=== PATIENT | female | born 1965 | race Caucasian/White ===

== ENCOUNTER 2019-12-01 18:33 | Inpatient (IN) | payer BC ==
[2019-12-01] MEDS ORDERED: Albuterol/Ipratropium 3.0-0.5 MG/3 ML Neb Soln NEB ONE (19:03)
[2019-12-01] MEDS ORDERED: methylPREDNISolone Sodium Succinate 125 MG/2 ML SDV IVPUSH ONE (19:05)
[2019-12-01] MEDS ORDERED: Diltiazem 50 MG/10 ML SDV IVPUSH STA (19:08)
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
[2019-12-01] MEDS ORDERED: Diltiazem 125 MG in Sodium Chloride 0.9% 100 ML IV SCH (19:15)
--- NOTE | 2019-12-01 20:46 | CR ---
Chest: Portable view of the chest was obtained. Comparison: Prior chest x-ray of 12/01/16. Heart appears to be slightly enlarged. Diffuse increased lung markings are seen believed to represent pulmonary vascular congestion with interstitial edema. Bony structures are grossly intact. Lungs are slightly hyperinflated suggesting emphysematous change. Possible small left-sided pleural effusion is seen. Impression: 1. Findings which are felt compatible with CHF with early interstitial edema. Small left-sided pleural effusion is noted. 2. Probable emphysematous change. Diagnostic code #3 This report was dictated in [place] Standard Time
[2019-12-01] MEDS ORDERED: Sodium Chloride 0.9% 10 ML Syringe FLUSH PRN (20:55)
[2019-12-01] MEDS ORDERED: Iopamidol 755 Mg/ML 100 ML Bottle IVPUSH ONE (20:55)
[2019-12-01] MEDS ORDERED: Sodium Chloride 0.9% 100 ML IV SCH (21:00)
[2019-12-01] MEDS ORDERED: Levofloxacin 750 MG Tab PO STA (22:04)
--- NOTE | 2019-12-01 23:03 | PCM.HP.2 ---
H&P History of Present Illness - General Date of Service: 12/01/19 - History of Present Illness Initial Comments - Free Text/Narative: 53-year-old female with long history of smoking and history of asthma and COPD presents to the emergency room with 10 days of worsening dyspnea. Patient is on 2-1/2 L of oxygen at home. She states she has had a productive cough of clear sputum but has not been wheezing. She states this started when she was at work and she felt like she had a "chemical burn" from some chemicals at work. She denies any fever, chills, night sweats, she does currently complain of being hot though. She denies any chest pain, palpitations, nausea or vomiting. She does have a history of paroxysmal atrial fibrillation. In the emergency room she was found to be in A. fib with RVR. She was placed on a diltiazem drip. In the emergency room she was found to be tachypneic and tachycardic with oxygen saturations in the low 80s on 5 L per nasal cannula she increased to 90%. Was given DuoNeb, Solu-Medrol 125 mg, and Levaquin. Preliminary reading CT of the chest showed: 1. No acute pulmonary embolism. 2. Consolidation involving the left perihilar region extending down into the inferior lingula and left lung base. 3. Additional diffuse interstitial infiltrates throughout both lungs - Related Data Allergies/Adverse Reactions: Allergies Allergy/AdvReac Type Severity Reaction Status Date / Time diphenhydramine HCl Allergy Severe Anaphylactic Verified 12/01/19 18:43 [From Benadryl] Shock Home Medications: Home Meds Albuterol Sulfate [Albuterol Sulfate Hfa] 2 puff INH Q4HR PRN 12/01/19 [History] Budesonide/Formoterol [Symbicort 160-4.5 MCG] 1 puff INH DAILY 12/01/19 [History ] Diltiazem [Dilacor XR] 240 mg PO DAILY 12/01/19 [History] Sertraline [Zoloft] 50 mg PO DAILY 12/01/19 [History] Simvastatin 10 mg PO BEDTIME 12/01/19 [History] hydroCHLOROthiazide [Hydrochlorothiazide] 25 mg PO DAILY 12/01/19 [History] Past Medical History Cardiovascular History: Reports: Afib, High Cholesterol, Hypertension Other Cardiovascular History: ON/OFF RACING HEART Respiratory History: Reports: Asthma, COPD, Sleep Apnea Gastrointestinal History: Reports: GERD Genitourinary History: Reports: Urinary Incontinence (stress incontinence) 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: Psychiatric History: Reports: Anxiety, Depression, OCD - Past Surgical History Female Surgical History: Reports: Section Musculoskeletal Surgical History: Reports: Other (See Below) Social & Family History - Family History Family Medical History: Noncontributory - Tobacco Use Smoking Status *Q: Light Tobacco Smoker Years of Tobacco use: 40 Packs/Tins Daily: 1 - Caffeine Use Caffeine Use: Reports: Coffee - Alcohol Use Days Per Week of Alcohol Use: 7 Number of Drinks Per Day: 2 Total Drinks Per Week: 14 - Recreational Drug Use Recreational Drug Use: No - Living Situation & Occupation Living situation: Reports: , with Spouse Occupation: Employed H&P Review of Systems - Review of Systems: Review Of Systems: Comprehensive ROS is negative, except as noted in HPI. Exam - Exam Exam: See Below - Vital Signs Vital Signs: Last Vital Signs Temp 97.7 F 12/01/19 18:38 Pulse 98 12/01/19 20:45 Resp 19 12/01/19 20:45 BP 127/91 H 12/01/19 20:45 Pulse Ox 93 L 12/01/19 20:53 Weight: 140 lb - Exam Quality Assessment: Supplemental Oxygen General: Alert, Oriented, 4 HEENT: Conjunctiva Clear, Hearing Intact, Mucosa Moist & [place] Neck: Supple, Trachea Midline, 2 Lungs: Decreased Breath Sounds (Tight), Wheezing. No: Normal Respiratory Effort (Tachypneic, increased use of accessory muscles) Cardiovascular: Irregular Rhythm, Tachycardia GI/Abdominal Exam: Normal Bowel Sounds, Soft, Non-Tender, No Organomegaly, No Distention, No Abnormal Bruit, No Mass Back Exam: Normal Inspection Extremities: Normal Inspection, Normal Range of Motion, Non-Tender, No Pedal Edema, Normal Capillary Refill Skin: Warm, Dry, Intact Neuro Extensive - Mental Status: Alert, Oriented x3, Normal Mood/Affect, Normal Cognition Neuro Extensive - Motor, Sensory, Reflexes: CN II-XII Intact Psychiatric: Alert, Anxious - Patient Data Lab Results Last 24 hrs: Laboratory Results - last 24 hr 12/01/19 12/01/19 12/01/19 Range/Units 18:43 18:43 18:43 WBC 6.75 (3.98-10.04) K/mm3 RBC 4.66 (3.98-5.22) M/mm3 Hgb 15.2 D (11.2-15.7) gm/dl Hct 46.5 H (34.1-44.9) % MCV 99.8 H (79.4-94.8) fl MCH 32.6 H (25.6-32.2) pg MCHC 32.7 (32.2-35.5) g/dl RDW Std Deviation 58.0 H (36.4-46.3) fL Plt Count 106 L (182-369) K/mm3 MPV 11.4 (9.4-12.3) fl Neutrophils % (Manual) 87 H (40-60) % Band Neutrophils % 4 (0-10) % Lymphocytes % (Manual) 6 L (20-40) % Atypical Lymphs % 0 % Monocytes % (Manual) 3 (2-10) % Eosinophils % (Manual) 0 L (0.7-5.8) % Basophils % (Manual) 0 L (0.1-1.2) Platelet Estimate Decreased Plt Morphology Comment See note Anisocytosis 1+ slight Macrocytosis 1+ slight RBC Morph Comment Not Reportable D-Dimer, Quantitative 0.71 H (0.19-0.50) mg/L Puncture Site ABG pH (7.35-7.45) ABG pCO2 (35.0-45.0) mmHg ABG pO2 (80.0-100.0) mmHg ABG HCO3 (22.0-26.0) meq/L ABG O2 Saturation (96.0-97.0) % ABG Base Excess (-2-2.0) Steve Test O2 Delivery Device Oxygen Flow Rate Sodium 129 L (136-145) mEq/L Potassium 3.9 (3.5-5.1) mEq/L Chloride 90 L (98-107) mEq/L Carbon Dioxide 33 H (21-32) mEq/L Anion Gap 9.9 (5-15) BUN 9 (7-18) mg/dL Creatinine 0.6 (0.55-1.02) mg/dL Est Cr Clr Drug Dosing 104.23 mL/min Estimated GFR (MDRD) > 60 (>60) mL/min BUN/Creatinine Ratio 15.0 (14-18) Glucose 124 H (74-106) mg/dL Lactic Acid (0.4-2.0) mmol/L Calcium 8.6 (8.5-10.1) mg/dL Total Bilirubin 0.4 (0.2-1.0) mg/dL AST 26 (15-37) U/L ALT 24 (14-59) U/L Alkaline Phosphatase 103 (46-116) U/L Troponin I < 0.017 (0.00-0.056) ng/mL NT-Pro-B Natriuret Pep (0-125) pg/mL Total Protein 6.9 (6.4-8.2) g/dl Albumin 3.0 L (3.4-5.0) g/dl Globulin 3.9 gm/dL Albumin/Globulin Ratio 0.8 L (1-2) 12/01/19 12/01/19 12/01/19 Range/Units 18:43 19:15 20:15 WBC (3.98-10.04) K/mm3 RBC (3.98-5.22) M/mm3 Hgb (11.2-15.7) gm/dl Hct (34.1-44.9) % MCV (79.4-94.8) fl MCH (25.6-32.2) pg MCHC (32.2-35.5) g/dl RDW Std Deviation (36.4-46.3) fL Plt Count (182-369) K/mm3 MPV (9.4-12.3) fl Neutrophils % (Manual) (40-60) % Band Neutrophils % (0-10) % Lymphocytes % (Manual) (20-40) % Atypical Lymphs % % Monocytes % (Manual) (2-10) % Eosinophils % (Manual) (0.7-5.8) % Basophils % (Manual) (0.1-1.2) Platelet Estimate Plt Morphology Comment Anisocytosis Macrocytosis RBC Morph Comment D-Dimer, Quantitative (0.19-0.50) mg/L Puncture Site Lt radial ABG pH 7.37 (7.35-7.45) ABG pCO2 59.6 H (35.0-45.0) mmHg ABG pO2 68.0 L (80.0-100.0) mmHg ABG HCO3 33.7 H (22.0-26.0) meq/L ABG O2 Saturation 93.9 L (96.0-97.0) % ABG Base Excess 6.8 H (-2-2.0) Steve Test Positive O2 Delivery Device Partial rbm Oxygen Flow Rate 12.0 Sodium (136-145) mEq/L Potassium (3.5-5.1) mEq/L Chloride (98-107) mEq/L Carbon Dioxide (21-32) mEq/L Anion Gap (5-15) BUN (7-18) mg/dL Creatinine (0.55-1.02) mg/dL Est Cr Clr Drug Dosing mL/min Estimated GFR (MDRD) (>60) mL/min BUN/Creatinine Ratio (14-18) Glucose (74-106) mg/dL Lactic Acid 0.9 (0.4-2.0) mmol/L Calcium (8.5-10.1) mg/dL Total Bilirubin (0.2-1.0) mg/dL AST (15-37) U/L ALT (14-59) U/L Alkaline Phosphatase (46-116) U/L Troponin I (0.00-0.056) ng/mL NT-Pro-B Natriuret Pep 864 H (0-125) pg/mL Total Protein (6.4-8.2) g/dl Albumin (3.4-5.0) g/dl Globulin gm/dL Albumin/Globulin Ratio (1-2) Result Diagrams: 12/02/19 05:20 12/01/19 18:43 EKG INTERPRETATION EKG Date: 12/01/19 Rhythm: A-Fib Rate (Beats/Min): 111 Jolo: RAD-Right Jolo Deviation QRS: Normal ST-T: Normal QT: Prolonged (Borderline) EKG Interpretation Comments: EKG on 03/20/2019 was in normal sinus rhythm Sepsis Event Note - Evaluation Sepsis Screening Result: Possible Sepsis Risk - Focused Exam Vital Signs: Vital Signs Temp Pulse Resp BP Pulse Ox Pulse Ox 12/01/19 20:53 93 L 12/01/19 20:45 98 19 127/91 H 96 12/01/19 19:30 93 L 12/01/19 18:38 97.7 F 105 H 25 H 118/84 82 L Date Exam was Performed: 02/17/20 Time Exam was Performed: 06:26 Problem List Initiated/Reviewed/Updated: Yes Orders Last 24hrs: Active Orders 24 hr Category Date Time Status EKG Documentation Completion [RC] STAT Care 12/01/19 19:00 Active RT Aerosol Therapy [RC] ASDIRECTED Care 12/01/19 19:03 Active Ang Chest [CT] Stat Exams 12/01/19 20:48 Taken CULTURE BLOOD [BC] Stat Lab 12/01/19 21:22 Received CULTURE BLOOD [BC] Stat Lab 12/01/19 21:22 Received Diltiazem 125 mg Med 12/01/19 19:15 Active Sodium Chloride 0.9% [Normal Saline] 100 ml IV TITRATE Sodium Chloride 0.9% [Normal Saline] 100 ml Med 12/01/19 21:00 Active IV ASDIRECTED Sodium Chloride 0.9% [Saline Flush] Med 12/01/19 20:55 Active 10 ml FLUSH ONETIME PRN Blood Culture x2 Reflex Set [OM.PC] Stat Oth 12/01/19 20:45 Ordered Medication Orders Diltiazem HCl 125 mg/ Sodium (Chloride) 125 mls @ 5 mls/hr IV TITRATE JAY JAY; Protocol Last Admin: 12/01/19 19:33 Dose: 5 mg/hr, 5 mls/hr Sodium Chloride (Normal Saline) 100 mls @ 80 mls/hr IV ASDIRECTED JAY JAY Last Admin: 12/01/19 21:09 Dose: 80 mls/hr Sodium Chloride (Saline Flush) 10 ml FLUSH ONETIME PRN PRN Reason: KEEP VEIN OPEN Last Admin: 12/01/19 21:09 Dose: 10 ml Assessment/Plan Comment:: Assessment * Community-acquired pneumonia * CT of the chest confirmed * Hypoxemic * Interstitial infiltrate throughout both lungs * Respiratory failure * ABG: pH 7.37, PCO2 59.6, PO2 68.0, HCO3 33.7, O2 saturation 93.9% on 12 L * Tachypneic with increased work of breathing * Patient is working very hard to breathe. It is concerning that she may fatigue and require intubation. * COPD/asthma exacerbation * Smoker * A. fib with RVR * On diltiazem drip * On Cardizem CD 240 mg daily * Anxiety/depression * On Zoloft * Daily ETOH of 3 glasses of wine Plan * Admit to ICU * Diltiazem drip to keep heart rate less than 100 * BiPAP 09/20 to help work of breathing. * DuoNeb every 6 hours, albuterol every 2 hours as needed * IV steroids * Continue Levaquin * Nicotine patch * Continue home meds * Watch for ETOH withdrawal symptoms * Smoking cessation counseling * VTE prophylaxis: Lovenox * CODE STATUS: Full code * Anticipated length of stay 3 to 4 days - Mortality Measure Prognosis:: Poor
[2019-12-01] MEDS ORDERED: Acetaminophen 325 MG Tab PO PRN (23:13)
[2019-12-02] MEDS ORDERED: Nicotine 21 MG/24 Hr Patch TRDERM SCH
[2019-12-02] MEDS ORDERED: Dextrose 5%-0.45% NaCl 1,000 ML IV SCH (00:30)
[2019-12-02] MEDS: Sodium Chloride 0.9% 1,000 ML IV SCH ×2 (00:48→13:30)
[2019-12-02] MEDS: Nicotine 21 MG/24 Hr Patch TRDERM SCH (00:50)
[2019-12-02] MEDS: methylPREDNISolone Sodium Succinate 40 MG/1 ML SDV IVPUSH SCH ×4 (01:04→20:09)
[2019-12-02] MEDS: Albuterol/Ipratropium 3.0-0.5 MG/3 ML Neb Soln NEB SCH ×4 (02:38→20:25)
[2019-12-02] MEDS: Morphine 2 MG/ML SYRINGE IVPUSH PRN ×2 (05:28→15:12)
[2019-12-02] MEDS: Acetylcysteine 20% 200 MG/ML 4 ML Nebulizer Soln SDV NEB SCH ×4 (06:10→22:08)
[2019-12-02] MEDS: Albuterol 0.083% 2.5 MG/3 ML Neb Soln NEB PRN ×2 (06:10→07:35)
[2019-12-02] MEDS ORDERED: Budesonide 0.5 MG/2 ML Neb Susp NEB ONE (06:15)
--- NOTE | 2019-12-02 07:22 | CT ---
CT chest Technique: Multiple axial sections through the chest were obtained. Intravenous contrast was utilized. Study has been performed as a pulmonary angiogram protocol. Comparison: No prior chest CT, previous chest x-ray of 12/01/19. Findings: Pulmonary arteries are well opacified. No filling defects are seen to indicate pulmonary embolism. Atherosclerotic change is noted within the thoracic aorta and within the branch vessels. No aneurysm is seen. Mild areas of adenopathy are noted within both hilar regions and within the mediastinum. Small left-sided pleural effusion is seen. Very minimal right-sided pleural effusion is noted. Diffuse interstitial change is seen. More consolidation is seen within the left lung base and uncertain how much of this is chronic versus superimposed pneumonia. Bone window settings were reviewed. Several left-sided rib fractures are noted which appear healed. Mild degenerative change is noted within the spine. No acute osseous finding is seen. Impression: 1. No findings of pulmonary embolism. 2. Diffuse increased interstitial change. Differential includes diffuse interstitial pneumonia which is most likely viral versus diffuse bronchitis, pulmonary vascular congestion is also possible. Difficult to exclude left basilar pneumonia. 3. Mild hilar and mediastinal adenopathy most likely reactive from the lung process. 4. Other findings believed to be nonacute and incidental. Diagnostic code #3 This report was dictated in [place] Standard Time I agree with preliminary report from [facility], finalized on 12/01/19, 10:54 PM Central Time
[2019-12-02] MEDS ORDERED: Furosemide 40 MG/4 ML VIAL IVPUSH ONE (08:18)
[2019-12-02] MEDS: Enoxaparin 40 MG/0.4 ML Syringe SUBCUT SCH ×2 (08:39→09:44)
[2019-12-02] MEDS: Diltiazem 240 MG Cap.ER PO SCH (08:40)
[2019-12-02] MEDS: Sertraline 50 MG Tab PO SCH (08:40)
--- NOTE | 2019-12-02 10:28 | CR ---
Chest: Portable view of the chest was obtained. Comparison: Prior chest x-ray of 12/01/19. Increasing lung markings from prior study. Findings are slightly more confluent within the left lung base. Diaphragms are flattened compatible with emphysematous change. Small left-sided pleural effusion is noted. Impression: 1. Increasing lung markings from recent chest x-ray. Findings may represent diffuse increasing bronchitis and left lower lobe pneumonia with small parapneumonic effusion. Differential also includes pulmonary vascular congestion with interstitial edema. Heart does not appear enlarged and please correlate if there is any acute cardiac event as the etiology or other noncardiac etiologies. Diagnostic code #3 This report was dictated in [place] Standard Time
--- NOTE | 2019-12-02 18:11 | PCM.PN ---
- General Info Date of Service: 12/02/19 Subjective Update: Patient has tolerated BiPAP most of the day. Oxygen saturations have continued to stay in the upper 80s to low 90s by design. Arterial blood gas at 530 this morning showed increasing PCO2 of 70.7, but with increase in IPAP and EPAP and decrease of FiO2 her PCO2 decreased to 65.8. After discussing with her her condition over the last few weeks it appears that she was at least in the 70s pulse ox for a week and was around 63 prior to coming in the day of admission. She is reportedly on 3 L of O2 via nasal cannula, but does not wear it at work. 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 This makes it likely that she is chronically hypercapnic and increasing her SPO2 to much will decrease respiratory drive. We decided to put in a Ochoa catheter because she would desat into the 70s when she tried to get out of bed and allowed for critical I's and O's after giving her Lasix and keeping her on IV fluids. - Review of Systems General: Reports: Fatigue HEENT: Reports: No Symptoms Pulmonary: Reports: Shortness of Breath, Cough Cardiovascular: Reports: No Symptoms Gastrointestinal: Reports: No Symptoms Musculoskeletal: Reports: No Symptoms Psychiatric: Reports: No Symptoms - Patient Data Vitals - Most Recent: Last Vital Signs Temp 99.0 F 12/02/19 16:00 Pulse 89 12/02/19 16:00 Resp 16 12/02/19 16:00 BP 103/66 12/02/19 16:00 Pulse Ox 90 L 12/02/19 16:00 Weight - Most Recent: 140 lb I&O - Last 24 Hours: Intake & Output 12/02/19 12/02/19 12/02/19 06:59 14:59 22:59 Intake Total 324 1574 Output Total 300 940 175 Balance 24 -940 1399 Lab Results Last 24 Hours: Laboratory Results - last 24 hr 12/01/19 12/01/19 12/01/19 Range/Units 18:43 18:43 18:43 WBC 6.75 (3.98-10.04) K/mm3 RBC 4.66 (3.98-5.22) M/mm3 Hgb 15.2 D (11.2-15.7) gm/dl Hct 46.5 H (34.1-44.9) % MCV 99.8 H (79.4-94.8) fl MCH 32.6 H (25.6-32.2) pg MCHC 32.7 (32.2-35.5) g/dl RDW Std Deviation 58.0 H (36.4-46.3) fL Plt Count 106 L (182-369) K/mm3 MPV 11.4 (9.4-12.3) fl Neut % (Auto) (34.0-71.1) % Lymph % (Auto) (19.3-51.7) % Rice % (Auto) (4.7-12.5) % Eos % (Auto) (0.7-5.8) Baso % (Auto) (0.1-1.2) % Neut # (Auto) (1.56-6.13) K/mm3 Lymph # (Auto) (1.18-3.74) K/mm3 Rice # (Auto) (0.24-0.36) K/mm3 Eos # (Auto) (0.04-0.36) K/mm3 Baso # (Auto) (0.01-0.08) K/mm3 Neutrophils % (Manual) 87 H (40-60) % Band Neutrophils % 4 (0-10) % Lymphocytes % (Manual) 6 L (20-40) % Atypical Lymphs % 0 % Monocytes % (Manual) 3 (2-10) % Eosinophils % (Manual) 0 L (0.7-5.8) % Basophils % (Manual) 0 L (0.1-1.2) Manual Slide Review Platelet Estimate Decreased Plt Morphology Comment See note Anisocytosis 1+ slight Macrocytosis 1+ slight RBC Morph Comment Not Reportable D-Dimer, Quantitative 0.71 H (0.19-0.50) mg/L Puncture Site ABG pH (7.35-7.45) ABG pCO2 (35.0-45.0) mmHg ABG pO2 (80.0-100.0) mmHg ABG HCO3 (22.0-26.0) meq/L ABG O2 Saturation (96.0-97.0) % ABG Base Excess (-2-2.0) Steve Test A-a Gradient mmHg O2 Delivery Device Oxygen Flow Rate FiO2 (21.00-100.00) % PEEP cmH20 Pressure Support cmH2O Blood Gas Comments Sodium 129 L (136-145) mEq/L Potassium 3.9 (3.5-5.1) mEq/L Chloride 90 L (98-107) mEq/L Carbon Dioxide 33 H (21-32) mEq/L Anion Gap 9.9 (5-15) BUN 9 (7-18) mg/dL Creatinine 0.6 (0.55-1.02) mg/dL Est Cr Clr Drug Dosing 104.23 mL/min Estimated GFR (MDRD) > 60 (>60) mL/min BUN/Creatinine Ratio 15.0 (14-18) Glucose 124 H (74-106) mg/dL Lactic Acid (0.4-2.0) mmol/L Calcium 8.6 (8.5-10.1) mg/dL Magnesium (1.8-2.4) mg/dl Total Bilirubin 0.4 (0.2-1.0) mg/dL AST 26 (15-37) U/L ALT 24 (14-59) U/L Alkaline Phosphatase 103 (46-116) U/L Troponin I < 0.017 (0.00-0.056) ng/mL C-Reactive Protein (<1.0) mg/dL NT-Pro-B Natriuret Pep (0-125) pg/mL Total Protein 6.9 (6.4-8.2) g/dl Albumin 3.0 L (3.4-5.0) g/dl Globulin 3.9 gm/dL Albumin/Globulin Ratio 0.8 L (1-2) 12/01/19 12/01/19 12/01/19 Range/Units 18:43 19:15 20:15 WBC (3.98-10.04) K/mm3 RBC (3.98-5.22) M/mm3 Hgb (11.2-15.7) gm/dl Hct (34.1-44.9) % MCV (79.4-94.8) fl MCH (25.6-32.2) pg MCHC (32.2-35.5) g/dl RDW Std Deviation (36.4-46.3) fL Plt Count (182-369) K/mm3 MPV (9.4-12.3) fl Neut % (Auto) (34.0-71.1) % Lymph % (Auto) (19.3-51.7) % Rice % (Auto) (4.7-12.5) % Eos % (Auto) (0.7-5.8) Baso % (Auto) (0.1-1.2) % Neut # (Auto) (1.56-6.13) K/mm3 Lymph # (Auto) (1.18-3.74) K/mm3 Rice # (Auto) (0.24-0.36) K/mm3 Eos # (Auto) (0.04-0.36) K/mm3 Baso # (Auto) (0.01-0.08) K/mm3 Neutrophils % (Manual) (40-60) % Band Neutrophils % (0-10) % Lymphocytes % (Manual) (20-40) % Atypical Lymphs % % Monocytes % (Manual) (2-10) % Eosinophils % (Manual) (0.7-5.8) % Basophils % (Manual) (0.1-1.2) Manual Slide Review Platelet Estimate Plt Morphology Comment Anisocytosis Macrocytosis RBC Morph Comment D-Dimer, Quantitative (0.19-0.50) mg/L Puncture Site Lt radial ABG pH 7.37 (7.35-7.45) ABG pCO2 59.6 H (35.0-45.0) mmHg ABG pO2 68.0 L (80.0-100.0) mmHg ABG HCO3 33.7 H (22.0-26.0) meq/L ABG O2 Saturation 93.9 L (96.0-97.0) % ABG Base Excess 6.8 H (-2-2.0) Steve Test Positive A-a Gradient mmHg O2 Delivery Device Partial rbm Oxygen Flow Rate 12.0 FiO2 (21.00-100.00) % PEEP cmH20 Pressure Support cmH2O Blood Gas Comments Sodium (136-145) mEq/L Potassium (3.5-5.1) mEq/L Chloride (98-107) mEq/L Carbon Dioxide (21-32) mEq/L Anion Gap (5-15) BUN (7-18) mg/dL Creatinine (0.55-1.02) mg/dL Est Cr Clr Drug Dosing mL/min Estimated GFR (MDRD) (>60) mL/min BUN/Creatinine Ratio (14-18) Glucose (74-106) mg/dL Lactic Acid 0.9 (0.4-2.0) mmol/L Calcium (8.5-10.1) mg/dL Magnesium (1.8-2.4) mg/dl Total Bilirubin (0.2-1.0) mg/dL AST (15-37) U/L ALT (14-59) U/L Alkaline Phosphatase (46-116) U/L Troponin I (0.00-0.056) ng/mL C-Reactive Protein (<1.0) mg/dL NT-Pro-B Natriuret Pep 864 H (0-125) pg/mL Total Protein (6.4-8.2) g/dl Albumin (3.4-5.0) g/dl Globulin gm/dL Albumin/Globulin Ratio (1-2) 12/02/19 12/02/19 12/02/19 Range/Units 00:01 05:20 05:20 WBC 5.33 (3.98-10.04) K/mm3 RBC 4.46 (3.98-5.22) M/mm3 Hgb 14.6 (11.2-15.7) gm/dl Hct 44.7 (34.1-44.9) % MCV 100.2 H (79.4-94.8) fl MCH 32.7 H (25.6-32.2) pg MCHC 32.7 (32.2-35.5) g/dl RDW Std Deviation 56.3 H (36.4-46.3) fL Plt Count 93 L (182-369) K/mm3 MPV 11.0 (9.4-12.3) fl Neut % (Auto) 95.3 H (34.0-71.1) % Lymph % (Auto) 2.6 L (19.3-51.7) % Rice % (Auto) 1.9 L (4.7-12.5) % Eos % (Auto) 0 L (0.7-5.8) Baso % (Auto) 0.2 (0.1-1.2) % Neut # (Auto) 5.08 (1.56-6.13) K/mm3 Lymph # (Auto) 0.14 L (1.18-3.74) K/mm3 Rice # (Auto) 0.10 L (0.24-0.36) K/mm3 Eos # (Auto) 0.00 L (0.04-0.36) K/mm3 Baso # (Auto) 0.01 (0.01-0.08) K/mm3 Neutrophils % (Manual) (40-60) % Band Neutrophils % (0-10) % Lymphocytes % (Manual) (20-40) % Atypical Lymphs % % Monocytes % (Manual) (2-10) % Eosinophils % (Manual) (0.7-5.8) % Basophils % (Manual) (0.1-1.2) Manual Slide Review Abnormal smear Platelet Estimate Plt Morphology Comment Anisocytosis Macrocytosis RBC Morph Comment D-Dimer, Quantitative (0.19-0.50) mg/L Puncture Site Lt radial ABG pH 7.38 (7.35-7.45) ABG pCO2 62.1 H (35.0-45.0) mmHg ABG pO2 67.0 L (80.0-100.0) mmHg ABG HCO3 35.7 H (22.0-26.0) meq/L ABG O2 Saturation 92.5 L (96.0-97.0) % ABG Base Excess 8.3 H (-2-2.0) Steve Test Positive A-a Gradient 213 mmHg O2 Delivery Device Bipap Oxygen Flow Rate FiO2 50.00 (21.00-100.00) % PEEP cmH20 Pressure Support cmH2O Blood Gas Comments 12/6 bipap Sodium 135 L (136-145) mEq/L Potassium 4.1 (3.5-5.1) mEq/L Chloride 96 L (98-107) mEq/L Carbon Dioxide 35 H (21-32) mEq/L Anion Gap 8.1 (5-15) BUN 7 (7-18) mg/dL Creatinine 0.4 L (0.55-1.02) mg/dL Est Cr Clr Drug Dosing 156.35 mL/min Estimated GFR (MDRD) > 60 (>60) mL/min BUN/Creatinine Ratio 17.5 (14-18) Glucose 146 H (74-106) mg/dL Lactic Acid (0.4-2.0) mmol/L Calcium 8.5 (8.5-10.1) mg/dL Magnesium 2.0 (1.8-2.4) mg/dl Total Bilirubin 0.2 (0.2-1.0) mg/dL AST 23 (15-37) U/L ALT 18 (14-59) U/L Alkaline Phosphatase 83 (46-116) U/L Troponin I (0.00-0.056) ng/mL C-Reactive Protein 20.4 H* (<1.0) mg/dL NT-Pro-B Natriuret Pep (0-125) pg/mL Total Protein 6.0 L (6.4-8.2) g/dl Albumin 2.4 L (3.4-5.0) g/dl Globulin 3.6 gm/dL Albumin/Globulin Ratio 0.7 L (1-2) 12/02/19 12/02/19 Range/Units 05:30 10:44 WBC (3.98-10.04) K/mm3 RBC (3.98-5.22) M/mm3 Hgb (11.2-15.7) gm/dl Hct (34.1-44.9) % MCV (79.4-94.8) fl MCH (25.6-32.2) pg MCHC (32.2-35.5) g/dl RDW Std Deviation (36.4-46.3) fL Plt Count (182-369) K/mm3 MPV (9.4-12.3) fl Neut % (Auto) (34.0-71.1) % Lymph % (Auto) (19.3-51.7) % Rice % (Auto) (4.7-12.5) % Eos % (Auto) (0.7-5.8) Baso % (Auto) (0.1-1.2) % Neut # (Auto) (1.56-6.13) K/mm3 Lymph # (Auto) (1.18-3.74) K/mm3 Rice # (Auto) (0.24-0.36) K/mm3 Eos # (Auto) (0.04-0.36) K/mm3 Baso # (Auto) (0.01-0.08) K/mm3 Neutrophils % (Manual) (40-60) % Band Neutrophils % (0-10) % Lymphocytes % (Manual) (20-40) % Atypical Lymphs % % Monocytes % (Manual) (2-10) % Eosinophils % (Manual) (0.7-5.8) % Basophils % (Manual) (0.1-1.2) Manual Slide Review Platelet Estimate Plt Morphology Comment Anisocytosis Macrocytosis RBC Morph Comment D-Dimer, Quantitative (0.19-0.50) mg/L Puncture Site Lt radial Lt radial ABG pH 7.33 L 7.36 (7.35-7.45) ABG pCO2 70.7 H* 65.8 H (35.0-45.0) mmHg ABG pO2 66.0 L 57.0 L (80.0-100.0) mmHg ABG HCO3 36.0 H 36.0 H (22.0-26.0) meq/L ABG O2 Saturation 91.8 L 87.9 L (96.0-97.0) % ABG Base Excess 7.4 H 8.1 H (-2-2.0) Steve Test Positive Positive A-a Gradient 203 147 mmHg O2 Delivery Device Bipap Bipap Oxygen Flow Rate FiO2 50.00 0.00 L (21.00-100.00) % PEEP 8.0 cmH20 Pressure Support 15.0 cmH2O Blood Gas Comments Bipap 14/7 Sodium (136-145) mEq/L Potassium (3.5-5.1) mEq/L Chloride (98-107) mEq/L Carbon Dioxide (21-32) mEq/L Anion Gap (5-15) BUN (7-18) mg/dL Creatinine (0.55-1.02) mg/dL Est Cr Clr Drug Dosing mL/min Estimated GFR (MDRD) (>60) mL/min BUN/Creatinine Ratio (14-18) Glucose (74-106) mg/dL Lactic Acid (0.4-2.0) mmol/L Calcium (8.5-10.1) mg/dL Magnesium (1.8-2.4) mg/dl Total Bilirubin (0.2-1.0) mg/dL AST (15-37) U/L ALT (14-59) U/L Alkaline Phosphatase (46-116) U/L Troponin I (0.00-0.056) ng/mL C-Reactive Protein (<1.0) mg/dL NT-Pro-B Natriuret Pep (0-125) pg/mL Total Protein (6.4-8.2) g/dl Albumin (3.4-5.0) g/dl Globulin gm/dL Albumin/Globulin Ratio (1-2) Nicola Results Last 24 Hours: Microbiology 12/01/19 05:19 Gram Stain - Final Sputum - Expectorated Sputum Culture - Final Med Orders - Current: Current Medications Acetaminophen (Tylenol) 650 mg PO Q4H PRN PRN Reason: Pain (Mild 1-3)/fever Acetylcysteine (Mucomyst 20%) 800 mg NEB QIDRT COUNT INCLUDES THE [facility] Last Admin: 12/02/19 15:01 Dose: 800 mg Albuterol (Proventil Neb Soln) 2.5 mg NEB Q2H PRN PRN Reason: Shortness Of Breath/wheezing Last Admin: 12/02/19 07:35 Dose: 2.5 mg Albuterol/Ipratropium (Duoneb 3.0-0.5 Mg/3 Ml) 3 ml NEB Q6HRRT COUNT INCLUDES THE [facility] Last Admin: 12/02/19 14:38 Dose: 3 ml Budesonide (Pulmicort) 0.5 mg NEB BIDRT COUNT INCLUDES THE [facility] Diltiazem HCl (Dilacor Xr) 240 mg PO DAILY COUNT INCLUDES THE [facility] Last Admin: 12/02/19 08:40 Dose: 240 mg Levofloxacin/Dextrose 750 mg/ (Premix) 150 mls @ 100 mls/hr IV Q24H COUNT INCLUDES THE [facility] Sodium Chloride (Normal Saline) 1,000 mls @ 75 mls/hr IV ASDIRECTED COUNT INCLUDES THE [facility] Last Admin: 12/02/19 13:30 Dose: 75 mls/hr Lorazepam (Ativan) 1 mg IVPUSH Q4H PRN PRN Reason: Anxiety Methylprednisolone Sodium Succinate (Solu-Medrol) 60 mg IVPUSH Q6H COUNT INCLUDES THE [facility] Last Admin: 12/02/19 13:28 Dose: 60 mg Miscellaneous Information (Remove Patch) 1 ea TRDERM DAILY COUNT INCLUDES THE [facility] Last Admin: 12/02/19 09:18 Dose: Not Given Morphine Sulfate (Morphine) 2 mg IVPUSH Q2H PRN PRN Reason: Shortness of Breath Last Admin: 12/02/19 15:12 Dose: 2 mg Nicotine (Habitrol) 21 mg TRDERM DAILY COUNT INCLUDES THE [facility] Last Admin: 12/02/19 00:50 Dose: Not Given Sertraline HCl (Zoloft) 50 mg PO DAILY COUNT INCLUDES THE [facility] Last Admin: 12/02/19 08:40 Dose: 50 mg Simvastatin (Zocor) 10 mg PO BEDTIME JAY JAY Sodium Chloride (Saline Flush) 10 ml FLUSH ONETIME PRN PRN Reason: KEEP VEIN OPEN Last Admin: 12/01/19 21:09 Dose: 10 ml Discontinued Medications Albuterol/Ipratropium (Duoneb 3.0-0.5 Mg/3 Ml) 3 ml NEB ONETIME ONE Stop: 12/01/19 19:04 Last Admin: 12/01/19 19:27 Dose: 3 ml Budesonide (Pulmicort) 0.5 mg NEB ONETIME ONE Stop: 12/02/19 06:16 Last Admin: 12/02/19 06:10 Dose: 0.5 mg Diltiazem HCl (Cardizem) 5 mg IVPUSH ONETIME STA Stop: 12/01/19 19:09 Last Admin: 12/01/19 19:40 Dose: 5 mg Enoxaparin Sodium (Lovenox) 40 mg SUBCUT DAILY JAY JAY Last Admin: 12/02/19 09:44 Dose: Not Given Furosemide (Lasix) 20 mg IVPUSH NOW ONE Stop: 12/02/19 08:19 Last Admin: 12/02/19 09:15 Dose: 20 mg Diltiazem HCl 125 mg/ Sodium (Chloride) 125 mls @ 5 mls/hr IV TITRATE JAY JAY; Protocol Last Titration: 12/02/19 10:05 Dose: 0 mg/hr, 0 mls/hr Sodium Chloride (Normal Saline) 100 mls @ 80 mls/hr IV ASDIRECTED JAY JAY Last Admin: 12/01/19 21:09 Dose: 80 mls/hr Dextrose/Sodium Chloride (Dextrose 5%-1/2 Ns) 1,000 mls @ 75 mls/hr IV ASDIRECTED JAY JAY Iopamidol (Isovue-370 (76%)) 100 ml IVPUSH ONETIME ONE Stop: 12/01/19 20:56 Last Admin: 12/01/19 21:09 Dose: 100 ml Levofloxacin (Levaquin) 750 mg PO ONETIME STA Stop: 12/01/19 22:05 Last Admin: 12/01/19 22:31 Dose: 750 mg Methylprednisolone Sodium Succinate (Solu-Medrol) 125 mg IVPUSH ONETIME ONE Stop: 12/01/19 19:06 Last Admin: 12/01/19 19:39 Dose: 125 mg Nicotine (Habitrol) 21 mg TRDERM DAILY JAY JAY Last Admin: 12/02/19 05:30 Dose: Not Given - Exam Quality Assessment: Supplemental Oxygen (BiPAP), Urine Catheter General: Alert, Oriented HEENT: Pupils Equal, Mucous Membr. Moist/[place] Neck: Supple Lungs: Decreased Breath Sounds, Rhonchi, Wheezing. No: Clear to Auscultation, Normal Respiratory Effort Cardiovascular: Regular Rate, Regular Rhythm GI/Abdominal Exam: Normal Bowel Sounds, Soft, Non-Tender, No Distention, Pelvis Stable Back Exam: Normal Inspection Extremities: Normal Inspection, Normal Range of Motion, Non-Tender, No Pedal Edema, Normal Capillary Refill Skin: Warm, Dry, Intact Psy/Mental Status: Alert, Normal Affect, Normal Mood Sepsis Event Note - Evaluation Sepsis Screening Result: No Definite Risk - Focused Exam Vital Signs: Vital Signs Temp Pulse Pulse Resp BP Pulse Ox Pulse Ox 12/02/19 16:00 99.0 F 89 16 103/66 90 L 12/02/19 14:50 90 L 12/02/19 14:40 93 L 12/02/19 13:44 99.4 F 87 16 116/65 92 L 12/02/19 12:21 12/02/19 12:00 99.0 F 90 16 109/65 88 L 12/02/19 11:06 99.1 F 91 88 14 110/81 91 L 12/02/19 08:56 97.6 F 98 16 115/76 91 L 12/02/19 08:46 95 12/02/19 08:00 97.8 F 91 89 14 109/89 94 L 12/02/19 07:40 92 L 12/02/19 07:37 92 L 12/02/19 06:12 90 L Pulse Ox 12/02/19 16:00 12/02/19 14:50 12/02/19 14:40 12/02/19 13:44 12/02/19 12:21 87 L 12/02/19 12:00 12/02/19 11:06 12/02/19 08:56 12/02/19 08:46 12/02/19 08:00 12/02/19 07:40 12/02/19 07:37 12/02/19 06:12 Date Exam was Performed: 12/02/19 Time Exam was Performed: 18:06 - Problem List Review Problem List Initiated/Reviewed/Updated: Yes - My Orders Last 24 Hours: My Active Orders 12/01/19 23:13 Up With Assistance [RC] ASDIRECTED Vital Signs [RC] Q4HR Acetaminophen [Tylenol] 650 mg PO Q4H PRN Albuterol [Proventil Neb Soln] 2.5 mg NEB Q2H PRN Resuscitation Status Routine 12/01/19 23:14 Oxygen Therapy [RC] PRN VTE/DVT Education [RC] 12/01/19 23:15 Respiratory Care Assess and Treatment [CONS] Routine 12/01/19 23:30 LORazepam [Ativan] 1 mg IVPUSH Q4H PRN 12/01/19 23:41 LEGIONELLA ANTIGEN [MREF] Routine 12/02/19 00:05 Morphine 2 mg IVPUSH Q2H PRN 12/02/19 00:15 Nicotine [Habitrol] 21 mg TRDERM DAILY 12/02/19 00:45 Sodium Chloride 0.9% [Normal Saline] 1,000 ml IV ASDIRECTED 12/02/19 00:52 RESPIRATORY PANEL Routine 12/02/19 01:42 STREP PNEUMONIAE ANTIGEN [MREF] Routine 12/02/19 02:00 methylPREDNISolone Sod Succ [Solu-MEDROL] 60 mg IVPUSH Q6H 12/02/19 03:00 Albuterol/Ipratropium [DuoNeb 3.0-0.5 MG/3 ML] 3 ml NEB Q6HRRT 12/02/19 06:00 Acetylcysteine [Mucomyst 20%] 800 mg NEB QIDRT 12/02/19 06:49 Antiembolic Devices [RC] PER UNIT ROUTINE SCD [Sequential Compression Device] [OM.PC] Routine 12/02/19 08:20 Urinary Catheter Assessment [RC] ASDIRECTED 12/02/19 08:30 Insert Ochoa Catheter [Insert Urinary Catheter] [OM.PC] Q24H 12/02/19 09:00 Diltiazem [Dilacor XR] 240 mg PO DAILY Remove Patch 1 ea TRDERM DAILY Sertraline [Zoloft] 50 mg PO DAILY 12/02/19 21:00 Budesonide [Pulmicort] 0.5 mg NEB BIDRT Simvastatin [Zocor] 10 mg PO BEDTIME 12/02/19 22:00 Levofloxacin/Dextrose 5%-Water [Levaquin in D5W 750 MG/150 ML] 750 mg Premix Bag 1 bag IV Q24H 12/02/19 Breakfast Regular Diet [DIET] 12/03/19 05:11 C-REACTIVE PROTEIN [CHEM] AM CBC WITH AUTO DIFF [HEME] AM COMPREHENSIVE METABOLIC PN,CMP [CHEM] AM MAGNESIUM [CHEM] AM - Plan Plan:: Assessment * Community-acquired pneumonia * CT of the chest confirmed * Hypoxemic * Interstitial infiltrate throughout both lungs -diffuse interstitial pneumonia which is most likely viral versus diffuse bronchitis, pulmonary vascular congestion is also possible. * Respiratory failure * Most recent ABG: pH 7.36, PCO2 65.8, PO2 57.0, HCO3 36, oxygen saturation of 88% * Tachypneic with increased work of breathing * Patient is working very hard to breathe. It is concerning that she may fatigue and require intubation. * COPD/asthma exacerbation * Smoker * A. fib with RVR -resolved * diltiazem drip stopped * Restart Cardizem CD 240 mg daily * Anxiety/depression * On Zoloft * Daily ETOH of 3 glasses of wine Plan * Admit to ICU * BiPAP 30/05 * DuoNeb every 6 hours, albuterol every 2 hours as needed * IV steroids * Continue Levaquin * Lasix 20 mg IV twice daily x2 * Nicotine patch * Continue home meds * Watch for ETOH withdrawal symptoms * Smoking cessation counseling * Goal will be to keep SPO2 between 88 and 90%. Patient is chronically hypoxemic and if we increase that too much she will decrease her respiratory drive. * VTE prophylaxis: Lovenox * CODE STATUS: Full code * Anticipated length of stay 3 to 4 days
[2019-12-02] MEDS: Simvastatin 20 MG Tab PO SCH (20:09)
[2019-12-02] MEDS: Budesonide 0.5 MG/2 ML Neb Susp NEB SCH (20:25)
[2019-12-02 21:42] LABS: BORDETELLA PARAPERT IS1001 Not Detected (Not Detected)
[2019-12-02] MEDS: Levofloxacin/Dextrose 5%-Water 750 MG in Premix Bag 1 BAG IV SCH (23:01)
[2019-12-03] MEDS: Albuterol 0.083% 2.5 MG/3 ML Neb Soln NEB PRN (00:46)
[2019-12-03] MEDS: methylPREDNISolone Sodium Succinate 40 MG/1 ML SDV IVPUSH SCH ×4 (02:49→20:50)
[2019-12-03] MEDS: Sodium Chloride 0.9% 1,000 ML IV SCH ×2 (03:14→17:28)
[2019-12-03] MEDS: Albuterol/Ipratropium 3.0-0.5 MG/3 ML Neb Soln NEB SCH ×4 (03:17→21:09)
[2019-12-03] MEDS: Acetylcysteine 20% 200 MG/ML 4 ML Nebulizer Soln SDV NEB SCH ×5 (06:28→21:09)
[2019-12-03] MEDS: Budesonide 0.5 MG/2 ML Neb Susp NEB SCH ×2 (06:28→21:08)
[2019-12-03] MEDS: Diltiazem 240 MG Cap.ER PO SCH (08:23)
[2019-12-03] MEDS: Sertraline 50 MG Tab PO SCH (08:24)
[2019-12-03] MEDS: Nicotine 21 MG/24 Hr Patch TRDERM SCH (09:27)
--- NOTE | 2019-12-03 17:00 | PCM.PN ---
- General Info Date of Service: 12/03/19 Subjective Update: Patient has tolerated BiPAP overnight and did use a nasal cannula for much of today. Oxygen saturations have continued to stay in the upper 80s to low 90s by design. Her appetite has been good and she is generally feeling better. She states she is able to cough up some sputum but is still having difficulty getting enough strength to have a productive cough. Functional Status: Reports: Pain Controlled - Review of Systems General: Reports: Fatigue. Denies: Fever HEENT: Reports: Sore Throat Pulmonary: Reports: Shortness of Breath, Cough, Sputum Cardiovascular: Denies: Chest Pain, Palpitations Gastrointestinal: Reports: No Symptoms Musculoskeletal: Reports: No Symptoms - Patient Data Vitals - Most Recent: Last Vital Signs Temp 97.9 F 12/03/19 12:00 Pulse 90 12/03/19 09:00 Resp 23 H 12/03/19 12:00 BP 97/74 12/03/19 09:00 Pulse Ox 90 L 12/03/19 15:38 Weight - Most Recent: 165 lb I&O - Last 24 Hours: Intake & Output 12/03/19 12/03/19 12/03/19 06:59 14:59 22:59 Intake Total 150 Output Total 790 665 Balance -640 -665 Lab Results Last 24 Hours: Laboratory Results - last 24 hr 12/02/19 12/02/19 12/03/19 Range/Units 00:52 21:35 05:05 WBC 6.60 (3.98-10.04) K/mm3 RBC 4.64 (3.98-5.22) M/mm3 Hgb 14.6 (11.2-15.7) gm/dl Hct 47.5 H (34.1-44.9) % MCV 102.4 H (79.4-94.8) fl MCH 31.5 (25.6-32.2) pg MCHC 30.7 L (32.2-35.5) g/dl RDW Std Deviation 58.9 H (36.4-46.3) fL Plt Count 112 L (182-369) K/mm3 MPV 11.1 (9.4-12.3) fl Neut % (Auto) 91.6 H (34.0-71.1) % Lymph % (Auto) 3.5 L (19.3-51.7) % [place] % (Auto) 3.9 L (4.7-12.5) % Eos % (Auto) 0.3 L (0.7-5.8) Baso % (Auto) 0.2 (0.1-1.2) % Neut # (Auto) 6.05 (1.56-6.13) K/mm3 Lymph # (Auto) 0.23 L (1.18-3.74) K/mm3 [place] # (Auto) 0.26 (0.24-0.36) K/mm3 Eos # (Auto) 0.02 L (0.04-0.36) K/mm3 Baso # (Auto) 0.01 (0.01-0.08) K/mm3 Manual Slide Review Abnormal smear Puncture Site Lt radial ABG pH 7.33 L (7.35-7.45) ABG pCO2 68.6 H (35.0-45.0) mmHg ABG pO2 58.0 L (80.0-100.0) mmHg ABG HCO3 34.9 H (22.0-26.0) meq/L ABG O2 Saturation 89.3 L (96.0-97.0) % ABG Base Excess 6.6 H (-2-2.0) Steve Test Positive A-a Gradient 121 mmHg O2 Delivery Device Bipap FiO2 37.00 (21.00-100.00) % Blood Gas Comments Bipap 15/8 Sodium (136-145) mEq/L Potassium (3.5-5.1) mEq/L Chloride (98-107) mEq/L Carbon Dioxide (21-32) mEq/L Anion Gap (5-15) BUN (7-18) mg/dL Creatinine (0.55-1.02) mg/dL Est Cr Clr Drug Dosing mL/min Estimated GFR (MDRD) (>60) mL/min BUN/Creatinine Ratio (14-18) Glucose (74-106) mg/dL Calcium (8.5-10.1) mg/dL Magnesium (1.8-2.4) mg/dl Total Bilirubin (0.2-1.0) mg/dL AST (15-37) U/L ALT (14-59) U/L Alkaline Phosphatase (46-116) U/L C-Reactive Protein (<1.0) mg/dL Total Protein (6.4-8.2) g/dl Albumin (3.4-5.0) g/dl Globulin gm/dL Albumin/Globulin Ratio (1-2) Adenovirus (PCR) Not detected (Not Detected) B. pertussis DNA (PCR) Not detected (Not Detected) B.parapertussis DNA PCR Not detected (Not Detected) C. pneumoniae DNA (PCR) Not detected (Not Detected) Coronavirus (PCR) Not detected (Not Detected) Human Metapneumovir PCR Detected H (Not Detected) Influenza A (RT-PCR) Not detected (Not Detected) Influenza B (RT-PCR) Not detected (Not Detected) M. pneumoniae (PCR) Not detected (Not Detected) Parainfluen 1,2,3,4 PCR Not detected (Not Detected) RSV (PCR) Not detected (Not Detected) Entero/Rhino (PCR) Not detected (Not Detected) 12/03/19 12/03/19 Range/Units 05:05 09:41 WBC (3.98-10.04) K/mm3 RBC (3.98-5.22) M/mm3 Hgb (11.2-15.7) gm/dl Hct (34.1-44.9) % MCV (79.4-94.8) fl MCH (25.6-32.2) pg MCHC (32.2-35.5) g/dl RDW Std Deviation (36.4-46.3) fL Plt Count (182-369) K/mm3 MPV (9.4-12.3) fl Neut % (Auto) (34.0-71.1) % Lymph % (Auto) (19.3-51.7) % [place] % (Auto) (4.7-12.5) % Eos % (Auto) (0.7-5.8) Baso % (Auto) (0.1-1.2) % Neut # (Auto) (1.56-6.13) K/mm3 Lymph # (Auto) (1.18-3.74) K/mm3 [place] # (Auto) (0.24-0.36) K/mm3 Eos # (Auto) (0.04-0.36) K/mm3 Baso # (Auto) (0.01-0.08) K/mm3 Manual Slide Review Puncture Site Lt radial ABG pH 7.35 (7.35-7.45) ABG pCO2 66.9 H (35.0-45.0) mmHg ABG pO2 60.0 L (80.0-100.0) mmHg ABG HCO3 36.0 H (22.0-26.0) meq/L ABG O2 Saturation 89.1 L (96.0-97.0) % ABG Base Excess 8.0 H (-2-2.0) Steve Test A-a Gradient 121 mmHg O2 Delivery Device Bipap 15/8 FiO2 37.00 (21.00-100.00) % Blood Gas Comments Sodium 137 (136-145) mEq/L Potassium 4.1 (3.5-5.1) mEq/L Chloride 98 (98-107) mEq/L Carbon Dioxide 33 H (21-32) mEq/L Anion Gap 10.1 (5-15) BUN 13 (7-18) mg/dL Creatinine 0.4 L (0.55-1.02) mg/dL Est Cr Clr Drug Dosing 156.35 mL/min Estimated GFR (MDRD) > 60 (>60) mL/min BUN/Creatinine Ratio 32.5 H (14-18) Glucose 139 H (74-106) mg/dL Calcium 8.3 L (8.5-10.1) mg/dL Magnesium 2.0 (1.8-2.4) mg/dl Total Bilirubin 0.2 (0.2-1.0) mg/dL AST 25 (15-37) U/L ALT 17 (14-59) U/L Alkaline Phosphatase 78 (46-116) U/L C-Reactive Protein 9.1 H* (<1.0) mg/dL Total Protein 5.9 L (6.4-8.2) g/dl Albumin 2.4 L (3.4-5.0) g/dl Globulin 3.5 gm/dL Albumin/Globulin Ratio 0.7 L (1-2) Adenovirus (PCR) (Not Detected) B. pertussis DNA (PCR) (Not Detected) B.parapertussis DNA PCR (Not Detected) C. pneumoniae DNA (PCR) (Not Detected) Coronavirus (PCR) (Not Detected) Human Metapneumovir PCR (Not Detected) Influenza A (RT-PCR) (Not Detected) Influenza B (RT-PCR) (Not Detected) M. pneumoniae (PCR) (Not Detected) Parainfluen 1,2,3,4 PCR (Not Detected) RSV (PCR) (Not Detected) Entero/Rhino (PCR) (Not Detected) Nicola Results Last 24 Hours: Microbiology 12/02/19 01:42 Streptococcus pneumoniae Antigen (M - Final Urine 12/01/19 23:41 Legionella Urinary Antigen - Final Urine 12/01/19 21:22 Aerobic Blood Culture - Preliminary Blood - Venous - Lab Draw NO GROWTH AFTER 1 DAY Anaerobic Blood Culture - Preliminary NO GROWTH AFTER 1 DAY 12/01/19 21:22 Aerobic Blood Culture - Preliminary Blood - Venous NO GROWTH AFTER 1 DAY Anaerobic Blood Culture - Preliminary NO GROWTH AFTER 1 DAY Med Orders - Current: Current Medications Acetaminophen (Tylenol) 650 mg PO Q4H PRN PRN Reason: Pain (Mild 1-3)/fever Acetylcysteine (Mucomyst 20%) 800 mg NEB QIDRT [facility] Last Admin: 12/03/19 15:09 Dose: 800 mg Albuterol (Proventil Neb Soln) 2.5 mg NEB Q2H PRN PRN Reason: Shortness Of Breath/wheezing Last Admin: 12/03/19 00:46 Dose: 2.5 mg Albuterol/Ipratropium (Duoneb 3.0-0.5 Mg/3 Ml) 3 ml NEB Q6HRRT [facility] Last Admin: 12/03/19 15:09 Dose: 3 ml Budesonide (Pulmicort) 0.5 mg NEB BIDRT [facility] Last Admin: 12/03/19 06:28 Dose: 0.5 mg Diltiazem HCl (Dilacor Xr) 240 mg PO DAILY [facility] Last Admin: 12/03/19 08:23 Dose: 240 mg Levofloxacin/Dextrose 750 mg/ (Premix) 150 mls @ 100 mls/hr IV Q24H [facility] Last Admin: 12/02/19 23:01 Dose: 100 mls/hr Sodium Chloride (Normal Saline) 1,000 mls @ 75 mls/hr IV ASDIRECTED [facility] Last Admin: 12/03/19 03:14 Dose: 75 mls/hr Lorazepam (Ativan) 1 mg IVPUSH Q4H PRN PRN Reason: Anxiety Methylprednisolone Sodium Succinate (Solu-Medrol) 60 mg IVPUSH Q6H [facility] Last Admin: 12/03/19 14:24 Dose: 60 mg Miscellaneous Information (Remove Patch) 1 ea TRDERM DAILY [facility] Last Admin: 12/03/19 09:27 Dose: Not Given Morphine Sulfate (Morphine) 2 mg IVPUSH Q2H PRN PRN Reason: Shortness of Breath Last Admin: 12/02/19 15:12 Dose: 2 mg Nicotine (Habitrol) 21 mg TRDERM DAILY [facility] Last Admin: 12/03/19 09:27 Dose: Not Given Sertraline HCl (Zoloft) 50 mg PO DAILY [facility] Last Admin: 12/03/19 08:24 Dose: 50 mg Simvastatin (Zocor) 10 mg PO BEDTIME [facility] Last Admin: 12/02/19 20:09 Dose: 10 mg Sodium Chloride (Saline Flush) 10 ml FLUSH ONETIME PRN PRN Reason: KEEP VEIN OPEN Last Admin: 12/01/19 21:09 Dose: 10 ml Discontinued Medications Albuterol/Ipratropium (Duoneb 3.0-0.5 Mg/3 Ml) 3 ml NEB ONETIME ONE Stop: 12/01/19 19:04 Last Admin: 12/01/19 19:27 Dose: 3 ml Budesonide (Pulmicort) 0.5 mg NEB ONETIME ONE Stop: 12/02/19 06:16 Last Admin: 12/02/19 06:10 Dose: 0.5 mg Diltiazem HCl (Cardizem) 5 mg IVPUSH ONETIME STA Stop: 12/01/19 19:09 Last Admin: 12/01/19 19:40 Dose: 5 mg Enoxaparin Sodium (Lovenox) 40 mg SUBCUT DAILY [facility] Last Admin: 12/02/19 09:44 Dose: Not Given Furosemide (Lasix) 20 mg IVPUSH NOW ONE Stop: 12/02/19 08:19 Last Admin: 12/02/19 09:15 Dose: 20 mg Diltiazem HCl 125 mg/ Sodium (Chloride) 125 mls @ 5 mls/hr IV TITRATE [facility]; Protocol Last Titration: 12/02/19 10:05 Dose: 0 mg/hr, 0 mls/hr Sodium Chloride (Normal Saline) 100 mls @ 80 mls/hr IV ASDIRECTED [facility] Last Admin: 12/01/19 21:09 Dose: 80 mls/hr Dextrose/Sodium Chloride (Dextrose 5%-1/2 Ns) 1,000 mls @ 75 mls/hr IV ASDIRECTED [facility] Iopamidol (Isovue-370 (76%)) 100 ml IVPUSH ONETIME ONE Stop: 12/01/19 20:56 Last Admin: 12/01/19 21:09 Dose: 100 ml Levofloxacin (Levaquin) 750 mg PO ONETIME STA Stop: 12/01/19 22:05 Last Admin: 12/01/19 22:31 Dose: 750 mg Methylprednisolone Sodium Succinate (Solu-Medrol) 125 mg IVPUSH ONETIME ONE Stop: 12/01/19 19:06 Last Admin: 12/01/19 19:39 Dose: 125 mg Nicotine (Habitrol) 21 mg TRDERM DAILY [facility] Last Admin: 12/02/19 05:30 Dose: Not Given - Exam Quality Assessment: Supplemental Oxygen, Urine Catheter General: Alert, Oriented HEENT: Pupils Equal, Mucous Membr. Moist/[place] Lungs: No: Normal Respiratory Effort (Increase rate, effort, and use of accessory muscles.) Cardiovascular: Regular Rate, Regular Rhythm GI/Abdominal Exam: Normal Bowel Sounds, Soft, Non-Tender, No Distention Back Exam: Normal Inspection Extremities: Normal Inspection, Normal Range of Motion, Non-Tender, No Pedal Edema Skin: Warm, Dry, Intact Psy/Mental Status: Alert, Normal Affect, Normal Mood Sepsis Event Note - Evaluation Sepsis Screening Result: No Definite Risk - Focused Exam Vital Signs: Vital Signs Temp Pulse Resp BP Pulse Ox Pulse Ox Pulse Ox 12/03/19 15:38 90 L 12/03/19 15:10 89 L 12/03/19 12:00 97.9 F 23 H 90 L 12/03/19 11:59 93 L 12/03/19 10:45 90 L 12/03/19 09:34 89 L 12/03/19 09:00 98.2 F 90 15 97/74 86 L 12/03/19 06:28 88 L Date Exam was Performed: 12/03/19 Time Exam was Performed: 17:13 - Problem List Review Problem List Initiated/Reviewed/Updated: Yes - My Orders Last 24 Hours: My Active Orders 12/02/19 21:00 Budesonide [Pulmicort] 0.5 mg NEB BIDRT Simvastatin [Zocor] 10 mg PO BEDTIME 12/02/19 22:00 Levofloxacin/Dextrose 5%-Water [Levaquin in D5W 750 MG/150 ML] 750 mg Premix Bag 1 bag IV Q24H 12/03/19 11:10 OT Evaluation and Treatment [CONS] Routine PT Evaluation and Treatment [CONS] Routine 12/03/19 15:25 CULTURE SPUTUM + SMEAR [RM] Routine - Plan Plan:: Assessment * Community-acquired pneumonia * CT of the chest confirmed * Hypoxemic * Interstitial infiltrate throughout both lungs -diffuse interstitial pneumonia which is most likely viral versus diffuse bronchitis, pulmonary vascular congestion is also possible. * Respiratory failure * Most recent ABG: pH 7.36, PCO2 65.8, PO2 57.0, HCO3 36, oxygen saturation of 88% * Tachypneic with increased work of breathing * Patient is working very hard to breathe. It is concerning that she may fatigue and require intubation. * Human metapneumovirus positive * COPD/asthma exacerbation * Smoker * A. fib with RVR -resolved * diltiazem drip stopped * Restart Cardizem CD 240 mg daily * Anxiety/depression * On Zoloft * Daily ETOH of 3 glasses of wine Plan * Admit to ICU * Continue BiPAP 30/05 * DuoNeb every 6 hours, albuterol every 2 hours as needed * IV steroids * Continue Levaquin * Nicotine patch * Watch for ETOH withdrawal symptoms * Smoking cessation counseling * Goal will be to keep SPO2 between 88 and 90%. Patient is chronically hypoxemic and if we increase that too much she will decrease her respiratory drive. * VTE prophylaxis: Lovenox * CODE STATUS: Full code * Anticipated length of stay 3 to 4 days
[2019-12-03] MEDS: LORazepam 2 MG/ML SDV IVPUSH PRN (20:49)
[2019-12-03] MEDS: Simvastatin 20 MG Tab PO SCH (20:51)
[2019-12-03] MEDS: Levofloxacin/Dextrose 5%-Water 750 MG in Premix Bag 1 BAG IV SCH (20:59)
[2019-12-04] MEDS: methylPREDNISolone Sodium Succinate 40 MG/1 ML SDV IVPUSH SCH ×3 (02:21→20:40)
[2019-12-04] MEDS: Albuterol/Ipratropium 3.0-0.5 MG/3 ML Neb Soln NEB SCH ×4 (03:11→20:14)
[2019-12-04] MEDS: Budesonide 0.5 MG/2 ML Neb Susp NEB SCH ×2 (05:17→20:16)
[2019-12-04] MEDS: Acetylcysteine 20% 200 MG/ML 4 ML Nebulizer Soln SDV NEB SCH ×4 (05:17→20:16)
[2019-12-04] MEDS: Nicotine 21 MG/24 Hr Patch TRDERM SCH (08:36)
[2019-12-04] MEDS: Sertraline 50 MG Tab PO SCH (09:25)
[2019-12-04] MEDS: Diltiazem 240 MG Cap.ER PO SCH (09:25)
--- NOTE | 2019-12-04 13:25 | CT ---
CT chest Technique: Multiple axial sections through the chest were obtained. Study performed as a high-resolution protocol. Comparison: No prior chest CT. Findings: Scattered interstitial fibrosis is seen throughout both lungs. Scattered areas of scarring are also seen. No gross abnormality within the mediastinum or axillary regions are seen. Bone window settings were reviewed which appear within normal limits for the patient's age. Impression: 1. Diffuse interstitial fibrosis as well as areas of scarring. 2. Nothing acute is seen. Diagnostic code #2 Study was dictated in [place] Standard Time
[2019-12-04] MEDS: guaiFENesin 600 MG Tab.ER PO SCH ×2 (15:08→20:38)
[2019-12-04] MEDS ORDERED: Benzocaine/Cetylpyridinium/Menthol Lozenge MUCMEM PRN (17:12)
[2019-12-04] MEDS: Simvastatin 20 MG Tab PO SCH (20:38)
[2019-12-04] MEDS: LORazepam 2 MG/ML SDV IVPUSH PRN (20:44)
[2019-12-04] MEDS: Levofloxacin/Dextrose 5%-Water 750 MG in Premix Bag 1 BAG IV SCH (21:00)
--- NOTE | 2019-12-04 22:20 | PCM.PN ---
- General Info Date of Service: 12/04/19 Subjective Update: feeling a little better - Patient Data Vitals - Most Recent: Last Vital Signs Temp 97.9 F 12/04/19 20:00 Pulse 89 12/03/19 16:00 Resp 13 12/04/19 20:00 BP 121/75 12/04/19 20:00 Pulse Ox 89 L 12/04/19 20:17 Weight - Most Recent: 74.117 kg I&O - Last 24 Hours: Intake & Output 12/04/19 12/04/19 12/04/19 06:59 14:59 22:59 Intake Total 226 918 3922 Output Total 450 575 825 Balance 346 -335 675 Lab Results Last 24 Hours: Laboratory Results - last 24 hr 12/03/19 12/04/19 12/04/19 Range/Units 05:05 06:30 06:30 WBC 5.44 (3.98-10.04) K/mm3 RBC 4.62 (3.98-5.22) M/mm3 Hgb 14.6 (11.2-15.7) gm/dl Hct 48.0 H (34.1-44.9) % MCV 103.9 H (79.4-94.8) fl MCH 31.6 (25.6-32.2) pg MCHC 30.4 L (32.2-35.5) g/dl RDW Std Deviation 60.7 H (36.4-46.3) fL Plt Count 115 L (182-369) K/mm3 MPV 9.7 (9.4-12.3) fl Neut % (Auto) 86.4 H (34.0-71.1) % Lymph % (Auto) 6.6 L (19.3-51.7) % [place] % (Auto) 5.3 (4.7-12.5) % Eos % (Auto) 0.4 L (0.7-5.8) Baso % (Auto) 0.6 (0.1-1.2) % Neut # (Auto) 4.70 (1.56-6.13) K/mm3 Lymph # (Auto) 0.36 L (1.18-3.74) K/mm3 [place] # (Auto) 0.29 (0.24-0.36) K/mm3 Eos # (Auto) 0.02 L (0.04-0.36) K/mm3 Baso # (Auto) 0.03 (0.01-0.08) K/mm3 Manual Slide Review Abnormal smear Puncture Site ABG pH (7.35-7.45) ABG pCO2 (35.0-45.0) mmHg ABG pO2 (80.0-100.0) mmHg ABG HCO3 (22.0-26.0) meq/L ABG O2 Saturation (96.0-97.0) % ABG Base Excess (-2-2.0) Steve Test A-a Gradient mmHg O2 Delivery Device Oxygen Flow Rate FiO2 (21.00-100.00) % Sodium 141 (136-145) mEq/L Potassium 4.6 (3.5-5.1) mEq/L Chloride 103 (98-107) mEq/L Carbon Dioxide 34 H (21-32) mEq/L Anion Gap 8.6 (5-15) BUN 15 (7-18) mg/dL Creatinine 0.5 L (0.55-1.02) mg/dL Est Cr Clr Drug Dosing 125.08 mL/min Estimated GFR (MDRD) > 60 (>60) mL/min BUN/Creatinine Ratio 30.0 H (14-18) Glucose 146 H (74-106) mg/dL Calcium 8.7 (8.5-10.1) mg/dL Phosphorus 3.3 (2.6-4.7) mg/dL Magnesium 2.3 (1.8-2.4) mg/dl Procalcitonin <0.05 (<0.10) ng/mL 12/04/19 12/04/19 Range/Units 09:38 12:33 WBC (3.98-10.04) K/mm3 RBC (3.98-5.22) M/mm3 Hgb (11.2-15.7) gm/dl Hct (34.1-44.9) % MCV (79.4-94.8) fl MCH (25.6-32.2) pg MCHC (32.2-35.5) g/dl RDW Std Deviation (36.4-46.3) fL Plt Count (182-369) K/mm3 MPV (9.4-12.3) fl Neut % (Auto) (34.0-71.1) % Lymph % (Auto) (19.3-51.7) % [place] % (Auto) (4.7-12.5) % Eos % (Auto) (0.7-5.8) Baso % (Auto) (0.1-1.2) % Neut # (Auto) (1.56-6.13) K/mm3 Lymph # (Auto) (1.18-3.74) K/mm3 [place] # (Auto) (0.24-0.36) K/mm3 Eos # (Auto) (0.04-0.36) K/mm3 Baso # (Auto) (0.01-0.08) K/mm3 Manual Slide Review Puncture Site Rt radial Rt radial ABG pH 7.25 L 7.35 (7.35-7.45) ABG pCO2 84.8 H* 66.5 H (35.0-45.0) mmHg ABG pO2 61.0 L 58.0 L (80.0-100.0) mmHg ABG HCO3 35.7 H 35.5 H (22.0-26.0) meq/L ABG O2 Saturation 88.0 L 89.7 L (96.0-97.0) % ABG Base Excess 5.2 H 7.7 H (-2-2.0) Steve Test Positive Positive A-a Gradient 147 88 mmHg O2 Delivery Device Nasal cannula Bipap 15/8 Oxygen Flow Rate 6.0 FiO2 44.00 32.00 (21.00-100.00) % Sodium (136-145) mEq/L Potassium (3.5-5.1) mEq/L Chloride (98-107) mEq/L Carbon Dioxide (21-32) mEq/L Anion Gap (5-15) BUN (7-18) mg/dL Creatinine (0.55-1.02) mg/dL Est Cr Clr Drug Dosing mL/min Estimated GFR (MDRD) (>60) mL/min BUN/Creatinine Ratio (14-18) Glucose (74-106) mg/dL Calcium (8.5-10.1) mg/dL Phosphorus (2.6-4.7) mg/dL Magnesium (1.8-2.4) mg/dl Procalcitonin (<0.10) ng/mL Nicola Results Last 24 Hours: Microbiology 12/01/19 21:22 Aerobic Blood Culture - Preliminary Blood - Venous - Lab Draw NO GROWTH AFTER 3 DAYS Anaerobic Blood Culture - Preliminary NO GROWTH AFTER 3 DAYS 12/01/19 21:22 Aerobic Blood Culture - Preliminary Blood - Venous NO GROWTH AFTER 3 DAYS Anaerobic Blood Culture - Preliminary NO GROWTH AFTER 3 DAYS 12/03/19 15:40 Gram Stain - Final Sputum - Expectorated Med Orders - Current: Current Medications Acetaminophen (Tylenol) 650 mg PO Q4H PRN PRN Reason: Pain (Mild 1-3)/fever Last Admin: 12/04/19 19:42 Dose: 650 mg Acetylcysteine (Mucomyst 20%) 800 mg NEB QIDRT [facility] Last Admin: 12/04/19 20:16 Dose: 800 mg Albuterol (Proventil Neb Soln) 2.5 mg NEB Q2H PRN PRN Reason: Shortness Of Breath/wheezing Last Admin: 12/03/19 00:46 Dose: 2.5 mg Albuterol/Ipratropium (Duoneb 3.0-0.5 Mg/3 Ml) 3 ml NEB Q6HRRT [facility] Last Admin: 12/04/19 20:14 Dose: 3 ml Benzocaine/Menthol (Cepacol Sore Throat) 1 lozenge MUCMEM Q4H PRN PRN Reason: Sore Throat Last Admin: 12/04/19 17:49 Dose: 1 lozenge Budesonide (Pulmicort) 0.5 mg NEB BIDRT [facility] Last Admin: 12/04/19 20:16 Dose: 0.5 mg Diltiazem HCl (Dilacor Xr) 240 mg PO DAILY [facility] Last Admin: 12/04/19 09:25 Dose: 240 mg Guaifenesin (Mucinex) 600 mg PO TID [facility] Last Admin: 12/04/19 20:38 Dose: 600 mg Levofloxacin/Dextrose 750 mg/ (Premix) 150 mls @ 100 mls/hr IV Q24H [facility] Last Admin: 12/04/19 21:00 Dose: 100 mls/hr Lorazepam (Ativan) 1 mg IVPUSH Q4H PRN PRN Reason: Anxiety Last Admin: 12/04/19 20:44 Dose: 1 mg Methylprednisolone Sodium Succinate (Solu-Medrol) 80 mg IVPUSH Q6H [facility] Last Admin: 12/04/19 20:40 Dose: 80 mg Miscellaneous Information (Remove Patch) 1 ea TRDERM DAILY [facility] Last Admin: 12/04/19 08:36 Dose: Not Given Morphine Sulfate (Morphine) 2 mg IVPUSH Q2H PRN PRN Reason: Shortness of Breath Last Admin: 12/02/19 15:12 Dose: 2 mg Nicotine (Habitrol) 21 mg TRDERM DAILY [facility] Last Admin: 12/04/19 08:36 Dose: Not Given Sertraline HCl (Zoloft) 50 mg PO DAILY [facility] Last Admin: 12/04/19 09:25 Dose: 50 mg Simvastatin (Zocor) 10 mg PO BEDTIME [facility] Last Admin: 12/04/19 20:38 Dose: 10 mg Sodium Chloride (Saline Flush) 10 ml FLUSH ONETIME PRN PRN Reason: KEEP VEIN OPEN Last Admin: 12/01/19 21:09 Dose: 10 ml Discontinued Medications Albuterol/Ipratropium (Duoneb 3.0-0.5 Mg/3 Ml) 3 ml NEB ONETIME ONE Stop: 12/01/19 19:04 Last Admin: 12/01/19 19:27 Dose: 3 ml Budesonide (Pulmicort) 0.5 mg NEB ONETIME ONE Stop: 12/02/19 06:16 Last Admin: 12/02/19 06:10 Dose: 0.5 mg Diltiazem HCl (Cardizem) 5 mg IVPUSH ONETIME STA Stop: 12/01/19 19:09 Last Admin: 12/01/19 19:40 Dose: 5 mg Enoxaparin Sodium (Lovenox) 40 mg SUBCUT DAILY [facility] Last Admin: 12/02/19 09:44 Dose: Not Given Furosemide (Lasix) 20 mg IVPUSH NOW ONE Stop: 12/02/19 08:19 Last Admin: 12/02/19 09:15 Dose: 20 mg Diltiazem HCl 125 mg/ Sodium (Chloride) 125 mls @ 5 mls/hr IV TITRATE JAY JAY; Protocol Last Titration: 12/02/19 10:05 Dose: 0 mg/hr, 0 mls/hr Sodium Chloride (Normal Saline) 100 mls @ 80 mls/hr IV ASDIRECTED [facility] Last Admin: 12/01/19 21:09 Dose: 80 mls/hr Dextrose/Sodium Chloride (Dextrose 5%-1/2 Ns) 1,000 mls @ 75 mls/hr IV ASDIRECTED [facility] Sodium Chloride (Normal Saline) 1,000 mls @ 75 mls/hr IV ASDIRECTED [facility] Last Admin: 12/03/19 17:28 Dose: 75 mls/hr Iopamidol (Isovue-370 (76%)) 100 ml IVPUSH ONETIME ONE Stop: 12/01/19 20:56 Last Admin: 12/01/19 21:09 Dose: 100 ml Levofloxacin (Levaquin) 750 mg PO ONETIME STA Stop: 12/01/19 22:05 Last Admin: 12/01/19 22:31 Dose: 750 mg Methylprednisolone Sodium Succinate (Solu-Medrol) 125 mg IVPUSH ONETIME ONE Stop: 12/01/19 19:06 Last Admin: 12/01/19 19:39 Dose: 125 mg Methylprednisolone Sodium Succinate (Solu-Medrol) 60 mg IVPUSH Q6H [facility] Last Admin: 12/04/19 09:25 Dose: 60 mg Nicotine (Habitrol) 21 mg TRDERM DAILY [facility] Last Admin: 12/02/19 05:30 Dose: Not Given - Exam Physical Findings Comments:: Quality Assessment: Supplemental Oxygen, Urine Catheter General: Alert, Oriented HEENT: Pupils Equal, Mucous Membr. Moist/[place] Lungs: No: Normal Respiratory Effort (Increase rate, effort, and use of accessory muscles.) Cardiovascular: Regular Rate, Regular Rhythm GI/Abdominal Exam: Normal Bowel Sounds, Soft, Non-Tender, No Distention Back Exam: Normal Inspection Extremities: Normal Inspection, Normal Range of Motion, Non-Tender, No Pedal Edema Skin: Warm, Dry, Intact Psy/Mental Status: Alert, Normal Affect, Normal Mood Sepsis Event Note - Evaluation Sepsis Screening Result: No Definite Risk - Focused Exam Vital Signs: Vital Signs Temp Resp BP BP Pulse Ox Pulse Ox Pulse Ox 12/04/19 20:17 89 L 12/04/19 20:00 97.9 F 13 121/75 86 L 12/04/19 17:52 98.7 F 19 87 L 12/04/19 17:35 89 L 12/04/19 16:00 98 F 20 97/66 88 L 12/04/19 15:28 91 L 12/04/19 12:00 98.8 F 19 112/80 89 L Date Exam was Performed: 01/03/20 Time Exam was Performed: 16:21 - Problem List Review Problem List Initiated/Reviewed/Updated: Yes - My Orders Last 24 Hours: My Active Orders 12/04/19 09:27 RT Arterial Blood Gases, ABG [RC] Click to Edit 12/04/19 12:30 RT Arterial Blood Gases, ABG [RC] Click to Edit 12/04/19 15:00 [email or web address] [Mucinex] 600 mg PO TID 12/04/19 17:12 Benzocaine/Cetylpyrd/Menthol [Cepacol Sore Throat] 1 lozenge MUCMEM Q4H PRN - Plan Plan:: Assessment * Community-acquired pneumonia * CT of the chest confirmed * Hypoxemic * Interstitial infiltrate throughout both lungs -diffuse interstitial pneumonia which is most likely viral versus diffuse bronchitis, pulmonary vascular congestion is also possible. * Levaquin * Respiratory failure * Most recent ABG: pH 7.36, PCO2 65.8, PO2 57.0, HCO3 36, oxygen saturation of 88% * Tachypneic with increased work of breathing * Patient is working very hard to breathe. It is concerning that she may fatigue and require intubation. * Human metapneumovirus positive * COPD/asthma exacerbation * Smoker * A. fib with RVR -resolved * diltiazem drip stopped * Restart Cardizem CD 240 mg daily * Anxiety/depression * On Zoloft * Daily ETOH of 3 glasses of wine Plan * Continue BiPAP 30/05 * DuoNeb every 6 hours, albuterol every 2 hours as needed * IV steroids * Continue Levaquin * Nicotine patch * Watch for ETOH withdrawal symptoms * Smoking cessation counseling * Goal will be to keep SPO2 between 88 and 90%. Patient is chronically hypoxemic and if we increase that too much she will decrease her respiratory drive. * VTE prophylaxis: Lovenox * CODE STATUS: Full code * Patient is requiring LOS greater than 96 hours due to suboptimal therapeutic response.
[2019-12-05] MEDS: Albuterol/Ipratropium 3.0-0.5 MG/3 ML Neb Soln NEB SCH ×4 (02:09→21:00)
[2019-12-05] MEDS: methylPREDNISolone Sodium Succinate 40 MG/1 ML SDV IVPUSH SCH ×4 (02:41→20:00)
[2019-12-05] MEDS: Acetylcysteine 20% 200 MG/ML 4 ML Nebulizer Soln SDV NEB SCH ×4 (05:10→21:00)
[2019-12-05] MEDS: Budesonide 0.5 MG/2 ML Neb Susp NEB SCH ×2 (05:10→21:00)
[2019-12-05] MEDS: guaiFENesin 600 MG Tab.ER PO SCH ×2 (08:09→16:21)
[2019-12-05] MEDS: Diltiazem 240 MG Cap.ER PO SCH (08:09)
[2019-12-05] MEDS: Sertraline 50 MG Tab PO SCH (08:09)
[2019-12-05] MEDS: Nicotine 21 MG/24 Hr Patch TRDERM SCH (09:43)
[2019-12-05] MEDS: Codeine/guaiFENesin 10-100 MG/5 ML Syrup 5 ML Cup PO SCH ×3 (15:32→22:29)
[2019-12-05] MEDS: Simvastatin 20 MG Tab PO SCH ×2 (19:55→21:17)
[2019-12-05] MEDS: Sennosides 8.6 MG Tab PO SCH (20:11)
--- NOTE | 2019-12-05 21:45 | PCM.PN ---
- General Info Date of Service: 12/05/19 Subjective Update: slept ok tolerating diet - Patient Data Vitals - Most Recent: Last Vital Signs Temp 98.2 F 12/05/19 20:00 Pulse 89 12/03/19 16:00 Resp 23 H 12/05/19 21:07 BP 108/74 12/05/19 20:00 Pulse Ox 87 L 12/05/19 21:00 Weight - Most Recent: 74.389 kg I&O - Last 24 Hours: Intake & Output 12/05/19 12/05/19 12/05/19 06:59 14:59 22:59 Intake Total 400 180 Output Total 475 635 500 Balance -75 455 -500 Lab Results Last 24 Hours: Laboratory Results - last 24 hr 12/05/19 12/05/19 12/05/19 Range/Units 09:14 09:25 09:25 Puncture Site Lt radial ABG pH 7.37 (7.35-7.45) ABG pCO2 69.6 H (35.0-45.0) mmHg ABG pO2 53.0 L (80.0-100.0) mmHg ABG HCO3 39.0 H (22.0-26.0) meq/L ABG O2 Saturation 87.4 L (96.0-97.0) % ABG Base Excess 10.7 H (-2-2.0) Steve Test Positive A-a Gradient 89 mmHg O2 Delivery Device Bipap Oxygen Flow Rate FiO2 0.00 L (21.00-100.00) % PEEP 8.0 cmH20 Pressure Support 15.0 cmH2O Lactic Acid 0.7 (0.4-2.0) mmol/L Procalcitonin <0.05 (<0.10) ng/mL 12/05/19 Range/Units 15:09 Puncture Site Rt radial ABG pH 7.34 L (7.35-7.45) ABG pCO2 73.2 H* (35.0-45.0) mmHg ABG pO2 59.0 L (80.0-100.0) mmHg ABG HCO3 38.4 H (22.0-26.0) meq/L ABG O2 Saturation 88.1 L (96.0-97.0) % ABG Base Excess 9.2 H (-2-2.0) Steve Test Positive A-a Gradient mmHg O2 Delivery Device Nasal cannula Oxygen Flow Rate 5.0 FiO2 0.00 L (21.00-100.00) % PEEP cmH20 Pressure Support cmH2O Lactic Acid (0.4-2.0) mmol/L Procalcitonin (<0.10) ng/mL Nicola Results Last 24 Hours: Microbiology 12/01/19 21:22 Aerobic Blood Culture - Preliminary Blood - Venous - Lab Draw NO GROWTH AFTER 4 DAYS Anaerobic Blood Culture - Preliminary NO GROWTH AFTER 4 DAYS 12/01/19 21:22 Aerobic Blood Culture - Preliminary Blood - Venous NO GROWTH AFTER 4 DAYS Anaerobic Blood Culture - Preliminary NO GROWTH AFTER 4 DAYS 12/03/19 15:40 Gram Stain - Final Sputum - Expectorated Sputum Culture - Preliminary Med Orders - Current: Current Medications Acetaminophen (Tylenol) 650 mg PO Q4H PRN PRN Reason: Pain (Mild 1-3)/fever Last Admin: 12/04/19 19:42 Dose: 650 mg Acetylcysteine (Mucomyst 20%) 800 mg NEB QIDRT [facility] Last Admin: 12/05/19 21:00 Dose: 800 mg Albuterol (Proventil Neb Soln) 2.5 mg NEB Q2H PRN PRN Reason: Shortness Of Breath/wheezing Last Admin: 12/03/19 00:46 Dose: 2.5 mg Albuterol/Ipratropium (Duoneb 3.0-0.5 Mg/3 Ml) 3 ml NEB Q6HRRT [facility] Last Admin: 12/05/19 21:00 Dose: 3 ml Benzocaine/Menthol (Cepacol Sore Throat) 1 lozenge MUCMEM Q4H PRN PRN Reason: Sore Throat Last Admin: 12/04/19 17:49 Dose: 1 lozenge Budesonide (Pulmicort) 0.5 mg NEB BIDRT [facility] Last Admin: 12/05/19 21:00 Dose: 0.5 mg Diltiazem HCl (Dilacor Xr) 240 mg PO DAILY [facility] Last Admin: 12/05/19 08:09 Dose: 240 mg Guaifenesin/Codeine Phosphate (Robitussin Ac) 5 ml PO Q4H [facility] Last Admin: 12/05/19 18:50 Dose: 5 ml Lorazepam (Ativan) 1 mg IVPUSH Q4H PRN PRN Reason: Anxiety Last Admin: 12/04/19 20:44 Dose: 1 mg Methylprednisolone Sodium Succinate (Solu-Medrol) 80 mg IVPUSH Q6H [facility] Last Admin: 12/05/19 20:00 Dose: 80 mg Miscellaneous Information (Remove Patch) 1 ea TRDERM DAILY [facility] Last Admin: 12/05/19 09:44 Dose: Not Given Morphine Sulfate (Morphine) 2 mg IVPUSH Q2H PRN PRN Reason: Shortness of Breath Last Admin: 12/02/19 15:12 Dose: 2 mg Nicotine (Habitrol) 21 mg TRDERM DAILY [facility] Last Admin: 12/05/19 09:43 Dose: Not Given Senna (Senna) 8.6 mg PO BID [facility] Last Admin: 12/05/19 20:11 Dose: Not Given Sertraline HCl (Zoloft) 50 mg PO DAILY [facility] Last Admin: 12/05/19 08:09 Dose: 50 mg Simvastatin (Zocor) 10 mg PO BEDTIME [facility] Last Admin: 12/05/19 21:17 Dose: Not Given Sodium Chloride (Saline Flush) 10 ml FLUSH ONETIME PRN PRN Reason: KEEP VEIN OPEN Last Admin: 12/01/19 21:09 Dose: 10 ml Discontinued Medications Albuterol/Ipratropium (Duoneb 3.0-0.5 Mg/3 Ml) 3 ml NEB ONETIME ONE Stop: 12/01/19 19:04 Last Admin: 12/01/19 19:27 Dose: 3 ml Budesonide (Pulmicort) 0.5 mg NEB ONETIME ONE Stop: 12/02/19 06:16 Last Admin: 12/02/19 06:10 Dose: 0.5 mg Diltiazem HCl (Cardizem) 5 mg IVPUSH ONETIME STA Stop: 12/01/19 19:09 Last Admin: 12/01/19 19:40 Dose: 5 mg Enoxaparin Sodium (Lovenox) 40 mg SUBCUT DAILY [facility] Last Admin: 12/02/19 09:44 Dose: Not Given Furosemide (Lasix) 20 mg IVPUSH NOW ONE Stop: 12/02/19 08:19 Last Admin: 12/02/19 09:15 Dose: 20 mg Guaifenesin (Mucinex) 600 mg PO TID [facility] Last Admin: 12/05/19 16:21 Dose: Not Given Diltiazem HCl 125 mg/ Sodium (Chloride) 125 mls @ 5 mls/hr IV TITRATE [facility]; Protocol Last Titration: 12/02/19 10:05 Dose: 0 mg/hr, 0 mls/hr Sodium Chloride (Normal Saline) 100 mls @ 80 mls/hr IV ASDIRECTED [facility] Last Admin: 12/01/19 21:09 Dose: 80 mls/hr Levofloxacin/Dextrose 750 mg/ (Premix) 150 mls @ 100 mls/hr IV Q24H [facility] Last Admin: 12/04/19 21:00 Dose: 100 mls/hr Dextrose/Sodium Chloride (Dextrose 5%-1/2 Ns) 1,000 mls @ 75 mls/hr IV ASDIRECTED [facility] Sodium Chloride (Normal Saline) 1,000 mls @ 75 mls/hr IV ASDIRECTED [facility] Last Admin: 12/03/19 17:28 Dose: 75 mls/hr Iopamidol (Isovue-370 (76%)) 100 ml IVPUSH ONETIME ONE Stop: 12/01/19 20:56 Last Admin: 12/01/19 21:09 Dose: 100 ml Levofloxacin (Levaquin) 750 mg PO ONETIME STA Stop: 12/01/19 22:05 Last Admin: 12/01/19 22:31 Dose: 750 mg Methylprednisolone Sodium Succinate (Solu-Medrol) 125 mg IVPUSH ONETIME ONE Stop: 12/01/19 19:06 Last Admin: 12/01/19 19:39 Dose: 125 mg Methylprednisolone Sodium Succinate (Solu-Medrol) 60 mg IVPUSH Q6H [facility] Last Admin: 12/04/19 09:25 Dose: 60 mg Nicotine (Habitrol) 21 mg TRDERM DAILY [facility] Last Admin: 12/02/19 05:30 Dose: Not Given - Exam Physical Findings Comments:: Quality Assessment: Supplemental Oxygen, Urine Catheter General: Alert, Oriented HEENT: Pupils Equal, Mucous Membr. Moist/[place] Lungs: wheezing Cardiovascular: Regular Rate, Regular Rhythm GI/Abdominal Exam: Normal Bowel Sounds, Soft, Non-Tender, No Distention Back Exam: Normal Inspection Extremities: Normal Inspection, Normal Range of Motion, Non-Tender, No Pedal Edema Skin: Warm, Dry, Intact Psy/Mental Status: Alert, Normal Affect, Normal Mood Sepsis Event Note - Evaluation Sepsis Screening Result: No Definite Risk - Focused Exam Vital Signs: Vital Signs Temp Resp BP Pulse Ox Pulse Ox Pulse Ox 12/05/19 21:07 23 H 12/05/19 21:00 87 L 12/05/19 20:00 98.2 F 20 108/74 88 L 12/05/19 16:00 97.9 F 20 119/71 88 L 12/05/19 15:07 90 L 12/05/19 12:00 97.5 F 17 118/83 90 L Date Exam was Performed: 01/03/20 Time Exam was Performed: 16:23 - Problem List Review Problem List Initiated/Reviewed/Updated: Yes - My Orders Last 24 Hours: My Active Orders 12/05/19 13:38 Dietary Supplements [RC] WITHMEALSANDBED 12/05/19 15:00 Codeine/guaiFENesin [Robitussin AC] 5 ml PO Q4H 12/05/19 15:28 RT Chest Physiotherapy [RC] ASDIRECTED 12/05/19 21:00 Sennosides [Senna] 8.6 mg PO BID - Plan Plan:: Assessment * Community-acquired pneumonia * CT of the chest confirmed * Hypoxemic * Interstitial infiltrate throughout both lungs -diffuse interstitial pneumonia which is most likely viral versus diffuse bronchitis, pulmonary vascular congestion is also possible. * Levaquin * Respiratory failure * Tachypneic with increased work of breathing * continue bipap * Human metapneumovirus positive * COPD/asthma exacerbation * Smoker * A. fib with RVR -resolved * diltiazem drip stopped * Restart Cardizem CD 240 mg daily * Anxiety/depression * On Zoloft * Daily ETOH of 3 glasses of wine Plan * Continue BiPAP 30/05 * DuoNeb every 6 hours, albuterol every 2 hours as needed * IV steroids * Continue Levaquin * Nicotine patch * Watch for ETOH withdrawal symptoms * Smoking cessation counseling * Goal will be to keep SPO2 between 88 and 90%. Patient is chronically hypoxemic and if we increase that too much she will decrease her respiratory drive. * VTE prophylaxis: Lovenox * CODE STATUS: Full code * Patient is requiring LOS greater than 96 hours due to suboptimal therapeutic response.
[2019-12-05] MEDS: LORazepam 2 MG/ML SDV IVPUSH PRN (22:22)
[2019-12-06] MEDS: Albuterol/Ipratropium 3.0-0.5 MG/3 ML Neb Soln NEB SCH ×4 (03:32→21:27)
[2019-12-06] MEDS: Codeine/guaiFENesin 10-100 MG/5 ML Syrup 5 ML Cup PO SCH ×6 (05:41→22:15)
[2019-12-06] MEDS: methylPREDNISolone Sodium Succinate 40 MG/1 ML SDV IVPUSH SCH ×4 (05:53→20:16)
[2019-12-06] MEDS: Acetylcysteine 20% 200 MG/ML 4 ML Nebulizer Soln SDV NEB SCH ×4 (06:16→21:27)
[2019-12-06] MEDS: Budesonide 0.5 MG/2 ML Neb Susp NEB SCH ×2 (06:16→21:28)
[2019-12-06] MEDS: Diltiazem 240 MG Cap.ER PO SCH (08:20)
[2019-12-06] MEDS: Sertraline 50 MG Tab PO SCH (08:20)
[2019-12-06] MEDS: Sennosides 8.6 MG Tab PO SCH ×2 (09:23→20:15)
[2019-12-06] MEDS: Nicotine 21 MG/24 Hr Patch TRDERM SCH (09:23)
[2019-12-06] MEDS: Simvastatin 20 MG Tab PO SCH (20:15)
--- NOTE | 2019-12-06 20:46 | PCM.PN ---
- General Info Date of Service: 12/06/19 Subjective Update: slept ok tolerating diet - Patient Data Vitals - Most Recent: Last Vital Signs Temp 97.6 F 12/06/19 19:41 Pulse 79 12/06/19 19:41 Resp 20 12/06/19 19:41 BP 136/62 12/06/19 19:41 Pulse Ox 87 L 12/06/19 19:41 Weight - Most Recent: 74.843 kg I&O - Last 24 Hours: Intake & Output 12/06/19 12/06/19 12/06/19 06:59 14:59 22:59 Intake Total 500 900 800 Output Total 875 080 8344 Balance -100 10 -300 Lab Results Last 24 Hours: Laboratory Results - last 24 hr 12/06/19 12/06/19 12/06/19 Range/Units 08:00 08:00 08:01 WBC 4.89 (3.98-10.04) K/mm3 RBC 4.75 (3.98-5.22) M/mm3 Hgb 14.9 (11.2-15.7) gm/dl Hct 48.0 H (34.1-44.9) % MCV 101.1 H (79.4-94.8) fl MCH 31.4 (25.6-32.2) pg MCHC 31.0 L (32.2-35.5) g/dl RDW Std Deviation 56.1 H (36.4-46.3) fL Plt Count 147 L (182-369) K/mm3 MPV 10.1 (9.4-12.3) fl Neut % (Auto) 88.4 H (34.0-71.1) % Lymph % (Auto) 4.3 L (19.3-51.7) % [place] % (Auto) 5.9 (4.7-12.5) % Eos % (Auto) 0.4 L (0.7-5.8) Baso % (Auto) 0.2 (0.1-1.2) % Neut # (Auto) 4.32 (1.56-6.13) K/mm3 Lymph # (Auto) 0.21 L (1.18-3.74) K/mm3 [place] # (Auto) 0.29 (0.24-0.36) K/mm3 Eos # (Auto) 0.02 L (0.04-0.36) K/mm3 Baso # (Auto) 0.01 (0.01-0.08) K/mm3 Manual Slide Review Abnormal smear Puncture Site Lt radial ABG pH 7.39 (7.35-7.45) ABG pCO2 66.2 H (35.0-45.0) mmHg ABG pO2 46.0 L (80.0-100.0) mmHg ABG HCO3 39.1 H (22.0-26.0) meq/L ABG O2 Saturation 78.6 L (96.0-97.0) % ABG Base Excess 11.2 H (-2-2.0) Steve Test Positive O2 Delivery Device Nasal cannula Oxygen Flow Rate 3.0 FiO2 0.00 L (21.00-100.00) % Sodium 139 (136-145) mEq/L Potassium 4.6 (3.5-5.1) mEq/L Chloride 99 (98-107) mEq/L Carbon Dioxide 38 H (21-32) mEq/L Anion Gap 6.6 (5-15) BUN 16 (7-18) mg/dL Creatinine 0.6 (0.55-1.02) mg/dL Est Cr Clr Drug Dosing 103.96 mL/min Estimated GFR (MDRD) > 60 (>60) mL/min BUN/Creatinine Ratio 26.7 H (14-18) Glucose 142 H (74-106) mg/dL Calcium 8.5 (8.5-10.1) mg/dL Phosphorus 4.0 (2.6-4.7) mg/dL Magnesium 2.4 (1.8-2.4) mg/dl Nicola Results Last 24 Hours: Microbiology 12/03/19 15:40 Gram Stain - Final Sputum - Expectorated Sputum Culture - Final NORMAL RESPIRATORY KATTY 2 DAYS 12/01/19 21:22 Aerobic Blood Culture - Preliminary Blood - Venous - Lab Draw NO GROWTH AFTER 4 DAYS Anaerobic Blood Culture - Preliminary NO GROWTH AFTER 4 DAYS 12/01/19 21:22 Aerobic Blood Culture - Preliminary Blood - Venous NO GROWTH AFTER 4 DAYS Anaerobic Blood Culture - Preliminary NO GROWTH AFTER 4 DAYS Med Orders - Current: Current Medications Acetaminophen (Tylenol) 650 mg PO Q4H PRN PRN Reason: Pain (Mild 1-3)/fever Last Admin: 12/04/19 19:42 Dose: 650 mg Acetylcysteine (Mucomyst 20%) 800 mg NEB QIDRT [facility] Last Admin: 12/06/19 15:54 Dose: 800 mg Albuterol (Proventil Neb Soln) 2.5 mg NEB Q2H PRN PRN Reason: Shortness Of Breath/wheezing Last Admin: 12/03/19 00:46 Dose: 2.5 mg Albuterol/Ipratropium (Duoneb 3.0-0.5 Mg/3 Ml) 3 ml NEB Q6HRRT [facility] Last Admin: 12/06/19 15:54 Dose: 3 ml Benzocaine/Menthol (Cepacol Sore Throat) 1 lozenge MUCMEM Q4H PRN PRN Reason: Sore Throat Last Admin: 12/04/19 17:49 Dose: 1 lozenge Budesonide (Pulmicort) 0.5 mg NEB BIDRT [facility] Last Admin: 12/06/19 06:16 Dose: 0.5 mg Diltiazem HCl (Dilacor Xr) 240 mg PO DAILY [facility] Last Admin: 12/06/19 08:20 Dose: 240 mg Guaifenesin/Codeine Phosphate (Robitussin Ac) 5 ml PO Q4H [facility] Last Admin: 12/06/19 19:04 Dose: Not Given Lorazepam (Ativan) 1 mg IVPUSH Q4H PRN PRN Reason: Anxiety Last Admin: 12/05/19 22:22 Dose: 1 mg Methylprednisolone Sodium Succinate (Solu-Medrol) 80 mg IVPUSH Q6H [facility] Last Admin: 12/06/19 20:16 Dose: 80 mg Miscellaneous Information (Remove Patch) 1 ea TRDERM DAILY [facility] Last Admin: 12/06/19 09:23 Dose: Not Given Morphine Sulfate (Morphine) 2 mg IVPUSH Q2H PRN PRN Reason: Shortness of Breath Last Admin: 12/02/19 15:12 Dose: 2 mg Nicotine (Habitrol) 21 mg TRDERM DAILY [facility] Last Admin: 12/06/19 09:23 Dose: Not Given Senna (Senna) 8.6 mg PO BID [facility] Last Admin: 12/06/19 20:15 Dose: Not Given Sertraline HCl (Zoloft) 50 mg PO DAILY [facility] Last Admin: 02/21/20 08:20 Dose: 50 mg Simvastatin (Zocor) 10 mg PO BEDTIME [facility] Last Admin: 12/06/19 20:15 Dose: 10 mg Sodium Chloride (Saline Flush) 10 ml FLUSH ONETIME PRN PRN Reason: KEEP VEIN OPEN Last Admin: 12/01/19 21:09 Dose: 10 ml Discontinued Medications Albuterol/Ipratropium (Duoneb 3.0-0.5 Mg/3 Ml) 3 ml NEB ONETIME ONE Stop: 12/01/19 19:04 Last Admin: 12/01/19 19:27 Dose: 3 ml Budesonide (Pulmicort) 0.5 mg NEB ONETIME ONE Stop: 12/02/19 06:16 Last Admin: 12/02/19 06:10 Dose: 0.5 mg Diltiazem HCl (Cardizem) 5 mg IVPUSH ONETIME STA Stop: 12/01/19 19:09 Last Admin: 12/01/19 19:40 Dose: 5 mg Enoxaparin Sodium (Lovenox) 40 mg SUBCUT DAILY [facility] Last Admin: 12/02/19 09:44 Dose: Not Given Furosemide (Lasix) 20 mg IVPUSH NOW ONE Stop: 12/02/19 08:19 Last Admin: 12/02/19 09:15 Dose: 20 mg Guaifenesin (Mucinex) 600 mg PO TID [facility] Last Admin: 12/05/19 16:21 Dose: Not Given Diltiazem HCl 125 mg/ Sodium (Chloride) 125 mls @ 5 mls/hr IV TITRATE [facility]; Protocol Last Titration: 12/02/19 10:05 Dose: 0 mg/hr, 0 mls/hr Sodium Chloride (Normal Saline) 100 mls @ 80 mls/hr IV ASDIRECTED [facility] Last Admin: 12/01/19 21:09 Dose: 80 mls/hr Levofloxacin/Dextrose 750 mg/ (Premix) 150 mls @ 100 mls/hr IV Q24H [facility] Last Admin: 12/04/19 21:00 Dose: 100 mls/hr Dextrose/Sodium Chloride (Dextrose 5%-1/2 Ns) 1,000 mls @ 75 mls/hr IV ASDIRECTED [facility] Sodium Chloride (Normal Saline) 1,000 mls @ 75 mls/hr IV ASDIRECTED [facility] Last Admin: 12/03/19 17:28 Dose: 75 mls/hr Iopamidol (Isovue-370 (76%)) 100 ml IVPUSH ONETIME ONE Stop: 12/01/19 20:56 Last Admin: 12/01/19 21:09 Dose: 100 ml Levofloxacin (Levaquin) 750 mg PO ONETIME STA Stop: 12/01/19 22:05 Last Admin: 12/01/19 22:31 Dose: 750 mg Methylprednisolone Sodium Succinate (Solu-Medrol) 125 mg IVPUSH ONETIME ONE Stop: 12/01/19 19:06 Last Admin: 12/01/19 19:39 Dose: 125 mg Methylprednisolone Sodium Succinate (Solu-Medrol) 60 mg IVPUSH Q6H [facility] Last Admin: 12/04/19 09:25 Dose: 60 mg Nicotine (Habitrol) 21 mg TRDERM DAILY [facility] Last Admin: 12/02/19 05:30 Dose: Not Given - Exam Physical Findings Comments:: Quality Assessment: Supplemental Oxygen, Urine Catheter General: Alert, Oriented HEENT: Pupils Equal, Mucous Membr. Moist/[place] Lungs: wheezing Cardiovascular: Regular Rate, Regular Rhythm GI/Abdominal Exam: Normal Bowel Sounds, Soft, Non-Tender, No Distention Back Exam: Normal Inspection Extremities: Normal Inspection, Normal Range of Motion, Non-Tender, No Pedal Edema Skin: Warm, Dry, Intact Psy/Mental Status: Alert, Normal Affect, Normal Mood Sepsis Event Note - Evaluation Sepsis Screening Result: No Definite Risk - Focused Exam Vital Signs: Vital Signs Temp Pulse Resp BP Pulse Ox Pulse Ox 12/06/19 19:41 97.6 F 79 20 136/62 87 L 12/06/19 16:00 97.8 F 16 125/69 88 L 12/06/19 12:00 98.7 F 18 122/75 88 L 12/06/19 09:57 88 L Date Exam was Performed: 01/03/20 Time Exam was Performed: 16:24 - Problem List Review Problem List Initiated/Reviewed/Updated: Yes - My Orders Last 24 Hours: My Active Orders 12/05/19 21:00 Sennosides [Senna] 8.6 mg PO BID 12/06/19 19:18 Patient Status [ADT] Routine - Plan Plan:: Assessment * Community-acquired pneumonia * CT of the chest confirmed * Hypoxemic * Interstitial infiltrate throughout both lungs -diffuse interstitial pneumonia which is most likely viral versus diffuse bronchitis, pulmonary vascular congestion is also possible. * Levaquin * Respiratory failure * Tachypneic with increased work of breathing * continue bipap * Human metapneumovirus positive * COPD/asthma exacerbation * Smoker * A. fib with RVR -resolved * diltiazem drip stopped * Restart Cardizem CD 240 mg daily * Anxiety/depression * On Zoloft * Daily ETOH of 3 glasses of wine * * PT/OT recommending return home with pulmonary rehab. * Bipap still at 15/8 and 30% FiO2 and pt desatted to 67% on 6L NC while she took her pills. * Day 5 of Levaquin and this can be d/c'd. LBM 12/03/19-scheduled bowel regimen to be ordered-scheduled Senna-nursing will order this. * PT/OT said pt was able to stand at the bedside x 30 minutes yesterday but pt too tired to participate this morning. * Scheduled nebs and higher dose Solu-Medrol started yesterday. * Pt has declined to go to [place]. * Dietary said eating 50-80% of meals and nursing said is bringing in food. * MD asked for supplement from dietary. Plan * Continue BiPAP 15/8 * DuoNeb every 6 hours, albuterol every 2 hours as needed * IV steroids * Continue Levaquin * Nicotine patch * Watch for ETOH withdrawal symptoms * Smoking cessation counseling * Goal will be to keep SPO2 between 88 and 90%. Patient is chronically hypoxemic and if we increase that too much she will decrease her respiratory drive. * VTE prophylaxis: Lovenox * CODE STATUS: Full code * Patient is requiring LOS greater than 96 hours due to suboptimal therapeutic response.
[2019-12-07] MEDS: Albuterol/Ipratropium 3.0-0.5 MG/3 ML Neb Soln NEB SCH ×4 (03:06→21:23)
[2019-12-07] MEDS: methylPREDNISolone Sodium Succinate 40 MG/1 ML SDV IVPUSH SCH ×4 (03:09→21:59)
[2019-12-07] MEDS: Codeine/guaiFENesin 10-100 MG/5 ML Syrup 5 ML Cup PO SCH ×6 (03:10→22:01)
[2019-12-07] MEDS: Budesonide 0.5 MG/2 ML Neb Susp NEB SCH ×2 (06:30→21:23)
[2019-12-07] MEDS: Acetylcysteine 20% 200 MG/ML 4 ML Nebulizer Soln SDV NEB SCH ×4 (06:30→21:23)
[2019-12-07] MEDS: Diltiazem 240 MG Cap.ER PO SCH (09:28)
[2019-12-07] MEDS: Sertraline 50 MG Tab PO SCH (09:28)
[2019-12-07] MEDS: Nicotine 21 MG/24 Hr Patch TRDERM SCH (09:28)
[2019-12-07] MEDS: Sennosides 8.6 MG Tab PO SCH ×2 (09:28→21:58)
[2019-12-07] MEDS ORDERED: Calcium Carbonate 500 MG Tab.Chew PO PRN (12:21)
--- NOTE | 2019-12-07 18:28 | PCM.PN ---
- General Info Date of Service: 12/07/19 Subjective Update: slept ok tolerating diet - Patient Data Vitals - Most Recent: Last Vital Signs Temp 98.1 F 12/07/19 15:25 Pulse 92 12/07/19 15:25 Resp 20 12/07/19 15:25 BP 116/65 12/07/19 15:25 Pulse Ox 88 L 12/07/19 15:25 Weight - Most Recent: 71.622 kg I&O - Last 24 Hours: Intake & Output 12/07/19 12/07/19 12/07/19 06:59 14:59 22:59 Intake Total 800 620 Output Total 1700 Balance -900 620 Nicola Results Last 24 Hours: Microbiology 12/01/19 21:22 Aerobic Blood Culture - Preliminary Blood - Venous - Lab Draw NO GROWTH AFTER 5 DAYS Anaerobic Blood Culture - Preliminary NO GROWTH AFTER 5 DAYS 12/01/19 21:22 Aerobic Blood Culture - Preliminary Blood - Venous NO GROWTH AFTER 5 DAYS Anaerobic Blood Culture - Preliminary NO GROWTH AFTER 5 DAYS 12/03/19 15:40 Gram Stain - Final Sputum - Expectorated Sputum Culture - Final NORMAL RESPIRATORY KATTY 2 DAYS Med Orders - Current: Current Medications Acetaminophen (Tylenol) 650 mg PO Q4H PRN PRN Reason: Pain (Mild 1-3)/fever Last Admin: 12/04/19 19:42 Dose: 650 mg Acetylcysteine (Mucomyst 20%) 800 mg NEB QIDRT [facility] Last Admin: 12/07/19 15:04 Dose: 800 mg Albuterol (Proventil Neb Soln) 2.5 mg NEB Q2H PRN PRN Reason: Shortness Of Breath/wheezing Last Admin: 12/03/19 00:46 Dose: 2.5 mg Albuterol/Ipratropium (Duoneb 3.0-0.5 Mg/3 Ml) 3 ml NEB Q6HRRT [facility] Last Admin: 12/07/19 14:53 Dose: 3 ml Benzocaine/Menthol (Cepacol Sore Throat) 1 lozenge MUCMEM Q4H PRN PRN Reason: Sore Throat Last Admin: 12/04/19 17:49 Dose: 1 lozenge Budesonide (Pulmicort) 0.5 mg NEB BIDRT [facility] Last Admin: 12/07/19 06:30 Dose: 0.5 mg Calcium Carbonate/Glycine (Tums) 500 mg PO Q2H PRN PRN Reason: Indigestion Last Admin: 12/07/19 15:42 Dose: 500 mg Diltiazem HCl (Dilacor Xr) 240 mg PO DAILY [facility] Last Admin: 12/07/19 09:28 Dose: 240 mg Guaifenesin/Codeine Phosphate (Robitussin Ac) 5 ml PO Q4H [facility] Last Admin: 12/07/19 15:42 Dose: 5 ml Lorazepam (Ativan) 1 mg IVPUSH Q4H PRN PRN Reason: Anxiety Last Admin: 12/05/19 22:22 Dose: 1 mg Methylprednisolone Sodium Succinate (Solu-Medrol) 80 mg IVPUSH Q6H [facility] Last Admin: 12/07/19 15:42 Dose: 80 mg Miscellaneous Information (Remove Patch) 1 ea TRDERM DAILY [facility] Last Admin: 12/07/19 09:28 Dose: Not Given Morphine Sulfate (Morphine) 2 mg IVPUSH Q2H PRN PRN Reason: Shortness of Breath Last Admin: 12/02/19 15:12 Dose: 2 mg Nicotine (Habitrol) 21 mg TRDERM DAILY [facility] Last Admin: 12/07/19 09:28 Dose: Not Given Senna (Senna) 8.6 mg PO BID [facility] Last Admin: 12/07/19 09:28 Dose: Not Given Sertraline HCl (Zoloft) 50 mg PO DAILY [facility] Last Admin: 12/07/19 09:28 Dose: 50 mg Simvastatin (Zocor) 10 mg PO BEDTIME [facility] Last Admin: 12/06/19 20:15 Dose: 10 mg Sodium Chloride (Saline Flush) 10 ml FLUSH ONETIME PRN PRN Reason: KEEP VEIN OPEN Last Admin: 12/01/19 21:09 Dose: 10 ml Discontinued Medications Albuterol/Ipratropium (Duoneb 3.0-0.5 Mg/3 Ml) 3 ml NEB ONETIME ONE Stop: 12/01/19 19:04 Last Admin: 12/01/19 19:27 Dose: 3 ml Budesonide (Pulmicort) 0.5 mg NEB ONETIME ONE Stop: 12/02/19 06:16 Last Admin: 12/02/19 06:10 Dose: 0.5 mg Diltiazem HCl (Cardizem) 5 mg IVPUSH ONETIME STA Stop: 12/01/19 19:09 Last Admin: 12/01/19 19:40 Dose: 5 mg Enoxaparin Sodium (Lovenox) 40 mg SUBCUT DAILY [facility] Last Admin: 12/02/19 09:44 Dose: Not Given Furosemide (Lasix) 20 mg IVPUSH NOW ONE Stop: 12/02/19 08:19 Last Admin: 12/02/19 09:15 Dose: 20 mg Guaifenesin (Mucinex) 600 mg PO TID [facility] Last Admin: 12/05/19 16:21 Dose: Not Given Diltiazem HCl 125 mg/ Sodium (Chloride) 125 mls @ 5 mls/hr IV TITRATE [facility]; Protocol Last Titration: 12/02/19 10:05 Dose: 0 mg/hr, 0 mls/hr Sodium Chloride (Normal Saline) 100 mls @ 80 mls/hr IV ASDIRECTED [facility] Last Admin: 12/01/19 21:09 Dose: 80 mls/hr Levofloxacin/Dextrose 750 mg/ (Premix) 150 mls @ 100 mls/hr IV Q24H [facility] Last Admin: 12/04/19 21:00 Dose: 100 mls/hr Dextrose/Sodium Chloride (Dextrose 5%-1/2 Ns) 1,000 mls @ 75 mls/hr IV ASDIRECTED [facility] Sodium Chloride (Normal Saline) 1,000 mls @ 75 mls/hr IV ASDIRECTED [facility] Last Admin: 12/03/19 17:28 Dose: 75 mls/hr Iopamidol (Isovue-370 (76%)) 100 ml IVPUSH ONETIME ONE Stop: 12/01/19 20:56 Last Admin: 12/01/19 21:09 Dose: 100 ml Levofloxacin (Levaquin) 750 mg PO ONETIME STA Stop: 12/01/19 22:05 Last Admin: 12/01/19 22:31 Dose: 750 mg Methylprednisolone Sodium Succinate (Solu-Medrol) 125 mg IVPUSH ONETIME ONE Stop: 12/01/19 19:06 Last Admin: 12/01/19 19:39 Dose: 125 mg Methylprednisolone Sodium Succinate (Solu-Medrol) 60 mg IVPUSH Q6H [facility] Last Admin: 12/04/19 09:25 Dose: 60 mg Nicotine (Habitrol) 21 mg TRDERM DAILY [facility] Last Admin: 12/02/19 05:30 Dose: Not Given - Exam Physical Findings Comments:: Quality Assessment: Supplemental Oxygen, Urine Catheter General: Alert, Oriented HEENT: Pupils Equal, Mucous Membr. Moist/[place] Lungs: wheezing Cardiovascular: Regular Rate, Regular Rhythm GI/Abdominal Exam: Normal Bowel Sounds, Soft, Non-Tender, No Distention Back Exam: Normal Inspection Extremities: Normal Inspection, Normal Range of Motion, Non-Tender, No Pedal Edema Skin: Warm, Dry, Intact Psy/Mental Status: Alert, Normal Affect, Normal Mood Sepsis Event Note - Evaluation Sepsis Screening Result: No Definite Risk - Focused Exam Vital Signs: Vital Signs Temp Pulse Resp BP Pulse Ox Pulse Ox 12/07/19 15:25 98.1 F 92 20 116/65 88 L 12/07/19 15:11 88 L 12/07/19 14:55 85 L 12/07/19 11:58 91 20 107/72 85 L 12/07/19 09:45 85 L 12/07/19 07:34 97.5 F 117 H 16 118/74 88 L 12/07/19 06:32 85 L Date Exam was Performed: 01/03/20 Time Exam was Performed: 16:26 - Problem List Review Problem List Initiated/Reviewed/Updated: Yes - My Orders Last 24 Hours: My Active Orders 12/06/19 19:18 Patient Status [ADT] Routine 12/07/19 12:21 Calcium Carbonate [Tums] 500 mg PO Q2H PRN 12/07/19 15:19 Communication Order [RC] ASDIRECTED - Plan Plan:: Assessment * Community-acquired pneumonia * CT of the chest confirmed * Hypoxemic * Interstitial infiltrate throughout both lungs -diffuse interstitial pneumonia which is most likely viral versus diffuse bronchitis, pulmonary vascular congestion is also possible. * Levaquin * Respiratory failure * Tachypneic with increased work of breathing * continue bipap * Human metapneumovirus positive * COPD/asthma exacerbation * Smoker * A. fib with RVR -resolved * diltiazem drip stopped * Restart Cardizem CD 240 mg daily * Anxiety/depression * On Zoloft * Daily ETOH of 3 glasses of wine * * PT/OT recommending return home with pulmonary rehab. * Bipap still at 15/8 and 30% FiO2 and pt desatted to 67% on 6L NC while she took her pills. * Day 5 of Levaquin and this can be d/c'd. LBM 12/03/19-scheduled bowel regimen to be ordered-scheduled Senna-nursing will order this. * Up with 1/min assist. PT/OT recommending return to home with pulmonary rehab. * Bipap at 32% FiO2 in place with sats around 90%. * Pt has been here 5 days. 3L NC at 84-86% sats. * Pt only checks sats at home if she feels SOB. MARY Tran, in AFib currently, Pulmicort and Mucomyst. * High-flow O2 will be tried today. Levaquin x 4 doses given. * Sputum culture discussed. * Panel Coverer said pt isn't a good eater at home prior to admit, she did take supplement but didn't like it, pt is very selective eater. Plan * Continue BiPAP 15/8 * DuoNeb every 6 hours, albuterol every 2 hours as needed * IV steroids * Continue Levaquin * Nicotine patch * Watch for ETOH withdrawal symptoms * Smoking cessation counseling * Goal will be to keep SPO2 between 88 and 90%. Patient is chronically hypoxemic and if we increase that too much she will decrease her respiratory drive. * VTE prophylaxis: Lovenox * CODE STATUS: Full code * Patient is requiring LOS greater than 96 hours due to suboptimal therapeutic response. * LOS possible d/c Monday.
[2019-12-07] MEDS: Simvastatin 20 MG Tab PO SCH (21:57)
[2019-12-08] MEDS: Albuterol/Ipratropium 3.0-0.5 MG/3 ML Neb Soln NEB SCH ×4 (03:59→21:25)
[2019-12-08] MEDS: methylPREDNISolone Sodium Succinate 40 MG/1 ML SDV IVPUSH SCH ×4 (04:03→21:57)
[2019-12-08] MEDS: Codeine/guaiFENesin 10-100 MG/5 ML Syrup 5 ML Cup PO SCH ×6 (04:03→22:04)
[2019-12-08] MEDS: Acetylcysteine 20% 200 MG/ML 4 ML Nebulizer Soln SDV NEB SCH ×2 (06:09→09:45)
[2019-12-08] MEDS: Budesonide 0.5 MG/2 ML Neb Susp NEB SCH ×2 (06:09→21:25)
[2019-12-08] MEDS: Sertraline 50 MG Tab PO SCH (09:58)
[2019-12-08] MEDS: Diltiazem 240 MG Cap.ER PO SCH (09:58)
[2019-12-08] MEDS: Sennosides 8.6 MG Tab PO SCH ×2 (09:58→21:57)
[2019-12-08] MEDS: Nicotine 21 MG/24 Hr Patch TRDERM SCH (09:58)
[2019-12-08] MEDS: Simvastatin 20 MG Tab PO SCH (21:57)
[2019-12-09] MEDS: Albuterol/Ipratropium 3.0-0.5 MG/3 ML Neb Soln NEB SCH ×3 (03:56→14:19)
[2019-12-09] MEDS: Codeine/guaiFENesin 10-100 MG/5 ML Syrup 5 ML Cup PO SCH ×3 (05:01→12:58)
[2019-12-09] MEDS: methylPREDNISolone Sodium Succinate 40 MG/1 ML SDV IVPUSH SCH ×2 (05:01→09:07)
[2019-12-09] MEDS: Budesonide 0.5 MG/2 ML Neb Susp NEB SCH (06:13)
[2019-12-09] MEDS: Sennosides 8.6 MG Tab PO SCH (09:05)
[2019-12-09] MEDS: Sertraline 50 MG Tab PO SCH (09:05)
[2019-12-09] MEDS: Diltiazem 240 MG Cap.ER PO SCH (09:06)
[2019-12-09 12:07] VITALS: BP 113/62; PULSE 83
[2019-12-09] MEDS: Nicotine 21 MG/24 Hr Patch TRDERM SCH (12:59)
--- NOTE | 2019-12-09 14:37 | PCM.DCSUM1 ---
Discharge Summary - Hospital Course HPI Initial Comments: 53-year-old female with long history of smoking and history of asthma and COPD presents to the emergency room with 10 days of worsening dyspnea. Patient is on 2-1/2 L of oxygen at home. She states she has had a productive cough of clear sputum but has not been wheezing. She states this started when she was at work and she felt like she had a "chemical burn" from some chemicals at work. She denies any fever, chills, night sweats, she does currently complain of being hot though. She denies any chest pain, palpitations, nausea or vomiting. She does have a history of paroxysmal atrial fibrillation. In the emergency room she was found to be in A. fib with RVR. She was placed on a diltiazem drip. In the emergency room she was found to be tachypneic and tachycardic with oxygen saturations in the low 80s on 5 L per nasal cannula she increased to 90%. Was given DuoNeb, Solu-Medrol 125 mg, and Levaquin. Preliminary reading CT of the chest showed: 1. No acute pulmonary embolism. 2. Consolidation involving the left perihilar region extending down into the inferior lingula and left lung base. 3. Additional diffuse interstitial infiltrates throughout both lungs - Discharge Data Discharge Date: 12/09/19 Discharge Disposition: Home, Self-Care 01 Condition: Good - Referral to Home Health Primary Care Physician: Alexandra Cruz PA-C - Discharge Diagnosis/Problem(s) (1) Interstitial lung disease SNOMED Code(s): 357184312 ICD Code: J84.9 - INTERSTITIAL PULMONARY DISEASE, UNSPECIFIED Status: Acute (2) COPD (chronic obstructive pulmonary disease) SNOMED Code(s): 10932898 ICD Code: J44.9 - CHRONIC OBSTRUCTIVE PULMONARY DISEASE, UNSPECIFIED Status : Acute Qualifiers: COPD type: unspecified COPD Qualified Code(s): J44.9 - Chronic obstructive pulmonary disease, unspecified (3) Smoker SNOMED Code(s): 32161717 ICD Code: F17.200 - NICOTINE DEPENDENCE, UNSPECIFIED, UNCOMPLICATED Status : Acute (4) Acute and chronic respiratory failure with hypoxia SNOMED Code(s): 33483901, 591531095 ICD Code: J96.21 - ACUTE AND CHRONIC RESPIRATORY FAILURE WITH HYPOXIA Status: Acute - Patient Summary/Data Consults: Consultations 12/01/19 23:15 Respiratory Care Assess and Treatment [CONS] Routine 12/03/19 11:10 OT Evaluation and Treatment [CONS] Routine PT Evaluation and Treatment [CONS] Routine Hospital Course: COPD exacerbation + pneumonia and poor compliance given ATB and cheduled respiratory therapy discharged once oxygenation improved needs to f/u with pcp and creative specialist - Discharge Plan *PRESCRIPTION DRUG MONITORING PROGRAM REVIEWED*: Not Applicable *COPY OF PRESCRIPTION DRUG MONITORING REPORT IN PATIENT HENRY: Not Applicable Prescriptions/Med Rec: Albuterol/Ipratropium [DuoNeb 3.0-0.5 MG/3 ML] 3 ml NEB Q6HRRT #20 neb Budesonide [Pulmicort] 0.5 mg NEB BIDRT #10 neb Nicotine [Habitrol] 21 mg TRDERM DAILY #30 patch Home Medications: Home Meds Albuterol Sulfate [Albuterol Sulfate Hfa] 2 puff INH Q4HR PRN 12/01/19 [History] Diltiazem [Dilacor XR] 240 mg PO DAILY 12/01/19 [History] Sertraline [Zoloft] 50 mg PO DAILY 12/01/19 [History] Simvastatin 10 mg PO BEDTIME 12/01/19 [History] hydroCHLOROthiazide [Hydrochlorothiazide] 25 mg PO DAILY 12/01/19 [History] Albuterol/Ipratropium [DuoNeb 3.0-0.5 MG/3 ML] 3 ml NEB Q6HRRT #20 neb 12/09/19 [Rx] Budesonide [Pulmicort] 0.5 mg NEB BIDRT #10 neb 12/09/19 [Rx] Nicotine [Habitrol] 21 mg TRDERM DAILY #30 patch 12/09/19 [Rx] Fluticasone/Umeclidin/Vilanter [Trelegy Ellipta 100-62.5-25 MCG] 2 puff INH DAILY 12/30/19 [History] Furosemide [Lasix] 20 mg PO BID 12/30/19 [History] predniSONE [Prednisone] 40 mg PO DAILY #10 tablet 12/30/19 [Rx] Patient Handouts: Chronic Obstructive Pulmonary Disease, [id number], Sepsis, Diagnosis, Adult, Home Oxygen Use, Adult, Steps to Quit Smoking, Community- Acquired Pneumonia, Adult, [id number] Forms: ED Department Discharge Referrals: Adolfo Francis MD [Ordering Only Provider] - 01/22/20 8:45 am (pulmonology appointment at [facility] [place], you have a pulmonary function test at 08:45 [facility] time, then your appointment is at 10:00 am [facility] time. these are on January 22, 2020 please come 30 minutes prior to first appointment to register and bring your insurance cards and photo ID.) Alexandra Cruz PA-C [Primary Care Provider] - 12/19/19 2:00 pm - Discharge Summary/Plan Comment DC Time >30 min.: Yes - Patient Data Vitals - Most Recent: Last Vital Signs Temp 98.4 F 12/09/19 12:03 Pulse 83 12/09/19 12:03 Resp 16 12/09/19 12:03 BP 113/62 12/09/19 12:03 Pulse Ox 89 L 12/09/19 14:19 Weight - Most Recent: 73.119 kg I&O - Last 24 hours: Intake & Output 12/08/19 12/09/19 12/09/19 22:59 06:59 14:59 Intake Total 800 1000 240 Balance 800 1000 240 CHIKIS Results - Last 24 hrs: Microbiology 12/01/19 21:22 Aerobic Blood Culture - Final Blood - Venous - Lab Draw NO GROWTH AFTER 7 DAYS Anaerobic Blood Culture - Final NO GROWTH AFTER 7 DAYS 12/01/19 21:22 Aerobic Blood Culture - Final Blood - Venous NO GROWTH AFTER 7 DAYS Anaerobic Blood Culture - Final NO GROWTH AFTER 7 DAYS Med Orders - Current: Current Medications Acetaminophen (Tylenol) 650 mg PO Q4H PRN PRN Reason: Pain (Mild 1-3)/fever Last Admin: 12/04/19 19:42 Dose: 650 mg Albuterol (Proventil Neb Soln) 2.5 mg NEB Q2H PRN PRN Reason: Shortness Of Breath/wheezing Last Admin: 12/03/19 00:46 Dose: 2.5 mg Albuterol/Ipratropium (Duoneb 3.0-0.5 Mg/3 Ml) 3 ml NEB Q6HRRT [facility] Last Admin: 12/09/19 14:19 Dose: 3 ml Benzocaine/Menthol (Cepacol Sore Throat) 1 lozenge MUCMEM Q4H PRN PRN Reason: Sore Throat Last Admin: 12/04/19 17:49 Dose: 1 lozenge Budesonide (Pulmicort) 0.5 mg NEB BIDRT [facility] Last Admin: 12/09/19 06:13 Dose: 0.5 mg Calcium Carbonate/Glycine (Tums) 500 mg PO Q2H PRN PRN Reason: Indigestion Last Admin: 12/07/19 15:42 Dose: 500 mg Diltiazem HCl (Dilacor Xr) 240 mg PO DAILY [facility] Last Admin: 12/09/19 09:06 Dose: 240 mg Guaifenesin/Codeine Phosphate (Robitussin Ac) 5 ml PO Q4H [facility] Last Admin: 12/09/19 12:58 Dose: 5 ml Lorazepam (Ativan) 1 mg IVPUSH Q4H PRN PRN Reason: Anxiety Last Admin: 12/05/19 22:22 Dose: 1 mg Methylprednisolone (Medrol) 24 mg PO ONETIME ONE Stop: 12/10/19 09:01 Methylprednisolone (Medrol) 20 mg PO ONETIME ONE Stop: 12/11/19 09:01 Methylprednisolone (Medrol) 16 mg PO ONETIME ONE Stop: 12/12/19 09:01 Methylprednisolone (Medrol) 12 mg PO ONETIME ONE Stop: 12/13/19 09:01 Methylprednisolone (Medrol) 8 mg PO ONETIME ONE Stop: 12/14/19 09:01 Methylprednisolone (Medrol) 4 mg PO ONETIME ONE Stop: 12/15/19 09:01 Miscellaneous Information (Remove Patch) 1 ea TRDERM DAILY [facility] Last Admin: 12/09/19 11:23 Dose: Not Given Morphine Sulfate (Morphine) 2 mg IVPUSH Q2H PRN PRN Reason: Shortness of Breath Last Admin: 12/02/19 15:12 Dose: 2 mg Nicotine (Habitrol) 21 mg TRDERM DAILY [facility] Last Admin: 12/09/19 12:59 Dose: Not Given Senna (Senna) 8.6 mg PO BID [facility] Last Admin: 12/09/19 09:05 Dose: Not Given Sertraline HCl (Zoloft) 50 mg PO DAILY [facility] Last Admin: 12/09/19 09:05 Dose: 50 mg Simvastatin (Zocor) 10 mg PO BEDTIME [facility] Last Admin: 12/08/19 21:57 Dose: 10 mg Sodium Chloride (Saline Flush) 10 ml FLUSH ONETIME PRN PRN Reason: KEEP VEIN OPEN Last Admin: 12/01/19 21:09 Dose: 10 ml Discontinued Medications Acetylcysteine (Mucomyst 20%) 800 mg NEB QIDRT [facility] Last Admin: 12/08/19 09:45 Dose: 800 mg Albuterol/Ipratropium (Duoneb 3.0-0.5 Mg/3 Ml) 3 ml NEB ONETIME ONE Stop: 12/01/19 19:04 Last Admin: 12/01/19 19:27 Dose: 3 ml Budesonide (Pulmicort) 0.5 mg NEB ONETIME ONE Stop: 12/02/19 06:16 Last Admin: 12/02/19 06:10 Dose: 0.5 mg Diltiazem HCl (Cardizem) 5 mg IVPUSH ONETIME STA Stop: 12/01/19 19:09 Last Admin: 12/01/19 19:40 Dose: 5 mg Enoxaparin Sodium (Lovenox) 40 mg SUBCUT DAILY [facility] Last Admin: 12/02/19 09:44 Dose: Not Given Furosemide (Lasix) 20 mg IVPUSH NOW ONE Stop: 12/02/19 08:19 Last Admin: 12/02/19 09:15 Dose: 20 mg Guaifenesin (Mucinex) 600 mg PO TID [facility] Last Admin: 12/05/19 16:21 Dose: Not Given Diltiazem HCl 125 mg/ Sodium (Chloride) 125 mls @ 5 mls/hr IV TITRATE [facility]; Protocol Last Titration: 12/02/19 10:05 Dose: 0 mg/hr, 0 mls/hr Sodium Chloride (Normal Saline) 100 mls @ 80 mls/hr IV ASDIRECTED [facility] Last Admin: 12/01/19 21:09 Dose: 80 mls/hr Levofloxacin/Dextrose 750 mg/ (Premix) 150 mls @ 100 mls/hr IV Q24H [facility] Last Admin: 12/04/19 21:00 Dose: 100 mls/hr Dextrose/Sodium Chloride (Dextrose 5%-1/2 Ns) 1,000 mls @ 75 mls/hr IV ASDIRECTED [facility] Sodium Chloride (Normal Saline) 1,000 mls @ 75 mls/hr IV ASDIRECTED [facility] Last Admin: 12/03/19 17:28 Dose: 75 mls/hr Iopamidol (Isovue-370 (76%)) 100 ml IVPUSH ONETIME ONE Stop: 12/01/19 20:56 Last Admin: 12/01/19 21:09 Dose: 100 ml Levofloxacin (Levaquin) 750 mg PO ONETIME STA Stop: 12/01/19 22:05 Last Admin: 12/01/19 22:31 Dose: 750 mg Methylprednisolone Sodium Succinate (Solu-Medrol) 125 mg IVPUSH ONETIME ONE Stop: 12/01/19 19:06 Last Admin: 12/01/19 19:39 Dose: 125 mg Methylprednisolone Sodium Succinate (Solu-Medrol) 60 mg IVPUSH Q6H [facility] Last Admin: 12/04/19 09:25 Dose: 60 mg Methylprednisolone Sodium Succinate (Solu-Medrol) 80 mg IVPUSH Q6H [facility] Last Admin: 12/09/19 09:07 Dose: 80 mg Nicotine (Habitrol) 21 mg TRDERM DAILY [facility] Last Admin: 12/02/19 05:30 Dose: Not Given - Exam Physical Findings Comments:: Quality Assessment: Supplemental Oxygen, Urine Catheter General: Alert, Oriented HEENT: Pupils Equal, Mucous Membr. Moist/[place] Lungs: wheezing Cardiovascular: Regular Rate, Regular Rhythm GI/Abdominal Exam: Normal Bowel Sounds, Soft, Non-Tender, No Distention Back Exam: Normal Inspection Extremities: Normal Inspection, Normal Range of Motion, Non-Tender, No Pedal Edema Skin: Warm, Dry, Intact Psy/Mental Status: Alert, Normal Affect, Normal Mood
--- NOTE | 2019-12-09 14:37 | PCM.PN ---
- General Info Date of Service: 12/08/19 Subjective Update: slept ok tolerating diet - Patient Data Vitals - Most Recent: Last Vital Signs Temp 98.4 F 12/09/19 12:03 Pulse 83 12/09/19 12:03 Resp 16 12/09/19 12:03 BP 113/62 12/09/19 12:03 Pulse Ox 89 L 12/09/19 14:19 Weight - Most Recent: 73.119 kg I&O - Last 24 Hours: Intake & Output 12/08/19 12/09/19 12/09/19 22:59 06:59 14:59 Intake Total 800 1000 240 Balance 800 1000 240 Nicola Results Last 24 Hours: Microbiology 12/01/19 21:22 Aerobic Blood Culture - Final Blood - Venous - Lab Draw NO GROWTH AFTER 7 DAYS Anaerobic Blood Culture - Final NO GROWTH AFTER 7 DAYS 12/01/19 21:22 Aerobic Blood Culture - Final Blood - Venous NO GROWTH AFTER 7 DAYS Anaerobic Blood Culture - Final NO GROWTH AFTER 7 DAYS Med Orders - Current: Current Medications Acetaminophen (Tylenol) 650 mg PO Q4H PRN PRN Reason: Pain (Mild 1-3)/fever Last Admin: 12/04/19 19:42 Dose: 650 mg Albuterol (Proventil Neb Soln) 2.5 mg NEB Q2H PRN PRN Reason: Shortness Of Breath/wheezing Last Admin: 12/03/19 00:46 Dose: 2.5 mg Albuterol/Ipratropium (Duoneb 3.0-0.5 Mg/3 Ml) 3 ml NEB Q6HRRT [facility] Last Admin: 12/09/19 14:19 Dose: 3 ml Benzocaine/Menthol (Cepacol Sore Throat) 1 lozenge MUCMEM Q4H PRN PRN Reason: Sore Throat Last Admin: 12/04/19 17:49 Dose: 1 lozenge Budesonide (Pulmicort) 0.5 mg NEB BIDRT [facility] Last Admin: 12/09/19 06:13 Dose: 0.5 mg Calcium Carbonate/Glycine (Tums) 500 mg PO Q2H PRN PRN Reason: Indigestion Last Admin: 12/07/19 15:42 Dose: 500 mg Diltiazem HCl (Dilacor Xr) 240 mg PO DAILY [facility] Last Admin: 02/24/20 09:06 Dose: 240 mg Guaifenesin/Codeine Phosphate (Robitussin Ac) 5 ml PO Q4H [facility] Last Admin: 12/09/19 12:58 Dose: 5 ml Lorazepam (Ativan) 1 mg IVPUSH Q4H PRN PRN Reason: Anxiety Last Admin: 12/05/19 22:22 Dose: 1 mg Methylprednisolone (Medrol) 24 mg PO ONETIME ONE Stop: 12/10/19 09:01 Methylprednisolone (Medrol) 20 mg PO ONETIME ONE Stop: 12/11/19 09:01 Methylprednisolone (Medrol) 16 mg PO ONETIME ONE Stop: 12/12/19 09:01 Methylprednisolone (Medrol) 12 mg PO ONETIME ONE Stop: 12/13/19 09:01 Methylprednisolone (Medrol) 8 mg PO ONETIME ONE Stop: 12/14/19 09:01 Methylprednisolone (Medrol) 4 mg PO ONETIME ONE Stop: 12/15/19 09:01 Miscellaneous Information (Remove Patch) 1 ea TRDERM DAILY [facility] Last Admin: 12/09/19 11:23 Dose: Not Given Morphine Sulfate (Morphine) 2 mg IVPUSH Q2H PRN PRN Reason: Shortness of Breath Last Admin: 12/02/19 15:12 Dose: 2 mg Nicotine (Habitrol) 21 mg TRDERM DAILY [facility] Last Admin: 12/09/19 12:59 Dose: Not Given Senna (Senna) 8.6 mg PO BID [facility] Last Admin: 12/09/19 09:05 Dose: Not Given Sertraline HCl (Zoloft) 50 mg PO DAILY [facility] Last Admin: 12/09/19 09:05 Dose: 50 mg Simvastatin (Zocor) 10 mg PO BEDTIME [facility] Last Admin: 12/08/19 21:57 Dose: 10 mg Sodium Chloride (Saline Flush) 10 ml FLUSH ONETIME PRN PRN Reason: KEEP VEIN OPEN Last Admin: 12/01/19 21:09 Dose: 10 ml Discontinued Medications Acetylcysteine (Mucomyst 20%) 800 mg NEB QIDRT [facility] Last Admin: 12/08/19 09:45 Dose: 800 mg Albuterol/Ipratropium (Duoneb 3.0-0.5 Mg/3 Ml) 3 ml NEB ONETIME ONE Stop: 12/01/19 19:04 Last Admin: 12/01/19 19:27 Dose: 3 ml Budesonide (Pulmicort) 0.5 mg NEB ONETIME ONE Stop: 12/02/19 06:16 Last Admin: 12/02/19 06:10 Dose: 0.5 mg Diltiazem HCl (Cardizem) 5 mg IVPUSH ONETIME STA Stop: 12/01/19 19:09 Last Admin: 12/01/19 19:40 Dose: 5 mg Enoxaparin Sodium (Lovenox) 40 mg SUBCUT DAILY [facility] Last Admin: 12/02/19 09:44 Dose: Not Given Furosemide (Lasix) 20 mg IVPUSH NOW ONE Stop: 12/02/19 08:19 Last Admin: 12/02/19 09:15 Dose: 20 mg Guaifenesin (Mucinex) 600 mg PO TID [facility] Last Admin: 12/05/19 16:21 Dose: Not Given Diltiazem HCl 125 mg/ Sodium (Chloride) 125 mls @ 5 mls/hr IV TITRATE JAY JAY; Protocol Last Titration: 12/02/19 10:05 Dose: 0 mg/hr, 0 mls/hr Sodium Chloride (Normal Saline) 100 mls @ 80 mls/hr IV ASDIRECTED JAY JAY Last Admin: 12/01/19 21:09 Dose: 80 mls/hr Levofloxacin/Dextrose 750 mg/ (Premix) 150 mls @ 100 mls/hr IV Q24H JAY JAY Last Admin: 12/04/19 21:00 Dose: 100 mls/hr Dextrose/Sodium Chloride (Dextrose 5%-1/2 Ns) 1,000 mls @ 75 mls/hr IV ASDIRECTED JAY JAY Sodium Chloride (Normal Saline) 1,000 mls @ 75 mls/hr IV ASDIRECTED JAY JAY Last Admin: 12/03/19 17:28 Dose: 75 mls/hr Iopamidol (Isovue-370 (76%)) 100 ml IVPUSH ONETIME ONE Stop: 12/01/19 20:56 Last Admin: 12/01/19 21:09 Dose: 100 ml Levofloxacin (Levaquin) 750 mg PO ONETIME STA Stop: 12/01/19 22:05 Last Admin: 12/01/19 22:31 Dose: 750 mg Methylprednisolone Sodium Succinate (Solu-Medrol) 125 mg IVPUSH ONETIME ONE Stop: 12/01/19 19:06 Last Admin: 12/01/19 19:39 Dose: 125 mg Methylprednisolone Sodium Succinate (Solu-Medrol) 60 mg IVPUSH Q6H [facility] Last Admin: 12/04/19 09:25 Dose: 60 mg Methylprednisolone Sodium Succinate (Solu-Medrol) 80 mg IVPUSH Q6H [facility] Last Admin: 12/09/19 09:07 Dose: 80 mg Nicotine (Habitrol) 21 mg TRDERM DAILY [facility] Last Admin: 12/02/19 05:30 Dose: Not Given - Exam Physical Findings Comments:: Quality Assessment: Supplemental Oxygen, Urine Catheter General: Alert, Oriented HEENT: Pupils Equal, Mucous Membr. Moist/[place] Lungs: wheezing Cardiovascular: Regular Rate, Regular Rhythm GI/Abdominal Exam: Normal Bowel Sounds, Soft, Non-Tender, No Distention Back Exam: Normal Inspection Extremities: Normal Inspection, Normal Range of Motion, Non-Tender, No Pedal Edema Skin: Warm, Dry, Intact Psy/Mental Status: Alert, Normal Affect, Normal Mood Sepsis Event Note - Evaluation Sepsis Screening Result: No Definite Risk - Focused Exam Vital Signs: Vital Signs Temp Pulse Resp BP Pulse Ox Pulse Ox 12/09/19 14:19 89 L 12/09/19 12:03 98.4 F 83 16 113/62 88 L 12/09/19 09:13 90 L 12/09/19 09:01 122 H 86 L 12/09/19 06:14 89 L 12/09/19 04:59 97.9 F 88 16 116/85 88 L 12/09/19 03:58 88 L Date Exam was Performed: 01/03/20 Time Exam was Performed: 16:28 - Problem List & Annotations (1) Interstitial lung disease SNOMED Code(s): 588388786 Code(s): J84.9 - INTERSTITIAL PULMONARY DISEASE, UNSPECIFIED Status: Acute (2) COPD (chronic obstructive pulmonary disease) SNOMED Code(s): 34519525 Code(s): J44.9 - CHRONIC OBSTRUCTIVE PULMONARY DISEASE, UNSPECIFIED Status : Acute Qualifiers: COPD type: unspecified COPD Qualified Code(s): J44.9 - Chronic obstructive pulmonary disease, unspecified (3) Smoker SNOMED Code(s): 00985290 Code(s): F17.200 - NICOTINE DEPENDENCE, UNSPECIFIED, UNCOMPLICATED Status: Acute (4) Acute and chronic respiratory failure with hypoxia SNOMED Code(s): 40342646, 723402253 Code(s): J96.21 - ACUTE AND CHRONIC RESPIRATORY FAILURE WITH HYPOXIA Status : Acute - Problem List Review Problem List Initiated/Reviewed/Updated: Yes - My Orders Last 24 Hours: My Active Orders 12/10/19 09:00 methylPREDNISolone [Medrol] 24 mg PO ONETIME ONE 12/11/19 09:00 methylPREDNISolone [Medrol] 20 mg PO ONETIME ONE 12/12/19 09:00 methylPREDNISolone [Medrol] 16 mg PO ONETIME ONE 12/13/19 09:00 methylPREDNISolone [Medrol] 12 mg PO ONETIME ONE 12/14/19 09:00 methylPREDNISolone [Medrol] 8 mg PO ONETIME ONE 12/15/19 09:00 methylPREDNISolone [Medrol] 4 mg PO ONETIME ONE - Plan Plan:: Assessment * Community-acquired pneumonia * CT of the chest confirmed * Hypoxemic * Interstitial infiltrate throughout both lungs -diffuse interstitial pneumonia which is most likely viral versus diffuse bronchitis, pulmonary vascular congestion is also possible. * Levaquin * Respiratory failure * Tachypneic with increased work of breathing * continue bipap * Human metapneumovirus positive * COPD/asthma exacerbation * Smoker * A. fib with RVR -resolved * diltiazem drip stopped * Restart Cardizem CD 240 mg daily * Anxiety/depression * On Zoloft * Daily ETOH of 3 glasses of wine * * PT/OT recommending return home with pulmonary rehab. * Bipap still at 15/8 and 30% FiO2 and pt desatted to 67% on 6L NC while she took her pills. * Day 5 of Levaquin and this can be d/c'd. LBM 12/03/19-scheduled bowel regimen to be ordered-scheduled Senna-nursing will order this. * Up with 1/min assist. PT/OT recommending return to home with pulmonary rehab. * Bipap at 32% FiO2 in place with sats around 90%. * Pt has been here 5 days. 3L NC at 84-86% sats. * Pt only checks sats at home if she feels SOB. Duonebs, PO Cardizem, in AFib currently, Pulmicort and Mucomyst. * High-flow O2 will be tried today. Levaquin x 4 doses given. * Sputum culture discussed. * Toll Test Worker said pt isn't a good eater at home prior to admit, she did take supplement but didn't like it, pt is very selective eater. Plan * Continue BiPAP 30/05 * DuoNeb every 6 hours, albuterol every 2 hours as needed * IV steroids * Continue Levaquin * Nicotine patch * Watch for ETOH withdrawal symptoms * Smoking cessation counseling * Goal will be to keep SPO2 between 88 and 90%. Patient is chronically hypoxemic and if we increase that too much she will decrease her respiratory drive. * VTE prophylaxis: Lovenox * CODE STATUS: Full code * Patient is requiring LOS greater than 96 hours due to suboptimal therapeutic response. * LOS possible d/c Monday. * * * Nursing reports pt is up and around independently, is on o2 3l nc has o2 at home & portable as well, pharmacy requests changing the steroids to oral provider says yes and give a dose pack for discharge, dietary & therapy nothing , cm reports is from [place] spouse, has home o2, is a smoker , education has been added and has nicotine patch ordered her but has been refusing, refused flu vaccine, is high readmit risk,has scd's, social media marketing analyst made the referral for pulmonary rehab an provider asked for appointment for return clerk, CM will do this. plan is to discharge home today.
== END 2019-12-09 17:04 | disposition home or self-care (01) | DRG 139 ==
LOC: JD.ED 18:33 → JD.ICU 23:03 → JD.MS 12-06 19:18
PROVIDERS: ADMIT Family Medicine; ATTEND Family Medicine
PROC: 5A09557 Assistance with Respiratory Ventilation, Greater than 96 Consecutive Hours, Continuous Positive Airway Pressure (ICD-10-PCS; principal; 2019-12-01)
DX: J18.9 Pneumonia, unspecified organism (principal); E78.00 Pure hypercholesterolemia, unspecified; I48.0 Paroxysmal atrial fibrillation; J96.21 Acute and chronic respiratory failure with hypoxia; I10 Essential (primary) hypertension; K21.9 Gastro-esophageal reflux disease without esophagitis; F41.9 Anxiety disorder, unspecified; F32.9 Major depressive disorder, single episode, unspecified; F42.9 Obsessive-compulsive disorder, unspecified; F17.210 Nicotine dependence, cigarettes, uncomplicated; G47.33 Obstructive sleep apnea (adult) (pediatric); E87.2 Acidosis; E87.3 Alkalosis; J44.1 Chronic obstructive pulmonary disease with (acute) exacerbation; J44.0 Chronic obstructive pulmonary disease with (acute) lower respiratory infection; B97.81 Human metapneumovirus as the cause of diseases classified elsewhere; Z71.6 Tobacco abuse counseling; Z88.8 Allergy status to other drugs, medicaments and biological substances; Z99.81 Dependence on supplemental oxygen; Z79.51 Long term (current) use of inhaled steroids; Z79.899 Other long term (current) drug therapy
CPT/HCPCS: 36415; 36600; 51702; 71045; 71045-26; 71250; 71250-26; 71275; 71275-26; 80048; 80053; 82803; 83605; 83735; 83880; 84100; 84145; 84484; 85007; 85025; 85027; 85379; 86140; 87040; 87070; 87205; 87486; 87581; 87632; 87798; 87899; 93005; 93010; 94640; 94660; 94667; 94668; 94760; 94761; 96361; 96374; 96375; 97110-GP; 97116-GP; 97162-GP; 97165-GO; 97535-GO; 99222; 99231; 99232; 99239; 99285; 99285-25; A9270-GY; J1650; J1940; J1956; J2060; J2270; J2920; J2930; J3490; J7030; J7050; J7620-GY; Q9967

== ENCOUNTER 2019-12-30 08:47 | Emergency (ER) | payer BC ==
[2019-12-30] MEDS ORDERED: Sodium Chloride 0.9% 10 ML Syringe FLUSH PRN (09:36)
[2019-12-30] MEDS ORDERED: methylPREDNISolone Sodium Succinate 125 MG/2 ML SDV IVPUSH ONE (09:37)
[2019-12-30] MEDS ORDERED: Albuterol/Ipratropium 3.0-0.5 MG/3 ML Neb Soln NEB ONE (09:37)
[2019-12-30 09:40] VITALS: BP 103/82; PULSE 61
[2019-12-30] MEDS ORDERED: Albuterol 0.083% 2.5 MG/3 ML Neb Soln NEB ONE (10:57)
--- NOTE | 2019-12-30 12:47 | CR ---
Chest: Portable view of the chest was obtained. Comparison: Prior chest x-ray of 12/02/19. Chronic interstitial change is seen as well as scarring within both lung bases. No definite change from previous chest x-ray is seen. Heart is slightly enlarged. Upper mediastinum is normal. Bony structures are grossly intact. Impression: 1. Interstitial change felt to represent fibrosis as well as bibasilar scarring. 2. No definite change from previous study is seen. Diagnostic code #3 Study was dictated in MDT
--- NOTE | 2019-12-30 13:16 | EDM.PDOC ---
ED HPI GENERAL MEDICAL PROBLEM - General Chief Complaint: Respiratory Problem Stated Complaint: LOW O2 LEVELS ON OXYGEN Time Seen by Provider: 12/30/19 09:30 Source of Information: Reports: Patient History Limitations: Reports: No Limitations - History of Present Illness INITIAL COMMENTS - FREE TEXT/NARRATIVE: The patient presents with shortness of breath. She has a history of COPD and she is oxygen dependent. She is needing more oxygen. She has a cough and congestion. She has no chest pain. She was admitted to the hospital last month for pneumonia. She is concerned that her concentrator does not work. She says her oxygen saturations are very low in the morning. Onset: Gradual Duration: Day(s): Severity: Moderate Improves with: Reports: None Worsens with: Reports: None Associated Symptoms: Reports: Cough, Shortness of Breath. Denies: Chest Pain, Fever/Chills, Headaches, Nausea/Vomiting Throat Pain Score (Numeric/FACES): 3 - Related Data Allergies Allergy/AdvReac Type Severity Reaction Status Date / Time diphenhydramine HCl Allergy Severe Anaphylactic Verified 12/30/19 09:34 [From [place]] Shock Home Meds: Home Meds Albuterol Sulfate [Albuterol Sulfate Hfa] 2 puff INH Q4HR PRN 12/01/19 [History] Diltiazem [Dilacor XR] 240 mg PO DAILY 12/01/19 [History] Sertraline [Zoloft] 50 mg PO DAILY 12/01/19 [History] Simvastatin 10 mg PO BEDTIME 12/01/19 [History] hydroCHLOROthiazide [Hydrochlorothiazide] 25 mg PO DAILY 12/01/19 [History] Albuterol/Ipratropium [DuoNeb 3.0-0.5 MG/3 ML] 3 ml NEB Q6HRRT #20 neb 12/09/19 [Rx] Budesonide [Pulmicort] 0.5 mg NEB BIDRT #10 neb 12/09/19 [Rx] Nicotine [Habitrol] 21 mg TRDERM DAILY #30 patch 12/09/19 [Rx] Fluticasone/Umeclidin/Vilanter [Trelegy Ellipta 100-62.5-25 MCG] 2 puff INH DAILY 12/30/19 [History] Furosemide [Lasix] 20 mg PO BID 12/30/19 [History] predniSONE [Prednisone] 40 mg PO DAILY #10 tablet 12/30/19 [Rx] Past Medical History Cardiovascular History: Reports: Afib, High Cholesterol, Hypertension Other Cardiovascular History: ON/OFF RACING HEART Respiratory History: Reports: Asthma, COPD, Sleep Apnea Gastrointestinal History: Reports: GERD Genitourinary History: Reports: Urinary Incontinence 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: Neurological History: Reports: None Psychiatric History: Reports: Anxiety, Depression, OCD Hematologic History: Reports: None Immunologic History: Reports: None Dermatologic History: Reports: None - Past Surgical History Female Surgical History: Reports: Section Musculoskeletal Surgical History: Reports: Other (See Below) Social & Family History - Family History Family Medical History: Noncontributory - Tobacco Use Smoking Status *Q: Former Smoker Used Tobacco, but Quit: Yes Month/Year Tobacco Last Used: 11/2019 Second Hand Smoke Exposure: No - Caffeine Use Caffeine Use: Reports: Coffee, Tea - Alcohol Use Days Per Week of Alcohol Use: 7 Number of Drinks Per Day: 4 Total Drinks Per Week: 28 - Recreational Drug Use Recreational Drug Use: No - Living Situation & Occupation Living situation: Reports: , with Spouse Occupation: Employed ED ROS GENERAL - Review of Systems Review Of Systems: See Below Constitutional: Reports: No Symptoms HEENT: Reports: No Symptoms Respiratory: Reports: Shortness of Breath, Cough Cardiovascular: Reports: No Symptoms Endocrine: Reports: No Symptoms GI/Abdominal: Reports: No Symptoms : Reports: No Symptoms Musculoskeletal: Reports: No Symptoms ED EXAM, GENERAL - Physical Exam Exam: See Below Exam Limited By: No Limitations General Appearance: Alert, No Apparent Distress Ears: Normal External Exam Nose: Normal Inspection Head: Atraumatic, Normocephalic Neck: Normal Inspection Respiratory/Chest: No Respiratory Distress, Decreased Breath Sounds, Wheezing Cardiovascular: Regular Rate, Rhythm, No Edema, No Murmur GI/Abdominal: Soft, Non-Tender, No Organomegaly, No Mass Back Exam: Normal Inspection Extremities: Normal Inspection Course - Vital Signs Last Recorded V/S: Last Vital Signs Temp 98.3 F 12/30/19 09:35 Pulse 61 12/30/19 09:35 Resp 20 12/30/19 09:35 BP 103/82 12/30/19 09:35 Pulse Ox 83 L 12/30/19 10:58 - Orders/Labs/Meds Orders: Active Orders 24 hr Category Date Time Status Cardiac Monitoring [RC] . DIRECTED Care 12/30/19 09:36 Active Oxygen Therapy [RC] PRN Care 12/30/19 09:37 Active Peripheral IV Care [RC] . DIRECTED Care 12/30/19 09:37 Active RT Aerosol Therapy [RC] ASDIRECTED Care 12/30/19 09:37 Active RT Aerosol Therapy [RC] ASDIRECTED Care 12/30/19 10:58 Active Peripheral IV Insertion Adult [OM.PC] Stat Oth 12/30/19 09:36 Ordered Labs: Laboratory Tests 12/30/19 12/30/19 12/30/19 Range/Units 09:36 10:10 11:20 WBC 4.59 (3.98-10.04) K/mm3 RBC 4.58 (3.98-5.22) M/mm3 Hgb 14.1 (11.2-15.7) gm/dl Hct 46.8 H (34.1-44.9) % MCV 102.2 H (79.4-94.8) fl MCH 30.8 (25.6-32.2) pg MCHC 30.1 L (32.2-35.5) g/dl RDW Std Deviation 59.4 H (36.4-46.3) fL Plt Count 218 (182-369) K/mm3 MPV 9.8 (9.4-12.3) fl Neut % (Auto) 72.6 H (34.0-71.1) % Lymph % (Auto) 13.3 L (19.3-51.7) % [place] % (Auto) 10.2 (4.7-12.5) % Eos % (Auto) 1.3 (0.7-5.8) Baso % (Auto) 0.2 (0.1-1.2) % Neut # (Auto) 3.33 (1.56-6.13) K/mm3 Lymph # (Auto) 0.61 L (1.18-3.74) K/mm3 [place] # (Auto) 0.47 H (0.24-0.36) K/mm3 Eos # (Auto) 0.06 (0.04-0.36) K/mm3 Baso # (Auto) 0.01 (0.01-0.08) K/mm3 Manual Slide Review Abnormal smear Puncture Site Rt radial ABG pH 7.48 H (7.35-7.45) ABG pCO2 68.0 H (35.0-45.0) mmHg ABG pO2 51.0 L (80.0-100.0) mmHg ABG HCO3 50.4 H (22.0-26.0) meq/L ABG O2 Saturation 83.2 L (96.0-97.0) % ABG Base Excess 22.0 H (-2-2.0) A-a Gradient 150 mmHg O2 Delivery Device Nasal cannula Oxygen Flow Rate 5.0 FiO2 40.00 (21.00-100.00) % Sodium 139 (136-145) mEq/L Potassium 3.1 L (3.5-5.1) mEq/L Chloride 91 L (98-107) mEq/L Carbon Dioxide 50 H* D (21-32) mEq/L Anion Gap 1.1 L (5-15) BUN 4 L (7-18) mg/dL Creatinine 0.5 L (0.55-1.02) mg/dL Est Cr Clr Drug Dosing 123.63 mL/min Estimated GFR (MDRD) > 60 (>60) mL/min BUN/Creatinine Ratio 8.0 L (14-18) Glucose 93 (74-106) mg/dL Calcium 9.1 (8.5-10.1) mg/dL Total Bilirubin 0.5 (0.2-1.0) mg/dL AST 21 (15-37) U/L ALT 33 (14-59) U/L Alkaline Phosphatase 106 (46-116) U/L Total Protein 6.6 (6.4-8.2) g/dl Albumin 2.6 L (3.4-5.0) g/dl Globulin 4.0 gm/dL Albumin/Globulin Ratio 0.7 L (1-2) Meds: Medications Discontinued Medications Generic Name Dose Route Start Last Admin Trade Name Freq PRN Reason Stop Dose Admin Albuterol 2.5 mg 12/30/19 10:57 12/30/19 11:31 Proventil Neb Soln NEB 12/30/19 10:58 2.5 mg ONETIME ONE Administration Albuterol/Ipratropium 3 ml 12/30/19 09:37 12/30/19 11:07 Duoneb 3.0-0.5 Mg/3 Ml NEB 12/30/19 09:38 3 ml ONETIME ONE Administration Magnesium Sulfate/Dextrose 1 100 mls @ 100 mls/hr 12/30/19 09:38 12/30/19 10: 16 gm/ Premix IV 12/30/19 10:37 100 mls/hr ONETIME ONE Administration Methylprednisolone Sodium Succinate 125 mg 12/30/19 09:37 12/30/19 10:06 Solu-Medrol IVPUSH 12/30/19 09:38 125 mg ONETIME ONE Administration Sodium Chloride 10 ml 12/30/19 09:36 12/30/19 10:05 Saline Flush FLUSH 10 ml ASDIRECTED PRN Administration Keep Vein Open - Re-Assessments/Exams Free Text/Narrative Re-Assessment/Exam: 12/30/19 15:34 I ordered oxygen, CXR, labs, magnesium, solu-medrol 125mg IV, duoneb and labs. 12/30/19 15:36 Her CBC looks good. Her Ph 7.48. Her pCO2 is elevated at 68. Her pO2 is low at 51. Her K is low at 3.1. Her CO2 is elevated at 50. Her CXR shows interstitial change felt to represent fibrosis as well as bibasilar scarring. No definite change from previous study is seen. I felt she should be admitted but she would like to go home. I called [facility] and they said they could check her concentrator is she brings it in. Departure - Departure Time of Disposition: 13:20 Disposition: Home, Self-Care 01 Condition: Good Clinical Impression: COPD (chronic obstructive pulmonary disease) Qualifiers: COPD type: unspecified COPD Qualified Code(s): J44.9 - Chronic obstructive pulmonary disease, unspecified - Discharge Information *PRESCRIPTION DRUG MONITORING PROGRAM REVIEWED*: Not Applicable *COPY OF PRESCRIPTION DRUG MONITORING REPORT IN PATIENT HENRY: Not Applicable Prescriptions: predniSONE [Prednisone] 40 mg PO DAILY #10 tablet Instructions: Chronic Obstructive Pulmonary Disease, [id number] Referrals: Alexandra Cruz PA-C [Primary Care Provider] - 1 Week Forms: ED Department Discharge Additional Instructions: Take your medication as prescribed. Take the prednisone daily for 5 days. Please return if you are worse. Sepsis Event Note - Evaluation Sepsis Screening Result: No Definite Risk - Focused Exam Vital Signs: Vital Signs Temp Pulse Resp BP Pulse Ox Pulse Ox 12/30/19 10:58 83 L 12/30/19 09:37 78 L 12/30/19 09:35 98.3 F 61 20 103/82 77 L Date Exam was Performed: 12/30/19 Time Exam was Performed: 15:31 - My Orders Last 24 Hours: My Active Orders 12/30/19 09:36 Cardiac Monitoring [RC] . DIRECTED Peripheral IV Insertion Adult [OM.PC] Stat 12/30/19 09:37 Oxygen Therapy [RC] PRN Peripheral IV Care [RC] . DIRECTED RT Aerosol Therapy [RC] ASDIRECTED 12/30/19 10:58 RT Aerosol Therapy [RC] ASDIRECTED - Assessment/Plan Last 24 Hours: My Active Orders 12/30/19 09:36 Cardiac Monitoring [RC] . DIRECTED Peripheral IV Insertion Adult [OM.PC] Stat 12/30/19 09:37 Oxygen Therapy [RC] PRN Peripheral IV Care [RC] . DIRECTED RT Aerosol Therapy [RC] ASDIRECTED 12/30/19 10:58 RT Aerosol Therapy [RC] ASDIRECTED
== END 2019-12-30 13:55 | disposition home or self-care (01) ==
LOC: JD.ED 08:47
DX: J44.9 Chronic obstructive pulmonary disease, unspecified (principal); I10 Essential (primary) hypertension; F41.9 Anxiety disorder, unspecified; F32.9 Major depressive disorder, single episode, unspecified; Z79.899 Other long term (current) drug therapy; Z88.8 Allergy status to other drugs, medicaments and biological substances; Z87.891 Personal history of nicotine dependence
CPT/HCPCS: 36415; 36600; 71045; 80053; 82803; 85025; 94640; 96365; 96375; 99285; J2930; J3475; J7620-GY

== ENCOUNTER 2020-11-08 09:32 | Emergency (ER) | payer BC ==
[2020-11-08] MEDS ORDERED: Sodium Chloride 0.9% 10 ML Syringe FLUSH PRN (10:03)
[2020-11-08] MEDS ORDERED: methylPREDNISolone Sodium Succinate 125 MG/2 ML SDV IVPUSH ONE (10:05)
[2020-11-08] MEDS ORDERED: Furosemide 40 MG/4 ML VIAL IVPUSH ONE (10:05)
[2020-11-08] MEDS ORDERED: Diltiazem 50 MG/10 ML SDV IVPUSH ONE (10:05)
--- NOTE | 2020-11-08 11:11 | EDM.PDOC ---
ED HPI GENERAL MEDICAL PROBLEM - General Chief Complaint: Respiratory Problem Stated Complaint: LOW OXYGEN AND FACIAL AND LEG SWELLING Time Seen by Provider: 11/08/20 09:44 Source of Information: Reports: Patient, Family History Limitations: Reports: No Limitations - History of Present Illness INITIAL COMMENTS - FREE TEXT/NARRATIVE: The patient presents with her for shortness of breath and rapid heart rate. She has COPD and she is on oxygen at home. She has been needing more oxygen and she also has been swelling. She has swelling to her leg and to her face. She is on lasix but she has not been taking her lasix for awhile. She is not sure if she has CHF. She has no fever or chills. She usually needs oxygen at night but she is using it all the time. She says her oxygen saturations were 47% this morning. She has a slight cough. She has no chest pain with this. She has no abdominal pain, nausea or vomiting. She still smokes. She has a history of A-fib and she is on eliquis. According to her old records she does have CHF. Onset: Gradual Duration: Day(s): Severity: Moderate Improves with: Reports: None Worsens with: Reports: None Associated Symptoms: Reports: Cough, Shortness of Breath. Denies: Chest Pain, Fever/Chills, Headaches, Nausea/Vomiting - Related Data Allergies Allergy/AdvReac Type Severity Reaction Status Date / Time diphenhydramine HCl Allergy Severe Anaphylactic Verified 11/08/20 09:52 [From Benadryl] Shock Home Meds: Home Meds Albuterol Sulfate [Albuterol Sulfate Hfa] 2 puff INH Q4HR PRN 12/01/19 [History] Diltiazem [Dilacor XR] 240 mg PO DAILY 12/01/19 [History] Sertraline [Zoloft] 50 mg PO DAILY 12/01/19 [History] Simvastatin 10 mg PO BEDTIME 12/01/19 [History] hydroCHLOROthiazide [Hydrochlorothiazide] 25 mg PO DAILY 12/01/19 [History] Furosemide [Lasix] 20 mg PO BID 12/30/19 [History] Apixaban [Eliquis] 5 mg PO BID 11/08/20 [History] Budesonide/Formoterol [Symbicort 160-4.5 MCG] 1 puff INH BID 11/08/20 [History] Furosemide [Lasix] 20 mg PO DAILY #30 tab 11/08/20 [Rx] Past Medical History Cardiovascular History: Reports: Afib, Heart Failure, High Cholesterol, Hypertension, SOB on Exertion Other Cardiovascular History: ON/OFF RACING HEART Respiratory History: Reports: Asthma, COPD, Sleep Apnea Gastrointestinal History: Reports: GERD Genitourinary History: Reports: Urinary Incontinence 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: Neurological History: Reports: None Psychiatric History: Reports: Anxiety, Depression, OCD Hematologic History: Reports: None Immunologic History: Reports: None Dermatologic History: Reports: None - Past Surgical History Female Surgical History: Reports: Section Musculoskeletal Surgical History: Reports: Other (See Below) Other Musculoskeletal Surgeries/Procedures:: CYST REMOVED FROM FACE,ARM,LEG Social & Family History - Family History Family Medical History: No Pertinent Family History - Caffeine Use Caffeine Use: Reports: Coffee, Tea - Living Situation & Occupation Living situation: Reports: , with Spouse Occupation: Employed ED ROS GENERAL - Review of Systems Review Of Systems: See Below Constitutional: Reports: No Symptoms HEENT: Reports: No Symptoms Respiratory: Reports: Shortness of Breath, Cough Cardiovascular: Reports: Dyspnea on Exertion. Denies: Chest Pain Endocrine: Reports: No Symptoms GI/Abdominal: Reports: No Symptoms : Reports: No Symptoms Musculoskeletal: Reports: No Symptoms ED EXAM, GENERAL - Physical Exam Exam: See Below Exam Limited By: No Limitations General Appearance: Alert, No Apparent Distress Ears: Normal External Exam Nose: Normal Inspection Head: Atraumatic, Normocephalic Neck: Normal Inspection Respiratory/Chest: No Respiratory Distress, Decreased Breath Sounds Cardiovascular: Regular Rate, Rhythm, No Edema, No Murmur GI/Abdominal: Soft, Non-Tender, No Organomegaly, No Mass Back Exam: Normal Inspection Extremities: Normal Inspection Neurological: Alert, Oriented, No Motor/Sensory Deficits #1 Interpretation EKG Date: 11/08/20 Time: 09:51 Rhythm: Other (sinus tachycardia) Rate (Beats/Min): 135 [place]: Normal P-Wave: Present QRS: Other (nonspecific interventricular conduction delay) ST-T: Normal QT: Normal EKG Interpretation Comments: Q waves tin the anterior leads Course - Vital Signs Last Recorded V/S: Last Vital Signs Temp 98.2 F 11/08/20 09:47 Pulse 106 H 11/08/20 10:53 Resp 22 H 11/08/20 10:53 BP 133/97 H 11/08/20 09:47 Pulse Ox 88 L 11/08/20 10:53 - Orders/Labs/Meds Orders: Active Orders 24 hr Category Date Time Status Cardiac Monitoring [RC] . DIRECTED Care 11/08/20 10:03 Active EKG Documentation Completion [RC] STAT Care 11/08/20 10:04 Active Oxygen Therapy [RC] PRN Care 11/08/20 10:03 Active Peripheral IV Care [RC] . DIRECTED Care 11/08/20 10:05 Active Sodium Chloride 0.9% [Saline Flush] Med 11/08/20 10:03 Active 10 ml FLUSH ASDIRECTED PRN Peripheral IV Insertion Adult [OM.PC] Stat Oth 11/08/20 10:03 Ordered Medication Orders Sodium Chloride (Saline Flush) 10 ml FLUSH ASDIRECTED PRN PRN Reason: Keep Vein Open Last Admin: 11/08/20 10:29 Dose: 10 ml Documented by: CRISTIN Labs: Laboratory Tests 11/08/20 11/08/20 11/08/20 Range/Units 10:20 10:20 10:20 WBC 5.77 (3.98-10.04) K/mm3 RBC 4.93 (3.98-5.22) M/mm3 Hgb 15.9 H (11.2-15.7) gm/dl Hct 51.4 H (34.1-44.9) % MCV 104.3 H (79.4-94.8) fl MCH 32.3 H (25.6-32.2) pg MCHC 30.9 L (32.2-35.5) g/dl RDW Std Deviation 62.3 H (36.4-46.3) fL Plt Count 140 L (182-369) K/mm3 MPV 9.8 (9.4-12.3) fl Neut % (Auto) 72.2 H (34.0-71.1) % Lymph % (Auto) 17.9 L (19.3-51.7) % [place] % (Auto) 9.0 (4.7-12.5) % Eos % (Auto) 0.5 L (0.7-5.8) Baso % (Auto) 0.2 (0.1-1.2) % Neut # (Auto) 4.17 (1.56-6.13) K/mm3 Lymph # (Auto) 1.03 L (1.18-3.74) K/mm3 [place] # (Auto) 0.52 H (0.24-0.36) K/mm3 Eos # (Auto) 0.03 L (0.04-0.36) K/mm3 Baso # (Auto) 0.01 (0.01-0.08) K/mm3 Sodium 140 (136-145) mEq/L Potassium 3.9 (3.5-5.1) mEq/L Chloride 99 (98-107) mEq/L Carbon Dioxide 36 H (21-32) mEq/L Anion Gap 8.9 (5-15) BUN 6 L (7-18) mg/dL Creatinine 0.5 L (0.55-1.02) mg/dL Est Cr Clr Drug Dosing 119.01 mL/min Estimated GFR (MDRD) > 60 (>60) mL/min BUN/Creatinine Ratio 12.0 L (14-18) Glucose 89 (74-106) mg/dL Calcium 8.9 (8.5-10.1) mg/dL Magnesium 1.7 L (1.8-2.4) mg/dl Total Bilirubin 0.6 (0.2-1.0) mg/dL AST 19 (15-37) U/L ALT 17 (14-59) U/L Alkaline Phosphatase 104 (46-116) U/L Troponin I 0.021 (0.00-0.056) ng/mL NT-Pro-B Natriuret Pep 2800 H (0-125) pg/mL Total Protein 6.5 (6.4-8.2) g/dl Albumin 3.3 L (3.4-5.0) g/dl Globulin 3.2 gm/dL Albumin/Globulin Ratio 1.0 (1-2) Meds: Medications Generic Name Dose Route Start Last Admin Trade Name Freq PRN Reason Stop Dose Admin Sodium Chloride 10 ml 11/08/20 10:03 11/08/20 10:29 Saline Flush FLUSH 10 ml ASDIRECTED PRN Administration Keep Vein Open Discontinued Medications Generic Name Dose Route Start Last Admin Trade Name Freq PRN Reason Stop Dose Admin Diltiazem HCl 10 mg 11/08/20 10:05 11/08/20 10:29 Cardizem IVPUSH 11/08/20 10:06 10 mg ONETIME ONE Administration Furosemide 80 mg 11/08/20 10:05 11/08/20 10:21 Lasix IVPUSH 11/08/20 10:06 80 mg NOW ONE Administration Methylprednisolone Sodium Succinate 125 mg 11/08/20 10:05 11/08/20 10:19 Solu-Medrol IVPUSH 11/08/20 10:06 125 mg ONETIME ONE Administration - Re-Assessments/Exams Free Text/Narrative Re-Assessment/Exam: 11/08/20 11:16 I ordered oxygen, IV saline lock, solu-medrol 125mg IV, lasix 80mg IV, cardizem 10mg IV, labs, EKG and a CXR. Her EKG shows a sinus tachycardia with no acute changes. Her CXR shows some cardiomegaly and congestive changes. Her Hgb was elevated at 15.9. Her platelets were low at 140. Her magnesium was low at 1.7. Her troponin is negative. Her BNP was elevated at 2800. She is urinating now and feeling better. I feel she needs to be admitted but she does not want to be. I will get her on lasix 40mg daily for a week and then cut her back to 20mg daily. Departure - Departure Time of Disposition: 11:45 Disposition: Home, Self-Care 01 Condition: Good Clinical Impression: CHF exacerbation Qualifiers: Heart failure type: unspecified Qualified Code(s): I50.9 - Heart failure, unspecified COPD (chronic obstructive pulmonary disease) Qualifiers: COPD type: unspecified COPD Qualified Code(s): J44.9 - Chronic obstructive pulmonary disease, unspecified - Discharge Information *PRESCRIPTION DRUG MONITORING PROGRAM REVIEWED*: Not Applicable *COPY OF PRESCRIPTION DRUG MONITORING REPORT IN PATIENT HENRY: Not Applicable Prescriptions: Furosemide [Lasix] 20 mg PO DAILY #30 tab Referrals: Alexandra Cruz PA-C [Primary Care Provider] - 1 Week Forms: ED Department Discharge Additional Instructions: Take your medications as prescribed. Take the lasix 2 pills daily for 7 days and then 1 pill daily after that. Follow up with Alexandra Cruz. Please return if you are worse. Sepsis Event Note (ED) - Evaluation Sepsis Screening Result: No Definite Risk - Focused Exam Vital Signs: Vital Signs Temp Pulse Resp BP Pulse Ox 11/08/20 10:53 106 H 22 H 88 L 11/08/20 09:47 98.2 F 135 H 20 133/97 H 88 L - My Orders Last 24 Hours: My Active Orders 11/08/20 10:03 Cardiac Monitoring [RC] . DIRECTED Oxygen Therapy [RC] PRN Sodium Chloride 0.9% [Saline Flush] 10 ml FLUSH ASDIRECTED PRN Peripheral IV Insertion Adult [OM.PC] Stat 11/08/20 10:04 EKG Documentation Completion [RC] STAT 11/08/20 10:05 Peripheral IV Care [RC] . DIRECTED - Assessment/Plan Last 24 Hours: My Active Orders 11/08/20 10:03 Cardiac Monitoring [RC] . DIRECTED Oxygen Therapy [RC] PRN Sodium Chloride 0.9% [Saline Flush] 10 ml FLUSH ASDIRECTED PRN Peripheral IV Insertion Adult [OM.PC] Stat 11/08/20 10:04 EKG Documentation Completion [RC] STAT 11/08/20 10:05 Peripheral IV Care [RC] . DIRECTED
--- NOTE | 2020-11-08 11:12 | CR ---
Chest: Portable view of the chest was obtained. Comparison: Prior chest CT of 09/21/20 and chest x-ray also of 09/21/20. Stable scarring or persistent atelectasis is noted on the left side. Heart is felt to be slightly enlarged. There may be minimal upper lobe pulmonary vascular redistribution. No alveolar infiltrates are seen. Bony structures are grossly intact. Impression: 1. Stable scarring or atelectasis within the left side. 2. Mild cardiomegaly with mild upper lobe pulmonary vascular redistribution. Diagnostic code #3
[2020-11-08 12:06] VITALS: BP 112/75; PULSE 103
== END 2020-11-08 12:00 | disposition home or self-care (01) ==
LOC: JD.ED 09:32
DX: I11.0 Hypertensive heart disease with heart failure (principal); I50.9 Heart failure, unspecified; J44.9 Chronic obstructive pulmonary disease, unspecified; R00.0 Tachycardia, unspecified; I48.91 Unspecified atrial fibrillation; E78.00 Pure hypercholesterolemia, unspecified; Z88.8 Allergy status to other drugs, medicaments and biological substances; Z79.899 Other long term (current) drug therapy; Z79.01 Long term (current) use of anticoagulants
CPT/HCPCS: 36415; 71045; 80053; 83735; 83880; 84484; 85025; 93005; 96374; 96375; 99285; J1940; J2930; J3490; 93010; 99284

== ENCOUNTER 2020-12-01 12:12 | Emergency (ER) | payer BC ==
[2020-12-01 12:40] VITALS: BP 118/84; PULSE 107
[2020-12-01] MEDS ORDERED: Potassium Chloride 20 MEQ Tab.ER PO ONE (13:06)
--- NOTE | 2020-12-01 13:17 | EDM.PDOC ---
ED HPI GENERAL MEDICAL PROBLEM - General Chief Complaint: Abdominal Pain Stated Complaint: FLUID ON LUNGS Time Seen by Provider: 12/01/20 12:48 Source of Information: Reports: Patient, Provider (Tanja Raymundo- phone report and labs/CT reviewed), RN Notes Reviewed - History of Present Illness INITIAL COMMENTS - FREE TEXT/NARRATIVE: Patient is a 54-year-old female who presents to the ED for the evaluation of her fluid retention. Patient attended the clinic with Tanja Raymundo this morning, had some labs taken along with a CT without contrast this demonstrated a small pleural effusion along with ascites. BNP was 4004. Patient's potassium was also low at 3.0, all other labs are essentially unremarkable. Tanja did call over and speak with Dr. Villegas regarding the patient's status and sent her over here for further management. Patient has a history of COPD, and was seen in this ER on November 08, 2020, for the retention of fluid as well, she was placed on Lasix 40 mg x 1 week, and then 20 mg daily after that. She also has a history of A. fib, that she takes Eliquis and Cardizem for. Patient would state her primary care provider is Alexandra Cruz however she has not been able to see her much due to Alexandra being busy. She notes that she had a echo roughly a year ago, and was supposed to be set up with cardiology for referral however due to schedule conflicts and her not being able to drive, she was unable to make this appointment, and this just seem to go by the [facility]. She is not having any fevers or chills, cough or shortness of breath, she is complaining of some abdomen distention that brought her to the clinic initially. Patient states that she noticed this on Monday, but seems to be worsening over the weekend. She wears oxygen on a chronic basis and uses roughly 3 to 3.5 L. O2 sats on this amount of oxygen is 97% and she is in no respiratory distress or having any difficulty. Patient is still a smoker, and notes that she drinks roughly 4 glasses of wine on a nightly basis, she has been doing this for many many years. She denies any other drug use. Upper Abdomen Pain Score (Numeric/FACES): 8 - Related Data Allergies Allergy/AdvReac Type Severity Reaction Status Date / Time diphenhydramine HCl Allergy Severe Anaphylactic Verified 12/01/20 12:34 [From Benadryl] Shock Home Meds: Home Meds Albuterol Sulfate [Albuterol Sulfate Hfa] 2 puff INH Q4HR PRN 12/01/19 [History] Diltiazem [Dilacor XR] 240 mg PO DAILY 12/01/19 [History] Sertraline [Zoloft] 50 mg PO DAILY 12/01/19 [History] Simvastatin 10 mg PO BEDTIME 12/01/19 [History] Apixaban [Eliquis] 5 mg PO BID 11/08/20 [History] Budesonide/Formoterol [Symbicort 160-4.5 MCG] 1 puff INH BID 11/08/20 [History] Furosemide [Lasix] 20 mg PO DAILY #30 tab 11/08/20 [Rx] Lactulose 20 gm PO DAILY #900 ml 12/01/20 [Rx] Spironolactone [Aldactone] 25 mg PO BID #60 tab 12/01/20 [Rx] Past Medical History HEENT History: Reports: Impaired Vision Cardiovascular History: Reports: Afib, Heart Failure, High Cholesterol, Hypertension, SOB on Exertion Other Cardiovascular History: ON/OFF RACING HEART Respiratory History: Reports: Asthma, COPD, Sleep Apnea Gastrointestinal History: Reports: GERD Genitourinary History: Reports: Urinary Incontinence 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: Neurological History: Reports: None Psychiatric History: Reports: Anxiety, Depression, OCD 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 Hematologic History: Reports: None Immunologic History: Reports: None Dermatologic History: Reports: None - Infectious Disease History Infectious Disease History: Reports: Influenza - Past Surgical History Head Surgeries/Procedures: Reports: None HEENT Surgical History: Reports: Oral Surgery Female Surgical History: Reports: Section Musculoskeletal Surgical History: Reports: Other (See Below) Other Musculoskeletal Surgeries/Procedures:: CYST REMOVED FROM FACE,ARM,LEG Social & Family History - Family History Family Medical History: No Pertinent Family History Oncologic: Reports: Colon - Tobacco Use Tobacco Use Status *Q: Current Every Day Tobacco User Years of Tobacco use: 45 Packs/Tins Daily: 1 - Caffeine Use Caffeine Use: Reports: Coffee - Recreational Drug Use Recreational Drug Use: Yes Drug Use in Last 12 Months: No Recreational Drug Type: Reports: Marijuana/Hashish Recreational Drug Use Frequency: Not Used In Over 1 Year - Living Situation & Occupation Living situation: Reports: , with Spouse Occupation: Employed ED ROS GENERAL - Review of Systems Review Of Systems: Comprehensive ROS is negative, except as noted in HPI. ED EXAM, GI/ABD - Physical Exam Exam: See Below Exam Limited By: No Limitations General Appearance: Alert, WD/WN, No Apparent Distress Respiratory/Chest: No Respiratory Distress, Lungs Clear, Normal Breath Sounds, No Accessory Muscle Use, Chest Non-Tender Cardiovascular: Normal Peripheral Pulses, Regular Rate, Rhythm, No Edema GI/Abdominal Exam: Normal Bowel Sounds, Soft, No Mass, Distended (generalized), Tender (slightly bothersome, but not horribly tender) Extremities: Normal Inspection, Normal Capillary Refill Neurological: Alert, Oriented, Normal Cognition, No Motor/Sensory Deficits Psychiatric: Normal Affect, Normal Mood Skin Exam: Warm, Dry, Intact, No Rash, Other (generalized dusky appearance) Course - Vital Signs Last Recorded V/S: Last Vital Signs Temp 98.4 F 12/01/20 12:38 Pulse 107 H 12/01/20 12:38 Resp 20 12/01/20 12:38 BP 118/84 12/01/20 12:38 Pulse Ox 94 L 12/01/20 12:38 - Orders/Labs/Meds Meds: Medications Discontinued Medications Generic Name Dose Route Start Last Admin Trade Name Grace PRN Reason Stop Dose Admin Potassium Chloride 40 meq 12/01/20 13:06 Klor-Con M20 PO 12/01/20 13:07 ONETIME ONE - Re-Assessments/Exams Free Text/Narrative Re-Assessment/Exam: 12/01/20 13:18 Patient presents to the ED for the evaluation of her retention of fluids. Due to Dr. Villegas taking the initial call, he was aware of the patient, we did discuss her course of care. Patient be given 40 mEq p.o. potassium for supplementation, we will start her on Aldactone 25 mg twice daily, lactulose 20 g at bedtime, her Lasix will be upped from 20 mg daily to 40 mg in the morning and 20 mg in the later afternoon. Departure - Departure Time of Disposition: 13:20 Disposition: Home, Self-Care 01 Condition: Good Clinical Impression: Abdominal ascites Qualifiers: Ascites type: due to alcoholic hepatitis Qualified Code(s): K70.11 - Alcoholic hepatitis with ascites - Discharge Information *PRESCRIPTION DRUG MONITORING PROGRAM REVIEWED*: No *COPY OF PRESCRIPTION DRUG MONITORING REPORT IN PATIENT HENRY: No Prescriptions: Spironolactone [Aldactone] 25 mg PO BID #60 tab Lactulose 20 gm PO DAILY #900 ml Instructions: Ascites Referrals: Jossie Melendez MD [Physician] - 2 Weeks Additional Instructions: You were seen in this ER today regarding your fluid retention. Your labs and CT were reviewed from your clinic visit today, and no further work-up was done at this ER visit. You were however given 40 mEq p.o. potassium for your low potassium level of 3.0. Your medications will be changed around. You will need to start taking Aldactone, 25 mg twice daily, you have been given a 1 month supply of this. You will need to take lactulose, 20 g at bedtime, you have been given a 1 month supply of this. Your Lasix will be changed from 20 mg daily, to 40 mg in the a.m., and 20 mg in the later afternoon around 2 or 3 PM, this is to try to reduce the amount of fluid that you are retaining. You will need to weigh yourself on a daily basis first thing in the morning, and keep a journal, to make sure that you are indeed losing fluid. You should have your labs repeated in 1 week to 10 days time, to make sure that the medication changes we are doing today are doing well for you. Highly recommend use the Dr. Jossie Melendez, for ongoing medical purposes, as I do believe you would benefit from a higher level of care. Please ask your providers, to put in another cardiology referral, as you would highly benefit from a cardiology referral as well. If you cannot get to [facility], suggest you ask them to set you up with a medical health researcher through the [facility], as they have medical health researcher that visit the [facility] on a regular basis. Please continue all other medications as previously prescribed. Highly recommend that you try to decrease the amount of cigarettes that you smoke, and also try to decrease the amount of alcohol that you drink on a daily basis, as this could be a potential source that is causing your ascites. Return to the ER at any time however if your symptoms change or worsen. Sepsis Event Note (ED) - Evaluation Sepsis Screening Result: No Definite Risk - Focused Exam Vital Signs: Vital Signs Temp Pulse Resp BP Pulse Ox 02/16/21 12:38 98.4 F 107 H 20 118/84 94 L
== END 2020-12-01 13:42 | disposition home or self-care (01) ==
LOC: JD.ED 12:12
DX: K70.11 Alcoholic hepatitis with ascites (principal); E78.00 Pure hypercholesterolemia, unspecified; I48.91 Unspecified atrial fibrillation; I11.0 Hypertensive heart disease with heart failure; I50.9 Heart failure, unspecified; J44.9 Chronic obstructive pulmonary disease, unspecified; Z79.01 Long term (current) use of anticoagulants; Z79.899 Other long term (current) drug therapy; Z88.8 Allergy status to other drugs, medicaments and biological substances; Z72.0 Tobacco use
CPT/HCPCS: 99283; A9270; 99284

== ENCOUNTER 2021-07-03 10:01 | Emergency (ER) | payer BC ==
[2021-07-03 10:22] VITALS: PULSE 145
--- NOTE | 2021-07-03 10:37 | EDM.PDOC ---
ED HPI GENERAL MEDICAL PROBLEM - General Chief Complaint: Respiratory Problem Stated Complaint: SOB/BACK PAIN AND LEG PAIN Time Seen by Provider: 07/03/21 10:10 - History of Present Illness INITIAL COMMENTS - FREE TEXT/NARRATIVE: 55-year-old female presents the emergency room with shortness of breath not feeling well and a low O2 saturation. Prior to coming in the patient noticed that her O2 saturation was about 65% at home. The patient is on home O2 usually 4 L and she usually saturates between 88 and 90% on 4 L. Patient has not felt well for the last day or 2. Not sure if she has had any fevers or not no gastrointestinal symptoms other than she had a few loose stools a couple of days ago after eating fig jelly. No lost of taste or smell. She continues to smoke has advanced lung disease. She drinks approximately 5 drinks nightly. She has not had the Covid vaccine but believes she had Covid in November 2019. Please refer to past medical history. She is not aware of any fevers or chills. Back Pain Score (Numeric/FACES): 10 - Related Data Allergies Allergy/AdvReac Type Severity Reaction Status Date / Time diphenhydramine HCl Allergy Severe Anaphylactic Verified 07/03/21 10:22 [From Benadryl] Shock Home Meds: Home Meds Albuterol Sulfate [Albuterol Sulfate Hfa] 2 puff INH Q4HR PRN 12/01/19 [History] Diltiazem [Dilacor XR] 240 mg PO DAILY 12/01/19 [History] Sertraline [Zoloft] 50 mg PO DAILY 12/01/19 [History] Simvastatin 10 mg PO BEDTIME 12/01/19 [History] Apixaban [Eliquis] 5 mg PO BID 11/08/20 [History] Budesonide/Formoterol [Symbicort 160-4.5 MCG] 1 puff INH BID 11/08/20 [History] Furosemide [Lasix] 20 mg PO DAILY #30 tab 11/08/20 [Rx] Lactulose 20 gm PO DAILY #900 ml 12/01/20 [Rx] Spironolactone [Aldactone] 25 mg PO BID #60 tab 12/01/20 [Rx] Past Medical History HEENT History: Reports: Impaired Vision Cardiovascular History: Reports: Afib, Heart Failure, High Cholesterol, Hypertension, SOB on Exertion Other Cardiovascular History: ON/OFF RACING HEART Respiratory History: Reports: Asthma, COPD, Sleep Apnea Gastrointestinal History: Reports: GERD Genitourinary History: Reports: Urinary Incontinence 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: Neurological History: Reports: None Psychiatric History: Reports: Anxiety, Depression, OCD 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 Hematologic History: Reports: None Immunologic History: Reports: None Dermatologic History: Reports: None - Infectious Disease History Infectious Disease History: Reports: Influenza - Past Surgical History Head Surgeries/Procedures: Reports: None HEENT Surgical History: Reports: Oral Surgery Female Surgical History: Reports: Section Musculoskeletal Surgical History: Reports: Other (See Below) Other Musculoskeletal Surgeries/Procedures:: CYST REMOVED FROM FACE,ARM,LEG Social & Family History - Family History Family Medical History: No Pertinent Family History Oncologic: Reports: Colon - Tobacco Use Tobacco Use Status *Q: Current Every Day Tobacco User Years of Tobacco use: 47 Packs/Tins Daily: 1 - Caffeine Use Caffeine Use: Reports: Coffee - Alcohol Use Days Per Week of Alcohol Use: 7 Number of Drinks Per Day: 4 Total Drinks Per Week: 28 - Recreational Drug Use Recreational Drug Use: No - Living Situation & Occupation Living situation: Reports: , with Spouse Occupation: Employed ED ROS GENERAL - Review of Systems Review Of Systems: See Below Constitutional: Reports: Weakness, Fatigue HEENT: Reports: No Symptoms Respiratory: Reports: Shortness of Breath Cardiovascular: Reports: No Symptoms Endocrine: Reports: No Symptoms GI/Abdominal: Reports: No Symptoms : Reports: No Symptoms Musculoskeletal: Reports: No Symptoms Skin: Reports: No Symptoms Neurological: Reports: No Symptoms ED EXAM, GENERAL - Physical Exam Exam: See Below Exam Limited By: No Limitations General Appearance: Alert, No Apparent Distress Eye Exam: Bilateral Eye: Normal Inspection Ears: Normal External Exam, Normal Canal, Hearing Grossly Normal, Normal TMs Nose: Normal Inspection, Normal Mucosa, No Blood Throat/Mouth: Normal Inspection, Normal Voice, No Airway Compromise, Other (Poor color in general). No: Normal Teeth Head: Atraumatic, Normocephalic Neck: Normal Inspection, Supple, Non-Tender, Full Range of Motion. No: Lymphadenopathy (L), Lymphadenopathy (R) Respiratory/Chest: Lungs Clear, Decreased Breath Sounds, Other (He is quite hypoxic) Cardiovascular: No Murmur, Tachycardia GI/Abdominal: Normal Bowel Sounds, Soft, Non-Tender #1 Interpretation EKG Date: 07/03/21 Rhythm: A-Flutter (Variable conduction predominantly 2-1 block) Coleman: LAD-Left Coleman Deviation P-Wave: Absent (Flutter waves present with) QRS: Other (Left posterior fascicular block present) QT: Normal Comparison: No Change (No significant change from 2019-11-08) EKG Interpretation Comments: Abnormal EKG Course - Vital Signs Last Recorded V/S: Last Vital Signs Temp 36.1 C 07/03/21 10:15 Pulse 145 H 07/03/21 10:15 Resp 24 H 07/03/21 11:39 BP 102/55 L 07/03/21 11:39 Pulse Ox 88 L 07/03/21 11:39 - Orders/Labs/Meds Orders: Active Orders 24 hr Category Date Time Status ABG [RT Arterial Blood Gases, ABG] [RC] Click to Edit Care 07/03/21 10:20 Active Oxygen Therapy, ED [RC] ASDIRECTED Care 07/03/21 11:18 Active Labs: Laboratory Tests 07/03/21 07/03/21 07/03/21 Range/Units 10:30 10:30 10:30 WBC 2.70 L (3.98-10.04) K/mm3 RBC 4.47 (3.98-5.22) M/mm3 Hgb 14.9 D (11.2-15.7) gm/dl Hct 45.8 H (34.1-44.9) % MCV 102.5 H D (79.4-94.8) fl MCH 33.3 H (25.6-32.2) pg MCHC 32.5 (32.2-35.5) g/dl RDW Std Deviation 53.1 H (36.4-46.3) fL Plt Count 99 L D (182-369) K/mm3 MPV 10.2 (9.4-12.3) fl Neutrophils % (Manual) 76 H (40-60) % Band Neutrophils % 0 (0-10) % Lymphocytes % (Manual) 16 L (20-40) % Atypical Lymphs % 0 % Monocytes % (Manual) 8 (2-10) % Eosinophils % (Manual) 0 L (0.7-5.8) % Basophils % (Manual) 0 L (0.1-1.2) Platelet Estimate Decreased Anisocytosis 1+ slight Macrocytosis 2+ moderate RBC Morph Comment Abnormal D-Dimer, Quantitative (0.19-0.50) mg/L Puncture Site ABG pH (7.35-7.45) ABG pCO2 (35.0-45.0) mmHg ABG pO2 (80.0-100.0) mmHg ABG HCO3 (22.0-26.0) meq/L ABG O2 Saturation (96.0-97.0) % ABG Base Excess (-2-2.0) Steve Test O2 Delivery Device Sodium 133 L (136-145) mEq/L Potassium 4.5 (3.5-5.1) mEq/L Chloride 99 (98-107) mEq/L Carbon Dioxide 30 (21-32) mEq/L Anion Gap 8.5 (5-15) BUN 8 (7-18) mg/dL Creatinine 0.6 (0.55-1.02) mg/dL Est Cr Clr Drug Dosing TNP Estimated GFR (MDRD) > 60 (>60) mL/min BUN/Creatinine Ratio 13.3 L (14-18) Glucose 96 (70-99) mg/dL Calcium 8.2 L (8.5-10.1) mg/dL Ferritin 1318 H (8-252) ng/ml Total Bilirubin 0.2 (0.2-1.0) mg/dL AST 56 H (15-37) U/L ALT 39 (14-59) U/L Alkaline Phosphatase 78 (46-116) U/L Lactate Dehydrogenase 231 (81-234) U/L Troponin I < 0.017 (0.00-0.056) ng/mL C-Reactive Protein 6.3 H* (<1.0) mg/dL Total Protein 6.8 (6.4-8.2) g/dl Albumin 3.6 (3.4-5.0) g/dl Globulin 3.2 gm/dL Albumin/Globulin Ratio 1.1 (1-2) SARS-CoV-2 RNA (VINCENT) (NEGATIVE) 07/03/21 07/03/21 07/03/21 Range/Units 10:30 10:33 10:35 WBC (3.98-10.04) K/mm3 RBC (3.98-5.22) M/mm3 Hgb (11.2-15.7) gm/dl Hct (34.1-44.9) % MCV (79.4-94.8) fl MCH (25.6-32.2) pg MCHC (32.2-35.5) g/dl RDW Std Deviation (36.4-46.3) fL Plt Count (182-369) K/mm3 MPV (9.4-12.3) fl Neutrophils % (Manual) (40-60) % Band Neutrophils % (0-10) % Lymphocytes % (Manual) (20-40) % Atypical Lymphs % % Monocytes % (Manual) (2-10) % Eosinophils % (Manual) (0.7-5.8) % Basophils % (Manual) (0.1-1.2) Platelet Estimate Anisocytosis Macrocytosis RBC Morph Comment D-Dimer, Quantitative 0.20 (0.19-0.50) mg/L Puncture Site Lt radial ABG pH 7.38 (7.35-7.45) ABG pCO2 44.1 (35.0-45.0) mmHg ABG pO2 38.0 L* (80.0-100.0) mmHg ABG HCO3 25.7 (22.0-26.0) meq/L ABG O2 Saturation 63.8 L (96.0-97.0) % ABG Base Excess 0.8 (-2-2.0) Steve Test Positive O2 Delivery Device Room air Sodium (136-145) mEq/L Potassium (3.5-5.1) mEq/L Chloride (98-107) mEq/L Carbon Dioxide (21-32) mEq/L Anion Gap (5-15) BUN (7-18) mg/dL Creatinine (0.55-1.02) mg/dL Est Cr Clr Drug Dosing Estimated GFR (MDRD) (>60) mL/min BUN/Creatinine Ratio (14-18) Glucose (70-99) mg/dL Calcium (8.5-10.1) mg/dL Ferritin (8-252) ng/ml Total Bilirubin (0.2-1.0) mg/dL AST (15-37) U/L ALT (14-59) U/L Alkaline Phosphatase (46-116) U/L Lactate Dehydrogenase (81-234) U/L Troponin I (0.00-0.056) ng/mL C-Reactive Protein (<1.0) mg/dL Total Protein (6.4-8.2) g/dl Albumin (3.4-5.0) g/dl Globulin gm/dL Albumin/Globulin Ratio (1-2) SARS-CoV-2 RNA (VINCENT) Positive H (NEGATIVE) Meds: Medications Discontinued Medications Generic Name Dose Route Start Last Admin Trade Name Grace PRN Reason Stop Dose Admin Diltiazem HCl 10 mg 07/03/21 11:18 07/03/21 11:36 Diltiazem 50 Mg/10 Ml Sdv IVPUSH 07/03/21 11:19 10 mg ONETIME ONE Administration Diltiazem HCl 10 mg 07/03/21 12:20 07/03/21 12:28 Diltiazem 50 Mg/10 Ml Sdv IVPUSH 07/03/21 12:21 10 mg ONETIME ONE Administration Diltiazem HCl 30 mg 07/03/21 13:30 07/03/21 14:22 Diltiazem Ir 30 Mg Tab PO 07/03/21 13:31 30 mg ONETIME ONE Administration - Re-Assessments/Exams Free Text/Narrative Re-Assessment/Exam: 07/03/21 11:16 Labs ordered EKG shows atrial flutter rate 131 with a variable conduction mostly 2-1 block. At this time her blood pressure is improving her rate was coming down to about 100 but now it is back up to 133 patient is on routine diltiazem we will give a light dose of IV diltiazem see if I can slow her down a little bit. He was hypoxic on her blood gases we will start her on oxygen pH was 7.38 PCO2 was 44.1 PO2 was 38.. 07/03/21 12:23 Patient responded well to the first dose of diltiazem however her pulse rate came back up or give her a second dose of diltiazem. The patient's O2 saturation really is not much worse from baseline at this point if we can control her atrial flutter RVR we can probably let her go home as we have no available hospital beds. 07/03/21 13:29 And again responded favorably to 10 mg of diltiazem IV. However this was not long lasting I will give her 30 mg p.o. I discussed with her and it sounds like she is taking her long-acting diltiazem in the evenings. I will start out with 30 mg p.o. in and will follow up with a second dose if needed. 07/03/21 15:19 Was get ready to give a second dose of oral diltiazem and the patient is fairly insistent on going home at this point she states often her pulse rate runs in this range. She agrees to return to the emergency room with any questions problems or worsening symptoms any worsening shortness of breath or worsening pulse rate. She absolutely denies the possibility of missing any medication either last night or this morning. Departure - Departure Time of Disposition: 15:20 Disposition: Home, Self-Care 01 Clinical Impression: COVID-19 - Discharge Information Referrals: Tanja Raymundo, NEUROPSYCHOLOGY MEDICAL CONSULTANT [Primary Care Provider] - Forms: ED Department Discharge Additional Instructions: Return to the emergency room with any questions problems or worsening symptoms. Be sure and take all your medications as prescribed. Use your oxygen at all times. If your O2 saturation is lowering return to the emergency room. Sepsis Event Note (ED) - Evaluation Sepsis Screening Result: No Definite Risk - Focused Exam Vital Signs: Vital Signs Temp Pulse Resp BP Pulse Ox Pulse Ox Pulse Ox 07/03/21 11:39 24 H 102/55 L 88 L 07/03/21 11:00 83 L 07/03/21 10:35 68 L 07/03/21 10:15 36.1 C 145 H 20 95/57 L 76 L - My Orders Last 24 Hours: My Active Orders 07/03/21 10:20 ABG [RT Arterial Blood Gases, ABG] [RC] Click to Edit 07/03/21 11:18 Oxygen Therapy, ED [RC] ASDIRECTED - Assessment/Plan Last 24 Hours: My Active Orders 07/03/21 10:20 ABG [RT Arterial Blood Gases, ABG] [RC] Click to Edit 07/03/21 11:18 Oxygen Therapy, ED [RC] ASDIRECTED
[2021-07-03] MEDS ORDERED: Diltiazem 50 MG/10 ML SDV IVPUSH ONE ×2 (11:18→12:20)
[2021-07-03 11:41] VITALS: BP 102/55
--- NOTE | 2021-07-03 11:42 | CR ---
Chest: Frontal view of the chest was obtained. Comparison: Prior chest x-ray of 11/08/[address] of 09/21/20. Prominent left hilum is seen. Scarring is noted within the left mid to lower lung. Very minimal densities are seen within both lower lungs most likely representing additional scarring. Lungs otherwise are clear. Heart size is mildly enlarged. Bony structures show nothing acute. Impression: 1. Findings suspicious for mild left hilar mass or adenopathy. Contrast enhanced chest CT recommended to compare to prior chest CT study to make sure this does not represent significant finding. 2. Areas of scarring as noted above. 3. Mild cardiomegaly. Diagnostic code #9
[2021-07-03] MEDS ORDERED: Diltiazem IR 30 MG Tab PO ONE (13:30)
== END 2021-07-03 15:30 | disposition home or self-care (01) ==
LOC: JD.ED 10:01
DX: U07.1 COVID-19 (principal); I11.0 Hypertensive heart disease with heart failure; I50.9 Heart failure, unspecified; J44.9 Chronic obstructive pulmonary disease, unspecified; E78.00 Pure hypercholesterolemia, unspecified; Z72.0 Tobacco use; Z79.01 Long term (current) use of anticoagulants; Z88.8 Allergy status to other drugs, medicaments and biological substances
CPT/HCPCS: 36415; 36600; 71045; 80053; 82728; 82803; 83615; 84484; 85007; 85027; 85379; 86140; 87635; 93005; 96374; 96376; 99285; A9270; J3490; 93010; 99284; U0002

== ENCOUNTER 2021-07-06 09:49 | Inpatient (IN) | payer BC ==
--- NOTE | 2021-07-06 10:28 | EDM.PDOC ---
ED HPI GENERAL MEDICAL PROBLEM - General Chief Complaint: Respiratory Problem Stated Complaint: COVID + SOB Time Seen by Provider: 07/06/21 09:58 Source of Information: Reports: Patient History Limitations: Reports: No Limitations - History of Present Illness INITIAL COMMENTS - FREE TEXT/NARRATIVE: 55-year-old female presents the emergency department with complaints of worsenin g dyspnea after being diagnosed with Covid 3 days ago in this emergency department. Per the ED report from 07/03/2021, patient presented with O2 saturations at 65% at home. Patient does chronically wear oxygen at 4 L per nasal cannula for history of COPD. She states she has been continuing to smoke despite having advanced lung disease. She also drinks 5 alcoholic drinks per night. She has not had the Covid vaccines. She was diagnosed with Covid on that ER visit. Patient also has a history of atrial fibrillation. While in the emergency department on the she was given 2 doses of IV Cardizem which brought her heart rate down to the low 100s. At that time she requested to be discharged to home with return precautions. Patient presents today stating that she had to bump her oxygen up to 6 L per nasal cannula at home as her sats were in the 40s. She denies fever or chills however she has had nausea vomiting and diarrhea. Appetite has been decreased. She is significantly more short of breath with a paroxysmal cough. Her primary care provider is Tanja Raymundo NP. 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 - Related Data Allergies Allergy/AdvReac Type Severity Reaction Status Date / Time diphenhydramine HCl Allergy Severe Anaphylactic Verified 07/06/21 10:16 [From Benadryl] Shock Home Meds: Home Meds Albuterol Sulfate [Albuterol Sulfate Hfa] 2 puff INH Q4HR PRN 12/01/19 [History] Diltiazem [Dilacor XR] 240 mg PO DAILY 12/01/19 [History] Sertraline [Zoloft] 50 mg PO DAILY 12/01/19 [History] Simvastatin 10 mg PO BEDTIME 12/01/19 [History] Apixaban [Eliquis] 5 mg PO BID 11/08/20 [History] Budesonide/Formoterol [Symbicort 160-4.5 MCG] 1 puff INH BID 11/08/20 [History] Furosemide [Lasix] 20 mg PO DAILY #30 tab 11/08/20 [Rx] Lactulose 20 gm PO DAILY #900 ml 12/01/20 [Rx] Spironolactone [Aldactone] 25 mg PO BID #60 tab 12/01/20 [Rx] Past Medical History HEENT History: Reports: Impaired Vision Cardiovascular History: Reports: Afib, Heart Failure, High Cholesterol, Hypertension, SOB on Exertion Other Cardiovascular History: ON/OFF RACING HEART Respiratory History: Reports: Asthma, COPD, Sleep Apnea Gastrointestinal History: Reports: GERD Genitourinary History: Reports: Urinary Incontinence 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: Neurological History: Reports: None Psychiatric History: Reports: Anxiety, Depression, OCD 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 Hematologic History: Reports: None Immunologic History: Reports: None Dermatologic History: Reports: None - Infectious Disease History Infectious Disease History: Reports: Influenza - Past Surgical History Head Surgeries/Procedures: Reports: None HEENT Surgical History: Reports: Oral Surgery Female Surgical History: Reports: Section Musculoskeletal Surgical History: Reports: Other (See Below) Other Musculoskeletal Surgeries/Procedures:: CYST REMOVED FROM FACE,ARM,LEG Social & Family History - Family History Family Medical History: No Pertinent Family History Oncologic: Reports: Colon - Caffeine Use Caffeine Use: Reports: Coffee - Living Situation & Occupation Living situation: Reports: , with Spouse Occupation: Employed ED ROS GENERAL - Review of Systems Review Of Systems: Comprehensive ROS is negative, except as noted in HPI. ED EXAM, GENERAL - Physical Exam Exam: See Below Exam Limited By: No Limitations General Appearance: Alert, WD/WN, Moderate Distress Ears: Normal External Exam, Hearing Grossly Normal Nose: Normal Inspection Throat/Mouth: Normal Inspection, Normal Lips, Normal Voice, No Airway Compromise Head: Atraumatic Neck: Normal Inspection, Supple Respiratory/Chest: Chest Non-Tender, Respiratory Distress (Patient is sitting in the tripod position), Decreased Breath Sounds, Crackles (Scattered crackles noted bilaterally) Cardiovascular: Normal Peripheral Pulses, Regular Rate, Rhythm, No Edema, No Murmur Peripheral Pulses: 2+: Radial (L), Radial (R) GI/Abdominal: Normal Bowel Sounds, Soft, Non-Tender, No Distention (Female) Exam: Deferred Rectal (Female) Exam: Deferred Back Exam: Normal Inspection Extremities: Normal Inspection Neurological: Alert, Oriented, Normal Cognition Psychiatric: Normal Affect, Normal Mood Skin Exam: Warm, Dry, Intact, Normal Color, No Rash Lymphatic: No Adenopathy #1 Interpretation EKG Date: 07/06/21 Time: 10:26 Rhythm: NSR Rate (Beats/Min): 99 [place]: Other P-Wave: Variable QRS: Normal ST-T: Normal QT: Normal EKG Interpretation Comments: Per Dr. Villegas interpretation: Atrial flutter with 3-1 conduction block; difficult to interpret limb leads due to irregular baseline; QTC is moderately prolonged; RAD (247 degrees); LAFB pattern; decreased voltage in limb leads Course - Vital Signs Text/Narrative:: As stated above, patient presents with a history of COPD chronically on 4 L of oxygen at home. She states she has had worsening Covid symptoms over the past couple of days with O2 saturations as low as 40% despite increasing her oxygen levels to 6 L per nasal cannula. Upon exam, the patient is dyspneic at rest. She can speak in 2-3 word sentences at a time. She is sitting in the tripod position. O2 saturations on 7 L of oxygen per nasal cannula are 84%. Lung sounds are diminished with fine crackles noted throughout. I have ordered ABGs, CBC, BMP, hepatic function studies, magnesium, proBNP, troponin, ferritin, blood cultures x2, LDH, D-dimer as well as an EKG and a portable chest x-ray. Last Recorded V/S: Last Vital Signs Temp 98.0 F 07/06/21 10:09 Pulse 103 H 07/06/21 10:09 Resp 14 07/06/21 10:09 BP 139/115 H 07/06/21 10:09 Pulse Ox 88 L 07/06/21 11:17 - Orders/Labs/Meds Orders: Active Orders 24 hr Category Date Time Status ABG [RT Arterial Blood Gases, ABG] [RC] Click to Edit Care 07/06/21 10:11 Active RT BiPAP/CPAP [RC] ASDIRECTED Care 07/06/21 11:13 Active BLOOD CULTURE [MREF] Routine Lab 07/06/21 10:51 Received BLOOD CULTURE [MREF] Stat Lab 07/06/21 10:43 Received PROCALCITONIN [REF] Stat Lab 07/06/21 10:43 Received Isolation [COMM] Stat Oth 07/06/21 10:15 Ordered Medication Orders Albuterol (Albuterol 6.7 Gm Inhaler) gm INH Q4HR PRN PRN Reason: Shortness of Breath Apixaban (Apixaban 5 Mg Tab) 5 mg PO BID JAY JAY Diltiazem HCl (Diltiazem 240 Mg Cap.Er) 240 mg PO DAILY JAY JAY Furosemide (Furosemide 20 Mg/2 Ml Vial) 20 mg IVPUSH ONETIME ONE Stop: 07/06/21 14:27 Hydralazine HCl (Hydralazine 20 Mg/Ml Sdv) 10 mg IVPUSH Q4H PRN PRN Reason: Hypertension Lactulose (Lactulose Soln 10 Gm/15 Ml 30 Ml Ud Cup) 20 gm PO DAILY JAY JAY Metoprolol Tartrate (Metoprolol Tartrate 5 Mg/5 Ml Sdv) 2.5 mg IVPUSH Q1H PRN PRN Reason: Tachycardia Non-Formulary Medication (Budesonide/Formoterol) 1 puff INH BID JAY JAY Sertraline HCl (Sertraline 50 Mg Tab) 50 mg PO DAILY [facility] Simvastatin (Simvastatin 20 Mg Tab) 10 mg PO BEDTIME JAY JAY Sodium Polystyrene Sulfonate (Sodium Polystyrene Sulfonate 15 Gm/60 Ml Susp 60 Ml Bot) 15 gm PO ONETIME ONE Stop: 07/06/21 15:01 Labs: Laboratory Tests 07/06/21 07/06/21 07/06/21 Range/Units 10:21 10:43 10:43 WBC (3.98-10.04) K/mm3 RBC (3.98-5.22) M/mm3 Hgb (11.2-15.7) gm/dl Hct (34.1-44.9) % MCV (79.4-94.8) fl MCH (25.6-32.2) pg MCHC (32.2-35.5) g/dl RDW Std Deviation (36.4-46.3) fL Plt Count (182-369) K/mm3 MPV (9.4-12.3) fl Neut % (Auto) (34.0-71.1) % Lymph % (Auto) (19.3-51.7) % [place] % (Auto) (4.7-12.5) % Eos % (Auto) (0.7-5.8) Baso % (Auto) (0.1-1.2) % Neut # (Auto) (1.56-6.13) K/mm3 Lymph # (Auto) (1.18-3.74) K/mm3 [place] # (Auto) (0.24-0.36) K/mm3 Eos # (Auto) (0.04-0.36) K/mm3 Baso # (Auto) (0.01-0.08) K/mm3 PT (9.7-12.0) SECONDS INR APTT 39.1 H (21.7-31.4) SECONDS D-Dimer, Quantitative (0.19-0.50) mg/L Puncture Site Lt radial ABG pH 7.36 (7.35-7.45) ABG pCO2 45.8 H (35.0-45.0) mmHg ABG pO2 57.0 L (80.0-100.0) mmHg ABG HCO3 25.3 (22.0-26.0) meq/L ABG O2 Saturation 85.2 L (96.0-97.0) % ABG Base Excess 0.0 (-2-2.0) A-a Gradient 171 mmHg O2 Delivery Device Nasal cannula Oxygen Flow Rate 6.0 FiO2 40.00 (21.00-100.00) % Sodium (136-145) mEq/L Potassium (3.5-5.1) mEq/L Chloride (98-107) mEq/L Carbon Dioxide (21-32) mEq/L Anion Gap (5-15) BUN (7-18) mg/dL Creatinine (0.55-1.02) mg/dL Est Cr Clr Drug Dosing mL/min Estimated GFR (MDRD) (>60) mL/min BUN/Creatinine Ratio (14-18) Glucose (70-99) mg/dL Lactic Acid (0.4-2.0) mmol/L Calcium (8.5-10.1) mg/dL Magnesium (1.8-2.4) mg/dL Ferritin 3792 H (8-252) ng/ml Total Bilirubin (0.2-1.0) mg/dL Direct Bilirubin (0.0-0.2) mg/dl Indirect Bilirubin AST (15-37) U/L ALT (14-59) U/L Alkaline Phosphatase (46-116) U/L Lactate Dehydrogenase (81-234) U/L Troponin I (0.00-0.056) ng/mL C-Reactive Protein (<1.0) mg/dL NT-Pro-B Natriuret Pep (0-125) pg/mL Total Protein (6.4-8.2) g/dl Albumin (3.4-5.0) g/dl Globulin gm/dL Albumin/Globulin Ratio (1-2) 07/06/21 07/06/21 07/06/21 Range/Units 10:43 10:43 10:43 WBC (3.98-10.04) K/mm3 RBC (3.98-5.22) M/mm3 Hgb (11.2-15.7) gm/dl Hct (34.1-44.9) % MCV (79.4-94.8) fl MCH (25.6-32.2) pg MCHC (32.2-35.5) g/dl RDW Std Deviation (36.4-46.3) fL Plt Count (182-369) K/mm3 MPV (9.4-12.3) fl Neut % (Auto) (34.0-71.1) % Lymph % (Auto) (19.3-51.7) % [place] % (Auto) (4.7-12.5) % Eos % (Auto) (0.7-5.8) Baso % (Auto) (0.1-1.2) % Neut # (Auto) (1.56-6.13) K/mm3 Lymph # (Auto) (1.18-3.74) K/mm3 [place] # (Auto) (0.24-0.36) K/mm3 Eos # (Auto) (0.04-0.36) K/mm3 Baso # (Auto) (0.01-0.08) K/mm3 PT (9.7-12.0) SECONDS INR APTT (21.7-31.4) SECONDS D-Dimer, Quantitative 0.53 H (0.19-0.50) mg/L Puncture Site ABG pH (7.35-7.45) ABG pCO2 (35.0-45.0) mmHg ABG pO2 (80.0-100.0) mmHg ABG HCO3 (22.0-26.0) meq/L ABG O2 Saturation (96.0-97.0) % ABG Base Excess (-2-2.0) A-a Gradient mmHg O2 Delivery Device Oxygen Flow Rate FiO2 (21.00-100.00) % Sodium 125 L (136-145) mEq/L Potassium 5.2 H (3.5-5.1) mEq/L Chloride 92 L (98-107) mEq/L Carbon Dioxide 27 (21-32) mEq/L Anion Gap 11.2 (5-15) BUN 18 (7-18) mg/dL Creatinine 0.9 (0.55-1.02) mg/dL Est Cr Clr Drug Dosing 65.34 mL/min Estimated GFR (MDRD) > 60 (>60) mL/min BUN/Creatinine Ratio 20.0 H (14-18) Glucose 100 H (70-99) mg/dL Lactic Acid 1.3 (0.4-2.0) mmol/L Calcium 7.9 L (8.5-10.1) mg/dL Magnesium (1.8-2.4) mg/dL Ferritin (8-252) ng/ml Total Bilirubin 0.2 (0.2-1.0) mg/dL Direct Bilirubin 0.10 (0.0-0.2) mg/dl Indirect Bilirubin 0.10 AST 77 H (15-37) U/L ALT 41 (14-59) U/L Alkaline Phosphatase 67 (46-116) U/L Lactate Dehydrogenase 382 H (81-234) U/L Troponin I (0.00-0.056) ng/mL C-Reactive Protein 16.1 H* (<1.0) mg/dL NT-Pro-B Natriuret Pep (0-125) pg/mL Total Protein 6.5 (6.4-8.2) g/dl Albumin 2.8 L (3.4-5.0) g/dl Globulin 3.7 gm/dL Albumin/Globulin Ratio 0.8 L (1-2) 07/06/21 07/06/21 07/06/21 Range/Units 10:43 10:43 10:43 WBC 2.56 L (3.98-10.04) K/mm3 RBC 4.71 (3.98-5.22) M/mm3 Hgb 15.4 (11.2-15.7) gm/dl Hct 47.3 H (34.1-44.9) % MCV 100.4 H (79.4-94.8) fl MCH 32.7 H (25.6-32.2) pg MCHC 32.6 (32.2-35.5) g/dl RDW Std Deviation 50.6 H (36.4-46.3) fL Plt Count 105 L (182-369) K/mm3 MPV 10.3 (9.4-12.3) fl Neut % (Auto) 73.7 H (34.0-71.1) % Lymph % (Auto) 14.5 L (19.3-51.7) % [place] % (Auto) 9.4 (4.7-12.5) % Eos % (Auto) 0 L (0.7-5.8) Baso % (Auto) 0.8 (0.1-1.2) % Neut # (Auto) 1.89 (1.56-6.13) K/mm3 Lymph # (Auto) 0.37 L (1.18-3.74) K/mm3 [place] # (Auto) 0.24 (0.24-0.36) K/mm3 Eos # (Auto) 0.00 L (0.04-0.36) K/mm3 Baso # (Auto) 0.02 (0.01-0.08) K/mm3 PT 10.5 (9.7-12.0) SECONDS INR 0.94 APTT (21.7-31.4) SECONDS D-Dimer, Quantitative (0.19-0.50) mg/L Puncture Site ABG pH (7.35-7.45) ABG pCO2 (35.0-45.0) mmHg ABG pO2 (80.0-100.0) mmHg ABG HCO3 (22.0-26.0) meq/L ABG O2 Saturation (96.0-97.0) % ABG Base Excess (-2-2.0) A-a Gradient mmHg O2 Delivery Device Oxygen Flow Rate FiO2 (21.00-100.00) % Sodium (136-145) mEq/L Potassium (3.5-5.1) mEq/L Chloride (98-107) mEq/L Carbon Dioxide (21-32) mEq/L Anion Gap (5-15) BUN (7-18) mg/dL Creatinine (0.55-1.02) mg/dL Est Cr Clr Drug Dosing mL/min Estimated GFR (MDRD) (>60) mL/min BUN/Creatinine Ratio (14-18) Glucose (70-99) mg/dL Lactic Acid (0.4-2.0) mmol/L Calcium (8.5-10.1) mg/dL Magnesium 2.0 (1.8-2.4) mg/dL Ferritin (8-252) ng/ml Total Bilirubin (0.2-1.0) mg/dL Direct Bilirubin (0.0-0.2) mg/dl Indirect Bilirubin AST (15-37) U/L ALT (14-59) U/L Alkaline Phosphatase (46-116) U/L Lactate Dehydrogenase (81-234) U/L Troponin I < 0.017 (0.00-0.056) ng/mL C-Reactive Protein (<1.0) mg/dL NT-Pro-B Natriuret Pep (0-125) pg/mL Total Protein (6.4-8.2) g/dl Albumin (3.4-5.0) g/dl Globulin gm/dL Albumin/Globulin Ratio (1-2) 07/06/ Range/Units 10:43 WBC (3.98-10.04) K/mm3 RBC (3.98-5.22) M/mm3 Hgb (11.2-15.7) gm/dl Hct (34.1-44.9) % MCV (79.4-94.8) fl MCH (25.6-32.2) pg MCHC (32.2-35.5) g/dl RDW Std Deviation (36.4-46.3) fL Plt Count (182-369) K/mm3 MPV (9.4-12.3) fl Neut % (Auto) (34.0-71.1) % Lymph % (Auto) (19.3-51.7) % [place] % (Auto) (4.7-12.5) % Eos % (Auto) (0.7-5.8) Baso % (Auto) (0.1-1.2) % Neut # (Auto) (1.56-6.13) K/mm3 Lymph # (Auto) (1.18-3.74) K/mm3 [place] # (Auto) (0.24-0.36) K/mm3 Eos # (Auto) (0.04-0.36) K/mm3 Baso # (Auto) (0.01-0.08) K/mm3 PT (9.7-12.0) SECONDS INR APTT (21.7-31.4) SECONDS D-Dimer, Quantitative (0.19-0.50) mg/L Puncture Site ABG pH (7.35-7.45) ABG pCO2 (35.0-45.0) mmHg ABG pO2 (80.0-100.0) mmHg ABG HCO3 (22.0-26.0) meq/L ABG O2 Saturation (96.0-97.0) % ABG Base Excess (-2-2.0) A-a Gradient mmHg O2 Delivery Device Oxygen Flow Rate FiO2 (21.00-100.00) % Sodium (136-145) mEq/L Potassium (3.5-5.1) mEq/L Chloride (98-107) mEq/L Carbon Dioxide (21-32) mEq/L Anion Gap (5-15) BUN (7-18) mg/dL Creatinine (0.55-1.02) mg/dL Est Cr Clr Drug Dosing mL/min Estimated GFR (MDRD) (>60) mL/min BUN/Creatinine Ratio (14-18) Glucose (70-99) mg/dL Lactic Acid (0.4-2.0) mmol/L Calcium (8.5-10.1) mg/dL Magnesium (1.8-2.4) mg/dL Ferritin (8-252) ng/ml Total Bilirubin (0.2-1.0) mg/dL Direct Bilirubin (0.0-0.2) mg/dl Indirect Bilirubin AST (15-37) U/L ALT (14-59) U/L Alkaline Phosphatase (46-116) U/L Lactate Dehydrogenase (81-234) U/L Troponin I (0.00-0.056) ng/mL C-Reactive Protein (<1.0) mg/dL NT-Pro-B Natriuret Pep 525 H (0-125) pg/mL Total Protein (6.4-8.2) g/dl Albumin (3.4-5.0) g/dl Globulin gm/dL Albumin/Globulin Ratio (1-2) Meds: Medications Generic Name Dose Route Start Last Admin Trade Name Chavaq PRN Reason Stop Dose Admin Albuterol gm 07/06/21 14:22 Albuterol 6.7 Gm Inhaler INH Q4HR PRN Shortness of Breath Apixaban 5 mg 07/06/21 21:00 Apixaban 5 Mg Tab PO BID JAY JAY Diltiazem HCl 240 mg 07/07/21 09:00 Diltiazem 240 Mg Cap.Er PO DAILY JAY JAY Furosemide 20 mg 07/06/21 14:26 Furosemide 20 Mg/2 Ml Vial IVPUSH 07/06/21 14:27 ONETIME ONE Hydralazine HCl 10 mg 07/06/21 14:25 Hydralazine 20 Mg/Ml Sdv IVPUSH Q4H PRN Hypertension Lactulose 20 gm 07/07/21 09:00 Lactulose Soln 10 Gm/15 Ml 30 Ml Ud Cup PO DAILY JAY JAY Metoprolol Tartrate 2.5 mg 07/06/21 14:24 Metoprolol Tartrate 5 Mg/5 Ml Sdv IVPUSH Q1H PRN Tachycardia Non-Formulary Medication 1 puff 07/06/21 21:00 Budesonide/Formoterol INH BID JAY JAY Sertraline HCl 50 mg 07/07/21 09:00 Sertraline 50 Mg Tab PO DAILY JAY JAY Simvastatin 10 mg 07/06/21 21:00 Simvastatin 20 Mg Tab PO BEDTIME JAY JAY Sodium Polystyrene Sulfonate 15 gm 07/06/21 15:00 Sodium Polystyrene Sulfonate 15 Gm/60 Ml Susp 60 Ml Bot PO 07/06/21 15:01 ONETIME ONE Discontinued Medications Generic Name Dose Route Start Last Admin Trade Name Grace PRN Reason Stop Dose Admin Dexamethasone 6 mg 07/06/21 11:22 07/06/21 11:38 Dexamethasone 4 Mg Tab PO 07/06/21 11:23 6 mg ONETIME ONE Administration Sodium Chloride 1,000 mls @ 500 mls/hr 07/06/21 11:20 07/06/21 11:38 Normal Saline IV 07/06/21 13:19 500 mls/hr ONETIME ONE Administration Remdesivir 200 mg/ Sodium 250 mls @ 250 mls/hr 07/06/21 11:48 07/06/21 12:54 Chloride IV 07/06/21 12:47 250 mls/hr ONETIME ONE Administration Azithromycin 500 mg/ Sodium 250 mls @ 250 mls/hr 07/06/21 11:49 07/06/21 12:50 Chloride IV 07/06/21 12:48 250 mls/hr ONETIME ONE Administration Ceftriaxone Sodium 2 gm/ 100 mls @ 200 mls/hr 07/06/21 11:49 07/06/21 12:08 Sodium Chloride IV 07/06/21 12:18 200 mls/hr ONETIME ONE Administration - Re-Assessments/Exams Free Text/Narrative Re-Assessment/Exam: 07/06/21 10:48 Radiologist impression frontal view of the chest: 1. Diffuse increased density within the left mid and lower chest suspicious for pneumonia. 2. Minimal density within the right lung base suspicious for additional small area of pneumonia. 07/06/21 10:52 Arterial blood gases reveal a pH of 7.36, PCO2 45.8, PO2 57.0, HCO3 25.3, O2 saturation 85.2% on 6 L of oxygen per nasal cannula. We will start the patient on BiPAP at 18/12. 07/06/21 11:25 Nursing staff notifies me that the patient's blood pressure is in the 70s systolic. Patient does have a history of CHF so we will give her a 500 mL bolus of normal saline over 1 hour. 07/06/21 11:47 Hematology reveals a WBC of 2.56, hemoglobin 15.4, hematocrit 47.3, platelet count 105 Coagulation reveals a pro time of 10.5, INR 0.94, chemistry reveals a sodium of 125, potassium 5.2, chloride 92, carbon dioxide 27, anion gap 11.2, BUN 18, creatinine 0.9, glucose 100, lactic acid 1.3, vane cium 7.9, magnesium 2.0, total bilirubin 0.2, direct and indirect bilirubin are still pending, AST 77, ALT 41, alk phos 67, LDH is pending, troponin less than 0.017, C-reactive protein 16.1 I do feel this patient needs to be admitted into the hospital. I have phoned Dr. Arora and he has accepted care of the patient into the ICU. I will also start the patient on Rocephin 2 g IV as well as Zithromax 500 mg IV and remdesivir. 07/06/21 12:00 D-dimer is 0.53. This is likely due to Covid. I do not feel that this patient needs a CTA at this time. We will leave that decision up to Dr. Arora on the hospital side. Departure - Departure Time of Disposition: 14:29 Disposition: Admitted As Inpatient 65 Condition: Fair Clinical Impression: Pneumonia due to COVID-19 virus, Hyponatremia, Hyperkalemia, Hypoxia, Smoker - Discharge Information Sepsis Event Note (ED) - Evaluation Sepsis Screening Result: No Definite Risk - Focused Exam Vital Signs: Vital Signs Temp Pulse Resp BP Pulse Ox Pulse Ox 07/06/21 11:17 88 L 07/06/21 10:09 98.0 F 103 H 14 139/115 H 84 L - My Orders Last 24 Hours: My Active Orders 07/06/21 10:11 ABG [RT Arterial Blood Gases, ABG] [RC] Click to Edit 07/06/21 10:15 Isolation [COMM] Stat 07/06/21 10:43 BLOOD CULTURE [MREF] Stat PROCALCITONIN [REF] Stat 07/06/21 10:51 BLOOD CULTURE [MREF] Routine 07/06/21 11:13 RT BiPAP/CPAP [RC] ASDIRECTED - Assessment/Plan Last 24 Hours: My Active Orders 07/06/21 10:11 ABG [RT Arterial Blood Gases, ABG] [RC] Click to Edit 07/06/21 10:15 Isolation [COMM] Stat 07/06/21 10:43 BLOOD CULTURE [MREF] Stat PROCALCITONIN [REF] Stat 07/06/21 10:51 BLOOD CULTURE [MREF] Routine 07/06/21 11:13 RT BiPAP/CPAP [RC] ASDIRECTED
--- NOTE | 2021-07-06 10:45 | CR ---
Chest: Frontal view of the chest was obtained. Comparison: Prior chest x-ray of 07/03/21. Increased density is seen within the left mid and lower chest compatible with consolidation. Right lung shows minimal areas of increased density. Heart size appears stable from prior exam. Upper mediastinum is normal. No discrete osseous abnormality is appreciated. Impression: 1. Diffuse increased density within the left mid and lower chest suspicious for pneumonia. 2. Minimal density within the right lung base suspicious for additional small area of pneumonia. Diagnostic code #3
[2021-07-06] MEDS ORDERED: Sodium Chloride 0.9% 1,000 ML IV ONE (11:20)
[2021-07-06] MEDS ORDERED: Dexamethasone 4 MG Tab PO ONE (11:22)
[2021-07-06] MEDS ORDERED: REMDESIVIR 200 MG in Sodium Chloride 0.9% 250 ML IV ONE (11:48)
[2021-07-06] MEDS ORDERED: cefTRIAXone 2 GM in Sodium Chloride 0.9% 100 ML IV ONE (11:49)
[2021-07-06] MEDS ORDERED: Azithromycin 500 MG in Sodium Chloride 0.9% 250 ML IV ONE (11:49)
[2021-07-06] MEDS ORDERED: Albuterol 6.7 GM Inhaler INH PRN (14:22)
[2021-07-06] MEDS ORDERED: hydrALAZINE 20 MG/ML SDV IVPUSH PRN (14:25)
[2021-07-06] MEDS ORDERED: Ibuprofen 200 MG Tab PO PRN (14:28)
[2021-07-06] MEDS ORDERED: Docusate Sodium 100 MG Cap PO PRN (14:28)
[2021-07-06] MEDS ORDERED: Promethazine 12.5 MG in Sodium Chloride 0.9% 50 ML IV PRN (14:28)
[2021-07-06] MEDS ORDERED: Morphine 2 MG/ML SYRINGE IVPUSH PRN (14:28)
--- NOTE | 2021-07-06 14:53 | PCM.HP.2 ---
H&P History of Present Illness - General Date of Service: 07/06/21 Admit Problem/Dx: Admission Diagnosis/Problem Admission Diagnosis/Problem Hypoxia Source of Information: Patient - History of Present Illness Initial Comments - Free Text/Narative: Patient is a 55-year-old female with a history of COPD, CHF, hypertension, atrial fibrillation, current smoker, and daily alcohol user who presented to the ER due to worsening shortness of breath x 3 days. Patient presented to the ER on July 03 due to atrial fibrillation with RVR when patient had a positive Covid test. Normally patient is on 4 L oxygen at home. Today patient needs a more oxygen, 6 L. She has a worsening shortness of breath and decreased appetite. She also has watery diarrhea today, nausea and vomiting. Patient denies smoking but [place] her chart that she has been continuing to smoke. She also drinks 5 alcoholic drinks per night. In the ER, she was found to have low oxygen desaturation. Chest x-ray showed bilateral pneumonia. - Related Data Allergies/Adverse Reactions: Allergies Allergy/AdvReac Type Severity Reaction Status Date / Time diphenhydramine HCl Allergy Severe Anaphylactic Verified 07/06/21 10:16 [From Benadryl] Shock Home Medications: Home Meds Albuterol Sulfate [Albuterol Sulfate Hfa] 2 puff INH Q4HR PRN 12/01/19 [History] Diltiazem [Dilacor XR] 240 mg PO DAILY 12/01/19 [History] Sertraline [Zoloft] 50 mg PO DAILY 12/01/19 [History] Simvastatin 10 mg PO BEDTIME 12/01/19 [History] Apixaban [Eliquis] 5 mg PO BID 11/08/20 [History] Budesonide/Formoterol [Symbicort 160-4.5 MCG] 1 puff INH BID 11/08/20 [History] Furosemide [Lasix] 20 mg PO DAILY #30 tab 11/08/20 [Rx] Lactulose 20 gm PO DAILY #900 ml 12/01/20 [Rx] Spironolactone [Aldactone] 25 mg PO BID #60 tab 12/01/20 [Rx] Past Medical History HEENT History: Reports: Impaired Vision Cardiovascular History: Reports: Afib, Heart Failure, High Cholesterol, Hypertension, SOB on Exertion Other Cardiovascular History: ON/OFF RACING HEART Respiratory History: Reports: Asthma, COPD, Sleep Apnea Gastrointestinal History: Reports: GERD Genitourinary History: Reports: Urinary Incontinence [employer] History: Reports: Neurological History: Reports: None Psychiatric History: Reports: Anxiety, Depression, OCD 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 Hematologic History: Reports: None Immunologic History: Reports: None Dermatologic History: Reports: None - Infectious Disease History Infectious Disease History: Reports: Influenza, Novel Coronavirus - Past Surgical History HEENT Surgical History: Reports: Oral Surgery Female Surgical History: Reports: Section Musculoskeletal Surgical History: Reports: Other (See Below) Other Musculoskeletal Surgeries/Procedures:: CYST REMOVED FROM FACE,ARM,LEG Social & Family History - Family History Family Medical History: No Pertinent Family History Oncologic: Reports: Colon - Tobacco Use Tobacco Use Status *Q: Current Every Day Tobacco User Years of Tobacco use: 50 Packs/Tins Daily: 1 - Caffeine Use Caffeine Use: Reports: Coffee - Recreational Drug Use Recreational Drug Use: No - Living Situation & Occupation Living situation: Reports: , with Spouse Occupation: Employed H&P Review of Systems - Review of Systems: Review Of Systems: See Below (Positive for shortness of breath, nausea, vo miting, diarrhea, and decreased appetite. All other systems were reviewed and are negative.) Exam - Exam Exam: See Below - Vital Signs Vital Signs: Last Vital Signs Temp 36.7 C 07/06/21 10:09 Pulse 103 H 07/06/21 10:09 Resp 14 07/06/21 10:09 BP 139/115 H 07/06/21 10:09 Pulse Ox 88 L 07/06/21 11:17 Weight: 61.507 kg - Exam General: Alert, Oriented, Cooperative, Mild Distress (Due to shortness of aylssa th) HEENT: Conjunctiva Clear, EOMI, Pupils Equal, Pupils Reactive Neck: Supple, +2 Carotid Pulse wo Bruit, Full Range of Motion. No: Lymphadenopathy, JVD Lungs: Decreased Breath Sounds, Crackles (Bilateral) Cardiovascular: Irregular Rhythm GI/Abdominal Exam: Soft, Non-Tender, No Organomegaly, No Distention Extremities: Normal Inspection, Non-Tender, No Pedal Edema Skin: Warm, Dry, Intact Neurological: Strength Equal Bilateral, Sensation Intact Neuro Extensive - Mental Status: Alert, Oriented x3, Normal Mood/Affect - Patient Data Lab Results Last 24 hrs: Laboratory Results - last 24 hr 07/06/21 07/06/21 07/06/21 Range/Units 10:21 10:43 10:43 WBC (3.98-10.04) K/mm3 RBC (3.98-5.22) M/mm3 Hgb (11.2-15.7) gm/dl Hct (34.1-44.9) % MCV (79.4-94.8) fl MCH (25.6-32.2) pg MCHC (32.2-35.5) g/dl RDW Std Deviation (36.4-46.3) fL Plt Count (182-369) K/mm3 MPV (9.4-12.3) fl Neut % (Auto) (34.0-71.1) % Lymph % (Auto) (19.3-51.7) % [place] % (Auto) (4.7-12.5) % Eos % (Auto) (0.7-5.8) Baso % (Auto) (0.1-1.2) % Neut # (Auto) (1.56-6.13) K/mm3 Lymph # (Auto) (1.18-3.74) K/mm3 [place] # (Auto) (0.24-0.36) K/mm3 Eos # (Auto) (0.04-0.36) K/mm3 Baso # (Auto) (0.01-0.08) K/mm3 PT (9.7-12.0) SECONDS INR APTT 39.1 H (21.7-31.4) SECONDS D-Dimer, Quantitative (0.19-0.50) mg/L Puncture Site Lt radial ABG pH 7.36 (7.35-7.45) ABG pCO2 45.8 H (35.0-45.0) mmHg ABG pO2 57.0 L (80.0-100.0) mmHg ABG HCO3 25.3 (22.0-26.0) meq/L ABG O2 Saturation 85.2 L (96.0-97.0) % ABG Base Excess 0.0 (-2-2.0) A-a Gradient 171 mmHg O2 Delivery Device Nasal cannula Oxygen Flow Rate 6.0 FiO2 40.00 (21.00-100.00) % Sodium (136-145) mEq/L Potassium (3.5-5.1) mEq/L Chloride (98-107) mEq/L Carbon Dioxide (21-32) mEq/L Anion Gap (5-15) BUN (7-18) mg/dL Creatinine (0.55-1.02) mg/dL Est Cr Clr Drug Dosing mL/min Estimated GFR (MDRD) (>60) mL/min BUN/Creatinine Ratio (14-18) Glucose (70-99) mg/dL Lactic Acid (0.4-2.0) mmol/L Calcium (8.5-10.1) mg/dL Magnesium (1.8-2.4) mg/dL Ferritin 3792 H (8-252) ng/ml Total Bilirubin (0.2-1.0) mg/dL Direct Bilirubin (0.0-0.2) mg/dl Indirect Bilirubin AST (15-37) U/L ALT (14-59) U/L Alkaline Phosphatase (46-116) U/L Lactate Dehydrogenase (81-234) U/L Troponin I (0.00-0.056) ng/mL C-Reactive Protein (<1.0) mg/dL NT-Pro-B Natriuret Pep (0-125) pg/mL Total Protein (6.4-8.2) g/dl Albumin (3.4-5.0) g/dl Globulin gm/dL Albumin/Globulin Ratio (1-2) 07/06/21 07/06/21 07/06/21 Range/Units 10:43 10:43 10:43 WBC (3.98-10.04) K/mm3 RBC (3.98-5.22) M/mm3 Hgb (11.2-15.7) gm/dl Hct (34.1-44.9) % MCV (79.4-94.8) fl MCH (25.6-32.2) pg MCHC (32.2-35.5) g/dl RDW Std Deviation (36.4-46.3) fL Plt Count (182-369) K/mm3 MPV (9.4-12.3) fl Neut % (Auto) (34.0-71.1) % Lymph % (Auto) (19.3-51.7) % [place] % (Auto) (4.7-12.5) % Eos % (Auto) (0.7-5.8) Baso % (Auto) (0.1-1.2) % Neut # (Auto) (1.56-6.13) K/mm3 Lymph # (Auto) (1.18-3.74) K/mm3 [place] # (Auto) (0.24-0.36) K/mm3 Eos # (Auto) (0.04-0.36) K/mm3 Baso # (Auto) (0.01-0.08) K/mm3 PT (9.7-12.0) SECONDS INR APTT (21.7-31.4) SECONDS D-Dimer, Quantitative 0.53 H (0.19-0.50) mg/L Puncture Site ABG pH (7.35-7.45) ABG pCO2 (35.0-45.0) mmHg ABG pO2 (80.0-100.0) mmHg ABG HCO3 (22.0-26.0) meq/L ABG O2 Saturation (96.0-97.0) % ABG Base Excess (-2-2.0) A-a Gradient mmHg O2 Delivery Device Oxygen Flow Rate FiO2 (21.00-100.00) % Sodium 125 L (136-145) mEq/L Potassium 5.2 H (3.5-5.1) mEq/L Chloride 92 L (98-107) mEq/L Carbon Dioxide 27 (21-32) mEq/L Anion Gap 11.2 (5-15) BUN 18 (7-18) mg/dL Creatinine 0.9 (0.55-1.02) mg/dL Est Cr Clr Drug Dosing 65.34 mL/min Estimated GFR (MDRD) > 60 (>60) mL/min BUN/Creatinine Ratio 20.0 H (14-18) Glucose 100 H (70-99) mg/dL Lactic Acid 1.3 (0.4-2.0) mmol/L Calcium 7.9 L (8.5-10.1) mg/dL Magnesium (1.8-2.4) mg/dL Ferritin (8-252) ng/ml Total Bilirubin 0.2 (0.2-1.0) mg/dL Direct Bilirubin 0.10 (0.0-0.2) mg/dl Indirect Bilirubin 0.10 AST 77 H (15-37) U/L ALT 41 (14-59) U/L Alkaline Phosphatase 67 (46-116) U/L Lactate Dehydrogenase 382 H (81-234) U/L Troponin I (0.00-0.056) ng/mL C-Reactive Protein 16.1 H* (<1.0) mg/dL NT-Pro-B Natriuret Pep (0-125) pg/mL Total Protein 6.5 (6.4-8.2) g/dl Albumin 2.8 L (3.4-5.0) g/dl Globulin 3.7 gm/dL Albumin/Globulin Ratio 0.8 L (1-2) 07/06/21 07/06/21 07/06/21 Range/Units 10:43 10:43 10:43 WBC 2.56 L (3.98-10.04) K/mm3 RBC 4.71 (3.98-5.22) M/mm3 Hgb 15.4 (11.2-15.7) gm/dl Hct 47.3 H (34.1-44.9) % MCV 100.4 H (79.4-94.8) fl MCH 32.7 H (25.6-32.2) pg MCHC 32.6 (32.2-35.5) g/dl RDW Std Deviation 50.6 H (36.4-46.3) fL Plt Count 105 L (182-369) K/mm3 MPV 10.3 (9.4-12.3) fl Neut % (Auto) 73.7 H (34.0-71.1) % Lymph % (Auto) 14.5 L (19.3-51.7) % [place] % (Auto) 9.4 (4.7-12.5) % Eos % (Auto) 0 L (0.7-5.8) Baso % (Auto) 0.8 (0.1-1.2) % Neut # (Auto) 1.89 (1.56-6.13) K/mm3 Lymph # (Auto) 0.37 L (1.18-3.74) K/mm3 [place] # (Auto) 0.24 (0.24-0.36) K/mm3 Eos # (Auto) 0.00 L (0.04-0.36) K/mm3 Baso # (Auto) 0.02 (0.01-0.08) K/mm3 PT 10.5 (9.7-12.0) SECONDS INR 0.94 APTT (21.7-31.4) SECONDS D-Dimer, Quantitative (0.19-0.50) mg/L Puncture Site ABG pH (7.35-7.45) ABG pCO2 (35.0-45.0) mmHg ABG pO2 (80.0-100.0) mmHg ABG HCO3 (22.0-26.0) meq/L ABG O2 Saturation (96.0-97.0) % ABG Base Excess (-2-2.0) A-a Gradient mmHg O2 Delivery Device Oxygen Flow Rate FiO2 (21.00-100.00) % Sodium (136-145) mEq/L Potassium (3.5-5.1) mEq/L Chloride (98-107) mEq/L Carbon Dioxide (21-32) mEq/L Anion Gap (5-15) BUN (7-18) mg/dL Creatinine (0.55-1.02) mg/dL Est Cr Clr Drug Dosing mL/min Estimated GFR (MDRD) (>60) mL/min BUN/Creatinine Ratio (14-18) Glucose (70-99) mg/dL Lactic Acid (0.4-2.0) mmol/L Calcium (8.5-10.1) mg/dL Magnesium 2.0 (1.8-2.4) mg/dL Ferritin (8-252) ng/ml Total Bilirubin (0.2-1.0) mg/dL Direct Bilirubin (0.0-0.2) mg/dl Indirect Bilirubin AST (15-37) U/L ALT (14-59) U/L Alkaline Phosphatase (46-116) U/L Lactate Dehydrogenase (81-234) U/L Troponin I < 0.017 (0.00-0.056) ng/mL C-Reactive Protein (<1.0) mg/dL NT-Pro-B Natriuret Pep (0-125) pg/mL Total Protein (6.4-8.2) g/dl Albumin (3.4-5.0) g/dl Globulin gm/dL Albumin/Globulin Ratio (1-2) 07/06/21 Range/Units 10:43 WBC (3.98-10.04) K/mm3 RBC (3.98-5.22) M/mm3 Hgb (11.2-15.7) gm/dl Hct (34.1-44.9) % MCV (79.4-94.8) fl MCH (25.6-32.2) pg MCHC (32.2-35.5) g/dl RDW Std Deviation (36.4-46.3) fL Plt Count (182-369) K/mm3 MPV (9.4-12.3) fl Neut % (Auto) (34.0-71.1) % Lymph % (Auto) (19.3-51.7) % [place] % (Auto) (4.7-12.5) % Eos % (Auto) (0.7-5.8) Baso % (Auto) (0.1-1.2) % Neut # (Auto) (1.56-6.13) K/mm3 Lymph # (Auto) (1.18-3.74) K/mm3 [place] # (Auto) (0.24-0.36) K/mm3 Eos # (Auto) (0.04-0.36) K/mm3 Baso # (Auto) (0.01-0.08) K/mm3 PT (9.7-12.0) SECONDS INR APTT (21.7-31.4) SECONDS D-Dimer, Quantitative (0.19-0.50) mg/L Puncture Site ABG pH (7.35-7.45) ABG pCO2 (35.0-45.0) mmHg ABG pO2 (80.0-100.0) mmHg ABG HCO3 (22.0-26.0) meq/L ABG O2 Saturation (96.0-97.0) % ABG Base Excess (-2-2.0) A-a Gradient mmHg O2 Delivery Device Oxygen Flow Rate FiO2 (21.00-100.00) % Sodium (136-145) mEq/L Potassium (3.5-5.1) mEq/L Chloride (98-107) mEq/L Carbon Dioxide (21-32) mEq/L Anion Gap (5-15) BUN (7-18) mg/dL Creatinine (0.55-1.02) mg/dL Est Cr Clr Drug Dosing mL/min Estimated GFR (MDRD) (>60) mL/min BUN/Creatinine Ratio (14-18) Glucose (70-99) mg/dL Lactic Acid (0.4-2.0) mmol/L Calcium (8.5-10.1) mg/dL Magnesium (1.8-2.4) mg/dL Ferritin (8-252) ng/ml Total Bilirubin (0.2-1.0) mg/dL Direct Bilirubin (0.0-0.2) mg/dl Indirect Bilirubin AST (15-37) U/L ALT (14-59) U/L Alkaline Phosphatase (46-116) U/L Lactate Dehydrogenase (81-234) U/L Troponin I (0.00-0.056) ng/mL C-Reactive Protein (<1.0) mg/dL NT-Pro-B Natriuret Pep 525 H (0-125) pg/mL Total Protein (6.4-8.2) g/dl Albumin (3.4-5.0) g/dl Globulin gm/dL Albumin/Globulin Ratio (1-2) Result Diagrams: 07/06/21 10:43 07/06/21 10:43 Sepsis Event Note - Evaluation Sepsis Screening Result: No Definite Risk - Focused Exam Vital Signs: Vital Signs Temp Pulse Resp BP Pulse Ox Pulse Ox 07/06/21 11:17 88 L 07/06/21 10:09 36.7 C 103 H 14 139/115 H 84 L Problem List Initiated/Reviewed/Updated: Yes Orders Last 24hrs: Active Orders 24 hr Category Date Time Status Admission Status [Patient Status] [ADT] Routine ADT 07/06/21 11:50 Active ABG [RT Arterial Blood Gases, ABG] [RC] Click to Edit Care 07/06/21 10:11 Active Bedrest Bedside Commode [RC] ASDIRECTED Care 07/06/21 14:28 Ordered Cardiac Monitoring [RC] CONTINUOUS Care 07/06/21 14:28 Ordered Intake and Output [RC] QSHIFT Care 07/06/21 14:28 Ordered Oxygen Therapy [RC] PRN Care 07/06/21 14:28 Ordered Pulse Oximetry [RC] CONTINUOUS Care 07/06/21 14:28 Ordered RT Aerosol Therapy [RC] ASDIRECTED Care 07/06/21 14:30 Ordered RT BiPAP/CPAP [RC] ASDIRECTED Care 07/06/21 11:13 Active RT Post Treatment Assessment [RC] Click to Edit Care 07/06/21 14:23 Ordered RT Pre-Treatment Assessment [RC] Click to Edit Care 07/06/21 14:23 Ordered VTE/DVT Education [RC] PER UNIT ROUTINE Care 07/06/21 14:28 Ordered Vital Signs [RC] Q4H Care 07/06/21 14:28 Ordered 2 Gram Sodium Diet [DIET] Diet 07/06/21 Dinner Ordered BASIC METABOLIC PANEL,BMP [CHEM] Routine Lab 07/06/21 20:30 Ordered BLOOD CULTURE [MREF] Routine Lab 07/06/21 10:51 Received BLOOD CULTURE [MREF] Stat Lab 07/06/21 10:43 Received C-REACTIVE PROTEIN [CHEM] DAILY Lab 07/07/21 05:00 Ordered C-REACTIVE PROTEIN [CHEM] DAILY Lab 07/08/21 05:00 Ordered C-REACTIVE PROTEIN [CHEM] DAILY Lab 07/09/21 05:00 Ordered C-REACTIVE PROTEIN [CHEM] DAILY Lab 07/10/21 05:00 Ordered C-REACTIVE PROTEIN [CHEM] DAILY Lab 07/11/21 05:00 Ordered CBC WITH AUTO DIFF [HEME] DAILY Lab 07/07/21 05:00 Ordered CBC WITH AUTO DIFF [HEME] DAILY Lab 07/08/21 05:00 Ordered CBC WITH AUTO DIFF [HEME] DAILY Lab 07/09/21 05:00 Ordered CBC WITH AUTO DIFF [HEME] DAILY Lab 07/10/21 05:00 Ordered CBC WITH AUTO DIFF [HEME] DAILY Lab 07/11/21 05:00 Ordered COMPREHENSIVE METABOLIC PN,CMP [CHEM] DAILY Lab 07/07/21 05:00 Ordered COMPREHENSIVE METABOLIC PN,CMP [CHEM] DAILY Lab 07/08/21 05:00 Ordered COMPREHENSIVE METABOLIC PN,CMP [CHEM] DAILY Lab 07/09/21 05:00 Ordered COMPREHENSIVE METABOLIC PN,CMP [CHEM] DAILY Lab 07/10/21 05:00 Ordered COMPREHENSIVE METABOLIC PN,CMP [CHEM] DAILY Lab 07/11/21 05:00 Ordered MAGNESIUM [CHEM] DAILY Lab 07/07/21 05:00 Ordered MAGNESIUM [CHEM] DAILY Lab 07/08/21 05:00 Ordered PROCALCITONIN [REF] Stat Lab 07/06/21 10:43 Received Albuterol [Proventil HFA] Med 07/06/21 14:22 Ordered 2 puff INH Q4HR PRN Albuterol/Ipratropium [DuoNeb 3.0-0.5 MG/3 ML] Med 07/06/21 14:28 Ordered 3 ml NEB Q4H PRN Apixaban [Eliquis] Med 07/06/21 21:00 Ordered 5 mg PO BID Azithromycin [Zithromax] Med 07/07/21 09:00 Ordered 500 mg PO DAILY Budesonide/Formoterol Med 07/06/21 21:00 Ordered 1 puff INH BID Cholecalciferol (Vitamin D3) [Vitamin D3] Med 07/07/21 09:00 Ordered 25 mcg PO DAILY Diltiazem [Dilacor XR] Med 07/07/21 09:00 Ordered 240 mg PO DAILY Docusate Sodium [Colace] Med 07/06/21 14:28 Ordered 100 mg PO BID PRN Folic Acid Med 07/07/21 09:00 Ordered 1 mg PO DAILY Furosemide [Lasix] Med 07/06/21 14:26 Once 20 mg IVPUSH ONETIME ONE Ibuprofen [Motrin] Med 07/06/21 14:28 Ordered 200 mg PO Q6H PRN LORazepam [Ativan] Med 07/06/21 14:35 Ordered 0.5 mg IVPUSH Q4H PRN Lactulose [Cephulac] Med 07/07/21 09:00 Ordered 20 gm PO DAILY Melatonin Med 07/06/21 14:33 Ordered 6 mg PO BEDTIME PRN Metoprolol Tartrate [Lopressor] Med 07/06/21 14:24 Ordered 2.5 mg IVPUSH Q1H PRN Morphine Med 07/06/21 14:28 Ordered 2 mg IVPUSH Q4H PRN Pantoprazole [ProTONIX] Med 07/07/21 06:00 Ordered 40 mg PO ACBREAKFAST Promethazine [Phenergan] 12.5 mg Med 07/06/21 14:28 Ordered Sodium Chloride 0.9% [Normal Saline] 50 ml IV Q6H Remdesivir 100 mg Med 07/06/21 14:45 Ordered Sodium Chloride 0.9% [Normal Saline] 100 ml IV Q24H Sertraline [Zoloft] Med 07/07/21 09:00 Ordered 50 mg PO DAILY Simvastatin [Zocor] Med 07/06/21 21:00 Ordered 10 mg PO BEDTIME Sodium Polystyrene Sulfonate [Kayexalate] Med 07/06/21 14:26 Once 15 gm PO ONETIME ONE Thiamine [Vitamin B-1] Med 07/06/21 21:00 Ordered 100 mg PO BEDTIME Zinc Sulfate [Zincate] Med 07/07/21 09:00 Ordered 220 mg PO DAILY cefTRIAXone [Rocephin] 2 gm Med 07/06/21 14:45 Ordered Sodium Chloride 0.9% [Normal Saline] 100 ml IV Q24H dexAMETHasone Med 07/07/21 09:00 Ordered 6 mg PO DAILY hydrALAZINE [Apresoline] Med 07/06/21 14:25 Ordered 10 mg IVPUSH Q4H PRN oxyCODONE Med 07/06/21 14:28 Ordered 5 mg PO Q4H PRN Isolation [COMM] Stat Oth 07/06/21 10:15 Ordered Resuscitation Status Routine Resus Stat 07/06/21 14:28 Ordered Medication Orders Albuterol (Albuterol 6.7 Gm Inhaler) 0 gm INH Q4H PRN PRN Reason: Shortness of Breath Albuterol/Ipratropium (Albuterol/Ipratropium 3.0-0.5 Mg/3 Ml Neb Soln) 3 ml NEB Q4HRRT PRN PRN Reason: Shortness Of Breath/wheezing Apixaban (Apixaban 5 Mg Tab) 5 mg PO BID [facility] Cholecalciferol (Cholecalciferol (Vitamin D3) 25 Mcg Tab) 25 mcg PO DAILY JAY JAY Diltiazem HCl (Diltiazem 240 Mg Cap.Er) 240 mg PO DAILY [facility] Docusate Sodium (Docusate Sodium 100 Mg Cap) 100 mg PO BID PRN PRN Reason: Constipation Folic Acid (Folic Acid 1 Mg Tab) 1 mg PO DAILY [facility] Furosemide (Furosemide 20 Mg/2 Ml Vial) 20 mg IVPUSH ONETIME ONE Stop: 07/06/21 15:01 Hydralazine HCl (Hydralazine 20 Mg/Ml Sdv) 10 mg IVPUSH Q4H PRN PRN Reason: Hypertension Promethazine HCl 12.5 mg/ (Sodium Chloride) 50.5 mls @ 100 mls/hr IV Q6H PRN PRN Reason: Nausea/Vomiting Ibuprofen (Ibuprofen 200 Mg Tab) 200 mg PO Q6H PRN PRN Reason: Pain (mild 1-3) Lactulose (Lactulose Soln 10 Gm/15 Ml 30 Ml Ud Cup) 20 gm PO DAILY [facility] Lorazepam (Lorazepam 2 Mg/Ml Sdv) 0.5 mg IVPUSH Q4H PRN PRN Reason: Withdrawal Symptoms Melatonin (Melatonin 3 Mg Tab) 6 mg PO BEDTIME PRN PRN Reason: Insomnia Metoprolol Tartrate (Metoprolol Tartrate 5 Mg/5 Ml Sdv) 2.5 mg IVPUSH Q1H PRN PRN Reason: Tachycardia Mometasone Furoate/Formoterol Fumar (Formoterol/Mometasone 200-5 Mcg 8.8 Gm Inhaler) 2 puff IH BID [facility] Morphine Sulfate (Morphine 2 Mg/Ml Syringe) 2 mg IVPUSH Q4H PRN PRN Reason: Pain (severe 7-10) Stop: 07/07/21 14:29 Oxycodone HCl (Oxycodone 5 Mg Tab) 5 mg PO Q4H PRN PRN Reason: Pain (moderate 4-6) Pantoprazole Sodium (Pantoprazole 40 Mg Tab.Cr) 40 mg PO ACBREAKFAST [facility] Sertraline HCl (Sertraline 50 Mg Tab) 50 mg PO DAILY [facility] Simvastatin (Simvastatin 10 Mg Tab) 10 mg PO BEDTIME [facility] Sodium Polystyrene Sulfonate (Sodium Polystyrene Sulfonate 15 Gm/60 Ml Susp 60 Ml Bot) 15 gm PO ONETIME ONE Stop: 07/06/21 15:01 Thiamine HCl (Thiamine 100 Mg Tab) 100 mg PO BEDTIME JAY JAY Zinc Sulfate (Zinc Sulfate 220 Mg Cap) 220 mg PO DAILY [facility] Assessment/Plan Comment:: Patient is a 55-year-old female with a history of COPD, CHF, hypertension, atrial fibrillation, current smoker, and daily alcohol user who presented to the ER due to worsening shortness of breath x 3 days. She had a positive COVID-19 test on July 03. Acute on chronic hypoxic respiratory failure Etiologies include COPD, CHF, pneumonia Patient is on home oxygen 4 L Pulse ox Oxygen therapy, high flow/BiPAP as needed to keep oxygen saturation greater than 88-90% Covid 19 pneumonia X-ray showed diffuse increased density within the left mid and lower chest; minimal density within the right lower base Blood culture Sputum culture Ceftriaxone and azithromycin 5-day course of remdesivir 10-day course of dexamethasone Continue Eliquis 5 mg twice daily Inhalers Repeat CBC, CMP, CRP in morning COPD Inhalers CHF Unknown type BNP 525 Troponin negative Home medications include Lasix 20 mg daily which is on hold Seems to be euvolemic status Intake and output Low-sodium diet Atrial fibrillaiton Heart rate controlled Continue diltiazem to 40 mg daily Metoprolol 12.5 mg IV push as needed Continue Eliquis 5 mg twice daily Daily alchohol drinker Elevation of liver enzymes, AST 77, ALT 41, TB 0.2, al phos 67 CIWA protocol Ativan 0.5 mg every 4 hours as needed Thiamine and folic acid US abdomen Thrombocytopenia Platelets 105 on admission No bleeding Repeat CBC Elevation of D-dimer, 0.53 Continue Eliquis Hyperkalemia, 5.2 Lasix 20 mg IV x 1 Kayexalate 15 g x 1 Repeat potassium Tobacco use disorder Counseling Nicotine patch if necessary DVT prophylaxis: Eliquis CODE STATUS: Full Disposition: Greater than 2 midnights - Mortality Measure Prognosis:: Poor
[2021-07-06] MEDS ORDERED: Sodium Polystyrene Sulfonate 15 GM/60 ML Susp 60 ML Bot PO ONE ×2 (15:00→18:00)
[2021-07-06] MEDS ORDERED: Furosemide 20 MG/2 ML VIAL IVPUSH ONE ×2 (15:00→18:00)
--- NOTE | 2021-07-06 17:23 | US ---
Abdominal ultrasound: Multiple real-time images of the abdomen were obtained. Comparison: No prior abdominal ultrasound, prior CT abdomen and pelvis study of 12/01/20. Findings: Liver shows no focal abnormality. Gallbladder is not well distended. No definite shadowing gallstones are seen. No comment about gallbladder wall thickening can be made. No biliary duct dilatation is seen. Kidneys show no hydronephrosis or mass. Right kidney has a length of 10.5 cm and left kidney has a length of 1.1 cm. Spleen size is normal. Distal abdominal aorta not well visualized. Other portions of the abdominal aorta shows no aneurysm. Head of the pancreas appears within normal limits. Other portions of the pancreas are somewhat obscured. Inferior vena cava is patent. Main portal vein shows normal hepatopedal flow. Impression: 1. Poorly distended gallbladder with no shadowing gallstones or gallbladder wall thickening. No comment can be made about gallbladder wall thickening. 2. Distal abdominal aorta not well visualized. Portions of the pancreas are also not well seen. 3. No additional abnormality is identified on abdominal ultrasound exam. Diagnostic code #2 I agree with preliminary report from [facility], finalized on 07/06/21, 5:35 PM CDT, code 1
[2021-07-06] MEDS: Albuterol/Ipratropium 3.0-0.5 MG/3 ML Neb Soln NEB PRN (19:54)
[2021-07-06] MEDS: Formoterol/Mometasone 200-5 MCG 8.8 GM Inhaler IH SCH (20:03)
[2021-07-06] MEDS: Simvastatin 10 MG Tab PO SCH (21:34)
[2021-07-06] MEDS: Thiamine 100 MG Tab PO SCH (21:35)
[2021-07-06] MEDS: Apixaban 5 MG Tab PO SCH (21:35)
[2021-07-07] MEDS: Albuterol/Ipratropium 3.0-0.5 MG/3 ML Neb Soln NEB PRN ×4 (00:08→20:24)
[2021-07-07] MEDS: Metoprolol Tartrate 5 MG/5 ML SDV IVPUSH PRN ×3 (00:28→05:09)
[2021-07-07] MEDS ORDERED: Sodium Chloride 0.9% 250 ML IV ONE ×2 (06:22→08:31)
[2021-07-07] MEDS ORDERED: Sodium Chloride 0.9% 1,000 ML ONE (06:28)
[2021-07-07] MEDS: Pantoprazole 40 MG Tab.CR PO SCH (06:33)
[2021-07-07] MEDS: LORazepam 2 MG/ML SDV IVPUSH PRN ×2 (07:50→20:08)
[2021-07-07] MEDS ORDERED: Digoxin 500 MCG/2 ML Amp IVPUSH ONE ×2 (08:29→10:25)
[2021-07-07] MEDS: Formoterol/Mometasone 200-5 MCG 8.8 GM Inhaler IH SCH ×2 (09:00→20:24)
[2021-07-07] MEDS ORDERED: Diltiazem 240 MG Cap.ER PO SCH (09:00)
[2021-07-07] MEDS: Sertraline 50 MG Tab PO SCH (09:28)
[2021-07-07] MEDS: Apixaban 5 MG Tab PO SCH ×2 (09:28→20:01)
[2021-07-07] MEDS: Folic Acid 1 MG Tab PO SCH (09:29)
[2021-07-07] MEDS: Metoprolol Tartrate 25 MG Tab PO SCH ×2 (09:29→20:01)
[2021-07-07] MEDS: Dexamethasone 4 MG Tab PO SCH (09:36)
[2021-07-07] MEDS: Diltiazem 180 MG Cap.CD PO SCH (09:36)
[2021-07-07] MEDS: Lactulose Soln 10 GM/15 ML 30 ML UD Cup PO SCH (09:36)
[2021-07-07] MEDS: Cholecalciferol (Vitamin D3) 25 MCG Tab PO SCH (09:37)
[2021-07-07] MEDS: Zinc Sulfate 220 MG Cap PO SCH (09:38)
[2021-07-07] MEDS: Nicotine 14 MG/24 Hr Patch TRDERM SCH (09:56)
[2021-07-07] MEDS: REMDESIVIR 100 MG in Sodium Chloride 0.9% 100 ML IV SCH (10:04)
[2021-07-07] MEDS: Benzonatate 100 MG Cap PO PRN ×2 (11:03→20:01)
[2021-07-07] MEDS: cefTRIAXone 2 GM in Sodium Chloride 0.9% 100 ML IV SCH (11:05)
--- NOTE | 2021-07-07 12:46 | PCM.PN ---
- General Info Date of Service: 07/07/21 Admission Dx/Problem (Free Text): Admission Diagnosis/Problem Admission Diagnosis/Problem Hypoxia Subjective Update: Patient is a 55-year-old female with a history of COPD, CHF, hypertension, atrial fibrillation, current smoker, and daily alcohol user who presented to the ER due to worsening shortness of breath x 3 days. Patient told me that she is feeling better. Denies headache, dizziness, fever, chills, nausea, vomiting, or chest pain. She is on BiPAP Her blood pressure is soft. Normal saline bolus was given. Blood pressure is improving. Her heart rate was greater than 130 this morning. Digoxin 0.125 mg IV push x 2 was given. Heart rate is better controlled now. - Review of Systems Systems Review Comment:: Positive for shortness of breath, nausea, vomiting, diarrhea, and decreased appetite. All other systems were reviewed and are negative. - Patient Data Vitals - Most Recent: Last Vital Signs Temp 36.1 C 07/07/21 11:45 Pulse 88 07/07/21 11:45 Resp 21 H 07/07/21 11:45 BP 90/67 07/07/21 11:45 Pulse Ox 88 L 07/07/21 11:45 Weight - Most Recent: 62.55 kg I&O - Last 24 Hours: Intake & Output 07/06/21 07/07/21 07/07/21 22:59 06:59 14:59 Intake Total 400 400 Output Total 950 800 Balance -950 400 -400 Lab Results Last 24 Hours: Laboratory Results - last 24 hr 07/06/21 07/06/21 07/06/21 Range/Units 10:43 10:43 10:43 WBC (3.98-10.04) K/mm3 RBC (3.98-5.22) M/mm3 Hgb (11.2-15.7) gm/dl Hct (34.1-44.9) % MCV (79.4-94.8) fl MCH (25.6-32.2) pg MCHC (32.2-35.5) g/dl RDW Std Deviation (36.4-46.3) fL Plt Count (182-369) K/mm3 MPV (9.4-12.3) fl Neut % (Auto) (34.0-71.1) % Lymph % (Auto) (19.3-51.7) % [place] % (Auto) (4.7-12.5) % Eos % (Auto) (0.7-5.8) Baso % (Auto) (0.1-1.2) % Neut # (Auto) (1.56-6.13) K/mm3 Lymph # (Auto) (1.18-3.74) K/mm3 [place] # (Auto) (0.24-0.36) K/mm3 Eos # (Auto) (0.04-0.36) K/mm3 Baso # (Auto) (0.01-0.08) K/mm3 Sodium (136-145) mEq/L Potassium (3.5-5.1) mEq/L Chloride (98-107) mEq/L Carbon Dioxide (21-32) mEq/L Anion Gap (5-15) BUN (7-18) mg/dL Creatinine (0.55-1.02) mg/dL Est Cr Clr Drug Dosing mL/min Estimated GFR (MDRD) (>60) mL/min BUN/Creatinine Ratio (14-18) Glucose (70-99) mg/dL Calcium (8.5-10.1) mg/dL Magnesium (1.8-2.4) mg/dL Ferritin 3792 H (8-252) ng/ml Total Bilirubin (0.2-1.0) mg/dL Direct Bilirubin 0.10 (0.0-0.2) mg/dl Indirect Bilirubin 0.10 AST (15-37) U/L ALT (14-59) U/L Alkaline Phosphatase (46-116) U/L Lactate Dehydrogenase 382 H (81-234) U/L C-Reactive Protein (<1.0) mg/dL NT-Pro-B Natriuret Pep (0-125) pg/mL Total Protein (6.4-8.2) g/dl Albumin (3.4-5.0) g/dl Globulin gm/dL Albumin/Globulin Ratio (1-2) Procalcitonin 0.11 H ng/mL 07/06/21 07/06/21 07/07/21 Range/Units 10:43 20:34 05:28 WBC 2.50 L (3.98-10.04) K/mm3 RBC 4.27 (3.98-5.22) M/mm3 Hgb 14.0 (11.2-15.7) gm/dl Hct 43.0 (34.1-44.9) % MCV 100.7 H (79.4-94.8) fl MCH 32.8 H (25.6-32.2) pg MCHC 32.6 (32.2-35.5) g/dl RDW Std Deviation 49.7 H (36.4-46.3) fL Plt Count 116 L (182-369) K/mm3 MPV 10.2 (9.4-12.3) fl Neut % (Auto) 71.6 H (34.0-71.1) % Lymph % (Auto) 15.2 L (19.3-51.7) % [place] % (Auto) 12.4 (4.7-12.5) % Eos % (Auto) 0 L (0.7-5.8) Baso % (Auto) 0.4 (0.1-1.2) % Neut # (Auto) 1.79 (1.56-6.13) K/mm3 Lymph # (Auto) 0.38 L (1.18-3.74) K/mm3 [place] # (Auto) 0.31 (0.24-0.36) K/mm3 Eos # (Auto) 0.00 L (0.04-0.36) K/mm3 Baso # (Auto) 0.01 (0.01-0.08) K/mm3 Sodium 131 L (136-145) mEq/L Potassium 4.5 (3.5-5.1) mEq/L Chloride 97 L (98-107) mEq/L Carbon Dioxide 29 (21-32) mEq/L Anion Gap 9.5 (5-15) BUN 15 (7-18) mg/dL Creatinine 0.7 (0.55-1.02) mg/dL Est Cr Clr Drug Dosing 84.01 mL/min Estimated GFR (MDRD) > 60 (>60) mL/min BUN/Creatinine Ratio 21.4 H (14-18) Glucose 183 H (70-99) mg/dL Calcium 7.3 L (8.5-10.1) mg/dL Magnesium (1.8-2.4) mg/dL Ferritin (8-252) ng/ml Total Bilirubin (0.2-1.0) mg/dL Direct Bilirubin (0.0-0.2) mg/dl Indirect Bilirubin AST (15-37) U/L ALT (14-59) U/L Alkaline Phosphatase (46-116) U/L Lactate Dehydrogenase (81-234) U/L C-Reactive Protein (<1.0) mg/dL NT-Pro-B Natriuret Pep 525 H (0-125) pg/mL Total Protein (6.4-8.2) g/dl Albumin (3.4-5.0) g/dl Globulin gm/dL Albumin/Globulin Ratio (1-2) Procalcitonin ng/mL 07/07/21 Range/Units 05:28 WBC (3.98-10.04) K/mm3 RBC (3.98-5.22) M/mm3 Hgb (11.2-15.7) gm/dl Hct (34.1-44.9) % MCV (79.4-94.8) fl MCH (25.6-32.2) pg MCHC (32.2-35.5) g/dl RDW Std Deviation (36.4-46.3) fL Plt Count (182-369) K/mm3 MPV (9.4-12.3) fl Neut % (Auto) (34.0-71.1) % Lymph % (Auto) (19.3-51.7) % [place] % (Auto) (4.7-12.5) % Eos % (Auto) (0.7-5.8) Baso % (Auto) (0.1-1.2) % Neut # (Auto) (1.56-6.13) K/mm3 Lymph # (Auto) (1.18-3.74) K/mm3 [place] # (Auto) (0.24-0.36) K/mm3 Eos # (Auto) (0.04-0.36) K/mm3 Baso # (Auto) (0.01-0.08) K/mm3 Sodium 134 L (136-145) mEq/L Potassium 4.4 (3.5-5.1) mEq/L Chloride 96 L (98-107) mEq/L Carbon Dioxide 31 (21-32) mEq/L Anion Gap 11.4 (5-15) BUN 14 (7-18) mg/dL Creatinine 0.6 (0.55-1.02) mg/dL Est Cr Clr Drug Dosing 98.01 mL/min Estimated GFR (MDRD) > 60 (>60) mL/min BUN/Creatinine Ratio 23.3 H (14-18) Glucose 120 H (70-99) mg/dL Calcium 7.6 L (8.5-10.1) mg/dL Magnesium 2.1 (1.8-2.4) mg/dL Ferritin (8-252) ng/ml Total Bilirubin 0.2 (0.2-1.0) mg/dL Direct Bilirubin (0.0-0.2) mg/dl Indirect Bilirubin AST 83 H (15-37) U/L ALT 42 (14-59) U/L Alkaline Phosphatase 73 (46-116) U/L Lactate Dehydrogenase (81-234) U/L C-Reactive Protein 10.4 H* (<1.0) mg/dL NT-Pro-B Natriuret Pep (0-125) pg/mL Total Protein 5.8 L (6.4-8.2) g/dl Albumin 2.4 L (3.4-5.0) g/dl Globulin 3.4 gm/dL Albumin/Globulin Ratio 0.7 L (1-2) Procalcitonin ng/mL Med Orders - Current: Current Medications Albuterol (Albuterol 6.7 Gm Inhaler) 0 gm INH Q4H PRN PRN Reason: Shortness of Breath Albuterol/Ipratropium (Albuterol/Ipratropium 3.0-0.5 Mg/3 Ml Neb Soln) 3 ml NEB Q4HRRT PRN PRN Reason: Shortness Of Breath/wheezing Last Admin: 07/07/21 09:00 Dose: 3 ml Documented by: Apixaban (Apixaban 5 Mg Tab) 5 mg PO BID [facility] Last Admin: 07/07/21 09:28 Dose: 5 mg Documented by: Azithromycin (Azithromycin 250 Mg Tab) 500 mg PO Q24H [facility] Benzonatate (Benzonatate 100 Mg Cap) 100 mg PO Q6H PRN PRN Reason: Cough Last Admin: 07/07/21 11:03 Dose: 100 mg Documented by: Cholecalciferol (Cholecalciferol (Vitamin D3) 25 Mcg Tab) 25 mcg PO DAILY [facility] Last Admin: 07/07/21 09:37 Dose: 25 mcg Documented by: Dexamethasone (Dexamethasone 4 Mg Tab) 6 mg PO DAILY [facility] Last Admin: 07/07/21 09:36 Dose: 6 mg Documented by: Diltiazem HCl (Diltiazem 180 Mg Cap.Cd) 180 mg PO DAILY [facility] Last Admin: 07/07/21 09:36 Dose: Not Given Documented by: Docusate Sodium (Docusate Sodium 100 Mg Cap) 100 mg PO BID PRN PRN Reason: Constipation Folic Acid (Folic Acid 1 Mg Tab) 1 mg PO DAILY [facility] Last Admin: 07/07/21 09:29 Dose: 1 mg Documented by: Hydralazine HCl (Hydralazine 20 Mg/Ml Sdv) 10 mg IVPUSH Q4H PRN PRN Reason: Hypertension Promethazine HCl 12.5 mg/ (Sodium Chloride) 50.5 mls @ 100 mls/hr IV Q6H PRN PRN Reason: Nausea/Vomiting Remdesivir 100 mg/ Sodium (Chloride) 100 mls @ 100 mls/hr IV Q24H [facility] Stop: 07/10/21 11:59 Last Admin: 07/07/21 10:04 Dose: 100 mls/hr Documented by: Ceftriaxone Sodium 2 gm/ (Sodium Chloride) 100 mls @ 200 mls/hr IV Q24H [facility] Last Admin: 07/07/21 11:05 Dose: 200 mls/hr Documented by: Ibuprofen (Ibuprofen 200 Mg Tab) 200 mg PO Q6H PRN PRN Reason: Pain (mild 1-3) Lactulose (Lactulose Soln 10 Gm/15 Ml 30 Ml Ud Cup) 20 gm PO DAILY [facility] Last Admin: 07/07/21 09:36 Dose: 20 gm Documented by: Lorazepam (Lorazepam 2 Mg/Ml Sdv) 0.5 mg IVPUSH Q4H PRN PRN Reason: Withdrawal Symptoms Last Admin: 07/07/21 07:50 Dose: 0.5 mg Documented by: Melatonin (Melatonin 3 Mg Tab) 6 mg PO BEDTIME PRN PRN Reason: Insomnia Metoprolol Tartrate (Metoprolol Tartrate 5 Mg/5 Ml Sdv) 2.5 mg IVPUSH Q1H PRN PRN Reason: Tachycardia Last Admin: 07/07/21 05:09 Dose: 2.5 mg Documented by: Metoprolol Tartrate (Metoprolol Tartrate 25 Mg Tab) 12.5 mg PO Q12H [facility] Last Admin: 07/07/21 09:29 Dose: 12.5 mg Documented by: Mometasone Furoate/Formoterol Fumar (Formoterol/Mometasone 200-5 Mcg 8.8 Gm Inhaler) 2 puff IH BID [facility] Last Admin: 07/07/21 09:00 Dose: 2 puff Documented by: Morphine Sulfate (Morphine 2 Mg/Ml Syringe) 2 mg IVPUSH Q4H PRN PRN Reason: Pain (severe 7-10) Stop: 07/07/21 14:29 Nicotine (Nicotine 14 Mg/24 Hr Patch) 14 mg TRDERM DAILY [facility] Last Admin: 07/07/21 09:56 Dose: 14 mg Documented by: Oxycodone HCl (Oxycodone 5 Mg Tab) 5 mg PO Q4H PRN PRN Reason: Pain (moderate 4-6) Pantoprazole Sodium (Pantoprazole 40 Mg Tab.Cr) 40 mg PO ACBREAKFAST [facility] Last Admin: 07/07/21 06:33 Dose: 40 mg Documented by: Sertraline HCl (Sertraline 50 Mg Tab) 50 mg PO DAILY [facility] Last Admin: 07/07/21 09:28 Dose: 50 mg Documented by: Simvastatin (Simvastatin 10 Mg Tab) 10 mg PO BEDTIME [facility] Last Admin: 07/06/21 21:34 Dose: 10 mg Documented by: Thiamine HCl (Thiamine 100 Mg Tab) 100 mg PO BEDTIME [facility] Last Admin: 07/06/21 21:35 Dose: 100 mg Documented by: Zinc Sulfate (Zinc Sulfate 220 Mg Cap) 220 mg PO DAILY [facility] Last Admin: 07/07/21 09:38 Dose: 220 mg Documented by: Discontinued Medications Dexamethasone (Dexamethasone 4 Mg Tab) 6 mg PO ONETIME ONE Stop: 07/06/21 11:23 Last Admin: 07/06/21 11:38 Dose: 6 mg Documented by: Digoxin (Digoxin 500 Mcg/2 Ml Amp) 125 mcg IVPUSH ONETIME ONE Stop: 07/07/21 08:30 Last Admin: 07/07/21 09:23 Dose: 125 mcg Documented by: Digoxin (Digoxin 500 Mcg/2 Ml Amp) 125 mcg IVPUSH ONETIME ONE Stop: 07/07/21 10:26 Last Admin: 07/07/21 10:53 Dose: 125 mcg Documented by: Diltiazem HCl (Diltiazem 240 Mg Cap.Er) 240 mg PO DAILY [facility] Last Admin: 07/07/21 07:22 Dose: 240 mg Documented by: Furosemide (Furosemide 20 Mg/2 Ml Vial) 20 mg IVPUSH ONETIME ONE Stop: 07/06/21 15:01 Last Admin: 07/06/21 18:07 Dose: Not Given Documented by: Furosemide (Furosemide 20 Mg/2 Ml Vial) 20 mg IVPUSH ONETIME ONE Stop: 07/06/21 18:01 Last Admin: 07/06/21 18:06 Dose: 20 mg Documented by: Sodium Chloride (Normal Saline) 1,000 mls @ 500 mls/hr IV ONETIME ONE Stop: 07/06/21 13:19 Last Admin: 07/06/21 11:38 Dose: 500 mls/hr Documented by: Remdesivir 200 mg/ Sodium (Chloride) 250 mls @ 250 mls/hr IV ONETIME ONE Stop: 07/06/21 12:47 Last Admin: 07/06/21 12:54 Dose: 250 mls/hr Documented by: Azithromycin 500 mg/ Sodium (Chloride) 250 mls @ 250 mls/hr IV ONETIME ONE Stop: 07/06/21 12:48 Last Admin: 07/06/21 12:50 Dose: 250 mls/hr Documented by: Ceftriaxone Sodium 2 gm/ (Sodium Chloride) 100 mls @ 200 mls/hr IV ONETIME ONE Stop: 07/06/21 12:18 Last Admin: 07/06/21 12:08 Dose: 200 mls/hr Documented by: Sodium Chloride (Normal Saline) 250 mls @ 999 mls/hr IV .BOLUS ONE Stop: 07/07/21 06:37 Last Admin: 07/07/21 06:35 Dose: 999 mls/hr Documented by: Sodium Chloride (Normal Saline) Confirm Administered Dose 1,000 mls @ as directed .ROUTE .STK-MED ONE Stop: 07/07/21 06:29 Last Admin: 07/07/21 07:16 Dose: Not Given Documented by: Sodium Chloride (Normal Saline) 250 mls @ 500 mls/hr IV ONETIME ONE Stop: 07/07/21 09:00 Last Admin: 07/07/21 09:35 Dose: 500 mls/hr Documented by: Sodium Polystyrene Sulfonate (Sodium Polystyrene Sulfonate 15 Gm/60 Ml Susp 60 Ml Bot) 15 gm PO ONETIME ONE Stop: 07/06/21 15:01 Last Admin: 07/06/21 18:07 Dose: Not Given Documented by: Sodium Polystyrene Sulfonate (Sodium Polystyrene Sulfonate 15 Gm/60 Ml Susp 60 Ml Bot) 15 gm PO ONETIME ONE Stop: 07/06/21 18:01 Last Admin: 07/06/21 18:07 Dose: 15 gm Documented by: - Exam Physical Findings Comments:: General: Alert, Oriented, Cooperative, Mild Distress (Due to shortness of breath) HEENT: Conjunctiva Clear, EOMI, Pupils Equal, Pupils Reactive Neck: Supple, +2 Carotid Pulse wo Bruit, Full Range of Motion. No: Lymphadenopathy, JVD Lungs: Decreased Breath Sounds, Crackles (Bilateral) Cardiovascular: Irregular Rhythm GI/Abdominal Exam: Soft, Non-Tender, No Organomegaly, No Distention Extremities: Normal Inspection, Non-Tender, No Pedal Edema Skin: Warm, Dry, Intact Neurological: Strength Equal Bilateral, Sensation Intact Neuro Extensive - Mental Status: Alert, Oriented x3, Normal Mood/Affect - Patient Data Lab Results Last 24 hrs: Laboratory Results - last 24 hr 07/06/21 07/06/21 07/06/21 Range/Units 10:43 10:43 10:43 WBC (3.98-10.04) K/mm3 RBC (3.98-5.22) M/mm3 Hgb (11.2-15.7) gm/dl Hct (34.1-44.9) % MCV (79.4-94.8) fl MCH (25.6-32.2) pg MCHC (32.2-35.5) g/dl RDW Std Deviation (36.4-46.3) fL Plt Count (182-369) K/mm3 MPV (9.4-12.3) fl Neut % (Auto) (34.0-71.1) % Lymph % (Auto) (19.3-51.7) % [place] % (Auto) (4.7-12.5) % Eos % (Auto) (0.7-5.8) Baso % (Auto) (0.1-1.2) % Neut # (Auto) (1.56-6.13) K/mm3 Lymph # (Auto) (1.18-3.74) K/mm3 [place] # (Auto) (0.24-0.36) K/mm3 Eos # (Auto) (0.04-0.36) K/mm3 Baso # (Auto) (0.01-0.08) K/mm3 Sodium (136-145) mEq/L Potassium (3.5-5.1) mEq/L Chloride (98-107) mEq/L Carbon Dioxide (21-32) mEq/L Anion Gap (5-15) BUN (7-18) mg/dL Creatinine (0.55-1.02) mg/dL Est Cr Clr Drug Dosing mL/min Estimated GFR (MDRD) (>60) mL/min BUN/Creatinine Ratio (14-18) Glucose (70-99) mg/dL Calcium (8.5-10.1) mg/dL Magnesium (1.8-2.4) mg/dL Ferritin 3792 H (8-252) ng/ml Total Bilirubin (0.2-1.0) mg/dL Direct Bilirubin 0.10 (0.0-0.2) mg/dl Indirect Bilirubin 0.10 AST (15-37) U/L ALT (14-59) U/L Alkaline Phosphatase (46-116) U/L Lactate Dehydrogenase 382 H (81-234) U/L C-Reactive Protein (<1.0) mg/dL NT-Pro-B Natriuret Pep (0-125) pg/mL Total Protein (6.4-8.2) g/dl Albumin (3.4-5.0) g/dl Globulin gm/dL Albumin/Globulin Ratio (1-2) Procalcitonin 0.11 H ng/mL 07/06/21 07/06/21 07/07/21 Range/Units 10:43 20:34 05:28 WBC 2.50 L (3.98-10.04) K/mm3 RBC 4.27 (3.98-5.22) M/mm3 Hgb 14.0 (11.2-15.7) gm/dl Hct 43.0 (34.1-44.9) % MCV 100.7 H (79.4-94.8) fl MCH 32.8 H (25.6-32.2) pg MCHC 32.6 (32.2-35.5) g/dl RDW Std Deviation 49.7 H (36.4-46.3) fL Plt Count 116 L (182-369) K/mm3 MPV 10.2 (9.4-12.3) fl Neut % (Auto) 71.6 H (34.0-71.1) % Lymph % (Auto) 15.2 L (19.3-51.7) % [place] % (Auto) 12.4 (4.7-12.5) % Eos % (Auto) 0 L (0.7-5.8) Baso % (Auto) 0.4 (0.1-1.2) % Neut # (Auto) 1.79 (1.56-6.13) K/mm3 Lymph # (Auto) 0.38 L (1.18-3.74) K/mm3 [place] # (Auto) 0.31 (0.24-0.36) K/mm3 Eos # (Auto) 0.00 L (0.04-0.36) K/mm3 Baso # (Auto) 0.01 (0.01-0.08) K/mm3 Sodium 131 L (136-145) mEq/L Potassium 4.5 (3.5-5.1) mEq/L Chloride 97 L (98-107) mEq/L Carbon Dioxide 29 (21-32) mEq/L Anion Gap 9.5 (5-15) BUN 15 (7-18) mg/dL Creatinine 0.7 (0.55-1.02) mg/dL Est Cr Clr Drug Dosing 84.01 mL/min Estimated GFR (MDRD) > 60 (>60) mL/min BUN/Creatinine Ratio 21.4 H (14-18) Glucose 183 H (70-99) mg/dL Calcium 7.3 L (8.5-10.1) mg/dL Magnesium (1.8-2.4) mg/dL Ferritin (8-252) ng/ml Total Bilirubin (0.2-1.0) mg/dL Direct Bilirubin (0.0-0.2) mg/dl Indirect Bilirubin AST (15-37) U/L ALT (14-59) U/L Alkaline Phosphatase (46-116) U/L Lactate Dehydrogenase (81-234) U/L C-Reactive Protein (<1.0) mg/dL NT-Pro-B Natriuret Pep 525 H (0-125) pg/mL Total Protein (6.4-8.2) g/dl Albumin (3.4-5.0) g/dl Globulin gm/dL Albumin/Globulin Ratio (1-2) Procalcitonin ng/mL 07/07/21 Range/Units 05:28 WBC (3.98-10.04) K/mm3 RBC (3.98-5.22) M/mm3 Hgb (11.2-15.7) gm/dl Hct (34.1-44.9) % MCV (79.4-94.8) fl MCH (25.6-32.2) pg MCHC (32.2-35.5) g/dl RDW Std Deviation (36.4-46.3) fL Plt Count (182-369) K/mm3 MPV (9.4-12.3) fl Neut % (Auto) (34.0-71.1) % Lymph % (Auto) (19.3-51.7) % [place] % (Auto) (4.7-12.5) % Eos % (Auto) (0.7-5.8) Baso % (Auto) (0.1-1.2) % Neut # (Auto) (1.56-6.13) K/mm3 Lymph # (Auto) (1.18-3.74) K/mm3 [place] # (Auto) (0.24-0.36) K/mm3 Eos # (Auto) (0.04-0.36) K/mm3 Baso # (Auto) (0.01-0.08) K/mm3 Sodium 134 L (136-145) mEq/L Potassium 4.4 (3.5-5.1) mEq/L Chloride 96 L (98-107) mEq/L Carbon Dioxide 31 (21-32) mEq/L Anion Gap 11.4 (5-15) BUN 14 (7-18) mg/dL Creatinine 0.6 (0.55-1.02) mg/dL Est Cr Clr Drug Dosing 98.01 mL/min Estimated GFR (MDRD) > 60 (>60) mL/min BUN/Creatinine Ratio 23.3 H (14-18) Glucose 120 H (70-99) mg/dL Calcium 7.6 L (8.5-10.1) mg/dL Magnesium 2.1 (1.8-2.4) mg/dL Ferritin (8-252) ng/ml Total Bilirubin 0.2 (0.2-1.0) mg/dL Direct Bilirubin (0.0-0.2) mg/dl Indirect Bilirubin AST 83 H (15-37) U/L ALT 42 (14-59) U/L Alkaline Phosphatase 73 (46-116) U/L Lactate Dehydrogenase (81-234) U/L C-Reactive Protein 10.4 H* (<1.0) mg/dL NT-Pro-B Natriuret Pep (0-125) pg/mL Total Protein 5.8 L (6.4-8.2) g/dl Albumin 2.4 L (3.4-5.0) g/dl Globulin 3.4 gm/dL Albumin/Globulin Ratio 0.7 L (1-2) Procalcitonin ng/mL Result Diagrams: 07/07/21 05:28 07/07/21 05:28 Sepsis Event Note - Evaluation Sepsis Screening Result: Severe Sepsis Risk - Focused Exam Vital Signs: Vital Signs Temp Pulse Pulse Resp BP BP Pulse Ox 07/07/21 11:45 36.1 C 88 21 H 90/67 88 L 07/07/21 10:59 36.1 C 138 H 30 H 98/85 88 L 07/07/21 10:53 134 H 07/07/21 09:29 136 H 92/71 07/07/21 09:23 133 H 07/07/21 09:10 07/07/21 09:00 07/07/21 07:35 94 L 07/07/21 07:23 36.1 C 132 H 21 H 92/73 80 L 07/07/21 05:09 132 H 84/69 L 07/07/21 05:01 07/07/21 04:55 07/07/21 01:39 132 H 83/60 L Pulse Ox Pulse Ox Pulse Ox 07/07/21 11:45 07/07/21 10:59 07/07/21 10:53 07/07/21 09:29 07/07/21 09:23 07/07/21 09:10 91 L 07/07/21 09:00 91 L 07/07/21 07:35 07/07/21 07:23 07/07/21 05:09 07/07/21 05:01 89 L 07/07/21 04:55 79 L 07/07/21 01:39 - Problem List Review Problem List Initiated/Reviewed/Updated: Yes - My Orders Last 24 Hours: My Active Orders 07/06/21 14:22 Albuterol [Proventil HFA] 0 gm INH Q4H PRN 07/06/21 14:23 RT Post Treatment Assessment [RC] Click to Edit RT Pre-Treatment Assessment [RC] Click to Edit 07/06/21 14:24 Metoprolol Tartrate [Lopressor] 2.5 mg IVPUSH Q1H PRN 07/06/21 14:25 hydrALAZINE [Apresoline] 10 mg IVPUSH Q4H PRN 07/06/21 14:28 Bedrest Bedside Commode [RC] ASDIRECTED Cardiac Monitoring [RC] CONTINUOUS Intake and Output [RC] 04,16 Oxygen Therapy [RC] PRN Pulse Oximetry [RC] CONTINUOUS VTE/DVT Education [RC] PER UNIT ROUTINE Vital Signs [RC] Q4H Albuterol/Ipratropium [DuoNeb 3.0-0.5 MG/3 ML] 3 ml NEB Q4HRRT PRN Docusate Sodium [Colace] 100 mg PO BID PRN Ibuprofen [Motrin] 200 mg PO Q6H PRN Morphine 2 mg IVPUSH Q4H PRN Promethazine [Phenergan] 12.5 mg Sodium Chloride 0.9% [Normal Saline] 50 ml IV Q6H oxyCODONE 5 mg PO Q4H PRN Resuscitation Status Routine 07/06/21 14:30 RT Aerosol Therapy [RC] ASDIRECTED 07/06/21 14:33 Melatonin 6 mg PO BEDTIME PRN 07/06/21 14:35 LORazepam [Ativan] 0.5 mg IVPUSH Q4H PRN 07/06/21 Dinner 2 Gram Sodium Diet [DIET] 07/06/21 21:00 Apixaban [Eliquis] 5 mg PO BID Mometasone/Formoterol [Dulera 200-5 MCG] 2 puff IH BID Simvastatin [Zocor] 10 mg PO BEDTIME Thiamine [Vitamin B-1] 100 mg PO BEDTIME 07/07/21 06:00 Pantoprazole [ProTONIX] 40 mg PO ACBREAKFAST 07/07/21 08:19 CIWAA Assessment [RC] Q4H 07/07/21 08:30 Metoprolol Tartrate [Lopressor] 12.5 mg PO Q12H 07/07/21 09:00 Chest Physiotherapy [RT Chest Physiotherapy] [RC] ASDIRECTED Incentive Spirometry [RT Incentive Spirometry] [RC] ASDIRECTED Cholecalciferol (Vitamin D3) [Vitamin D3] 25 mcg PO DAILY Diltiazem [Cardizem CD] 180 mg PO DAILY Folic Acid 1 mg PO DAILY Lactulose [Cephulac] 20 gm PO DAILY Nicotine [Habitrol] 14 mg TRDERM DAILY Sertraline [Zoloft] 50 mg PO DAILY Zinc Sulfate [Zincate] 220 mg PO DAILY dexAMETHasone 6 mg PO DAILY 07/07/21 09:10 Oxygen Therapy Adult [Oxygen Therapy] [RC] ASDIRECTED 07/07/21 10:24 Benzonatate [Tessalon Perles] 100 mg PO Q6H PRN 07/07/21 11:00 Remdesivir 100 mg Sodium Chloride 0.9% [Normal Saline] 100 ml IV Q24H 07/07/21 11:54 EKG Documentation Completion [RC] ASDIRECTED 07/07/21 12:00 cefTRIAXone [Rocephin] 2 gm Sodium Chloride 0.9% [Normal Saline] 100 ml IV Q24H 07/07/21 13:00 Azithromycin [Zithromax] 500 mg PO Q24H 07/08/21 05:00 C-REACTIVE PROTEIN [CHEM] DAILY CBC WITH AUTO DIFF [HEME] DAILY COMPREHENSIVE METABOLIC PN,CMP [CHEM] DAILY MAGNESIUM [CHEM] DAILY 07/09/21 05:00 C-REACTIVE PROTEIN [CHEM] DAILY CBC WITH AUTO DIFF [HEME] DAILY COMPREHENSIVE METABOLIC PN,CMP [CHEM] DAILY 07/10/21 05:00 C-REACTIVE PROTEIN [CHEM] DAILY CBC WITH AUTO DIFF [HEME] DAILY COMPREHENSIVE METABOLIC PN,CMP [CHEM] DAILY 07/11/21 05:00 C-REACTIVE PROTEIN [CHEM] DAILY CBC WITH AUTO DIFF [HEME] DAILY COMPREHENSIVE METABOLIC PN,CMP [CHEM] DAILY - Plan Plan:: Patient is a 55-year-old female with a history of COPD, CHF, hypertension, atrial fibrillation, current smoker, and daily alcohol user who presented to the ER due to worsening shortness of breath x 3 days. She had a positive COVID-19 test on July 03. Acute on chronic hypoxic respiratory failure Etiologies include COPD, CHF, pneumonia Patient is on home oxygen 4 L Pulse ox Oxygen therapy, high flow/BiPAP as needed to keep oxygen saturation greater than 88-90% Covid 19 pneumonia X-ray showed diffuse increased density within the left mid and lower chest; minimal density within the right lower base Blood culture no growth so far Sputum culture Ceftriaxone and azithromycin 5-day course of remdesivir 10-day course of dexamethasone Continue Eliquis 5 mg twice daily Inhalers Procalcitonin 0.11 Repeat CBC, CMP, CRP in morning COPD Inhalers CHF Unknown type BNP 525 Troponin negative Home medications include Lasix 20 mg daily which is on hold. Blood pressure is soft Seems to be euvolemic status Intake and output Low-sodium diet Atrial fibrillaiton decreased diltiazem to 180mg daily from 240 mg daily and added metoprolol 12.5mg bid. Digoxin 0.125mg iv push x 2 today Digoxin 0.125mg po daily Metoprolol 2.5 mg IV push as needed Continue Eliquis 5 mg twice daily Daily alchohol drinker Elevation of liver enzymes, AST 77, ALT 41, TB 0.2, al phos 67 on admission CIWA protocol Ativan 0.5 mg every 4 hours as needed Thiamine and folic acid US abdomen -poorly distended gallbladder with no shadowing gallstones or gallbladder wall thickening. Thrombocytopenia Platelets 105 on admission No bleeding Repeat CBC Elevation of D-dimer, 0.53 Continue Eliquis Hyperkalemia, resolved 5.2 on admission Lasix 20 mg IV x 1 Kayexalate 15 g x 1 Repeat potassium Tobacco use disorder Counseling Nicotine patch if necessary DVT prophylaxis: Eliquis CODE STATUS: Full Disposition: TBD
[2021-07-07] MEDS: Azithromycin 250 MG Tab PO SCH (12:58)
[2021-07-07] MEDS: guaiFENesin 600 MG Tab.ER PO SCH ×2 (13:33→20:01)
[2021-07-07] MEDS: Thiamine 100 MG Tab PO SCH (20:01)
[2021-07-07] MEDS: Simvastatin 10 MG Tab PO SCH (20:01)
[2021-07-08] MEDS: Albuterol/Ipratropium 3.0-0.5 MG/3 ML Neb Soln NEB PRN ×4 (00:48→20:44)
[2021-07-08] MEDS: Digoxin 125 MCG Tab PO SCH (08:02)
[2021-07-08] MEDS: Pantoprazole 40 MG Tab.CR PO SCH (08:03)
[2021-07-08] MEDS: Metoprolol Tartrate 25 MG Tab PO SCH ×2 (08:03→20:36)
[2021-07-08] MEDS: guaiFENesin 600 MG Tab.ER PO SCH ×2 (08:04→20:37)
[2021-07-08] MEDS: Diltiazem 180 MG Cap.CD PO SCH (08:04)
[2021-07-08] MEDS: Cholecalciferol (Vitamin D3) 25 MCG Tab PO SCH (08:05)
[2021-07-08] MEDS: Dexamethasone 4 MG Tab PO SCH (08:05)
[2021-07-08] MEDS: Zinc Sulfate 220 MG Cap PO SCH (08:05)
[2021-07-08] MEDS: Apixaban 5 MG Tab PO SCH ×2 (08:05→20:37)
[2021-07-08] MEDS: Folic Acid 1 MG Tab PO SCH (08:06)
[2021-07-08] MEDS: Sertraline 50 MG Tab PO SCH (08:06)
[2021-07-08] MEDS: Nicotine 14 MG/24 Hr Patch TRDERM SCH (08:07)
[2021-07-08] MEDS: Lactulose Soln 10 GM/15 ML 30 ML UD Cup PO SCH (08:07)
[2021-07-08] MEDS: Formoterol/Mometasone 200-5 MCG 8.8 GM Inhaler IH SCH ×2 (08:35→20:44)
[2021-07-08] MEDS ORDERED: methylPREDNISolone Sodium Succinate 40 MG/1 ML SDV IVPUSH SCH (10:45)
--- NOTE | 2021-07-08 11:54 | PCM.PN ---
- General Info Date of Service: 07/08/21 Admission Dx/Problem (Free Text): Admission Diagnosis/Problem Admission Diagnosis/Problem Hypoxia Subjective Update: Patient is a 55-year-old female with a history of COPD, CHF, hypertension, atrial fibrillation, current smoker, and daily alcohol user who presented to the ER due to worsening shortness of breath x 3 days. Pt feels tired. Otherwise denies headache, dizziness, fever, chills, nausea, vomiting, or chest pain. I discussed prone position with her but she told me that if it is difficult for her to prone She is on 50 L Her blood pressure is improving. Heart rate is controlled. - Review of Systems General: Reports: Fatigue HEENT: Reports: No Symptoms Pulmonary: Reports: Shortness of Breath, Cough Cardiovascular: Reports: No Symptoms Gastrointestinal: Reports: No Symptoms Genitourinary: Reports: No Symptoms Musculoskeletal: Reports: No Symptoms Skin: Reports: No Symptoms Neurological: Reports: No Symptoms Psychiatric: Reports: No Symptoms - Patient Data Vitals - Most Recent: Last Vital Signs Temp 36.1 C 07/08/21 08:00 Pulse 98 07/08/21 08:03 Resp 22 H 07/08/21 08:00 BP 101/70 07/08/21 08:03 Pulse Ox 90 L 07/08/21 08:36 Weight - Most Recent: 62.596 kg I&O - Last 24 Hours: Intake & Output 07/07/21 07/08/21 07/08/21 22:59 06:59 14:59 Intake Total 1140 400 Output Total 100 Balance 1040 400 Lab Results Last 24 Hours: Laboratory Results - last 24 hr 07/08/21 07/08/21 Range/Units 05:13 05:13 WBC 2.85 L (3.98-10.04) K/mm3 RBC 4.11 (3.98-5.22) M/mm3 Hgb 13.5 (11.2-15.7) gm/dl Hct 41.5 (34.1-44.9) % MCV 101.0 H (79.4-94.8) fl MCH 32.8 H (25.6-32.2) pg MCHC 32.5 (32.2-35.5) g/dl RDW Std Deviation 49.1 H (36.4-46.3) fL Plt Count 133 L (182-369) K/mm3 MPV 10.1 (9.4-12.3) fl Neut % (Auto) 70.8 (34.0-71.1) % Lymph % (Auto) 14.4 L (19.3-51.7) % [place] % (Auto) 13.0 H (4.7-12.5) % Eos % (Auto) 0 L (0.7-5.8) Baso % (Auto) 0.7 (0.1-1.2) % Neut # (Auto) 2.02 (1.56-6.13) K/mm3 Lymph # (Auto) 0.41 L (1.18-3.74) K/mm3 [place] # (Auto) 0.37 H (0.24-0.36) K/mm3 Eos # (Auto) 0.00 L (0.04-0.36) K/mm3 Baso # (Auto) 0.02 (0.01-0.08) K/mm3 Manual Slide Review Normal smear Sodium 137 (136-145) mEq/L Potassium 4.5 (3.5-5.1) mEq/L Chloride 102 (98-107) mEq/L Carbon Dioxide 30 (21-32) mEq/L Anion Gap 9.5 (5-15) BUN 15 (7-18) mg/dL Creatinine 0.5 L (0.55-1.02) mg/dL Est Cr Clr Drug Dosing 118.25 mL/min Estimated GFR (MDRD) > 60 (>60) mL/min BUN/Creatinine Ratio 30.0 H (14-18) Glucose 117 H (70-99) mg/dL Calcium 7.6 L (8.5-10.1) mg/dL Magnesium 1.8 (1.8-2.4) mg/dL Total Bilirubin 0.1 L (0.2-1.0) mg/dL AST 57 H (15-37) U/L ALT 44 (14-59) U/L Alkaline Phosphatase 66 (46-116) U/L C-Reactive Protein 4.5 H* (<1.0) mg/dL Total Protein 5.2 L (6.4-8.2) g/dl Albumin 2.2 L (3.4-5.0) g/dl Globulin 3.0 gm/dL Albumin/Globulin Ratio 0.7 L (1-2) Nicola Results Last 24 Hours: Microbiology 07/06/21 10:51 Blood Culture - Preliminary Blood - Venous - Lab Draw 07/06/21 10:43 Blood Culture - Preliminary Blood - Venous - Lab Draw Med Orders - Current: Current Medications Albuterol (Albuterol 6.7 Gm Inhaler) 0 gm INH Q4H PRN PRN Reason: Shortness of Breath Albuterol/Ipratropium (Albuterol/Ipratropium 3.0-0.5 Mg/3 Ml Neb Soln) 3 ml NEB Q4HRRT PRN PRN Reason: Shortness Of Breath/wheezing Last Admin: 07/08/21 08:35 Dose: 3 ml Documented by: Apixaban (Apixaban 5 Mg Tab) 5 mg PO BID [facility] Last Admin: 07/08/21 08:05 Dose: 5 mg Documented by: Azithromycin (Azithromycin 250 Mg Tab) 500 mg PO Q24H [facility] Last Admin: 07/07/21 12:58 Dose: 500 mg Documented by: Benzonatate (Benzonatate 100 Mg Cap) 100 mg PO Q6H PRN PRN Reason: Cough Last Admin: 07/07/21 20:01 Dose: 100 mg Documented by: Cholecalciferol (Cholecalciferol (Vitamin D3) 25 Mcg Tab) 25 mcg PO DAILY [facility] Last Admin: 07/08/21 08:05 Dose: 25 mcg Documented by: Digoxin (Digoxin 125 Mcg Tab) 125 mcg PO DAILY [facility] Last Admin: 07/08/21 08:02 Dose: 125 mcg Documented by: Diltiazem HCl (Diltiazem 180 Mg Cap.Cd) 180 mg PO DAILY [facility] Last Admin: 07/08/21 08:04 Dose: 180 mg Documented by: Docusate Sodium (Docusate Sodium 100 Mg Cap) 100 mg PO BID PRN PRN Reason: Constipation Folic Acid (Folic Acid 1 Mg Tab) 1 mg PO DAILY [facility] Last Admin: 07/08/21 08:06 Dose: 1 mg Documented by: Guaifenesin (Guaifenesin 600 Mg Tab.Er) 600 mg PO BID [facility] Last Admin: 07/08/21 08:04 Dose: 600 mg Documented by: Hydralazine HCl (Hydralazine 20 Mg/Ml Sdv) 10 mg IVPUSH Q4H PRN PRN Reason: Hypertension Promethazine HCl 12.5 mg/ (Sodium Chloride) 50.5 mls @ 100 mls/hr IV Q6H PRN PRN Reason: Nausea/Vomiting Remdesivir 100 mg/ Sodium (Chloride) 100 mls @ 100 mls/hr IV Q24H [facility] Stop: 07/10/21 11:59 Last Admin: 07/07/21 10:04 Dose: 100 mls/hr Documented by: Ceftriaxone Sodium 2 gm/ (Sodium Chloride) 100 mls @ 200 mls/hr IV Q24H [facility] Last Admin: 07/07/21 11:05 Dose: 200 mls/hr Documented by: Ibuprofen (Ibuprofen 200 Mg Tab) 200 mg PO Q6H PRN PRN Reason: Pain (mild 1-3) Lactulose (Lactulose Soln 10 Gm/15 Ml 30 Ml Ud Cup) 20 gm PO DAILY [facility] Last Admin: 07/08/21 08:07 Dose: 20 gm Documented by: Lorazepam (Lorazepam 2 Mg/Ml Sdv) 0.5 mg IVPUSH Q4H PRN PRN Reason: Withdrawal Symptoms Last Admin: 07/07/21 20:08 Dose: 0.5 mg Documented by: Melatonin (Melatonin 3 Mg Tab) 6 mg PO BEDTIME PRN PRN Reason: Insomnia Methylprednisolone Sodium Succinate (Methylprednisolone Sodium Succinate 40 Mg/1 Ml Sdv) 40 mg IVPUSH Q8H [facility] Metoprolol Tartrate (Metoprolol Tartrate 5 Mg/5 Ml Sdv) 2.5 mg IVPUSH Q1H PRN PRN Reason: Tachycardia Last Admin: 07/07/21 05:09 Dose: 2.5 mg Documented by: Metoprolol Tartrate (Metoprolol Tartrate 25 Mg Tab) 12.5 mg PO Q12H [facility] Last Admin: 07/08/21 08:03 Dose: 12.5 mg Documented by: Mometasone Furoate/Formoterol Fumar (Formoterol/Mometasone 200-5 Mcg 8.8 Gm Inhaler) 2 puff IH BID [facility] Last Admin: 07/08/21 08:35 Dose: 2 puff Documented by: Nicotine (Nicotine 14 Mg/24 Hr Patch) 14 mg TRDERM DAILY [facility] Last Admin: 07/08/21 08:07 Dose: 14 mg Documented by: Oxycodone HCl (Oxycodone 5 Mg Tab) 5 mg PO Q4H PRN PRN Reason: Pain (moderate 4-6) Pantoprazole Sodium (Pantoprazole 40 Mg Tab.Cr) 40 mg PO ACBREAKFAST [facility] Last Admin: 07/08/21 08:03 Dose: 40 mg Documented by: Sertraline HCl (Sertraline 50 Mg Tab) 50 mg PO DAILY [facility] Last Admin: 07/08/21 08:06 Dose: 50 mg Documented by: Simvastatin (Simvastatin 10 Mg Tab) 10 mg PO BEDTIME [facility] Last Admin: 07/07/21 20:01 Dose: 10 mg Documented by: Thiamine HCl (Thiamine 100 Mg Tab) 100 mg PO BEDTIME [facility] Last Admin: 07/07/21 20:01 Dose: 100 mg Documented by: Zinc Sulfate (Zinc Sulfate 220 Mg Cap) 220 mg PO DAILY [facility] Last Admin: 07/08/21 08:05 Dose: 220 mg Documented by: Discontinued Medications Dexamethasone (Dexamethasone 4 Mg Tab) 6 mg PO ONETIME ONE Stop: 07/06/21 11:23 Last Admin: 07/06/21 11:38 Dose: 6 mg Documented by: Dexamethasone (Dexamethasone 4 Mg Tab) 6 mg PO DAILY [facility] Last Admin: 07/08/21 08:05 Dose: 6 mg Documented by: Digoxin (Digoxin 500 Mcg/2 Ml Amp) 125 mcg IVPUSH ONETIME ONE Stop: 07/07/21 08:30 Last Admin: 07/07/21 09:23 Dose: 125 mcg Documented by: Digoxin (Digoxin 500 Mcg/2 Ml Amp) 125 mcg IVPUSH ONETIME ONE Stop: 07/07/21 10:26 Last Admin: 07/07/21 10:53 Dose: 125 mcg Documented by: Diltiazem HCl (Diltiazem 240 Mg Cap.Er) 240 mg PO DAILY [facility] Last Admin: 07/07/21 07:22 Dose: 240 mg Documented by: Furosemide (Furosemide 20 Mg/2 Ml Vial) 20 mg IVPUSH ONETIME ONE Stop: 07/06/21 15:01 Last Admin: 07/06/21 18:07 Dose: Not Given Documented by: Furosemide (Furosemide 20 Mg/2 Ml Vial) 20 mg IVPUSH ONETIME ONE Stop: 07/06/21 18:01 Last Admin: 07/06/21 18:06 Dose: 20 mg Documented by: Sodium Chloride (Normal Saline) 1,000 mls @ 500 mls/hr IV ONETIME ONE Stop: 07/06/21 13:19 Last Admin: 07/06/21 11:38 Dose: 500 mls/hr Documented by: Remdesivir 200 mg/ Sodium (Chloride) 250 mls @ 250 mls/hr IV ONETIME ONE Stop: 07/06/21 12:47 Last Admin: 07/06/21 12:54 Dose: 250 mls/hr Documented by: Azithromycin 500 mg/ Sodium (Chloride) 250 mls @ 250 mls/hr IV ONETIME ONE Stop: 07/06/21 12:48 Last Admin: 07/06/21 12:50 Dose: 250 mls/hr Documented by: Ceftriaxone Sodium 2 gm/ (Sodium Chloride) 100 mls @ 200 mls/hr IV ONETIME ONE Stop: 07/06/21 12:18 Last Admin: 07/06/21 12:08 Dose: 200 mls/hr Documented by: Sodium Chloride (Normal Saline) 250 mls @ 999 mls/hr IV .BOLUS ONE Stop: 07/07/21 06:37 Last Admin: 07/07/21 06:35 Dose: 999 mls/hr Documented by: Sodium Chloride (Normal Saline) Confirm Administered Dose 1,000 mls @ as direc melissa .ROUTE .STK-MED ONE Stop: 07/07/21 06:29 Last Admin: 07/07/21 07:16 Dose: Not Given Documented by: Sodium Chloride (Normal Saline) 250 mls @ 500 mls/hr IV ONETIME ONE Stop: 07/07/21 09:00 Last Admin: 07/07/21 09:35 Dose: 500 mls/hr Documented by: Morphine Sulfate (Morphine 2 Mg/Ml Syringe) 2 mg IVPUSH Q4H PRN PRN Reason: Pain (severe 7-10) Stop: 07/07/21 14:29 Sodium Polystyrene Sulfonate (Sodium Polystyrene Sulfonate 15 Gm/60 Ml Susp 60 Ml Bot) 15 gm PO ONETIME ONE Stop: 07/06/21 15:01 Last Admin: 07/06/21 18:07 Dose: Not Given Documented by: Sodium Polystyrene Sulfonate (Sodium Polystyrene Sulfonate 15 Gm/60 Ml Susp 60 Ml Bot) 15 gm PO ONETIME ONE Stop: 07/06/21 18:01 Last Admin: 07/06/21 18:07 Dose: 15 gm Documented by: - Exam Physical Findings Comments:: General: Alert, Oriented, Cooperative, no acute distress HEENT: Conjunctiva Clear, EOMI, Pupils Equal, Pupils Reactive Neck: Supple, +2 Carotid Pulse wo Bruit, Full Range of Motion. No: Lymphadenopathy, JVD Lungs: Decreased Breath Sounds, Crackles (Bilateral) Cardiovascular: Irregular Rhythm GI/Abdominal Exam: Soft, Non-Tender, No Organomegaly, No Distention Extremities: Normal Inspection, Non-Tender, No Pedal Edema Skin: Warm, Dry, Intact Neurological: Strength Equal Bilateral, Sensation Intact Neuro Extensive - Mental Status: Alert, Oriented x3, Normal Mood/Affect - Patient Data Lab Results Last 24 hrs: Laboratory Results - last 24 hr 07/08/21 07/08/21 Range/Units 05:13 05:13 WBC 2.85 L (3.98-10.04) K/mm3 RBC 4.11 (3.98-5.22) M/mm3 Hgb 13.5 (11.2-15.7) gm/dl Hct 41.5 (34.1-44.9) % MCV 101.0 H (79.4-94.8) fl MCH 32.8 H (25.6-32.2) pg MCHC 32.5 (32.2-35.5) g/dl RDW Std Deviation 49.1 H (36.4-46.3) fL Plt Count 133 L (182-369) K/mm3 MPV 10.1 (9.4-12.3) fl Neut % (Auto) 70.8 (34.0-71.1) % Lymph % (Auto) 14.4 L (19.3-51.7) % [place] % (Auto) 13.0 H (4.7-12.5) % Eos % (Auto) 0 L (0.7-5.8) Baso % (Auto) 0.7 (0.1-1.2) % Neut # (Auto) 2.02 (1.56-6.13) K/mm3 Lymph # (Auto) 0.41 L (1.18-3.74) K/mm3 [place] # (Auto) 0.37 H (0.24-0.36) K/mm3 Eos # (Auto) 0.00 L (0.04-0.36) K/mm3 Baso # (Auto) 0.02 (0.01-0.08) K/mm3 Manual Slide Review Normal smear Sodium 137 (136-145) mEq/L Potassium 4.5 (3.5-5.1) mEq/L Chloride 102 (98-107) mEq/L Carbon Dioxide 30 (21-32) mEq/L Anion Gap 9.5 (5-15) BUN 15 (7-18) mg/dL Creatinine 0.5 L (0.55-1.02) mg/dL Est Cr Clr Drug Dosing 118.25 mL/min Estimated GFR (MDRD) > 60 (>60) mL/min BUN/Creatinine Ratio 30.0 H (14-18) Glucose 117 H (70-99) mg/dL Calcium 7.6 L (8.5-10.1) mg/dL Magnesium 1.8 (1.8-2.4) mg/dL Total Bilirubin 0.1 L (0.2-1.0) mg/dL AST 57 H (15-37) U/L ALT 44 (14-59) U/L Alkaline Phosphatase 66 (46-116) U/L C-Reactive Protein 4.5 H* (<1.0) mg/dL Total Protein 5.2 L (6.4-8.2) g/dl Albumin 2.2 L (3.4-5.0) g/dl Globulin 3.0 gm/dL Albumin/Globulin Ratio 0.7 L (1-2) Result Diagrams: 07/08/21 05:13 07/08/21 05:13 Nicola Results Last 24 hrs: Microbiology 07/06/21 10:51 Blood Culture - Preliminary Blood - Venous - Lab Draw 07/06/21 10:43 Blood Culture - Preliminary Blood - Venous - Lab Draw Sepsis Event Note - Evaluation Sepsis Screening Result: Severe Sepsis Risk - Focused Exam Vital Signs: Vital Signs Temp Pulse Pulse Resp BP BP Pulse Ox 07/08/21 08:36 07/08/21 08:03 98 101/70 07/08/21 08:02 90 07/08/21 08:00 36.1 C 73 22 H 101/70 93 L 07/08/21 05:50 07/08/21 04:00 36.4 C 24 H 102/69 93 L 07/08/21 00:48 07/08/21 00:00 36.3 C 20 87/62 L 90 L Pulse Ox 07/08/21 08:36 90 L 07/08/21 08:03 07/08/21 08:02 07/08/21 08:00 07/08/21 05:50 94 L 07/08/21 04:00 07/08/21 00:48 87 L 07/08/21 00:00 - Problem List Review Problem List Initiated/Reviewed/Updated: Yes - My Orders Last 24 Hours: My Active Orders 07/07/21 11:00 Remdesivir 100 mg Sodium Chloride 0.9% [Normal Saline] 100 ml IV Q24H 07/07/21 12:00 cefTRIAXone [Rocephin] 2 gm Sodium Chloride 0.9% [Normal Saline] 100 ml IV Q24H 07/07/21 13:00 Azithromycin [Zithromax] 500 mg PO Q24H 07/07/21 13:15 guaiFENesin [Mucinex] 600 mg PO BID 07/08/21 09:00 Digoxin [Lanoxin] 125 mcg PO DAILY 07/08/21 10:45 methylPREDNISolone Sod Succ [Solu-MEDROL] 40 mg IVPUSH Q8H 07/09/21 05:00 C-REACTIVE PROTEIN [CHEM] DAILY CBC WITH AUTO DIFF [HEME] DAILY COMPREHENSIVE METABOLIC PN,CMP [CHEM] DAILY DIGOXIN [CHEM] Routine 07/10/21 05:00 C-REACTIVE PROTEIN [CHEM] DAILY CBC WITH AUTO DIFF [HEME] DAILY COMPREHENSIVE METABOLIC PN,CMP [CHEM] DAILY 07/11/21 05:00 C-REACTIVE PROTEIN [CHEM] DAILY CBC WITH AUTO DIFF [HEME] DAILY COMPREHENSIVE METABOLIC PN,CMP [CHEM] DAILY - Plan Plan:: Patient is a 55-year-old female with a history of COPD, CHF, hypertension, atrial fibrillation, current smoker, and daily alcohol user who presented to the ER due to worsening shortness of breath x 3 days. She had a positive COVID-19 test on July 03. Acute on chronic hypoxic respiratory failure Etiologies include COPD, CHF, pneumonia Patient is on home oxygen 4 L Pulse ox Oxygen therapy, high flow/BiPAP as needed to keep oxygen saturation greater than 88-90% Covid 19 pneumonia X-ray showed diffuse increased density within the left mid and lower chest; minimal density within the right lower base Blood culture no growth so far Sputum culture Ceftriaxone and azithromycin 5-day course of remdesivir Discontinued dexamethasone today. Considering Covid 19 pneumonia in the setting of COPD, I initiated Solu-Medrol 40 mg every 8 hours today Continue Eliquis 5 mg twice daily Inhalers Procalcitonin 0.11 Repeat CBC, CMP, CRP in morning COPD Inhalers CHF Unknown type BNP 525 Troponin negative Home medications include Lasix 20 mg daily which is on hold. Blood pressure is soft Seems to be euvolemic status Intake and output Low-sodium diet Atrial fibrillaiton Heart rate is controlled decreased diltiazem to 180mg daily from 240 mg daily and added metoprolol 12.5mg bid. Digoxin 0.125mg iv push x 2 yesterday Digoxin 0.125mg po daily Added metoprolol 12.5 mg twice daily Metoprolol 2.5 mg IV push as needed Continue Eliquis 5 mg twice daily Daily alchohol drinker Elevation of liver enzymes, AST 77, ALT 41, TB 0.2, al phos 67 on admission CIWA protocol Ativan 0.5 mg every 4 hours as needed Thiamine and folic acid US abdomen -poorly distended gallbladder with no shadowing gallstones or gallbladder wall thickening. Thrombocytopenia Platelets 105 on admission No bleeding Repeat CBC Elevation of D-dimer, 0.53 Continue Eliquis Hyperkalemia, resolved 5.2 on admission Lasix 20 mg IV x 1 Kayexalate 15 g x 1 Repeat potassium Tobacco use disorder Counseling Nicotine patch if necessary DVT prophylaxis: Eliquis CODE STATUS: Full Disposition: Next week
[2021-07-08] MEDS: Azithromycin 250 MG Tab PO SCH (12:08)
[2021-07-08] MEDS: REMDESIVIR 100 MG in Sodium Chloride 0.9% 100 ML IV SCH (12:08)
[2021-07-08] MEDS: cefTRIAXone 2 GM in Sodium Chloride 0.9% 100 ML IV SCH (12:08)
[2021-07-08] MEDS: methylPREDNISolone Sodium Succinate 40 MG/1 ML SDV IVPUSH SCH (20:34)
[2021-07-08] MEDS: Simvastatin 10 MG Tab PO SCH (20:37)
[2021-07-08] MEDS: Benzonatate 100 MG Cap PO PRN (20:37)
[2021-07-08] MEDS: Thiamine 100 MG Tab PO SCH (20:37)
[2021-07-08] MEDS: LORazepam 2 MG/ML SDV IVPUSH PRN (22:14)
[2021-07-09] MEDS: Pantoprazole 40 MG Tab.CR PO SCH (05:27)
[2021-07-09] MEDS: methylPREDNISolone Sodium Succinate 40 MG/1 ML SDV IVPUSH SCH ×3 (05:28→20:00)
[2021-07-09] MEDS: Zinc Sulfate 220 MG Cap PO SCH (08:38)
[2021-07-09] MEDS: Digoxin 125 MCG Tab PO SCH (08:38)
[2021-07-09] MEDS: Apixaban 5 MG Tab PO SCH ×2 (08:38→20:00)
[2021-07-09] MEDS: Cholecalciferol (Vitamin D3) 25 MCG Tab PO SCH (08:38)
[2021-07-09] MEDS: Lactulose Soln 10 GM/15 ML 30 ML UD Cup PO SCH (08:38)
[2021-07-09] MEDS: Folic Acid 1 MG Tab PO SCH (08:38)
[2021-07-09] MEDS: Diltiazem 180 MG Cap.CD PO SCH (08:39)
[2021-07-09] MEDS: Sertraline 50 MG Tab PO SCH (08:39)
[2021-07-09] MEDS: Nicotine 14 MG/24 Hr Patch TRDERM SCH (08:39)
[2021-07-09] MEDS: guaiFENesin 600 MG Tab.ER PO SCH ×2 (08:39→20:00)
[2021-07-09] MEDS: Metoprolol Tartrate 25 MG Tab PO SCH ×2 (08:39→20:04)
--- NOTE | 2021-07-09 09:02 | PCM.PN ---
- General Info Date of Service: 07/09/21 Admission Dx/Problem (Free Text): Admission Diagnosis/Problem Admission Diagnosis/Problem Hypoxia Subjective Update: The patient is a 55-year-old lady who was admitted to hospitalization on July 06, 2021 due to Covid pneumonia. The patient says that she has been having coughing fits when she wakes up in the morning. The patient has been tolerating her diet. She has denied any pain. Functional Status: Reports: Pain Controlled, Tolerating Diet - Review of Systems General: Reports: No Symptoms HEENT: Reports: No Symptoms Pulmonary: Reports: Cough Cardiovascular: Reports: No Symptoms Gastrointestinal: Reports: No Symptoms Genitourinary: Reports: No Symptoms Musculoskeletal: Reports: No Symptoms Skin: Reports: No Symptoms Neurological: Reports: No Symptoms Psychiatric: Reports: No Symptoms - Patient Data Vitals - Most Recent: Last Vital Signs Temp 36.7 C 07/09/21 04:00 Pulse 100 07/09/21 08:39 Resp 22 H 07/09/21 04:00 BP 109/73 07/09/21 08:39 Pulse Ox 93 L 07/09/21 05:19 Weight - Most Recent: 58.967 kg I&O - Last 24 Hours: Intake & Output 07/08/21 07/09/21 07/09/21 22:59 06:59 14:59 Intake Total 1620 600 Output Total 150 Balance 1620 450 Lab Results Last 24 Hours: Laboratory Results - last 24 hr 07/09/21 07/09/21 Range/Units 05:23 05:23 WBC 2.32 L* (3.98-10.04) K/mm3 RBC 4.22 (3.98-5.22) M/mm3 Hgb 13.8 (11.2-15.7) gm/dl Hct 42.7 (34.1-44.9) % MCV 101.2 H (79.4-94.8) fl MCH 32.7 H (25.6-32.2) pg MCHC 32.3 (32.2-35.5) g/dl RDW Std Deviation 49.3 H (36.4-46.3) fL Plt Count 163 L (182-369) K/mm3 MPV 9.7 (9.4-12.3) fl Neut % (Auto) 64.2 (34.0-71.1) % Lymph % (Auto) 16.8 L (19.3-51.7) % Jefferson % (Auto) 16.4 H (4.7-12.5) % Eos % (Auto) 0 L (0.7-5.8) Baso % (Auto) 0.9 (0.1-1.2) % Neut # (Auto) 1.49 L (1.56-6.13) K/mm3 Lymph # (Auto) 0.39 L (1.18-3.74) K/mm3 Jefferson # (Auto) 0.38 H (0.24-0.36) K/mm3 Eos # (Auto) 0.00 L (0.04-0.36) K/mm3 Baso # (Auto) 0.02 (0.01-0.08) K/mm3 Manual Slide Review Abnormal smear Sodium 138 (136-145) mEq/L Potassium 4.8 (3.5-5.1) mEq/L Chloride 101 (98-107) mEq/L Carbon Dioxide 33 H (21-32) mEq/L Anion Gap 8.8 (5-15) BUN 13 (7-18) mg/dL Creatinine 0.6 (0.55-1.02) mg/dL Est Cr Clr Drug Dosing 97.46 mL/min Estimated GFR (MDRD) > 60 (>60) mL/min BUN/Creatinine Ratio 21.7 H (14-18) Glucose 142 H (70-99) mg/dL Calcium 7.9 L (8.5-10.1) mg/dL Total Bilirubin 0.2 (0.2-1.0) mg/dL AST 42 H (15-37) U/L ALT 44 (14-59) U/L Alkaline Phosphatase 67 (46-116) U/L C-Reactive Protein 2.6 H* (<1.0) mg/dL Total Protein 5.4 L (6.4-8.2) g/dl Albumin 2.3 L (3.4-5.0) g/dl Globulin 3.1 gm/dL Albumin/Globulin Ratio 0.7 L (1-2) Digoxin 0.4 L (0.9-2.0) ng/mL Med Orders - Current: Current Medications Albuterol (Albuterol 6.7 Gm Inhaler) 0 gm INH Q4H PRN PRN Reason: Shortness of Breath Albuterol/Ipratropium (Albuterol/Ipratropium 3.0-0.5 Mg/3 Ml Neb Soln) 3 ml NEB Q4HRRT PRN PRN Reason: Shortness Of Breath/wheezing Last Admin: 07/08/21 20:44 Dose: 3 ml Documented by: Apixaban (Apixaban 5 Mg Tab) 5 mg PO BID [facility] Last Admin: 07/09/21 08:38 Dose: 5 mg Documented by: Azithromycin (Azithromycin 250 Mg Tab) 500 mg PO Q24H [facility] Last Admin: 07/08/21 12:08 Dose: 500 mg Documented by: Benzonatate (Benzonatate 100 Mg Cap) 100 mg PO Q6H PRN PRN Reason: Cough Last Admin: 07/08/21 20:37 Dose: 100 mg Documented by: Cholecalciferol (Cholecalciferol (Vitamin D3) 25 Mcg Tab) 25 mcg PO DAILY [facility] Last Admin: 07/09/21 08:38 Dose: 25 mcg Documented by: Digoxin (Digoxin 125 Mcg Tab) 125 mcg PO DAILY [facility] Last Admin: 07/09/21 08:38 Dose: 125 mcg Documented by: Diltiazem HCl (Diltiazem 180 Mg Cap.Cd) 180 mg PO DAILY [facility] Last Admin: 07/09/21 08:39 Dose: 180 mg Documented by: Docusate Sodium (Docusate Sodium 100 Mg Cap) 100 mg PO BID PRN PRN Reason: Constipation Folic Acid (Folic Acid 1 Mg Tab) 1 mg PO DAILY [facility] Last Admin: 07/09/21 08:38 Dose: 1 mg Documented by: Guaifenesin (Guaifenesin 600 Mg Tab.Er) 600 mg PO BID [facility] Last Admin: 07/09/21 08:39 Dose: 600 mg Documented by: Hydralazine HCl (Hydralazine 20 Mg/Ml Sdv) 10 mg IVPUSH Q4H PRN PRN Reason: Hypertension Promethazine HCl 12.5 mg/ (Sodium Chloride) 50.5 mls @ 100 mls/hr IV Q6H PRN PRN Reason: Nausea/Vomiting Remdesivir 100 mg/ Sodium (Chloride) 100 mls @ 100 mls/hr IV Q24H [facility] Stop: 07/10/21 11:59 Last Admin: 07/08/21 12:08 Dose: 100 mls/hr Documented by: Ceftriaxone Sodium 2 gm/ (Sodium Chloride) 100 mls @ 200 mls/hr IV Q24H [facility] Last Admin: 07/08/21 12:08 Dose: 200 mls/hr Documented by: Ibuprofen (Ibuprofen 200 Mg Tab) 200 mg PO Q6H PRN PRN Reason: Pain (mild 1-3) Lactulose (Lactulose Soln 10 Gm/15 Ml 30 Ml Ud Cup) 20 gm PO DAILY [facility] Last Admin: 07/09/21 08:38 Dose: 20 gm Documented by: Lorazepam (Lorazepam 2 Mg/Ml Sdv) 0.5 mg IVPUSH Q4H PRN PRN Reason: Withdrawal Symptoms Last Admin: 07/08/21 22:14 Dose: 0.5 mg Documented by: Melatonin (Melatonin 3 Mg Tab) 6 mg PO BEDTIME PRN PRN Reason: Insomnia Methylprednisolone Sodium Succinate (Methylprednisolone Sodium Succinate 40 Mg/1 Ml Sdv) 40 mg IVPUSH Q8H [facility] Last Admin: 07/09/21 05:28 Dose: 40 mg Documented by: Metoprolol Tartrate (Metoprolol Tartrate 5 Mg/5 Ml Sdv) 2.5 mg IVPUSH Q1H PRN PRN Reason: Tachycardia Last Admin: 07/07/21 05:09 Dose: 2.5 mg Documented by: Metoprolol Tartrate (Metoprolol Tartrate 25 Mg Tab) 12.5 mg PO Q12H [facility] Last Admin: 07/09/21 08:39 Dose: 12.5 mg Documented by: Mometasone Furoate/Formoterol Fumar (Formoterol/Mometasone 200-5 Mcg 8.8 Gm Inhaler) 2 puff IH BID [facility] Last Admin: 07/08/21 20:44 Dose: 2 puff Documented by: Nicotine (Nicotine 14 Mg/24 Hr Patch) 14 mg TRDERM DAILY [facility] Last Admin: 07/09/21 08:39 Dose: 14 mg Documented by: Oxycodone HCl (Oxycodone 5 Mg Tab) 5 mg PO Q4H PRN PRN Reason: Pain (moderate 4-6) Pantoprazole Sodium (Pantoprazole 40 Mg Tab.Cr) 40 mg PO ACBREAKFAST [facility] Last Admin: 07/09/21 05:27 Dose: 40 mg Documented by: Sertraline HCl (Sertraline 50 Mg Tab) 50 mg PO DAILY [facility] Last Admin: 07/09/21 08:39 Dose: 50 mg Documented by: Simvastatin (Simvastatin 10 Mg Tab) 10 mg PO BEDTIME [facility] Last Admin: 07/08/21 20:37 Dose: 10 mg Documented by: Thiamine HCl (Thiamine 100 Mg Tab) 100 mg PO BEDTIME [facility] Last Admin: 07/08/21 20:37 Dose: 100 mg Documented by: Zinc Sulfate (Zinc Sulfate 220 Mg Cap) 220 mg PO DAILY [facility] Last Admin: 07/09/21 08:38 Dose: 220 mg Documented by: Discontinued Medications Dexamethasone (Dexamethasone 4 Mg Tab) 6 mg PO ONETIME ONE Stop: 07/06/21 11:23 Last Admin: 07/06/21 11:38 Dose: 6 mg Documented by: Dexamethasone (Dexamethasone 4 Mg Tab) 6 mg PO DAILY [facility] Last Admin: 07/08/21 08:05 Dose: 6 mg Documented by: Digoxin (Digoxin 500 Mcg/2 Ml Amp) 125 mcg IVPUSH ONETIME ONE Stop: 07/07/21 08:30 Last Admin: 07/07/21 09:23 Dose: 125 mcg Documented by: Digoxin (Digoxin 500 Mcg/2 Ml Amp) 125 mcg IVPUSH ONETIME ONE Stop: 07/07/21 10:26 Last Admin: 07/07/21 10:53 Dose: 125 mcg Documented by: Diltiazem HCl (Diltiazem 240 Mg Cap.Er) 240 mg PO DAILY [facility] Last Admin: 07/07/21 07:22 Dose: 240 mg Documented by: Furosemide (Furosemide 20 Mg/2 Ml Vial) 20 mg IVPUSH ONETIME ONE Stop: 07/06/21 15:01 Last Admin: 07/06/21 18:07 Dose: Not Given Documented by: Furosemide (Furosemide 20 Mg/2 Ml Vial) 20 mg IVPUSH ONETIME ONE Stop: 07/06/21 18:01 Last Admin: 07/06/21 18:06 Dose: 20 mg Documented by: Sodium Chloride (Normal Saline) 1,000 mls @ 500 mls/hr IV ONETIME ONE Stop: 07/06/21 13:19 Last Admin: 07/06/21 11:38 Dose: 500 mls/hr Documented by: Remdesivir 200 mg/ Sodium (Chloride) 250 mls @ 250 mls/hr IV ONETIME ONE Stop: 07/06/21 12:47 Last Admin: 07/06/21 12:54 Dose: 250 mls/hr Documented by: Azithromycin 500 mg/ Sodium (Chloride) 250 mls @ 250 mls/hr IV ONETIME ONE Stop: 07/06/21 12:48 Last Admin: 07/06/21 12:50 Dose: 250 mls/hr Documented by: Ceftriaxone Sodium 2 gm/ (Sodium Chloride) 100 mls @ 200 mls/hr IV ONETIME ONE Stop: 07/06/21 12:18 Last Admin: 07/06/21 12:08 Dose: 200 mls/hr Documented by: Sodium Chloride (Normal Saline) 250 mls @ 999 mls/hr IV .BOLUS ONE Stop: 07/07/21 06:37 Last Admin: 07/07/21 06:35 Dose: 999 mls/hr Documented by: Sodium Chloride (Normal Saline) Confirm Administered Dose 1,000 mls @ as directed .ROUTE .STK-MED ONE Stop: 07/07/21 06:29 Last Admin: 07/07/21 07:16 Dose: Not Given Documented by: Sodium Chloride (Normal Saline) 250 mls @ 500 mls/hr IV ONETIME ONE Stop: 07/07/21 09:00 Last Admin: 07/07/21 09:35 Dose: 500 mls/hr Documented by: Methylprednisolone Sodium Succinate (Methylprednisolone Sodium Succinate 40 Mg/1 Ml Sdv) 40 mg IVPUSH Q8H [facility] Last Admin: 07/08/21 12:08 Dose: 40 mg Documented by: Morphine Sulfate (Morphine 2 Mg/Ml Syringe) 2 mg IVPUSH Q4H PRN PRN Reason: Pain (severe 7-10) Stop: 07/07/21 14:29 Sodium Polystyrene Sulfonate (Sodium Polystyrene Sulfonate 15 Gm/60 Ml Susp 60 Ml Bot) 15 gm PO ONETIME ONE Stop: 07/06/21 15:01 Last Admin: 07/06/21 18:07 Dose: Not Given Documented by: Sodium Polystyrene Sulfonate (Sodium Polystyrene Sulfonate 15 Gm/60 Ml Susp 60 Ml Bot) 15 gm PO ONETIME ONE Stop: 07/06/21 18:01 Last Admin: 07/06/21 18:07 Dose: 15 gm Documented by: - Exam Quality Assessment: Supplemental Oxygen, DVT Prophylaxis General: Alert, Oriented, Cooperative HEENT: Pupils Equal, Pupils Reactive, EOMI Neck: Supple, Trachea Midline Lungs: Normal Respiratory Effort, Rales Cardiovascular: Regular Rate, Irregular Rhythm GI/Abdominal Exam: Normal Bowel Sounds, Soft, Non-Tender, No Distention (Female) Exam: Deferred Back Exam: Normal Inspection, Full Range of Motion Extremities: Normal Inspection, No Pedal Edema Skin: Warm, Dry, Intact Neurological: No New Focal Deficit Psy/Mental Status: Alert, Normal Affect, Normal Mood - Patient Data Lab Results Last 24 hrs: Laboratory Results - last 24 hr 07/09/21 07/09/21 Range/Units 05:23 05:23 WBC 2.32 L* (3.98-10.04) K/mm3 RBC 4.22 (3.98-5.22) M/mm3 Hgb 13.8 (11.2-15.7) gm/dl Hct 42.7 (34.1-44.9) % MCV 101.2 H (79.4-94.8) fl MCH 32.7 H (25.6-32.2) pg MCHC 32.3 (32.2-35.5) g/dl RDW Std Deviation 49.3 H (36.4-46.3) fL Plt Count 163 L (182-369) K/mm3 MPV 9.7 (9.4-12.3) fl Neut % (Auto) 64.2 (34.0-71.1) % Lymph % (Auto) 16.8 L (19.3-51.7) % [place] % (Auto) 16.4 H (4.7-12.5) % Eos % (Auto) 0 L (0.7-5.8) Baso % (Auto) 0.9 (0.1-1.2) % Neut # (Auto) 1.49 L (1.56-6.13) K/mm3 Lymph # (Auto) 0.39 L (1.18-3.74) K/mm3 Jefferson # (Auto) 0.38 H (0.24-0.36) K/mm3 Eos # (Auto) 0.00 L (0.04-0.36) K/mm3 Baso # (Auto) 0.02 (0.01-0.08) K/mm3 Manual Slide Review Abnormal smear Sodium 138 (136-145) mEq/L Potassium 4.8 (3.5-5.1) mEq/L Chloride 101 (98-107) mEq/L Carbon Dioxide 33 H (21-32) mEq/L Anion Gap 8.8 (5-15) BUN 13 (7-18) mg/dL Creatinine 0.6 (0.55-1.02) mg/dL Est Cr Clr Drug Dosing 97.46 mL/min Estimated GFR (MDRD) > 60 (>60) mL/min BUN/Creatinine Ratio 21.7 H (14-18) Glucose 142 H (70-99) mg/dL Calcium 7.9 L (8.5-10.1) mg/dL Total Bilirubin 0.2 (0.2-1.0) mg/dL AST 42 H (15-37) U/L ALT 44 (14-59) U/L Alkaline Phosphatase 67 (46-116) U/L C-Reactive Protein 2.6 H* (<1.0) mg/dL Total Protein 5.4 L (6.4-8.2) g/dl Albumin 2.3 L (3.4-5.0) g/dl Globulin 3.1 gm/dL Albumin/Globulin Ratio 0.7 L (1-2) Digoxin 0.4 L (0.9-2.0) ng/mL Result Diagrams: 07/09/21 05:23 07/09/21 05:23 Sepsis Event Note - Evaluation Sepsis Screening Result: Severe Sepsis Risk - Focused Exam Vital Signs: Vital Signs Temp Pulse Resp BP BP Pulse Ox Pulse Ox 07/09/21 08:39 100 109/73 07/09/21 08:38 98 07/09/21 05:19 93 L 07/09/21 04:00 36.7 C 22 H 111/74 92 L 07/09/21 00:00 36.8 C 24 H 108/78 93 L - Problem List & Annotations (1) Acute and chronic respiratory failure with hypoxia SNOMED Code(s): 35077384, 769819838 Code(s): J96.21 - ACUTE AND CHRONIC RESPIRATORY FAILURE WITH HYPOXIA Status: Acute Priority: High Current Visit: Yes (2) Pneumonia due to COVID-19 virus SNOMED Code(s): 989939906624036699 Code(s): U07.1 - COVID-19; J12.82 - PNEUMONIA DUE TO CORONAVIRUS DISEASE 2019 Status: Acute Priority: High Current Visit: Yes (3) Leukopenia SNOMED Code(s): 95124709, 341909767 Code(s): D72.819 - DECREASED WHITE BLOOD CELL COUNT, UNSPECIFIED Status: Acute Current Visit: Yes Qualifiers: Leukopenia type: neutropenia Neutropenia type: unspecified Qualified Code(s): D70.9 - Neutropenia, unspecified (4) Hyperkalemia SNOMED Code(s): 25100124 Code(s): E87.5 - HYPERKALEMIA Status: Resolved Priority: High Current Visit: Yes (5) Hyponatremia SNOMED Code(s): 62017593 Code(s): E87.1 - HYPO-OSMOLALITY AND HYPONATREMIA Status: Resolved Priority: High Current Visit: Yes - Problem List Review Problem List Initiated/Reviewed/Updated: Yes - Plan Plan:: Patient is a 55-year-old female with a history of COPD, CHF, hypertension, atria l fibrillation, current smoker, and daily alcohol user who presented to the ER due to worsening shortness of breath x 3 days. She had a positive COVID-19 test on July 03. Acute on chronic hypoxic respiratory failure Etiologies include COPD, CHF, pneumonia Patient is on home oxygen 4 L Pulse ox Oxygen therapy, high flow/BiPAP as needed to keep oxygen saturation greater than 88-90% Covid 19 pneumonia X-ray showed diffuse increased density within the left mid and lower chest; minimal density within the right lower base Blood culture no growth so far Sputum culture Ceftriaxone and azithromycin 5-day course of remdesivir Discontinued dexamethasone today. Considering Covid 19 pneumonia in the setting of COPD, I initiated Solu-Medrol 40 mg every 8 hours today Continue Eliquis 5 mg twice daily Inhalers Procalcitonin 0.11 Repeat CBC, CMP, CRP in morning COPD Inhalers CHF Unknown type BNP 525 Troponin negative Home medications include Lasix 20 mg daily which is on hold. Blood pressure is soft Seems to be euvolemic status Intake and output Low-sodium diet Atrial fibrillaiton Heart rate is controlled decreased diltiazem to 180mg daily from 240 mg daily and added metoprolol 12.5mg bid. Digoxin 0.125mg iv push x 2 yesterday Digoxin 0.125mg po daily Added metoprolol 12.5 mg twice daily Metoprolol 2.5 mg IV push as needed Continue Eliquis 5 mg twice daily Daily alchohol drinker Elevation of liver enzymes, AST 77, ALT 41, TB 0.2, al phos 67 on admission CIWA protocol Ativan 0.5 mg every 4 hours as needed Thiamine and folic acid US abdomen -poorly distended gallbladder with no shadowing gallstones or gallbladder wall thickening. Thrombocytopenia Platelets 105 on admission No bleeding Repeat CBC Elevation of D-dimer, 0.53 Continue Eliquis Hyperkalemia, resolved 5.2 on admission Lasix 20 mg IV x 1 Kayexalate 15 g x 1 Repeat potassium Tobacco use disorder Counseling Nicotine patch if necessary DVT prophylaxis: Eliquis CODE STATUS: Full Disposition: Next week 07/09/2021 The patient is a 55-year-old lady who is doing somewhat better today. She does have radiographic evidence of left-sided pneumonia due to COVID-19. Patient's antibiotics will be continued. She is also on steroids and the patient's steroids will be continued and she will continue these likely upon discharge. The patient will also have her completion of remdesivir tomorrow. Repeat laboratory studies have been ordered for the patient. She has been encouraged t o ambulate. The patient will also be given nicotine patches on discharge. She should likely be appropriate for discharge in 1 to 2 days.
[2021-07-09] MEDS: Formoterol/Mometasone 200-5 MCG 8.8 GM Inhaler IH SCH ×2 (10:00→20:55)
[2021-07-09] MEDS: Albuterol/Ipratropium 3.0-0.5 MG/3 ML Neb Soln NEB PRN ×2 (10:00→15:06)
[2021-07-09] MEDS: REMDESIVIR 100 MG in Sodium Chloride 0.9% 100 ML IV SCH (10:48)
[2021-07-09] MEDS: cefTRIAXone 2 GM in Sodium Chloride 0.9% 100 ML IV SCH (11:22)
[2021-07-09] MEDS: Azithromycin 250 MG Tab PO SCH (12:08)
[2021-07-09] MEDS: Benzocaine/Cetylpyridinium/Menthol Lozenge MUCMEM PRN ×2 (12:08→20:00)
[2021-07-09] MEDS: Thiamine 100 MG Tab PO SCH (20:00)
[2021-07-09] MEDS: Simvastatin 10 MG Tab PO SCH (20:00)
[2021-07-09] MEDS: Benzonatate 100 MG Cap PO PRN (20:00)
[2021-07-09] MEDS: Melatonin 3 MG Tab PO PRN (20:14)
[2021-07-10] MEDS: methylPREDNISolone Sodium Succinate 40 MG/1 ML SDV IVPUSH SCH ×3 (04:48→20:13)
[2021-07-10] MEDS: Pantoprazole 40 MG Tab.CR PO SCH ×2 (04:48→05:00)
--- NOTE | 2021-07-10 07:36 | CR ---
Chest: Portable view of the chest was obtained. Comparison: Prior chest x-ray 07/06/21 and 07/03/21. Parenchymal density is seen within the left mid and lower lung. This density shows areas of increased consolidation from most recent chest x-ray. Slight parenchymal density is seen within the right lung base. Heart size is felt to be normal. Upper mediastinum is within normal limits. Bony structures show nothing acute. Impression: 1. Diffuse increased density within left mid and lower chest. Increased consolidation is noted from prior exam. Difficult to exclude small pleural effusion. Please correlate if patient has symptoms of worsening pneumonia. 2. Mild increased density within the right lung base which is slightly more prominent than on prior exam. Diagnostic code #3
[2021-07-10] MEDS: Benzocaine/Cetylpyridinium/Menthol Lozenge MUCMEM PRN ×2 (08:35→20:13)
[2021-07-10] MEDS: Benzonatate 100 MG Cap PO PRN ×2 (08:50→16:14)
[2021-07-10] MEDS: Apixaban 5 MG Tab PO SCH ×2 (09:16→20:14)
[2021-07-10] MEDS: Metoprolol Tartrate 25 MG Tab PO SCH ×2 (09:16→20:14)
[2021-07-10] MEDS: Diltiazem 180 MG Cap.CD PO SCH (09:16)
[2021-07-10] MEDS: Zinc Sulfate 220 MG Cap PO SCH (09:17)
[2021-07-10] MEDS: guaiFENesin 600 MG Tab.ER PO SCH ×2 (09:17→20:14)
[2021-07-10] MEDS: Nicotine 14 MG/24 Hr Patch TRDERM SCH (09:17)
[2021-07-10] MEDS: Sertraline 50 MG Tab PO SCH (09:17)
[2021-07-10] MEDS: Digoxin 125 MCG Tab PO SCH (09:17)
[2021-07-10] MEDS: Cholecalciferol (Vitamin D3) 25 MCG Tab PO SCH (09:17)
[2021-07-10] MEDS: Folic Acid 1 MG Tab PO SCH (09:17)
[2021-07-10] MEDS: Formoterol/Mometasone 200-5 MCG 8.8 GM Inhaler IH SCH ×2 (10:00→20:48)
[2021-07-10] MEDS: REMDESIVIR 100 MG in Sodium Chloride 0.9% 100 ML IV SCH (11:48)
[2021-07-10] MEDS: cefTRIAXone 2 GM in Sodium Chloride 0.9% 100 ML IV SCH (11:48)
[2021-07-10] MEDS: Azithromycin 250 MG Tab PO SCH (13:00)
--- NOTE | 2021-07-10 15:24 | PCM.PN ---
- General Info Date of Service: 07/10/21 Admission Dx/Problem (Free Text): Admission Diagnosis/Problem Admission Diagnosis/Problem Hypoxia Subjective Update: The patient is a 55-year-old lady who had been admitted to acute hospitalization due to COVID-19 pneumonia and associated hypoxia. The patient was admitted July 06, 2021. The patient says that she is feeling better today. She is still short of breath. She has been having cough. The patient has been tolerating her diet. Functional Status: Reports: Pain Controlled, Tolerating Diet - Review of Systems General: Reports: No Symptoms HEENT: Reports: No Symptoms Pulmonary: Reports: Shortness of Breath, Cough Cardiovascular: Reports: No Symptoms Gastrointestinal: Reports: No Symptoms Genitourinary: Reports: No Symptoms Musculoskeletal: Reports: No Symptoms Skin: Reports: No Symptoms Neurological: Reports: No Symptoms Psychiatric: Reports: No Symptoms - Patient Data Vitals - Most Recent: Last Vital Signs Temp 36.3 C 07/10/21 04:51 Pulse 98 07/10/21 09:17 Resp 24 H 07/10/21 04:51 BP 107/71 07/10/21 09:16 Pulse Ox 89 L 07/10/21 09:12 Weight - Most Recent: 59.421 kg I&O - Last 24 Hours: Intake & Output 07/10/21 07/10/21 07/10/21 06:59 14:59 22:59 Intake Total 850 480 Output Total 1300 Balance -450 480 Lab Results Last 24 Hours: Laboratory Results - last 24 hr 07/10/21 07/10/21 Range/Units 04:35 04:35 WBC 2.98 L (3.98-10.04) K/mm3 RBC 4.24 (3.98-5.22) M/mm3 Hgb 13.9 (11.2-15.7) gm/dl Hct 42.2 (34.1-44.9) % MCV 99.5 H (79.4-94.8) fl MCH 32.8 H (25.6-32.2) pg MCHC 32.9 (32.2-35.5) g/dl RDW Std Deviation 47.7 H (36.4-46.3) fL Plt Count 181 L (182-369) K/mm3 MPV 9.6 (9.4-12.3) fl Neut % (Auto) 72.1 H (34.0-71.1) % Lymph % (Auto) 12.8 L (19.3-51.7) % [place] % (Auto) 13.1 H (4.7-12.5) % Eos % (Auto) 0 L (0.7-5.8) Baso % (Auto) 1.3 H (0.1-1.2) % Neut # (Auto) 2.15 (1.56-6.13) K/mm3 Lymph # (Auto) 0.38 L (1.18-3.74) K/mm3 [place] # (Auto) 0.39 H (0.24-0.36) K/mm3 Eos # (Auto) 0.00 L (0.04-0.36) K/mm3 Baso # (Auto) 0.04 (0.01-0.08) K/mm3 Manual Slide Review Abnormal smear Sodium 138 (136-145) mEq/L Potassium 3.9 (3.5-5.1) mEq/L Chloride 102 (98-107) mEq/L Carbon Dioxide 32 (21-32) mEq/L Anion Gap 7.9 (5-15) BUN 14 (7-18) mg/dL Creatinine 0.5 L (0.55-1.02) mg/dL Est Cr Clr Drug Dosing 117.85 mL/min Estimated GFR (MDRD) > 60 (>60) mL/min BUN/Creatinine Ratio 28.0 H (14-18) Glucose 150 H (70-99) mg/dL Calcium 7.8 L (8.5-10.1) mg/dL Total Bilirubin 0.2 (0.2-1.0) mg/dL AST 48 H (15-37) U/L ALT 52 (14-59) U/L Alkaline Phosphatase 67 (46-116) U/L C-Reactive Protein 1.6 H* (<1.0) mg/dL Total Protein 5.3 L (6.4-8.2) g/dl Albumin 2.3 L (3.4-5.0) g/dl Globulin 3.0 gm/dL Albumin/Globulin Ratio 0.8 L (1-2) Med Orders - Current: Current Medications Albuterol (Albuterol 6.7 Gm Inhaler) 0 gm INH Q4H PRN PRN Reason: Shortness of Breath Albuterol/Ipratropium (Albuterol/Ipratropium 3.0-0.5 Mg/3 Ml Neb Soln) 3 ml NEB Q4HRRT PRN PRN Reason: Shortness Of Breath/wheezing Last Admin: 07/09/21 15:06 Dose: 3 ml Documented by: Apixaban (Apixaban 5 Mg Tab) 5 mg PO BID [facility] Last Admin: 07/10/21 09:16 Dose: 5 mg Documented by: Azithromycin (Azithromycin 250 Mg Tab) 500 mg PO Q24H [facility] Last Admin: 07/09/21 12:08 Dose: 500 mg Documented by: Benzocaine/Menthol (Benzocaine/Cetylpyridinium/Menthol Lozenge) 1 lozenge MUCMEM Q4H PRN PRN Reason: Sore Throat Last Admin: 07/09/21 20:00 Dose: 1 lozenge Documented by: Benzonatate (Benzonatate 100 Mg Cap) 100 mg PO Q6H PRN PRN Reason: Cough Last Admin: 07/10/21 08:50 Dose: 100 mg Documented by: Cholecalciferol (Cholecalciferol (Vitamin D3) 25 Mcg Tab) 25 mcg PO DAILY [facility] Last Admin: 07/10/21 09:17 Dose: 25 mcg Documented by: Digoxin (Digoxin 125 Mcg Tab) 125 mcg PO DAILY [facility] Last Admin: 07/10/21 09:17 Dose: 125 mcg Documented by: Diltiazem HCl (Diltiazem 180 Mg Cap.Cd) 180 mg PO DAILY [facility] Last Admin: 07/10/21 09:16 Dose: 180 mg Documented by: Docusate Sodium (Docusate Sodium 100 Mg Cap) 100 mg PO BID PRN PRN Reason: Constipation Folic Acid (Folic Acid 1 Mg Tab) 1 mg PO DAILY [facility] Last Admin: 07/10/21 09:17 Dose: 1 mg Documented by: Guaifenesin (Guaifenesin 600 Mg Tab.Er) 600 mg PO BID [facility] Last Admin: 07/10/21 09:17 Dose: 600 mg Documented by: Hydralazine HCl (Hydralazine 20 Mg/Ml Sdv) 10 mg IVPUSH Q4H PRN PRN Reason: Hypertension Promethazine HCl 12.5 mg/ (Sodium Chloride) 50.5 mls @ 100 mls/hr IV Q6H PRN PRN Reason: Nausea/Vomiting Ceftriaxone Sodium 2 gm/ (Sodium Chloride) 100 mls @ 200 mls/hr IV Q24H [facility] Last Admin: 07/10/21 11:48 Dose: 200 mls/hr Documented by: Ibuprofen (Ibuprofen 200 Mg Tab) 200 mg PO Q6H PRN PRN Reason: Pain (mild 1-3) Lorazepam (Lorazepam 2 Mg/Ml Sdv) 0.5 mg IVPUSH Q4H PRN PRN Reason: Withdrawal Symptoms Last Admin: 07/08/21 22:14 Dose: 0.5 mg Documented by: Melatonin (Melatonin 3 Mg Tab) 6 mg PO BEDTIME PRN PRN Reason: Insomnia Last Admin: 07/09/21 20:14 Dose: 6 mg Documented by: Methylprednisolone Sodium Succinate (Methylprednisolone Sodium Succinate 40 Mg/1 Ml Sdv) 40 mg IVPUSH Q8H [facility] Last Admin: 07/10/21 11:48 Dose: 40 mg Documented by: Metoprolol Tartrate (Metoprolol Tartrate 5 Mg/5 Ml Sdv) 2.5 mg IVPUSH Q1H PRN PRN Reason: Tachycardia Last Admin: 07/07/21 05:09 Dose: 2.5 mg Documented by: Metoprolol Tartrate (Metoprolol Tartrate 25 Mg Tab) 12.5 mg PO Q12H [facility] Last Admin: 07/10/21 09:16 Dose: 12.5 mg Documented by: Mometasone Furoate/Formoterol Fumar (Formoterol/Mometasone 200-5 Mcg 8.8 Gm Inhaler) 2 puff IH BID [facility] Last Admin: 07/10/21 10:00 Dose: 2 puff Documented by: Nicotine (Nicotine 14 Mg/24 Hr Patch) 14 mg TRDERM DAILY [facility] Last Admin: 07/10/21 09:17 Dose: 14 mg Documented by: Oxycodone HCl (Oxycodone 5 Mg Tab) 5 mg PO Q4H PRN PRN Reason: Pain (moderate 4-6) Pantoprazole Sodium (Pantoprazole 40 Mg Tab.Cr) 40 mg PO ACBREAKFAST [facility] Last Admin: 07/10/21 05:00 Dose: Not Given Documented by: Sertraline HCl (Sertraline 50 Mg Tab) 50 mg PO DAILY [facility] Last Admin: 07/10/21 09:17 Dose: 50 mg Documented by: Simvastatin (Simvastatin 10 Mg Tab) 10 mg PO BEDTIME [facility] Last Admin: 07/09/21 20:00 Dose: 10 mg Documented by: Thiamine HCl (Thiamine 100 Mg Tab) 100 mg PO BEDTIME [facility] Last Admin: 07/09/21 20:00 Dose: 100 mg Documented by: Zinc Sulfate (Zinc Sulfate 220 Mg Cap) 220 mg PO DAILY [facility] Last Admin: 07/10/21 09:17 Dose: 220 mg Documented by: Discontinued Medications Dexamethasone (Dexamethasone 4 Mg Tab) 6 mg PO ONETIME ONE Stop: 07/06/21 11:23 Last Admin: 07/06/21 11:38 Dose: 6 mg Documented by: Dexamethasone (Dexamethasone 4 Mg Tab) 6 mg PO DAILY [facility] Last Admin: 07/08/21 08:05 Dose: 6 mg Documented by: Digoxin (Digoxin 500 Mcg/2 Ml Amp) 125 mcg IVPUSH ONETIME ONE Stop: 07/07/21 08:30 Last Admin: 07/07/21 09:23 Dose: 125 mcg Documented by: Digoxin (Digoxin 500 Mcg/2 Ml Amp) 125 mcg IVPUSH ONETIME ONE Stop: 07/07/21 10:26 Last Admin: 07/07/21 10:53 Dose: 125 mcg Documented by: Diltiazem HCl (Diltiazem 240 Mg Cap.Er) 240 mg PO DAILY [facility] Last Admin: 07/07/21 07:22 Dose: 240 mg Documented by: Furosemide (Furosemide 20 Mg/2 Ml Vial) 20 mg IVPUSH ONETIME ONE Stop: 07/06/21 15:01 Last Admin: 07/06/21 18:07 Dose: Not Given Documented by: Furosemide (Furosemide 20 Mg/2 Ml Vial) 20 mg IVPUSH ONETIME ONE Stop: 07/06/21 18:01 Last Admin: 07/06/21 18:06 Dose: 20 mg Documented by: Sodium Chloride (Normal Saline) 1,000 mls @ 500 mls/hr IV ONETIME ONE Stop: 07/06/21 13:19 Last Admin: 07/06/21 11:38 Dose: 500 mls/hr Documented by: Remdesivir 200 mg/ Sodium (Chloride) 250 mls @ 250 mls/hr IV ONETIME ONE Stop: 07/06/21 12:47 Last Admin: 07/06/21 12:54 Dose: 250 mls/hr Documented by: Azithromycin 500 mg/ Sodium (Chloride) 250 mls @ 250 mls/hr IV ONETIME ONE Stop: 07/06/21 12:48 Last Admin: 07/06/21 12:50 Dose: 250 mls/hr Documented by: Ceftriaxone Sodium 2 gm/ (Sodium Chloride) 100 mls @ 200 mls/hr IV ONETIME ONE Stop: 07/06/21 12:18 Last Admin: 07/06/21 12:08 Dose: 200 mls/hr Documented by: Remdesivir 100 mg/ Sodium (Chloride) 100 mls @ 100 mls/hr IV Q24H [facility] Stop: 07/10/21 11:59 Last Admin: 07/10/21 11:48 Dose: 100 mls/hr Documented by: Sodium Chloride (Normal Saline) 250 mls @ 999 mls/hr IV .BOLUS ONE Stop: 07/07/21 06:37 Last Admin: 07/07/21 06:35 Dose: 999 mls/hr Documented by: Sodium Chloride (Normal Saline) Confirm Administered Dose 1,000 mls @ as directed .ROUTE .STK-MED ONE Stop: 07/07/21 06:29 Last Admin: 07/07/21 07:16 Dose: Not Given Documented by: Sodium Chloride (Normal Saline) 250 mls @ 500 mls/hr IV ONETIME ONE Stop: 07/07/21 09:00 Last Admin: 07/07/21 09:35 Dose: 500 mls/hr Documented by: Lactulose (Lactulose Soln 10 Gm/15 Ml 30 Ml Ud Cup) 20 gm PO DAILY [facility] Last Admin: 07/09/21 08:38 Dose: 20 gm Documented by: Methylprednisolone Sodium Succinate (Methylprednisolone Sodium Succinate 40 Mg/1 Ml Sdv) 40 mg IVPUSH Q8H [facility] Last Admin: 07/08/21 12:08 Dose: 40 mg Documented by: Morphine Sulfate (Morphine 2 Mg/Ml Syringe) 2 mg IVPUSH Q4H PRN PRN Reason: Pain (severe 7-10) Stop: 07/07/21 14:29 Sodium Polystyrene Sulfonate (Sodium Polystyrene Sulfonate 15 Gm/60 Ml Susp 60 Ml Bot) 15 gm PO ONETIME ONE Stop: 07/06/21 15:01 Last Admin: 07/06/21 18:07 Dose: Not Given Documented by: Sodium Polystyrene Sulfonate (Sodium Polystyrene Sulfonate 15 Gm/60 Ml Susp 60 Ml Bot) 15 gm PO ONETIME ONE Stop: 07/06/21 18:01 Last Admin: 07/06/21 18:07 Dose: 15 gm Documented by: - Exam Quality Assessment: Supplemental Oxygen, DVT Prophylaxis General: Alert, Oriented, Cooperative, No Acute Distress HEENT: Pupils Equal, Pupils Reactive, EOMI, Mucous Membr. Moist/[place] Neck: Supple, Trachea Midline Lungs: Normal Respiratory Effort, Crackles Cardiovascular: Regular Rate, Irregular Rhythm GI/Abdominal Exam: Normal Bowel Sounds, Soft, Non-Tender, No Distention (Female) Exam: Deferred Back Exam: Normal Inspection, Full Range of Motion Extremities: Normal Inspection, Normal Range of Motion, No Pedal Edema Skin: Warm, Dry, Intact Neurological: No New Focal Deficit Psy/Mental Status: Alert, Normal Affect, Normal Mood - Patient Data Lab Results Last 24 hrs: Laboratory Results - last 24 hr 07/10/21 07/10/21 Range/Units 04:35 04:35 WBC 2.98 L (3.98-10.04) K/mm3 RBC 4.24 (3.98-5.22) M/mm3 Hgb 13.9 (11.2-15.7) gm/dl Hct 42.2 (34.1-44.9) % MCV 99.5 H (79.4-94.8) fl MCH 32.8 H (25.6-32.2) pg MCHC 32.9 (32.2-35.5) g/dl RDW Std Deviation 47.7 H (36.4-46.3) fL Plt Count 181 L (182-369) K/mm3 MPV 9.6 (9.4-12.3) fl Neut % (Auto) 72.1 H (34.0-71.1) % Lymph % (Auto) 12.8 L (19.3-51.7) % [place] % (Auto) 13.1 H (4.7-12.5) % Eos % (Auto) 0 L (0.7-5.8) Baso % (Auto) 1.3 H (0.1-1.2) % Neut # (Auto) 2.15 (1.56-6.13) K/mm3 Lymph # (Auto) 0.38 L (1.18-3.74) K/mm3 [place] # (Auto) 0.39 H (0.24-0.36) K/mm3 Eos # (Auto) 0.00 L (0.04-0.36) K/mm3 Baso # (Auto) 0.04 (0.01-0.08) K/mm3 Manual Slide Review Abnormal smear Sodium 138 (136-145) mEq/L Potassium 3.9 (3.5-5.1) mEq/L Chloride 102 (98-107) mEq/L Carbon Dioxide 32 (21-32) mEq/L Anion Gap 7.9 (5-15) BUN 14 (7-18) mg/dL Creatinine 0.5 L (0.55-1.02) mg/dL Est Cr Clr Drug Dosing 117.85 mL/min Estimated GFR (MDRD) > 60 (>60) mL/min BUN/Creatinine Ratio 28.0 H (14-18) Glucose 150 H (70-99) mg/dL Calcium 7.8 L (8.5-10.1) mg/dL Total Bilirubin 0.2 (0.2-1.0) mg/dL AST 48 H (15-37) U/L ALT 52 (14-59) U/L Alkaline Phosphatase 67 (46-116) U/L C-Reactive Protein 1.6 H* (<1.0) mg/dL Total Protein 5.3 L (6.4-8.2) g/dl Albumin 2.3 L (3.4-5.0) g/dl Globulin 3.0 gm/dL Albumin/Globulin Ratio 0.8 L (1-2) Result Diagrams: 07/10/21 04:35 07/10/21 04:35 Sepsis Event Note - Evaluation Sepsis Screening Result: No Definite Risk - Focused Exam Vital Signs: Vital Signs Temp Pulse Pulse Resp BP BP Pulse Ox 07/10/21 09:17 98 07/10/21 09:16 120 H 107/71 07/10/21 09:12 07/10/21 04:51 36.3 C 61 24 H 107/71 91 L Pulse Ox 07/10/21 09:17 07/10/21 09:16 07/10/21 09:12 89 L 07/10/21 04:51 - Problem List & Annotations (1) Acute and chronic respiratory failure with hypoxia SNOMED Code(s): 66142249, 075913888 Code(s): J96.21 - ACUTE AND CHRONIC RESPIRATORY FAILURE WITH HYPOXIA Status: Acute Priority: High Current Visit: Yes (2) Pneumonia due to COVID-19 virus SNOMED Code(s): 732540098552477514 Code(s): U07.1 - COVID-19; J12.82 - PNEUMONIA DUE TO CORONAVIRUS DISEASE 2019 Status: Acute Priority: High Current Visit: Yes (3) Leukopenia SNOMED Code(s): 60178229, 492518208 Code(s): D72.819 - DECREASED WHITE BLOOD CELL COUNT, UNSPECIFIED Status: Acute Current Visit: Yes Qualifiers: Leukopenia type: neutropenia Neutropenia type: unspecified Qualified Code(s): D70.9 - Neutropenia, unspecified (4) Hyperkalemia SNOMED Code(s): 11260433 Code(s): E87.5 - HYPERKALEMIA Status: Resolved Priority: High Current Visit: Yes (5) Hyponatremia SNOMED Code(s): 98960561 Code(s): E87.1 - HYPO-OSMOLALITY AND HYPONATREMIA Status: Resolved Priority: High Current Visit: Yes - Problem List Review Problem List Initiated/Reviewed/Updated: Yes - My Orders Last 24 Hours: My Active Orders 07/10/21 Lunch Regular Diet [DIET] 07/10/21 14:12 Patient Status [ADT] Routine - Assessment Assessment:: The patient is a 55-year-old lady who will remain in ICU due to her oxygen flow. The patient has a chest x-ray which does show consolidation in the left lower lobe. The patient will be continued on antibiotics for the treatment of pneumonia. The patient has been on ceftriaxone 2 g IV daily. The patient is also on apixaban and therefore will not need to have DVT prophylaxis. The patient will have regular diet as tolerated. Repeat laboratory studies have been ordered for the morning. Patient should be appropriate for discharge in 1 to 2 days. - Plan Plan:: Patient is a 55-year-old female with a history of COPD, CHF, hypertension, atrial fibrillation, current smoker, and daily alcohol user who presented to the ER due to worsening shortness of breath x 3 days. She had a positive COVID-19 test on July 03. Acute on chronic hypoxic respiratory failure Etiologies include COPD, CHF, pneumonia Patient is on home oxygen 4 L Pulse ox Oxygen therapy, high flow/BiPAP as needed to keep oxygen saturation greater than 88-90% Covid 19 pneumonia X-ray showed diffuse increased density within the left mid and lower chest; minimal density within the right lower base Blood culture no growth so far Sputum culture Ceftriaxone and azithromycin 5-day course of remdesivir Discontinued dexamethasone today. Considering Covid 19 pneumonia in the setting of COPD, I initiated Solu-Medrol 40 mg every 8 hours today Continue Eliquis 5 mg twice daily Inhalers Procalcitonin 0.11 Repeat CBC, CMP, CRP in morning COPD Inhalers CHF Unknown type BNP 525 Troponin negative Home medications include Lasix 20 mg daily which is on hold. Blood pressure is soft Seems to be euvolemic status Intake and output Low-sodium diet Atrial fibrillaiton Heart rate is controlled decreased diltiazem to 180mg daily from 240 mg daily and added metoprolol 12.5mg bid. Digoxin 0.125mg iv push x 2 yesterday Digoxin 0.125mg po daily Added metoprolol 12.5 mg twice daily Metoprolol 2.5 mg IV push as needed Continue Eliquis 5 mg twice daily Daily alchohol drinker Elevation of liver enzymes, AST 77, ALT 41, TB 0.2, al phos 67 on admission CIWA protocol Ativan 0.5 mg every 4 hours as needed Thiamine and folic acid US abdomen -poorly distended gallbladder with no shadowing gallstones or gallbladder wall thickening. Thrombocytopenia Platelets 105 on admission No bleeding Repeat CBC Elevation of D-dimer, 0.53 Continue Eliquis Hyperkalemia, resolved 5.2 on admission Lasix 20 mg IV x 1 Kayexalate 15 g x 1 Repeat potassium Tobacco use disorder Counseling Nicotine patch if necessary DVT prophylaxis: Eliquis CODE STATUS: Full Disposition: Next week 07/09/2021 The patient is a 55-year-old lady who is doing somewhat better today. She does have radiographic evidence of left-sided pneumonia due to COVID-19. Patient's antibiotics will be continued. She is also on steroids and the patient's steroids will be continued and she will continue these likely upon discharge. The patient will also have her completion of remdesivir tomorrow. Repeat laboratory studies have been ordered for the patient. She has been encouraged to ambulate. The patient will also be given nicotine patches on discharge. She should likely be appropriate for discharge in 1 to 2 days.
[2021-07-10] MEDS: Albuterol/Ipratropium 3.0-0.5 MG/3 ML Neb Soln NEB PRN (15:59)
[2021-07-10] MEDS: Thiamine 100 MG Tab PO SCH (20:14)
[2021-07-10] MEDS: Simvastatin 10 MG Tab PO SCH (20:14)
[2021-07-11] MEDS: Melatonin 3 MG Tab PO PRN ×2 (00:25→20:56)
[2021-07-11] MEDS: methylPREDNISolone Sodium Succinate 40 MG/1 ML SDV IVPUSH SCH ×3 (04:52→20:53)
--- NOTE | 2021-07-11 07:12 | PCM.PN ---
- General Info Date of Service: 07/11/21 Admission Dx/Problem (Free Text): Admission Diagnosis/Problem Admission Diagnosis/Problem Hypoxia Subjective Update: Patient is a 55-year-old lady who had been admitted to acute hospitalization due to COVID-19 pneumonia and associated acute on chronic respiratory failure. The patient says today that she is still short of breath but she is doing somewhat better. The patient has been tolerating her diet. She has been on high flow oxygen. The patient is doing somewhat better today. Functional Status: Reports: Pain Controlled, Tolerating Diet - Review of Systems General: Reports: No Symptoms HEENT: Reports: No Symptoms Pulmonary: Reports: Shortness of Breath, Cough Cardiovascular: Reports: No Symptoms Gastrointestinal: Reports: No Symptoms Genitourinary: Reports: No Symptoms Musculoskeletal: Reports: No Symptoms Skin: Reports: No Symptoms Neurological: Reports: No Symptoms Psychiatric: Reports: No Symptoms - Patient Data Vitals - Most Recent: Last Vital Signs Temp 37.2 C 07/11/21 05:44 Pulse 66 07/11/21 05:44 Resp 22 H 07/11/21 05:44 BP 124/86 07/11/21 05:44 Pulse Ox 91 L 07/11/21 05:44 Weight - Most Recent: 56.427 kg I&O - Last 24 Hours: Intake & Output 07/10/21 07/11/21 07/11/21 22:59 06:59 14:59 Intake Total 1440 500 Output Total 700 Balance 1440 -200 Lab Results Last 24 Hours: Laboratory Results - last 24 hr 07/11/21 07/11/21 Range/Units 04:55 04:55 WBC 3.96 L (3.98-10.04) K/mm3 RBC 4.30 (3.98-5.22) M/mm3 Hgb 14.2 (11.2-15.7) gm/dl Hct 42.8 (34.1-44.9) % MCV 99.5 H (79.4-94.8) fl MCH 33.0 H (25.6-32.2) pg MCHC 33.2 (32.2-35.5) g/dl RDW Std Deviation 47.8 H (36.4-46.3) fL Plt Count 206 (182-369) K/mm3 MPV 9.9 (9.4-12.3) fl Neut % (Auto) 78.2 H (34.0-71.1) % Lymph % (Auto) 9.8 L (19.3-51.7) % [place] % (Auto) 10.4 (4.7-12.5) % Eos % (Auto) 0 L (0.7-5.8) Baso % (Auto) 0.8 (0.1-1.2) % Neut # (Auto) 3.10 (1.56-6.13) K/mm3 Lymph # (Auto) 0.39 L (1.18-3.74) K/mm3 [place] # (Auto) 0.41 H (0.24-0.36) K/mm3 Eos # (Auto) 0.00 L (0.04-0.36) K/mm3 Baso # (Auto) 0.03 (0.01-0.08) K/mm3 Manual Slide Review Abnormal smear Sodium 139 (136-145) mEq/L Potassium 4.1 (3.5-5.1) mEq/L Chloride 102 (98-107) mEq/L Carbon Dioxide 30 (21-32) mEq/L Anion Gap 11.1 (5-15) BUN 15 (7-18) mg/dL Creatinine 0.5 L (0.55-1.02) mg/dL Est Cr Clr Drug Dosing 111.91 mL/min Estimated GFR (MDRD) > 60 (>60) mL/min BUN/Creatinine Ratio 30.0 H (14-18) Glucose 133 H (70-99) mg/dL Calcium 8.0 L (8.5-10.1) mg/dL Total Bilirubin 0.3 (0.2-1.0) mg/dL AST 51 H (15-37) U/L ALT 72 H (14-59) U/L Alkaline Phosphatase 74 (46-116) U/L C-Reactive Protein 0.8 (<1.0) mg/dL Total Protein 5.2 L (6.4-8.2) g/dl Albumin 2.4 L (3.4-5.0) g/dl Globulin 2.8 gm/dL Albumin/Globulin Ratio 0.9 L (1-2) Med Orders - Current: Current Medications Albuterol (Albuterol 6.7 Gm Inhaler) 0 gm INH Q4H PRN PRN Reason: Shortness of Breath Albuterol/Ipratropium (Albuterol/Ipratropium 3.0-0.5 Mg/3 Ml Neb Soln) 3 ml NEB Q4HRRT PRN PRN Reason: Shortness Of Breath/wheezing Last Admin: 07/10/21 15:59 Dose: 3 ml Documented by: Apixaban (Apixaban 5 Mg Tab) 5 mg PO BID [facility] Last Admin: 07/10/21 20:14 Dose: 5 mg Documented by: Azithromycin (Azithromycin 250 Mg Tab) 500 mg PO Q24H [facility] Last Admin: 07/10/21 13:00 Dose: 500 mg Documented by: Benzocaine/Menthol (Benzocaine/Cetylpyridinium/Menthol Lozenge) 1 lozenge MUCMEM Q4H PRN PRN Reason: Sore Throat Last Admin: 07/10/21 20:13 Dose: 1 lozenge Documented by: Benzonatate (Benzonatate 100 Mg Cap) 100 mg PO Q6H PRN PRN Reason: Cough Last Admin: 07/10/21 16:14 Dose: 100 mg Documented by: Cholecalciferol (Cholecalciferol (Vitamin D3) 25 Mcg Tab) 25 mcg PO DAILY [facility] Last Admin: 07/10/21 09:17 Dose: 25 mcg Documented by: Digoxin (Digoxin 125 Mcg Tab) 125 mcg PO DAILY [facility] Last Admin: 07/10/21 09:17 Dose: 125 mcg Documented by: Diltiazem HCl (Diltiazem 180 Mg Cap.Cd) 180 mg PO DAILY [facility] Last Admin: 07/10/21 09:16 Dose: 180 mg Documented by: Docusate Sodium (Docusate Sodium 100 Mg Cap) 100 mg PO BID PRN PRN Reason: Constipation Folic Acid (Folic Acid 1 Mg Tab) 1 mg PO DAILY [facility] Last Admin: 07/10/21 09:17 Dose: 1 mg Documented by: Guaifenesin (Guaifenesin 600 Mg Tab.Er) 600 mg PO BID [facility] Last Admin: 07/10/21 20:14 Dose: 600 mg Documented by: Hydralazine HCl (Hydralazine 20 Mg/Ml Sdv) 10 mg IVPUSH Q4H PRN PRN Reason: Hypertension Promethazine HCl 12.5 mg/ (Sodium Chloride) 50.5 mls @ 100 mls/hr IV Q6H PRN PRN Reason: Nausea/Vomiting Ceftriaxone Sodium 2 gm/ (Sodium Chloride) 100 mls @ 200 mls/hr IV Q24H [facility] Last Admin: 07/10/21 11:48 Dose: 200 mls/hr Documented by: Ibuprofen (Ibuprofen 200 Mg Tab) 200 mg PO Q6H PRN PRN Reason: Pain (mild 1-3) Last Admin: 07/10/21 16:12 Dose: 200 mg Documented by: Lorazepam (Lorazepam 2 Mg/Ml Sdv) 0.5 mg IVPUSH Q4H PRN PRN Reason: Withdrawal Symptoms Last Admin: 07/08/21 22:14 Dose: 0.5 mg Documented by: Melatonin (Melatonin 3 Mg Tab) 6 mg PO BEDTIME PRN PRN Reason: Insomnia Last Admin: 07/11/21 00:25 Dose: 6 mg Documented by: Methylprednisolone Sodium Succinate (Methylprednisolone Sodium Succinate 40 Mg/1 Ml Sdv) 40 mg IVPUSH Q8H [facility] Last Admin: 07/11/21 04:52 Dose: 40 mg Documented by: Metoprolol Tartrate (Metoprolol Tartrate 5 Mg/5 Ml Sdv) 2.5 mg IVPUSH Q1H PRN PRN Reason: Tachycardia Last Admin: 07/07/21 05:09 Dose: 2.5 mg Documented by: Metoprolol Tartrate (Metoprolol Tartrate 25 Mg Tab) 12.5 mg PO Q12H [facility] Last Admin: 07/10/21 20:14 Dose: 12.5 mg Documented by: Mometasone Furoate/Formoterol Fumar (Formoterol/Mometasone 200-5 Mcg 8.8 Gm Inhaler) 2 puff IH BID [facility] Last Admin: 07/10/21 20:48 Dose: 2 puff Documented by: Nicotine (Nicotine 14 Mg/24 Hr Patch) 14 mg TRDERM DAILY [facility] Last Admin: 07/10/21 09:17 Dose: 14 mg Documented by: Oxycodone HCl (Oxycodone 5 Mg Tab) 5 mg PO Q4H PRN PRN Reason: Pain (moderate 4-6) Pantoprazole Sodium (Pantoprazole 40 Mg Tab.Cr) 40 mg PO ACBREAKFAST [facility] Last Admin: 07/10/21 05:00 Dose: Not Given Documented by: Sertraline HCl (Sertraline 50 Mg Tab) 50 mg PO DAILY [facility] Last Admin: 07/10/21 09:17 Dose: 50 mg Documented by: Simvastatin (Simvastatin 10 Mg Tab) 10 mg PO BEDTIME [facility] Last Admin: 07/10/21 20:14 Dose: 10 mg Documented by: Thiamine HCl (Thiamine 100 Mg Tab) 100 mg PO BEDTIME [facility] Last Admin: 07/10/21 20:14 Dose: 100 mg Documented by: Zinc Sulfate (Zinc Sulfate 220 Mg Cap) 220 mg PO DAILY [facility] Last Admin: 07/10/21 09:17 Dose: 220 mg Documented by: Discontinued Medications Dexamethasone (Dexamethasone 4 Mg Tab) 6 mg PO ONETIME ONE Stop: 07/06/21 11:23 Last Admin: 07/06/21 11:38 Dose: 6 mg Documented by: Dexamethasone (Dexamethasone 4 Mg Tab) 6 mg PO DAILY [facility] Last Admin: 07/08/21 08:05 Dose: 6 mg Documented by: Digoxin (Digoxin 500 Mcg/2 Ml Amp) 125 mcg IVPUSH ONETIME ONE Stop: 07/07/21 08:30 Last Admin: 07/07/21 09:23 Dose: 125 mcg Documented by: Digoxin (Digoxin 500 Mcg/2 Ml Amp) 125 mcg IVPUSH ONETIME ONE Stop: 07/07/21 10:26 Last Admin: 07/07/21 10:53 Dose: 125 mcg Documented by: Diltiazem HCl (Diltiazem 240 Mg Cap.Er) 240 mg PO DAILY [facility] Last Admin: 07/07/21 07:22 Dose: 240 mg Documented by: Furosemide (Furosemide 20 Mg/2 Ml Vial) 20 mg IVPUSH ONETIME ONE Stop: 07/06/21 15:01 Last Admin: 07/06/21 18:07 Dose: Not Given Documented by: Furosemide (Furosemide 20 Mg/2 Ml Vial) 20 mg IVPUSH ONETIME ONE Stop: 07/06/21 18:01 Last Admin: 07/06/21 18:06 Dose: 20 mg Documented by: Sodium Chloride (Normal Saline) 1,000 mls @ 500 mls/hr IV ONETIME ONE Stop: 07/06/21 13:19 Last Admin: 07/06/21 11:38 Dose: 500 mls/hr Documented by: Remdesivir 200 mg/ Sodium (Chloride) 250 mls @ 250 mls/hr IV ONETIME ONE Stop: 07/06/21 12:47 Last Admin: 07/06/21 12:54 Dose: 250 mls/hr Documented by: Azithromycin 500 mg/ Sodium (Chloride) 250 mls @ 250 mls/hr IV ONETIME ONE Stop: 07/06/21 12:48 Last Admin: 07/06/21 12:50 Dose: 250 mls/hr Documented by: Ceftriaxone Sodium 2 gm/ (Sodium Chloride) 100 mls @ 200 mls/hr IV ONETIME ONE Stop: 07/06/21 12:18 Last Admin: 07/06/21 12:08 Dose: 200 mls/hr Documented by: Remdesivir 100 mg/ Sodium (Chloride) 100 mls @ 100 mls/hr IV Q24H [facility] Stop: 07/10/21 11:59 Last Admin: 07/10/21 11:48 Dose: 100 mls/hr Documented by: Sodium Chloride (Normal Saline) 250 mls @ 999 mls/hr IV .BOLUS ONE Stop: 07/07/21 06:37 Last Admin: 07/07/21 06:35 Dose: 999 mls/hr Documented by: Sodium Chloride (Normal Saline) Confirm Administered Dose 1,000 mls @ as directed .ROUTE .STK-MED ONE Stop: 07/07/21 06:29 Last Admin: 07/07/21 07:16 Dose: Not Given Documented by: Sodium Chloride (Normal Saline) 250 mls @ 500 mls/hr IV ONETIME ONE Stop: 07/07/21 09:00 Last Admin: 07/07/21 09:35 Dose: 500 mls/hr Documented by: Lactulose (Lactulose Soln 10 Gm/15 Ml 30 Ml Ud Cup) 20 gm PO DAILY [facility] Last Admin: 07/09/21 08:38 Dose: 20 gm Documented by: Methylprednisolone Sodium Succinate (Methylprednisolone Sodium Succinate 40 Mg/1 Ml Sdv) 40 mg IVPUSH Q8H [facility] Last Admin: 07/08/21 12:08 Dose: 40 mg Documented by: Morphine Sulfate (Morphine 2 Mg/Ml Syringe) 2 mg IVPUSH Q4H PRN PRN Reason: Pain (severe 7-10) Stop: 07/07/21 14:29 Sodium Polystyrene Sulfonate (Sodium Polystyrene Sulfonate 15 Gm/60 Ml Susp 60 Ml Bot) 15 gm PO ONETIME ONE Stop: 07/06/21 15:01 Last Admin: 07/06/21 18:07 Dose: Not Given Documented by: Sodium Polystyrene Sulfonate (Sodium Polystyrene Sulfonate 15 Gm/60 Ml Susp 60 Ml Bot) 15 gm PO ONETIME ONE Stop: 07/06/21 18:01 Last Admin: 07/06/21 18:07 Dose: 15 gm Documented by: - Exam Quality Assessment: Supplemental Oxygen, DVT Prophylaxis General: Alert, Oriented, Cooperative HEENT: Pupils Equal, Pupils Reactive, EOMI, Mucous Membr. Moist/[place] Neck: Supple, Trachea Midline Lungs: Decreased Breath Sounds, Crackles (Bibasilar) Cardiovascular: Regular Rate, Irregular Rhythm GI/Abdominal Exam: Normal Bowel Sounds, Soft, Non-Tender, No Distention (Female) Exam: Deferred Back Exam: Normal Inspection, Full Range of Motion Extremities: Normal Inspection, Normal Range of Motion, No Pedal Edema Skin: Warm, Dry, Intact Neurological: No New Focal Deficit, Normal Gait, Normal Speech, Normal Tone Psy/Mental Status: Alert, Normal Affect - Patient Data Lab Results Last 24 hrs: Laboratory Results - last 24 hr 07/11/21 07/11/21 Range/Units 04:55 04:55 WBC 3.96 L (3.98-10.04) K/mm3 RBC 4.30 (3.98-5.22) M/mm3 Hgb 14.2 (11.2-15.7) gm/dl Hct 42.8 (34.1-44.9) % MCV 99.5 H (79.4-94.8) fl MCH 33.0 H (25.6-32.2) pg MCHC 33.2 (32.2-35.5) g/dl RDW Std Deviation 47.8 H (36.4-46.3) fL Plt Count 206 (182-369) K/mm3 MPV 9.9 (9.4-12.3) fl Neut % (Auto) 78.2 H (34.0-71.1) % Lymph % (Auto) 9.8 L (19.3-51.7) % [place] % (Auto) 10.4 (4.7-12.5) % Eos % (Auto) 0 L (0.7-5.8) Baso % (Auto) 0.8 (0.1-1.2) % Neut # (Auto) 3.10 (1.56-6.13) K/mm3 Lymph # (Auto) 0.39 L (1.18-3.74) K/mm3 [place] # (Auto) 0.41 H (0.24-0.36) K/mm3 Eos # (Auto) 0.00 L (0.04-0.36) K/mm3 Baso # (Auto) 0.03 (0.01-0.08) K/mm3 Manual Slide Review Abnormal smear Sodium 139 (136-145) mEq/L Potassium 4.1 (3.5-5.1) mEq/L Chloride 102 (98-107) mEq/L Carbon Dioxide 30 (21-32) mEq/L Anion Gap 11.1 (5-15) BUN 15 (7-18) mg/dL Creatinine 0.5 L (0.55-1.02) mg/dL Est Cr Clr Drug Dosing 111.91 mL/min Estimated GFR (MDRD) > 60 (>60) mL/min BUN/Creatinine Ratio 30.0 H (14-18) Glucose 133 H (70-99) mg/dL Calcium 8.0 L (8.5-10.1) mg/dL Total Bilirubin 0.3 (0.2-1.0) mg/dL AST 51 H (15-37) U/L ALT 72 H (14-59) U/L Alkaline Phosphatase 74 (46-116) U/L C-Reactive Protein 0.8 (<1.0) mg/dL Total Protein 5.2 L (6.4-8.2) g/dl Albumin 2.4 L (3.4-5.0) g/dl Globulin 2.8 gm/dL Albumin/Globulin Ratio 0.9 L (1-2) Result Diagrams: 07/11/21 04:55 07/11/21 04:55 Sepsis Event Note - Evaluation Sepsis Screening Result: Sepsis Risk - Focused Exam Vital Signs: Vital Signs Temp Pulse Pulse Resp BP BP Pulse Ox 07/11/21 05:44 37.2 C 66 22 H 124/86 91 L 07/10/21 20:51 07/10/21 20:22 36.2 C 85 24 H 114/69 92 L 07/10/21 20:14 85 114/69 Pulse Ox 07/11/21 05:44 07/10/21 20:51 92 L 07/10/21 20:22 07/10/21 20:14 - Problem List & Annotations (1) Acute and chronic respiratory failure with hypoxia SNOMED Code(s): 16058590, 825158154 Code(s): J96.21 - ACUTE AND CHRONIC RESPIRATORY FAILURE WITH HYPOXIA Status: Acute Priority: High Current Visit: Yes (2) Pneumonia due to COVID-19 virus SNOMED Code(s): 708130358440972359 Code(s): U07.1 - COVID-19; J12.82 - PNEUMONIA DUE TO CORONAVIRUS DISEASE 2019 Status: Acute Priority: High Current Visit: Yes (3) Leukopenia SNOMED Code(s): 35522587, 016859062 Code(s): D72.819 - DECREASED WHITE BLOOD CELL COUNT, UNSPECIFIED Status: Acute Current Visit: Yes Qualifiers: Leukopenia type: neutropenia Neutropenia type: unspecified Qualified Code(s): D70.9 - Neutropenia, unspecified (4) Hyperkalemia SNOMED Code(s): 09630432 Code(s): E87.5 - HYPERKALEMIA Status: Resolved Priority: High Current Visit: Yes (5) Hyponatremia SNOMED Code(s): 63406092 Code(s): E87.1 - HYPO-OSMOLALITY AND HYPONATREMIA Status: Resolved Priority: High Current Visit: Yes - Problem List Review Problem List Initiated/Reviewed/Updated: Yes - My Orders Last 24 Hours: My Active Orders 07/10/21 Lunch Regular Diet [DIET] 07/10/21 14:12 Patient Status [ADT] Routine - Assessment Assessment:: The patient is a 55-year-old lady who will remain in ICU due to her oxygen flow. The patient has a chest x-ray which does show consolidation in the left lower lobe. The patient will be continued on antibiotics for the treatment of pneumonia. The patient has been on ceftriaxone 2 g IV daily. The patient is also on apixaban and therefore will not need to have DVT prophylaxis. The patient will have regular diet as tolerated. Repeat laboratory studies have been ordered for the morning. Patient should be appropriate for discharge in 1 to 2 days. - Plan Plan:: Patient is a 55-year-old female with a history of COPD, CHF, hypertension, atrial fibrillation, current smoker, and daily alcohol user who presented to the ER due to worsening shortness of breath x 3 days. She had a positive COVID-19 test on July 03. Acute on chronic hypoxic respiratory failure Etiologies include COPD, CHF, pneumonia Patient is on home oxygen 4 L Pulse ox Oxygen therapy, high flow/BiPAP as needed to keep oxygen saturation greater than 88-90% Covid 19 pneumonia X-ray showed diffuse increased density within the left mid and lower chest; minimal density within the right lower base Blood culture no growth so far Sputum culture Ceftriaxone and azithromycin 5-day course of remdesivir Discontinued dexamethasone today. Considering Covid 19 pneumonia in the setting of COPD, I initiated Solu-Medrol 40 mg every 8 hours today Continue Eliquis 5 mg twice daily Inhalers Procalcitonin 0.11 Repeat CBC, CMP, CRP in morning COPD Inhalers CHF Unknown type BNP 525 Troponin negative Home medications include Lasix 20 mg daily which is on hold. Blood pressure is soft Seems to be euvolemic status Intake and output Low-sodium diet Atrial fibrillaiton Heart rate is controlled decreased diltiazem to 180mg daily from 240 mg daily and added metoprolol 12.5mg bid. Digoxin 0.125mg iv push x 2 yesterday Digoxin 0.125mg po daily Added metoprolol 12.5 mg twice daily Metoprolol 2.5 mg IV push as needed Continue Eliquis 5 mg twice daily Daily alchohol drinker Elevation of liver enzymes, AST 77, ALT 41, TB 0.2, al phos 67 on admission CIWA protocol Ativan 0.5 mg every 4 hours as needed Thiamine and folic acid US abdomen -poorly distended gallbladder with no shadowing gallstones or gall bladder wall thickening. Thrombocytopenia Platelets 105 on admission No bleeding Repeat CBC Elevation of D-dimer, 0.53 Continue Eliquis Hyperkalemia, resolved 5.2 on admission Lasix 20 mg IV x 1 Kayexalate 15 g x 1 Repeat potassium Tobacco use disorder Counseling Nicotine patch if necessary DVT prophylaxis: Eliquis CODE STATUS: Full Disposition: Next week 07/09/2021 The patient is a 55-year-old lady who is doing somewhat better today. She does have radiographic evidence of left-sided pneumonia due to COVID-19. Patient's antibiotics will be continued. She is also on steroids and the patient's steroids will be continued and she will continue these likely upon discharge. The patient will also have her completion of remdesivir tomorrow. Repeat laboratory studies have been ordered for the patient. She has been encouraged to ambulate. The patient will also be given nicotine patches on discharge. She should likely be appropriate for discharge in 1 to 2 days. 07/11/2021 The patient is a 55-year-old lady who has been somewhat slow to recover in terms of her oxygen demands. The patient is currently on a azithromycin 500 mg IV every 24 hours as well as ceftriaxone 2 g IV every 24 hours for superimposed pneumonia. The patient does have atrial fibrillation and she is on apixaban presently. Her rate has been controlled with the use of digoxin. She will remain on telemetry. Repeat laboratory testings have been ordered for the morning. The patient should be appropriate for discharge once her vital signs had stabilized and her oxygen requirements have improved to her baseline 4 L of oxygen.
[2021-07-11] MEDS: Formoterol/Mometasone 200-5 MCG 8.8 GM Inhaler IH SCH ×2 (08:22→20:32)
[2021-07-11] MEDS: Albuterol/Ipratropium 3.0-0.5 MG/3 ML Neb Soln NEB PRN ×2 (08:22→20:33)
[2021-07-11] MEDS: Pantoprazole 40 MG Tab.CR PO SCH (08:44)
[2021-07-11] MEDS: Nicotine 14 MG/24 Hr Patch TRDERM SCH (08:44)
[2021-07-11] MEDS: Zinc Sulfate 220 MG Cap PO SCH (08:44)
[2021-07-11] MEDS: Diltiazem 180 MG Cap.CD PO SCH (08:45)
[2021-07-11] MEDS: Digoxin 125 MCG Tab PO SCH (08:45)
[2021-07-11] MEDS: Benzocaine/Cetylpyridinium/Menthol Lozenge MUCMEM PRN ×2 (08:45→16:00)
[2021-07-11] MEDS: Cholecalciferol (Vitamin D3) 25 MCG Tab PO SCH (08:45)
[2021-07-11] MEDS: Folic Acid 1 MG Tab PO SCH (08:45)
[2021-07-11] MEDS: Benzonatate 100 MG Cap PO PRN ×3 (08:45→20:54)
[2021-07-11] MEDS: Metoprolol Tartrate 25 MG Tab PO SCH ×2 (08:45→20:54)
[2021-07-11] MEDS: Sertraline 50 MG Tab PO SCH (08:45)
[2021-07-11] MEDS: Apixaban 5 MG Tab PO SCH ×2 (08:46→20:54)
[2021-07-11] MEDS: guaiFENesin 600 MG Tab.ER PO SCH ×2 (08:46→20:54)
[2021-07-11] MEDS: cefTRIAXone 2 GM in Sodium Chloride 0.9% 100 ML IV SCH (11:46)
[2021-07-11] MEDS: oxyCODONE 5 MG Tab PO PRN ×2 (12:04→20:55)
[2021-07-11] MEDS: Azithromycin 250 MG Tab PO SCH (12:04)
[2021-07-11] MEDS: Thiamine 100 MG Tab PO SCH (20:54)
[2021-07-11] MEDS: Simvastatin 10 MG Tab PO SCH (20:54)
[2021-07-12] MEDS: Pantoprazole 40 MG Tab.CR PO SCH (05:15)
[2021-07-12] MEDS: methylPREDNISolone Sodium Succinate 40 MG/1 ML SDV IVPUSH SCH ×3 (05:16→20:49)
--- NOTE | 2021-07-12 06:34 | PCM.PN ---
- General Info Date of Service: 07/12/21 Admission Dx/Problem (Free Text): Admission Diagnosis/Problem Admission Diagnosis/Problem Hypoxia, acute on chronic respiratory failure associated with COVID-19 pneumonia. Subjective Update: The patient is a 55-year-old lady who is admitted to ICU on July 06, 2021 due to hypoxia associated with COVID-19 pneumonia. The patient was started on 5 days of remdesivir and 10 days worth of dexamethasone. The patient is still requiring high flow oxygen as she has a history of recent smoking along with underlying COPD. The patient's current oxygen saturation are at 94% on FiO2 of 50%. The patient has been tolerating her diet. She has been complaining of lower back pain. The patient says that she is breathing better but she still has cough. Functional Status: Reports: Pain Controlled, Tolerating Diet - Review of Systems General: Reports: No Symptoms HEENT: Reports: No Symptoms Pulmonary: Reports: Cough, Sputum, Wheezing Cardiovascular: Reports: No Symptoms Gastrointestinal: Reports: No Symptoms Genitourinary: Reports: No Symptoms Musculoskeletal: Reports: No Symptoms Skin: Reports: No Symptoms Neurological: Reports: No Symptoms Psychiatric: Reports: No Symptoms - Patient Data Vitals - Most Recent: Last Vital Signs Temp 37.1 C 07/12/21 04:00 Pulse 85 07/11/21 20:54 Resp 24 H 07/12/21 04:00 BP 122/78 07/12/21 04:00 Pulse Ox 91 L 07/12/21 04:00 Weight - Most Recent: 60.872 kg I&O - Last 24 Hours: Intake & Output 07/11/21 07/11/21 07/12/21 14:59 22:59 06:59 Intake Total 200 1250 400 Output Total 300 Balance 200 1250 100 Lab Results Last 24 Hours: Laboratory Results - last 24 hr 07/11/21 07/12/21 Range/Units 04:55 05:13 WBC 4.96 (3.98-10.04) K/mm3 RBC 4.18 (3.98-5.22) M/mm3 Hgb 13.7 (11.2-15.7) gm/dl Hct 41.8 (34.1-44.9) % MCV 100.0 H (79.4-94.8) fl MCH 32.8 H (25.6-32.2) pg MCHC 32.8 (32.2-35.5) g/dl RDW Std Deviation 47.7 H (36.4-46.3) fL Plt Count 223 (182-369) K/mm3 MPV 9.8 (9.4-12.3) fl Neut % (Auto) 85.3 H (34.0-71.1) % Lymph % (Auto) 5.8 L (19.3-51.7) % [place] % (Auto) 7.7 (4.7-12.5) % Eos % (Auto) 0 L (0.7-5.8) Baso % (Auto) 0.2 (0.1-1.2) % Neut # (Auto) 4.23 (1.56-6.13) K/mm3 Lymph # (Auto) 0.29 L (1.18-3.74) K/mm3 [place] # (Auto) 0.38 H (0.24-0.36) K/mm3 Eos # (Auto) 0.00 L (0.04-0.36) K/mm3 Baso # (Auto) 0.01 (0.01-0.08) K/mm3 Manual Slide Review Abnormal smear Nicola Results Last 24 Hours: Microbiology 07/06/21 10:51 Blood Culture - Final Blood - Venous - Lab Draw 07/06/21 10:43 Blood Culture - Final Blood - Venous - Lab Draw Med Orders - Current: Current Medications Albuterol (Albuterol 6.7 Gm Inhaler) 0 gm INH Q4H PRN PRN Reason: Shortness of Breath Albuterol/Ipratropium (Albuterol/Ipratropium 3.0-0.5 Mg/3 Ml Neb Soln) 3 ml NEB Q4HRRT PRN PRN Reason: Shortness Of Breath/wheezing Last Admin: 07/11/21 20:33 Dose: 3 ml Documented by: Apixaban (Apixaban 5 Mg Tab) 5 mg PO BID [facility] Last Admin: 07/11/21 20:54 Dose: 5 mg Documented by: Azithromycin (Azithromycin 250 Mg Tab) 500 mg PO Q24H [facility] Last Admin: 07/11/21 12:04 Dose: 500 mg Documented by: Benzocaine/Menthol (Benzocaine/Cetylpyridinium/Menthol Lozenge) 1 lozenge MUCMEM Q4H PRN PRN Reason: Sore Throat Last Admin: 07/11/21 16:00 Dose: 1 lozenge Documented by: Benzonatate (Benzonatate 100 Mg Cap) 100 mg PO Q6H PRN PRN Reason: Cough Last Admin: 07/11/21 20:54 Dose: 100 mg Documented by: Cholecalciferol (Cholecalciferol (Vitamin D3) 25 Mcg Tab) 25 mcg PO DAILY [facility] Last Admin: 07/11/21 08:45 Dose: 25 mcg Documented by: Digoxin (Digoxin 125 Mcg Tab) 125 mcg PO DAILY [facility] Last Admin: 07/11/21 08:45 Dose: 125 mcg Documented by: Diltiazem HCl (Diltiazem 180 Mg Cap.Cd) 180 mg PO DAILY [facility] Last Admin: 07/11/21 08:45 Dose: 180 mg Documented by: Docusate Sodium (Docusate Sodium 100 Mg Cap) 100 mg PO BID PRN PRN Reason: Constipation Folic Acid (Folic Acid 1 Mg Tab) 1 mg PO DAILY [facility] Last Admin: 07/11/21 08:45 Dose: 1 mg Documented by: Guaifenesin (Guaifenesin 600 Mg Tab.Er) 600 mg PO BID [facility] Last Admin: 07/11/21 20:54 Dose: 600 mg Documented by: Hydralazine HCl (Hydralazine 20 Mg/Ml Sdv) 10 mg IVPUSH Q4H PRN PRN Reason: Hypertension Promethazine HCl 12.5 mg/ (Sodium Chloride) 50.5 mls @ 100 mls/hr IV Q6H PRN PRN Reason: Nausea/Vomiting Ceftriaxone Sodium 2 gm/ (Sodium Chloride) 100 mls @ 200 mls/hr IV Q24H [facility] Last Admin: 07/11/21 11:46 Dose: 200 mls/hr Documented by: Ibuprofen (Ibuprofen 200 Mg Tab) 200 mg PO Q6H PRN PRN Reason: Pain (mild 1-3) Last Admin: 07/10/21 16:12 Dose: 200 mg Documented by: Lorazepam (Lorazepam 2 Mg/Ml Sdv) 0.5 mg IVPUSH Q4H PRN PRN Reason: Withdrawal Symptoms Last Admin: 07/08/21 22:14 Dose: 0.5 mg Documented by: Melatonin (Melatonin 3 Mg Tab) 6 mg PO BEDTIME PRN PRN Reason: Insomnia Last Admin: 07/11/21 20:56 Dose: 6 mg Documented by: Methylprednisolone Sodium Succinate (Methylprednisolone Sodium Succinate 40 Mg/1 Ml Sdv) 40 mg IVPUSH Q8H [facility] Last Admin: 07/12/21 05:16 Dose: 40 mg Documented by: Metoprolol Tartrate (Metoprolol Tartrate 5 Mg/5 Ml Sdv) 2.5 mg IVPUSH Q1H PRN PRN Reason: Tachycardia Last Admin: 07/07/21 05:09 Dose: 2.5 mg Documented by: Metoprolol Tartrate (Metoprolol Tartrate 25 Mg Tab) 12.5 mg PO Q12H [facility] Last Admin: 07/11/21 20:54 Dose: 12.5 mg Documented by: Mometasone Furoate/Formoterol Fumar (Formoterol/Mometasone 200-5 Mcg 8.8 Gm Inhaler) 2 puff IH BID [facility] Last Admin: 07/11/21 20:32 Dose: 2 puff Documented by: Nicotine (Nicotine 14 Mg/24 Hr Patch) 14 mg TRDERM DAILY [facility] Last Admin: 07/11/21 08:44 Dose: 14 mg Documented by: Oxycodone HCl (Oxycodone 5 Mg Tab) 5 mg PO Q4H PRN PRN Reason: Pain (moderate 4-6) Last Admin: 07/11/21 20:55 Dose: 5 mg Documented by: Pantoprazole Sodium (Pantoprazole 40 Mg Tab.Cr) 40 mg PO ACBREAKFAST [facility] Last Admin: 07/12/21 05:15 Dose: 40 mg Documented by: Sertraline HCl (Sertraline 50 Mg Tab) 50 mg PO DAILY [facility] Last Admin: 07/11/21 08:45 Dose: 50 mg Documented by: Simvastatin (Simvastatin 10 Mg Tab) 10 mg PO BEDTIME [facility] Last Admin: 07/11/21 20:54 Dose: 10 mg Documented by: Thiamine HCl (Thiamine 100 Mg Tab) 100 mg PO BEDTIME [facility] Last Admin: 07/11/21 20:54 Dose: 100 mg Documented by: Zinc Sulfate (Zinc Sulfate 220 Mg Cap) 220 mg PO DAILY [facility] Last Admin: 07/11/21 08:44 Dose: 220 mg Documented by: Discontinued Medications Dexamethasone (Dexamethasone 4 Mg Tab) 6 mg PO ONETIME ONE Stop: 07/06/21 11:23 Last Admin: 07/06/21 11:38 Dose: 6 mg Documented by: Dexamethasone (Dexamethasone 4 Mg Tab) 6 mg PO DAILY [facility] Last Admin: 07/08/21 08:05 Dose: 6 mg Documented by: Digoxin (Digoxin 500 Mcg/2 Ml Amp) 125 mcg IVPUSH ONETIME ONE Stop: 07/07/21 08:30 Last Admin: 07/07/21 09:23 Dose: 125 mcg Documented by: Digoxin (Digoxin 500 Mcg/2 Ml Amp) 125 mcg IVPUSH ONETIME ONE Stop: 07/07/21 10:26 Last Admin: 07/07/21 10:53 Dose: 125 mcg Documented by: Diltiazem HCl (Diltiazem 240 Mg Cap.Er) 240 mg PO DAILY [facility] Last Admin: 07/07/21 07:22 Dose: 240 mg Documented by: Furosemide (Furosemide 20 Mg/2 Ml Vial) 20 mg IVPUSH ONETIME ONE Stop: 07/06/21 15:01 Last Admin: 07/06/21 18:07 Dose: Not Given Documented by: Furosemide (Furosemide 20 Mg/2 Ml Vial) 20 mg IVPUSH ONETIME ONE Stop: 07/06/21 18:01 Last Admin: 07/06/21 18:06 Dose: 20 mg Documented by: Sodium Chloride (Normal Saline) 1,000 mls @ 500 mls/hr IV ONETIME ONE Stop: 07/06/21 13:19 Last Admin: 07/06/21 11:38 Dose: 500 mls/hr Documented by: Remdesivir 200 mg/ Sodium (Chloride) 250 mls @ 250 mls/hr IV ONETIME ONE Stop: 07/06/21 12:47 Last Admin: 07/06/21 12:54 Dose: 250 mls/hr Documented by: Azithromycin 500 mg/ Sodium (Chloride) 250 mls @ 250 mls/hr IV ONETIME ONE Stop: 07/06/21 12:48 Last Admin: 07/06/21 12:50 Dose: 250 mls/hr Documented by: Ceftriaxone Sodium 2 gm/ (Sodium Chloride) 100 mls @ 200 mls/hr IV ONETIME ONE Stop: 07/06/21 12:18 Last Admin: 07/06/21 12:08 Dose: 200 mls/hr Documented by: Remdesivir 100 mg/ Sodium (Chloride) 100 mls @ 100 mls/hr IV Q24H JAY JAY Stop: 07/10/21 11:59 Last Admin: 07/10/21 11:48 Dose: 100 mls/hr Documented by: Sodium Chloride (Normal Saline) 250 mls @ 999 mls/hr IV .BOLUS ONE Stop: 07/07/21 06:37 Last Admin: 07/07/21 06:35 Dose: 999 mls/hr Documented by: Sodium Chloride (Normal Saline) Confirm Administered Dose 1,000 mls @ as directed .ROUTE .STK-MED ONE Stop: 07/07/21 06:29 Last Admin: 07/07/21 07:16 Dose: Not Given Documented by: Sodium Chloride (Normal Saline) 250 mls @ 500 mls/hr IV ONETIME ONE Stop: 07/07/21 09:00 Last Admin: 07/07/21 09:35 Dose: 500 mls/hr Documented by: Lactulose (Lactulose Soln 10 Gm/15 Ml 30 Ml Ud Cup) 20 gm PO DAILY JAY JAY Last Admin: 07/09/21 08:38 Dose: 20 gm Documented by: Methylprednisolone Sodium Succinate (Methylprednisolone Sodium Succinate 40 Mg/1 Ml Sdv) 40 mg IVPUSH Q8H JAY JAY Last Admin: 07/08/21 12:08 Dose: 40 mg Documented by: Morphine Sulfate (Morphine 2 Mg/Ml Syringe) 2 mg IVPUSH Q4H PRN PRN Reason: Pain (severe 7-10) Stop: 07/07/21 14:29 Sodium Polystyrene Sulfonate (Sodium Polystyrene Sulfonate 15 Gm/60 Ml Susp 60 Ml Bot) 15 gm PO ONETIME ONE Stop: 07/06/21 15:01 Last Admin: 07/06/21 18:07 Dose: Not Given Documented by: Sodium Polystyrene Sulfonate (Sodium Polystyrene Sulfonate 15 Gm/60 Ml Susp 60 Ml Bot) 15 gm PO ONETIME ONE Stop: 07/06/21 18:01 Last Admin: 07/06/21 18:07 Dose: 15 gm Documented by: - Exam Quality Assessment: Supplemental Oxygen, DVT Prophylaxis General: Alert, Oriented, Cooperative, No Acute Distress HEENT: Pupils Equal, Pupils Reactive, EOMI. No: Mucous Membr. Moist/[place] (Dry) Neck: Supple, Trachea Midline Lungs: Decreased Breath Sounds, Crackles (Widely scattered) Cardiovascular: Regular Rate, Irregular Rhythm GI/Abdominal Exam: Normal Bowel Sounds, Soft, Non-Tender, No Distention (Female) Exam: Deferred Back Exam: Normal Inspection, Full Range of Motion Extremities: Normal Inspection, No Pedal Edema Skin: Warm, Dry, Intact Neurological: No New Focal Deficit, Normal Speech, Normal Tone Psy/Mental Status: Alert, Normal Affect, Normal Mood - Patient Data Lab Results Last 24 hrs: Laboratory Results - last 24 hr 07/11/21 07/12/21 Range/Units 04:55 05:13 WBC 4.96 (3.98-10.04) K/mm3 RBC 4.18 (3.98-5.22) M/mm3 Hgb 13.7 (11.2-15.7) gm/dl Hct 41.8 (34.1-44.9) % MCV 100.0 H (79.4-94.8) fl MCH 32.8 H (25.6-32.2) pg MCHC 32.8 (32.2-35.5) g/dl RDW Std Deviation 47.7 H (36.4-46.3) fL Plt Count 223 (182-369) K/mm3 MPV 9.8 (9.4-12.3) fl Neut % (Auto) 85.3 H (34.0-71.1) % Lymph % (Auto) 5.8 L (19.3-51.7) % [place] % (Auto) 7.7 (4.7-12.5) % Eos % (Auto) 0 L (0.7-5.8) Baso % (Auto) 0.2 (0.1-1.2) % Neut # (Auto) 4.23 (1.56-6.13) K/mm3 Lymph # (Auto) 0.29 L (1.18-3.74) K/mm3 [place] # (Auto) 0.38 H (0.24-0.36) K/mm3 Eos # (Auto) 0.00 L (0.04-0.36) K/mm3 Baso # (Auto) 0.01 (0.01-0.08) K/mm3 Manual Slide Review Abnormal smear Result Diagrams: 07/12/21 05:13 07/12/21 05:13 Nicola Results Last 24 hrs: Microbiology 07/06/21 10:51 Blood Culture - Final Blood - Venous - Lab Draw 07/06/21 10:43 Blood Culture - Final Blood - Venous - Lab Draw Sepsis Event Note - Evaluation Sepsis Screening Result: Sepsis Risk - Focused Exam Vital Signs: Vital Signs Temp Pulse Resp BP BP Pulse Ox Pulse Ox 07/12/21 04:00 37.1 C 24 H 122/78 91 L 07/11/21 21:00 36.7 C 24 H 123/76 90 L 07/11/21 20:54 85 123/76 07/11/21 20:33 92 L 07/11/21 20:00 90 L - Problem List & Annotations (1) Acute and chronic respiratory failure with hypoxia SNOMED Code(s): 03931343, 188799715 Code(s): J96.21 - ACUTE AND CHRONIC RESPIRATORY FAILURE WITH HYPOXIA Status: Acute Priority: High Current Visit: Yes (2) Pneumonia due to COVID-19 virus SNOMED Code(s): 133333692286983805 Code(s): U07.1 - COVID-19; J12.82 - PNEUMONIA DUE TO CORONAVIRUS DISEASE 2019 Status: Acute Priority: High Current Visit: Yes (3) Leukopenia SNOMED Code(s): 01138590, 364821197 Code(s): D72.819 - DECREASED WHITE BLOOD CELL COUNT, UNSPECIFIED Status: Acute Current Visit: Yes Qualifiers: Leukopenia type: neutropenia Neutropenia type: unspecified Qualified Code(s): D70.9 - Neutropenia, unspecified (4) Hyperkalemia SNOMED Code(s): 02575351 Code(s): E87.5 - HYPERKALEMIA Status: Resolved Priority: High Current Visit: Yes (5) Hyponatremia SNOMED Code(s): 17509143 Code(s): E87.1 - HYPO-OSMOLALITY AND HYPONATREMIA Status: Resolved Priority: High Current Visit: Yes - Problem List Review Problem List Initiated/Reviewed/Updated: Yes - My Orders Last 24 Hours: My Active Orders 07/12/21 05:13 CBC WITH AUTO DIFF [HEME] AM COMPREHENSIVE METABOLIC PN,CMP [CHEM] AM MAGNESIUM [CHEM] AM - Assessment Assessment:: The patient is a 55-year-old lady who will remain in ICU due to her oxygen flow. The patient has a chest x-ray which does show consolidation in the left lower lobe. The patient will be continued on antibiotics for the treatment of pneu monia. The patient has been on ceftriaxone 2 g IV daily. The patient is also on apixaban and therefore will not need to have DVT prophylaxis. The patient will have regular diet as tolerated. Repeat laboratory studies have been ordered for the morning. Patient should be appropriate for discharge in 1 to 2 days. - Plan Plan:: Patient is a 55-year-old female with a history of COPD, CHF, hypertension, atrial fibrillation, current smoker, and daily alcohol user who presented to the ER due to worsening shortness of breath x 3 days. She had a positive COVID-19 test on July 03. Acute on chronic hypoxic respiratory failure Etiologies include COPD, CHF, pneumonia Patient is on home oxygen 4 L Pulse ox Oxygen therapy, high flow/BiPAP as needed to keep oxygen saturation greater than 88-90% Covid 19 pneumonia X-ray showed diffuse increased density within the left mid and lower chest; minimal density within the right lower base Blood culture no growth so far Sputum culture Ceftriaxone and azithromycin 5-day course of remdesivir Discontinued dexamethasone today. Considering Covid 19 pneumonia in the setting of COPD, I initiated Solu-Medrol 40 mg every 8 hours today Continue Eliquis 5 mg twice daily Inhalers Procalcitonin 0.11 Repeat CBC, CMP, CRP in morning COPD Inhalers CHF Unknown type BNP 525 Troponin negative Home medications include Lasix 20 mg daily which is on hold. Blood pressure is soft Seems to be euvolemic status Intake and output Low-sodium diet Atrial fibrillaiton Heart rate is controlled decreased diltiazem to 180mg daily from 240 mg daily and added metoprolol 12.5mg bid. Digoxin 0.125mg iv push x 2 yesterday Digoxin 0.125mg po daily Added metoprolol 12.5 mg twice daily Metoprolol 2.5 mg IV push as needed Continue Eliquis 5 mg twice daily Daily alchohol drinker Elevation of liver enzymes, AST 77, ALT 41, TB 0.2, al phos 67 on admission CIWA protocol Ativan 0.5 mg every 4 hours as needed Thiamine and folic acid US abdomen -poorly distended gallbladder with no shadowing gallstones or gallbladder wall thickening. Thrombocytopenia Platelets 105 on admission No bleeding Repeat CBC Elevation of D-dimer, 0.53 Continue Eliquis Hyperkalemia, resolved 5.2 on admission Lasix 20 mg IV x 1 Kayexalate 15 g x 1 Repeat potassium Tobacco use disorder Counseling Nicotine patch if necessary DVT prophylaxis: Katelyn CODE STATUS: Full Disposition: Next week 07/09/2021 The patient is a 55-year-old lady who is doing somewhat better today. She does have radiographic evidence of left-sided pneumonia due to COVID-19. Patient's antibiotics will be continued. She is also on steroids and the patient's steroids will be continued and she will continue these likely upon discharge. The patient will also have her completion of remdesivir tomorrow. Repeat laboratory studies have been ordered for the patient. She has been encouraged to ambulate. The patient will also be given nicotine patches on discharge. She should likely be appropriate for discharge in 1 to 2 days. 07/11/2021 The patient is a 55-year-old lady who has been somewhat slow to recover in terms of her oxygen demands. The patient is currently on a azithromycin 500 mg IV every 24 hours as well as ceftriaxone 2 g IV every 24 hours for superimposed pneumonia. The patient does have atrial fibrillation and she is on apixaban presently. Her rate has been controlled with the use of digoxin. She will remain on telemetry. Repeat laboratory testings have been ordered for the morning. The patient should be appropriate for discharge once her vital signs had stabilized and her oxygen requirements have improved to her baseline 4 L of oxygen. 07/12/2021 The patient is a 55-year-old lady who has been slow to recover likely due to her underlying COPD. The patient has required high flow oxygen at 50% FiO2 and will remain in ICU for now. The patient is also on antibiotics consisting of ceftriaxone 2 g every 24 hours for possible superimposed pneumonia. She is anticoagulated with the use of apixaban due to her atrial fibrillation. Patient's rate has been controlled with the use of digoxin. Repeat digoxin levels. She is on telemetry and will remain so. I have ordered repeat laboratory studies. The patient will have her regular diet as tolerated. She has been encouraged to ambulate. I have ordered a repeat chest x-ray for the morning. The patient is still a smoker and she has nicotine patches available. I told the patient that she must stop smoking. Long-term the patient will need to stop smoking in order to retain some lung function. I have also ordered PT OT as the patient has been in hospitalization and has been deconditioned. She should be appropriate for discharge once her oxygen saturations have improved to her base line of 4 L/min via nasal cannula.
[2021-07-12] MEDS: Formoterol/Mometasone 200-5 MCG 8.8 GM Inhaler IH SCH ×2 (08:17→21:17)
[2021-07-12] MEDS: Albuterol/Ipratropium 3.0-0.5 MG/3 ML Neb Soln NEB PRN ×2 (08:18→19:32)
[2021-07-12] MEDS: Cholecalciferol (Vitamin D3) 25 MCG Tab PO SCH (08:43)
[2021-07-12] MEDS: Folic Acid 1 MG Tab PO SCH (08:43)
[2021-07-12] MEDS: Sertraline 50 MG Tab PO SCH (08:43)
[2021-07-12] MEDS: Nicotine 14 MG/24 Hr Patch TRDERM SCH (08:43)
[2021-07-12] MEDS: guaiFENesin 600 MG Tab.ER PO SCH ×2 (08:43→20:49)
[2021-07-12] MEDS: Zinc Sulfate 220 MG Cap PO SCH (08:43)
[2021-07-12] MEDS: Apixaban 5 MG Tab PO SCH ×2 (08:43→20:49)
[2021-07-12] MEDS: Digoxin 125 MCG Tab PO SCH (08:44)
[2021-07-12] MEDS: Diltiazem 180 MG Cap.CD PO SCH (08:44)
[2021-07-12] MEDS: Metoprolol Tartrate 25 MG Tab PO SCH ×2 (08:44→20:49)
[2021-07-12] MEDS: cefTRIAXone 2 GM in Sodium Chloride 0.9% 100 ML IV SCH (11:08)
[2021-07-12] MEDS ORDERED: Azithromycin 250 MG Tab PO SCH (12:00)
[2021-07-12] MEDS ORDERED: Calcium Carbonate 500 MG Tab.Chew PO PRN (14:31)
[2021-07-12] MEDS: Thiamine 100 MG Tab PO SCH (20:49)
[2021-07-12] MEDS: Simvastatin 10 MG Tab PO SCH (20:49)
[2021-07-13] MEDS: oxyCODONE 5 MG Tab PO PRN (00:19)
[2021-07-13] MEDS: methylPREDNISolone Sodium Succinate 40 MG/1 ML SDV IVPUSH SCH (04:47)
[2021-07-13] MEDS: Pantoprazole 40 MG Tab.CR PO SCH ×2 (04:47→05:36)
[2021-07-13] MEDS: Metoprolol Tartrate 25 MG Tab PO SCH (07:53)
[2021-07-13] MEDS: Nicotine 14 MG/24 Hr Patch TRDERM SCH (08:01)
[2021-07-13] MEDS: Zinc Sulfate 220 MG Cap PO SCH (08:03)
[2021-07-13] MEDS: Cholecalciferol (Vitamin D3) 25 MCG Tab PO SCH (08:03)
[2021-07-13] MEDS: guaiFENesin 600 MG Tab.ER PO SCH (08:03)
[2021-07-13] MEDS: Diltiazem 180 MG Cap.CD PO SCH (08:03)
[2021-07-13] MEDS: Apixaban 5 MG Tab PO SCH (08:04)
[2021-07-13] MEDS: Folic Acid 1 MG Tab PO SCH (08:04)
[2021-07-13] MEDS: Sertraline 50 MG Tab PO SCH (08:04)
[2021-07-13] MEDS: Digoxin 125 MCG Tab PO SCH (08:04)
[2021-07-13] MEDS: Albuterol/Ipratropium 3.0-0.5 MG/3 ML Neb Soln NEB PRN (09:08)
--- NOTE | 2021-07-13 09:09 | PCM.PN ---
- General Info Date of Service: 07/13/21 Admission Dx/Problem (Free Text): Admission Diagnosis/Problem Admission Diagnosis/Problem Hypoxia, acute on chronic respiratory failure associated with COVID-19 pneumonia. - Patient Data Vitals - Most Recent: Last Vital Signs Temp 97.2 F 07/13/21 07:56 Pulse 72 07/13/21 08:04 Resp 20 07/13/21 07:56 BP 114/83 07/13/21 07:56 Pulse Ox 91 L 07/13/21 07:56 Weight - Most Recent: 133 lb I&O - Last 24 Hours: Intake & Output 07/12/21 07/13/21 07/13/21 22:59 06:59 14:59 Intake Total 1260 600 700 Output Total 550 450 Balance 710 600 250 Lab Results Last 24 Hours: Laboratory Results - last 24 hr 07/13/21 07/13/21 Range/Units 05:37 05:37 WBC 5.44 (3.98-10.04) K/mm3 RBC 4.30 (3.98-5.22) M/mm3 Hgb 13.9 (11.2-15.7) gm/dl Hct 42.7 (34.1-44.9) % MCV 99.3 H (79.4-94.8) fl MCH 32.3 H (25.6-32.2) pg MCHC 32.6 (32.2-35.5) g/dl RDW Std Deviation 47.9 H (36.4-46.3) fL Plt Count 243 (182-369) K/mm3 MPV 9.8 (9.4-12.3) fl Neut % (Auto) 88.1 H (34.0-71.1) % Lymph % (Auto) 4.6 L (19.3-51.7) % [place] % (Auto) 6.4 (4.7-12.5) % Eos % (Auto) 0 L (0.7-5.8) Baso % (Auto) 0.2 (0.1-1.2) % Neut # (Auto) 4.79 (1.56-6.13) K/mm3 Lymph # (Auto) 0.25 L (1.18-3.74) K/mm3 [place] # (Auto) 0.35 (0.24-0.36) K/mm3 Eos # (Auto) 0.00 L (0.04-0.36) K/mm3 Baso # (Auto) 0.01 (0.01-0.08) K/mm3 Manual Slide Review Normal smear Sodium 137 (136-145) mEq/L Potassium 4.1 (3.5-5.1) mEq/L Chloride 101 (98-107) mEq/L Carbon Dioxide 31 (21-32) mEq/L Anion Gap 9.1 (5-15) BUN 16 (7-18) mg/dL Creatinine 0.5 L (0.55-1.02) mg/dL Est Cr Clr Drug Dosing 118.25 mL/min Estimated GFR (MDRD) > 60 (>60) mL/min BUN/Creatinine Ratio 32.0 H (14-18) Glucose 104 H (70-99) mg/dL Calcium 8.0 L (8.5-10.1) mg/dL Total Bilirubin 0.3 (0.2-1.0) mg/dL AST 32 (15-37) U/L ALT 65 H (14-59) U/L Alkaline Phosphatase 69 (46-116) U/L Total Protein 5.2 L (6.4-8.2) g/dl Albumin 2.4 L (3.4-5.0) g/dl Globulin 2.8 gm/dL Albumin/Globulin Ratio 0.9 L (1-2) Med Orders - Current: Current Medications Albuterol (Albuterol 6.7 Gm Inhaler) 0 gm INH Q4H PRN PRN Reason: Shortness of Breath Albuterol/Ipratropium (Albuterol/Ipratropium 3.0-0.5 Mg/3 Ml Neb Soln) 3 ml NEB Q4HRRT PRN PRN Reason: Shortness Of Breath/wheezing Last Admin: 07/13/21 09:08 Dose: 3 ml Documented by: Apixaban (Apixaban 5 Mg Tab) 5 mg PO BID [facility] Last Admin: 07/13/21 08:04 Dose: 5 mg Documented by: Azithromycin (Azithromycin 250 Mg Tab) 500 mg PO Q24H [facility] Last Admin: 07/12/21 11:11 Dose: 500 mg Documented by: Benzocaine/Menthol (Benzocaine/Cetylpyridinium/Menthol Lozenge) 1 lozenge MUCMEM Q4H PRN PRN Reason: Sore Throat Last Admin: 07/11/21 16:00 Dose: 1 lozenge Documented by: Benzonatate (Benzonatate 100 Mg Cap) 100 mg PO Q6H PRN PRN Reason: Cough Last Admin: 07/11/21 20:54 Dose: 100 mg Documented by: Calcium Carbonate/Glycine (Calcium Carbonate 500 Mg Tab.Chew) 1,000 mg PO Q2H PRN PRN Reason: Indigestion Last Admin: 07/12/21 14:49 Dose: 1,000 mg Documented by: Cholecalciferol (Cholecalciferol (Vitamin D3) 25 Mcg Tab) 25 mcg PO DAILY [facility] Last Admin: 07/13/21 08:03 Dose: 25 mcg Documented by: Digoxin (Digoxin 125 Mcg Tab) 125 mcg PO DAILY [facility] Last Admin: 07/13/21 08:04 Dose: 125 mcg Documented by: Diltiazem HCl (Diltiazem 180 Mg Cap.Cd) 180 mg PO DAILY [facility] Last Admin: 07/13/21 08:03 Dose: 180 mg Documented by: Docusate Sodium (Docusate Sodium 100 Mg Cap) 100 mg PO BID PRN PRN Reason: Constipation Folic Acid (Folic Acid 1 Mg Tab) 1 mg PO DAILY [facility] Last Admin: 07/13/21 08:04 Dose: 1 mg Documented by: Guaifenesin (Guaifenesin 600 Mg Tab.Er) 600 mg PO BID [facility] Last Admin: 07/13/21 08:03 Dose: 600 mg Documented by: Hydralazine HCl (Hydralazine 20 Mg/Ml Sdv) 10 mg IVPUSH Q4H PRN PRN Reason: Hypertension Promethazine HCl 12.5 mg/ (Sodium Chloride) 50.5 mls @ 100 mls/hr IV Q6H PRN PRN Reason: Nausea/Vomiting Ceftriaxone Sodium 2 gm/ (Sodium Chloride) 100 mls @ 200 mls/hr IV Q24H [facility] Last Admin: 07/12/21 11:08 Dose: 200 mls/hr Documented by: Ibuprofen (Ibuprofen 200 Mg Tab) 200 mg PO Q6H PRN PRN Reason: Pain (mild 1-3) Last Admin: 07/10/21 16:12 Dose: 200 mg Documented by: Lorazepam (Lorazepam 2 Mg/Ml Sdv) 0.5 mg IVPUSH Q4H PRN PRN Reason: Withdrawal Symptoms Last Admin: 07/08/21 22:14 Dose: 0.5 mg Documented by: Melatonin (Melatonin 3 Mg Tab) 6 mg PO BEDTIME PRN PRN Reason: Insomnia Last Admin: 07/11/21 20:56 Dose: 6 mg Documented by: Methylprednisolone Sodium Succinate (Methylprednisolone Sodium Succinate 40 Mg/1 Ml Sdv) 40 mg IVPUSH Q8H [facility] Last Admin: 07/13/21 04:47 Dose: 40 mg Documented by: Metoprolol Tartrate (Metoprolol Tartrate 5 Mg/5 Ml Sdv) 2.5 mg IVPUSH Q1H PRN PRN Reason: Tachycardia Last Admin: 07/07/21 05:09 Dose: 2.5 mg Documented by: Metoprolol Tartrate (Metoprolol Tartrate 25 Mg Tab) 12.5 mg PO Q12H [facility] Last Admin: 07/13/21 07:53 Dose: 12.5 mg Documented by: Mometasone Furoate/Formoterol Fumar (Formoterol/Mometasone 200-5 Mcg 8.8 Gm Inhaler) 2 puff IH BID [facility] Last Admin: 07/12/21 21:17 Dose: 2 puff Documented by: Nicotine (Nicotine 14 Mg/24 Hr Patch) 14 mg TRDERM DAILY [facility] Last Admin: 07/13/21 08:01 Dose: 14 mg Documented by: Oxycodone HCl (Oxycodone 5 Mg Tab) 5 mg PO Q4H PRN PRN Reason: Pain (moderate 4-6) Last Admin: 07/13/21 00:19 Dose: 5 mg Documented by: Pantoprazole Sodium (Pantoprazole 40 Mg Tab.Cr) 40 mg PO ACBREAKFAST [facility] Last Admin: 07/13/21 05:36 Dose: Not Given Documented by: Sertraline HCl (Sertraline 50 Mg Tab) 50 mg PO DAILY [facility] Last Admin: 07/13/21 08:04 Dose: 50 mg Documented by: Simvastatin (Simvastatin 10 Mg Tab) 10 mg PO BEDTIME [facility] Last Admin: 07/12/21 20:49 Dose: 10 mg Documented by: Thiamine HCl (Thiamine 100 Mg Tab) 100 mg PO BEDTIME [facility] Last Admin: 07/12/21 20:49 Dose: 100 mg Documented by: Zinc Sulfate (Zinc Sulfate 220 Mg Cap) 220 mg PO DAILY [facility] Last Admin: 07/13/21 08:03 Dose: 220 mg Documented by: Discontinued Medications Azithromycin (Azithromycin 250 Mg Tab) 500 mg PO Q24H [facility] Last Admin: 07/11/21 12:04 Dose: 500 mg Documented by: Dexamethasone (Dexamethasone 4 Mg Tab) 6 mg PO ONETIME ONE Stop: 07/06/21 11:23 Last Admin: 07/06/21 11:38 Dose: 6 mg Documented by: Dexamethasone (Dexamethasone 4 Mg Tab) 6 mg PO DAILY [facility] Last Admin: 07/08/21 08:05 Dose: 6 mg Documented by: Digoxin (Digoxin 500 Mcg/2 Ml Amp) 125 mcg IVPUSH ONETIME ONE Stop: 07/07/21 08:30 Last Admin: 07/07/21 09:23 Dose: 125 mcg Documented by: Digoxin (Digoxin 500 Mcg/2 Ml Amp) 125 mcg IVPUSH ONETIME ONE Stop: 07/07/21 10:26 Last Admin: 07/07/21 10:53 Dose: 125 mcg Documented by: Diltiazem HCl (Diltiazem 240 Mg Cap.Er) 240 mg PO DAILY [facility] Last Admin: 07/07/21 07:22 Dose: 240 mg Documented by: Furosemide (Furosemide 20 Mg/2 Ml Vial) 20 mg IVPUSH ONETIME ONE Stop: 07/06/21 15:01 Last Admin: 07/06/21 18:07 Dose: Not Given Documented by: Furosemide (Furosemide 20 Mg/2 Ml Vial) 20 mg IVPUSH ONETIME ONE Stop: 07/06/21 18:01 Last Admin: 07/06/21 18:06 Dose: 20 mg Documented by: Sodium Chloride (Normal Saline) 1,000 mls @ 500 mls/hr IV ONETIME ONE Stop: 07/06/21 13:19 Last Admin: 07/06/21 11:38 Dose: 500 mls/hr Documented by: Remdesivir 200 mg/ Sodium (Chloride) 250 mls @ 250 mls/hr IV ONETIME ONE Stop: 07/06/21 12:47 Last Admin: 07/06/21 12:54 Dose: 250 mls/hr Documented by: Azithromycin 500 mg/ Sodium (Chloride) 250 mls @ 250 mls/hr IV ONETIME ONE Stop: 07/06/21 12:48 Last Admin: 07/06/21 12:50 Dose: 250 mls/hr Documented by: Ceftriaxone Sodium 2 gm/ (Sodium Chloride) 100 mls @ 200 mls/hr IV ONETIME ONE Stop: 07/06/21 12:18 Last Admin: 07/06/21 12:08 Dose: 200 mls/hr Documented by: Remdesivir 100 mg/ Sodium (Chloride) 100 mls @ 100 mls/hr IV Q24H [facility] Stop: 07/10/21 11:59 Last Admin: 07/10/21 11:48 Dose: 100 mls/hr Documented by: Sodium Chloride (Normal Saline) 250 mls @ 999 mls/hr IV .BOLUS ONE Stop: 07/07/21 06:37 Last Admin: 07/07/21 06:35 Dose: 999 mls/hr Documented by: Sodium Chloride (Normal Saline) Confirm Administered Dose 1,000 mls @ as directed .ROUTE .STK-MED ONE Stop: 07/07/21 06:29 Last Admin: 07/07/21 07:16 Dose: Not Given Documented by: Sodium Chloride (Normal Saline) 250 mls @ 500 mls/hr IV ONETIME ONE Stop: 07/07/21 09:00 Last Admin: 07/07/21 09:35 Dose: 500 mls/hr Documented by: Lactulose (Lactulose Soln 10 Gm/15 Ml 30 Ml Ud Cup) 20 gm PO DAILY [facility] Last Admin: 07/09/21 08:38 Dose: 20 gm Documented by: Methylprednisolone Sodium Succinate (Methylprednisolone Sodium Succinate 40 Mg/1 Ml Sdv) 40 mg IVPUSH Q8H [facility] Last Admin: 07/08/21 12:08 Dose: 40 mg Documented by: Morphine Sulfate (Morphine 2 Mg/Ml Syringe) 2 mg IVPUSH Q4H PRN PRN Reason: Pain (severe 7-10) Stop: 07/07/21 14:29 Sodium Polystyrene Sulfonate (Sodium Polystyrene Sulfonate 15 Gm/60 Ml Susp 60 Ml Bot) 15 gm PO ONETIME ONE Stop: 07/06/21 15:01 Last Admin: 07/06/21 18:07 Dose: Not Given Documented by: Sodium Polystyrene Sulfonate (Sodium Polystyrene Sulfonate 15 Gm/60 Ml Susp 60 Ml Bot) 15 gm PO ONETIME ONE Stop: 07/06/21 18:01 Last Admin: 07/06/21 18:07 Dose: 15 gm Documented by: - Patient Data Lab Results Last 24 hrs: Laboratory Results - last 24 hr 07/13/21 07/13/21 Range/Units 05:37 05:37 WBC 5.44 (3.98-10.04) K/mm3 RBC 4.30 (3.98-5.22) M/mm3 Hgb 13.9 (11.2-15.7) gm/dl Hct 42.7 (34.1-44.9) % MCV 99.3 H (79.4-94.8) fl MCH 32.3 H (25.6-32.2) pg MCHC 32.6 (32.2-35.5) g/dl RDW Std Deviation 47.9 H (36.4-46.3) fL Plt Count 243 (182-369) K/mm3 MPV 9.8 (9.4-12.3) fl Neut % (Auto) 88.1 H (34.0-71.1) % Lymph % (Auto) 4.6 L (19.3-51.7) % [place] % (Auto) 6.4 (4.7-12.5) % Eos % (Auto) 0 L (0.7-5.8) Baso % (Auto) 0.2 (0.1-1.2) % Neut # (Auto) 4.79 (1.56-6.13) K/mm3 Lymph # (Auto) 0.25 L (1.18-3.74) K/mm3 [place] # (Auto) 0.35 (0.24-0.36) K/mm3 Eos # (Auto) 0.00 L (0.04-0.36) K/mm3 Baso # (Auto) 0.01 (0.01-0.08) K/mm3 Manual Slide Review Normal smear Sodium 137 (136-145) mEq/L Potassium 4.1 (3.5-5.1) mEq/L Chloride 101 (98-107) mEq/L Carbon Dioxide 31 (21-32) mEq/L Anion Gap 9.1 (5-15) BUN 16 (7-18) mg/dL Creatinine 0.5 L (0.55-1.02) mg/dL Est Cr Clr Drug Dosing 118.25 mL/min Estimated GFR (MDRD) > 60 (>60) mL/min BUN/Creatinine Ratio 32.0 H (14-18) Glucose 104 H (70-99) mg/dL Calcium 8.0 L (8.5-10.1) mg/dL Total Bilirubin 0.3 (0.2-1.0) mg/dL AST 32 (15-37) U/L ALT 65 H (14-59) U/L Alkaline Phosphatase 69 (46-116) U/L Total Protein 5.2 L (6.4-8.2) g/dl Albumin 2.4 L (3.4-5.0) g/dl Globulin 2.8 gm/dL Albumin/Globulin Ratio 0.9 L (1-2) Result Diagrams: 07/13/21 05:37 07/13/21 05:37 Sepsis Event Note - Evaluation Sepsis Screening Result: No Definite Risk - Focused Exam Vital Signs: Vital Signs Temp Pulse Pulse Resp BP BP BP 07/13/21 08:04 72 07/13/21 07:56 97.2 F 70 20 114/83 07/13/21 07:53 84 114/83 07/13/21 06:36 07/13/21 04:50 97.6 F 60 22 H 122/82 07/12/21 21:18 Pulse Ox Pulse Ox 07/13/21 08:04 07/13/21 07:56 91 L 07/13/21 07:53 07/13/21 06:36 91 L 07/13/21 04:50 94 L 07/12/21 21:18 92 L - My Orders Last 24 Hours: My Active Orders 07/13/21 08:17 Oxygen Therapy [RC] ASDIRECTED - Assessment Assessment:: The patient is a 55-year-old lady who will remain in ICU due to her oxygen flow. The patient has a chest x-ray which does show consolidation in the left lower lobe. The patient will be continued on antibiotics for the treatment of pneumonia. The patient has been on ceftriaxone 2 g IV daily. The patient is also on apixaban and therefore will not need to have DVT prophylaxis. The patient will have regular diet as tolerated. Repeat laboratory studies have been ordered for the morning. Patient should be appropriate for discharge in 1 to 2 days. - Plan Plan:: Patient is a 55-year-old female with a history of COPD, CHF, hypertension, atrial fibrillation, current smoker, and daily alcohol user who presented to the ER due to worsening shortness of breath x 3 days. She had a positive COVID-19 test on July 03. Acute on chronic hypoxic respiratory failure Etiologies include COPD, CHF, pneumonia Patient is on home oxygen 4 L Pulse ox Oxygen therapy, high flow/BiPAP as needed to keep oxygen saturation greater than 88-90% Covid 19 pneumonia X-ray showed diffuse increased density within the left mid and lower chest; minimal density within the right lower base Blood culture no growth so far Sputum culture Ceftriaxone and azithromycin 5-day course of remdesivir Discontinued dexamethasone today. Considering Covid 19 pneumonia in the setting of COPD, I initiated Solu-Medrol 40 mg every 8 hours today Continue Eliquis 5 mg twice daily Inhalers Procalcitonin 0.11 Repeat CBC, CMP, CRP in morning COPD Inhalers CHF Unknown type BNP 525 Troponin negative Home medications include Lasix 20 mg daily which is on hold. Blood pressure is soft Seems to be euvolemic status Intake and output Low-sodium diet Atrial fibrillaiton Heart rate is controlled decreased diltiazem to 180mg daily from 240 mg daily and added metoprolol 12.5mg bid. Digoxin 0.125mg iv push x 2 yesterday Digoxin 0.125mg po daily Added metoprolol 12.5 mg twice daily Metoprolol 2.5 mg IV push as needed Continue Eliquis 5 mg twice daily Daily alchohol drinker Elevation of liver enzymes, AST 77, ALT 41, TB 0.2, al phos 67 on admission CIWA protocol Ativan 0.5 mg every 4 hours as needed Thiamine and folic acid US abdomen -poorly distended gallbladder with no shadowing gallstones or gallbladder wall thickening. Thrombocytopenia Platelets 105 on admission No bleeding Repeat CBC Elevation of D-dimer, 0.53 Continue Eliquis Hyperkalemia, resolved 5.2 on admission Lasix 20 mg IV x 1 Kayexalate 15 g x 1 Repeat potassium Tobacco use disorder Counseling Nicotine patch if necessary DVT prophylaxis: Eliquis CODE STATUS: Full Disposition: Next week 07/09/2021 The patient is a 55-year-old lady who is doing somewhat better today. She does have radiographic evidence of left-sided pneumonia due to COVID-19. Patient's antibiotics will be continued. She is also on steroids and the patient's steroi ds will be continued and she will continue these likely upon discharge. The patient will also have her completion of remdesivir tomorrow. Repeat laboratory studies have been ordered for the patient. She has been encouraged to ambulate. The patient will also be given nicotine patches on discharge. She should likely be appropriate for discharge in 1 to 2 days. 07/11/2021 The patient is a 55-year-old lady who has been somewhat slow to recover in terms of her oxygen demands. The patient is currently on a azithromycin 500 mg IV every 24 hours as well as ceftriaxone 2 g IV every 24 hours for superimposed pneumonia. The patient does have atrial fibrillation and she is on apixaban presently. Her rate has been controlled with the use of digoxin. She will remain on telemetry. Repeat laboratory testings have been ordered for the morning. The patient should be appropriate for discharge once her vital signs had stabilized and her oxygen requirements have improved to her baseline 4 L of oxygen. 07/12/2021 The patient is a 55-year-old lady who has been slow to recover likely due to her underlying COPD. The patient has required high flow oxygen at 50% FiO2 and will remain in ICU for now. The patient is also on antibiotics consisting of ceftriaxone 2 g every 24 hours for possible superimposed pneumonia. She is anticoagulated with the use of apixaban due to her atrial fibrillation. Patient's rate has been controlled with the use of digoxin. Repeat digoxin levels. She is on telemetry and will remain so. I have ordered repeat laboratory studies. The patient will have her regular diet as tolerated. She has been encouraged to ambulate. I have ordered a repeat chest x-ray for the morning. The patient is still a smoker and she has nicotine patches available. I told the patient that she must stop smoking. Long-term the patient will need to stop smoking in order to retain some lung function. I have also ordered PT OT as the patient has been in hospitalization and has been deconditioned. She should be appropriate for discharge once her oxygen saturations have improved to her base line of 4 L/min via nasal cannula.
[2021-07-13] MEDS: Formoterol/Mometasone 200-5 MCG 8.8 GM Inhaler IH SCH (09:12)
--- NOTE | 2021-07-13 15:49 | PCM.DCSUM1 ---
Discharge Summary - Hospital Course HPI Initial Comments: Patient is a 55-year-old female with a history of COPD, CHF, hypertension, atrial fibrillation, current smoker, and daily alcohol user who presented to the ER due to worsening shortness of breath x 3 days. Patient presented to the ER on July 03 due to atrial fibrillation with RVR when patient had a positive Covid test. Normally patient is on 4 L oxygen at home. Today patient needs a more oxygen, 6 L. She has a worsening shortness of breath and decreased appetite. She also has watery diarrhea today, nausea and vomiting. Patient denies smoking but [place] her chart that she has been continuing to smoke. She also drinks 5 alcoholic drinks per night. In the ER, she was found to have low oxygen desaturation. Chest x-ray showed bilateral pneumonia. Assessment/Plan Comment:: Patient is a 55-year-old female with a history of COPD, CHF, hypertension, atrial fibrillation, current smoker, and daily alcohol user who presented to the ER due to worsening shortness of breath x 3 days. She had a positive COVID-19 test on July 03. Acute on chronic hypoxic respiratory failure Etiologies include COPD, CHF, pneumonia Patient is on home oxygen 4 L Pulse ox Oxygen therapy, high flow/BiPAP as needed to keep oxygen saturation greater than 88-90% Covid 19 pneumonia X-ray showed diffuse increased density within the left mid and lower chest; minimal density within the right lower base Blood culture Sputum culture Ceftriaxone and azithromycin 5-day course of remdesivir 10-day course of dexamethasone Continue Eliquis 5 mg twice daily Inhalers Repeat CBC, CMP, CRP in morning COPD Inhalers CHF Unknown type BNP 525 Troponin negative Home medications include Lasix 20 mg daily which is on hold Seems to be euvolemic status Intake and output Low-sodium diet Atrial fibrillaiton Heart rate controlled Continue diltiazem to 40 mg daily Metoprolol 12.5 mg IV push as needed Continue Eliquis 5 mg twice daily Daily alchohol drinker Elevation of liver enzymes, AST 77, ALT 41, TB 0.2, al phos 67 CIWA protocol Ativan 0.5 mg every 4 hours as needed Thiamine and folic acid US abdomen Thrombocytopenia Platelets 105 on admission No bleeding Repeat CBC Elevation of D-dimer, 0.53 Continue Eliquis Hyperkalemia, 5.2 Lasix 20 mg IV x 1 Kayexalate 15 g x 1 Repeat potassium Tobacco use disorder Counseling Nicotine patch if necessary DVT prophylaxis: Eliquis CODE STATUS: Full Disposition: Greater than 2 midnights - Mortality Measure Prognosis:: Poor Diagnosis: Stroke: No - Discharge Data Discharge Date: 07/13/21 Discharge Disposition: Home, Self-Care 01 Condition: Good - Referral to Home Health Primary Care Physician: PCP None - Patient Summary/Data Hospital Course: Patient was admitted and placed on BiPAP. She had sustained atrial fibrillation with RVR requiring an addition of digoxin 0.125 mg IV push x2+ daily. Also her Cardizem CD was decreased to 180 mg from 240. In addition of metoprolol tartrate 12.5 mg twice daily was started. Patient's rate did improve and at discharge was in the 70s and 80s. Patient does request to stop smoking would like a nicotine patch. That will be ordered on discharge. At home she is on 4 L nasal cannula and today she is back to her home rate. She states that she often does not wear it during the day and she is fine with oxygen saturations in the upper 70s and low 80s. This was explained to her that hypoxemia can increa se organ dysfunction. For Covid pneumonia she was treated with ceftriaxone, azithromycin, remdesivir, and switched from dexamethasone to Solu-Medrol. Patient was treated on high flow nasal cannula and this morning was weaned down to 4 L. - Patient Instructions Diet: Heart Healthy Diet Driving: May Drive Today Showering/Bathing: May Shower Notify Provider of: Fever (Increasing shortness of breath or worsening hypoxemia), Nausea and/or Vomiting Other/Special Instructions: Follow-up with your primary care provider within 1 week. If oxygen saturations drop below 87% please contact your primary care or the emergency department. You will need blood levels of digoxin within a week. - Discharge Plan *PRESCRIPTION DRUG MONITORING PROGRAM REVIEWED*: No *COPY OF PRESCRIPTION DRUG MONITORING REPORT IN PATIENT HENRY: No Prescriptions/Med Rec: dilTIAZem HCL [Cardizem Cd] 180 mg PO DAILY #30 cap.er.24h Albuterol/Ipratropium [DuoNeb 3.0-0.5 MG/3 ML] 3 ml NEB Q4HRRT PRN #100 neb PRN Reason: Shortness Of Breath/wheezing Nicotine [Habitrol] 14 mg TRDERM DAILY #30 patch Digoxin [Lanoxin] 125 mcg PO DAILY #30 tablet Metoprolol Tartrate [Lopressor] 12.5 mg PO Q12H #15 tablet methylPREDNISolone [Medrol] 4 mg PO ASDIRECTED #1 dosepk Home Medications: Home Meds Albuterol Sulfate [Albuterol Sulfate Hfa] 2 puff INH Q4HR PRN 12/01/19 [History] Sertraline [Zoloft] 50 mg PO DAILY 12/01/19 [History] Simvastatin 10 mg PO BEDTIME 12/01/19 [History] Apixaban [Eliquis] 5 mg PO BID 11/08/20 [History] Budesonide/Formoterol [Symbicort 160-4.5 MCG] 1 puff INH BID 11/08/20 [History] Lactulose 20 gm PO DAILY #900 ml 12/01/20 [Rx] Spironolactone [Aldactone] 25 mg PO BID #60 tab 12/01/20 [Rx] Albuterol/Ipratropium [DuoNeb 3.0-0.5 MG/3 ML] 3 ml NEB Q4HRRT PRN #100 neb 07/13/21 [Rx] Digoxin [Lanoxin] 125 mcg PO DAILY #30 tablet 07/13/21 [Rx] Metoprolol Tartrate [Lopressor] 12.5 mg PO Q12H #15 tablet 07/13/21 [Rx] Nicotine [Habitrol] 14 mg TRDERM DAILY #30 patch 07/13/21 [Rx] dilTIAZem HCL [Cardizem Cd] 180 mg PO DAILY #30 cap.er.24h 07/13/21 [Rx] methylPREDNISolone [Medrol] 4 mg PO ASDIRECTED #1 dosepk 07/13/21 [Rx] Oxygen Flow Rate (L/min): 4 Maintain SpO2% greater than: 87 Patient Handouts: Chronic Obstructive Pulmonary Disease Exacerbation, [id number], COVID-19 Frequently Asked Questions, COVID-19, 10 Things You Can Do to Manage Your COVID-19 Symptoms at Home - [facility] (04/30/2021), Home Oxygen Use, Adult, Living With Heart Failure, Steps to Quit Smoking, Heart Failure Eating Plan Forms: ED Department Discharge Referrals: Tanja Raymundo NP [Nurse Practitioner] - 07/20/21 9:30 am (Pllease arrive by 9:10 am to register) - Discharge Summary/Plan Comment DC Time >30 min.: Yes Total # of Minutes for Discharge Time: Total time 45 minutes to see the patient, evaluated patient, to discharge medications, and discharge order. - General Info Date of Service: 07/13/21 Subjective Update: The patient is a 55-year-old lady who is admitted to ICU on July 06, 2021 due to hypoxia associated with COVID-19 pneumonia. The patient completed 5 days of remdesivir and 10 days worth of dexamethasone. The patient is on 4 L nasal cannula which is her baseline right at home. Patient is anxious to get home and states she is feeling much better. Oxygen saturations are in the low 90s on 4 L. Functional Status: Reports: Pain Controlled - Review of Systems General: Reports: No Symptoms HEENT: Reports: No Symptoms Pulmonary: Reports: No Symptoms Cardiovascular: Reports: No Symptoms Gastrointestinal: Reports: No Symptoms - Patient Data Vitals - Most Recent: Last Vital Signs Temp 97.2 F 07/13/21 07:56 Pulse 72 07/13/21 08:04 Resp 20 07/13/21 07:56 BP 114/83 07/13/21 07:56 Pulse Ox 93 L 07/13/21 09:08 Weight - Most Recent: 133 lb I&O - Last 24 hours: Intake & Output 07/13/21 07/13/21 07/13/21 06:59 14:59 22:59 Intake Total 600 700 Output Total 450 Balance 600 250 Lab Results - Last 24 hrs: Laboratory Results - last 24 hr 07/13/21 07/13/21 Range/Units 05:37 05:37 WBC 5.44 (3.98-10.04) K/mm3 RBC 4.30 (3.98-5.22) M/mm3 Hgb 13.9 (11.2-15.7) gm/dl Hct 42.7 (34.1-44.9) % MCV 99.3 H (79.4-94.8) fl MCH 32.3 H (25.6-32.2) pg MCHC 32.6 (32.2-35.5) g/dl RDW Std Deviation 47.9 H (36.4-46.3) fL Plt Count 243 (182-369) K/mm3 MPV 9.8 (9.4-12.3) fl Neut % (Auto) 88.1 H (34.0-71.1) % Lymph % (Auto) 4.6 L (19.3-51.7) % [place] % (Auto) 6.4 (4.7-12.5) % Eos % (Auto) 0 L (0.7-5.8) Baso % (Auto) 0.2 (0.1-1.2) % Neut # (Auto) 4.79 (1.56-6.13) K/mm3 Lymph # (Auto) 0.25 L (1.18-3.74) K/mm3 [place] # (Auto) 0.35 (0.24-0.36) K/mm3 Eos # (Auto) 0.00 L (0.04-0.36) K/mm3 Baso # (Auto) 0.01 (0.01-0.08) K/mm3 Manual Slide Review Normal smear Sodium 137 (136-145) mEq/L Potassium 4.1 (3.5-5.1) mEq/L Chloride 101 (98-107) mEq/L Carbon Dioxide 31 (21-32) mEq/L Anion Gap 9.1 (5-15) BUN 16 (7-18) mg/dL Creatinine 0.5 L (0.55-1.02) mg/dL Est Cr Clr Drug Dosing 118.25 mL/min Estimated GFR (MDRD) > 60 (>60) mL/min BUN/Creatinine Ratio 32.0 H (14-18) Glucose 104 H (70-99) mg/dL Calcium 8.0 L (8.5-10.1) mg/dL Total Bilirubin 0.3 (0.2-1.0) mg/dL AST 32 (15-37) U/L ALT 65 H (14-59) U/L Alkaline Phosphatase 69 (46-116) U/L Total Protein 5.2 L (6.4-8.2) g/dl Albumin 2.4 L (3.4-5.0) g/dl Globulin 2.8 gm/dL Albumin/Globulin Ratio 0.9 L (1-2) Med Orders - Current: Current Medications Albuterol (Albuterol 6.7 Gm Inhaler) 0 gm INH Q4H PRN PRN Reason: Shortness of Breath Albuterol/Ipratropium (Albuterol/Ipratropium 3.0-0.5 Mg/3 Ml Neb Soln) 3 ml NEB Q4HRRT PRN PRN Reason: Shortness Of Breath/wheezing Last Admin: 07/13/21 09:08 Dose: 3 ml Documented by: Apixaban (Apixaban 5 Mg Tab) 5 mg PO BID [facility] Last Admin: 07/13/21 08:04 Dose: 5 mg Documented by: Benzocaine/Menthol (Benzocaine/Cetylpyridinium/Menthol Lozenge) 1 lozenge MUCMEM Q4H PRN PRN Reason: Sore Throat Last Admin: 07/11/21 16:00 Dose: 1 lozenge Documented by: Benzonatate (Benzonatate 100 Mg Cap) 100 mg PO Q6H PRN PRN Reason: Cough Last Admin: 07/11/21 20:54 Dose: 100 mg Documented by: Calcium Carbonate/Glycine (Calcium Carbonate 500 Mg Tab.Chew) 1,000 mg PO Q2H PRN PRN Reason: Indigestion Last Admin: 07/12/21 14:49 Dose: 1,000 mg Documented by: Cholecalciferol (Cholecalciferol (Vitamin D3) 25 Mcg Tab) 25 mcg PO DAILY [facility] Last Admin: 07/13/21 08:03 Dose: 25 mcg Documented by: Digoxin (Digoxin 125 Mcg Tab) 125 mcg PO DAILY [facility] Last Admin: 07/13/21 08:04 Dose: 125 mcg Documented by: Diltiazem HCl (Diltiazem 180 Mg Cap.Cd) 180 mg PO DAILY [facility] Last Admin: 07/13/21 08:03 Dose: 180 mg Documented by: Docusate Sodium (Docusate Sodium 100 Mg Cap) 100 mg PO BID PRN PRN Reason: Constipation Folic Acid (Folic Acid 1 Mg Tab) 1 mg PO DAILY [facility] Last Admin: 07/13/21 08:04 Dose: 1 mg Documented by: Guaifenesin (Guaifenesin 600 Mg Tab.Er) 600 mg PO BID [facility] Last Admin: 07/13/21 08:03 Dose: 600 mg Documented by: Hydralazine HCl (Hydralazine 20 Mg/Ml Sdv) 10 mg IVPUSH Q4H PRN PRN Reason: Hypertension Promethazine HCl 12.5 mg/ (Sodium Chloride) 50.5 mls @ 100 mls/hr IV Q6H PRN PRN Reason: Nausea/Vomiting Ibuprofen (Ibuprofen 200 Mg Tab) 200 mg PO Q6H PRN PRN Reason: Pain (mild 1-3) Last Admin: 07/10/21 16:12 Dose: 200 mg Documented by: Lorazepam (Lorazepam 2 Mg/Ml Sdv) 0.5 mg IVPUSH Q4H PRN PRN Reason: Withdrawal Symptoms Last Admin: 07/08/21 22:14 Dose: 0.5 mg Documented by: Melatonin (Melatonin 3 Mg Tab) 6 mg PO BEDTIME PRN PRN Reason: Insomnia Last Admin: 07/11/21 20:56 Dose: 6 mg Documented by: Methylprednisolone Sodium Succinate (Methylprednisolone Sodium Succinate 40 Mg/1 Ml Sdv) 40 mg IVPUSH Q12H [facility] Metoprolol Tartrate (Metoprolol Tartrate 5 Mg/5 Ml Sdv) 2.5 mg IVPUSH Q1H PRN PRN Reason: Tachycardia Last Admin: 07/07/21 05:09 Dose: 2.5 mg Documented by: Metoprolol Tartrate (Metoprolol Tartrate 25 Mg Tab) 12.5 mg PO Q12H [facility] Last Admin: 07/13/21 07:53 Dose: 12.5 mg Documented by: Mometasone Furoate/Formoterol Fumar (Formoterol/Mometasone 200-5 Mcg 8.8 Gm Inhaler) 2 puff IH BID [facility] Last Admin: 07/13/21 09:12 Dose: 2 puff Documented by: Nicotine (Nicotine 14 Mg/24 Hr Patch) 14 mg TRDERM DAILY [facility] Last Admin: 07/13/21 08:01 Dose: 14 mg Documented by: Oxycodone HCl (Oxycodone 5 Mg Tab) 5 mg PO Q4H PRN PRN Reason: Pain (moderate 4-6) Last Admin: 07/13/21 00:19 Dose: 5 mg Documented by: Pantoprazole Sodium (Pantoprazole 40 Mg Tab.Cr) 40 mg PO ACBREAKFAST [facility] Last Admin: 07/13/21 05:36 Dose: Not Given Documented by: Sertraline HCl (Sertraline 50 Mg Tab) 50 mg PO DAILY [facility] Last Admin: 07/13/21 08:04 Dose: 50 mg Documented by: Simvastatin (Simvastatin 10 Mg Tab) 10 mg PO BEDTIME [facility] Last Admin: 07/12/21 20:49 Dose: 10 mg Documented by: Thiamine HCl (Thiamine 100 Mg Tab) 100 mg PO BEDTIME [facility] Last Admin: 07/12/21 20:49 Dose: 100 mg Documented by: Zinc Sulfate (Zinc Sulfate 220 Mg Cap) 220 mg PO DAILY [facility] Last Admin: 07/13/21 08:03 Dose: 220 mg Documented by: Discontinued Medications Azithromycin (Azithromycin 250 Mg Tab) 500 mg PO Q24H [facility] Last Admin: 07/11/21 12:04 Dose: 500 mg Documented by: Azithromycin (Azithromycin 250 Mg Tab) 500 mg PO Q24H [facility] Last Admin: 07/12/21 11:11 Dose: 500 mg Documented by: Dexamethasone (Dexamethasone 4 Mg Tab) 6 mg PO ONETIME ONE Stop: 07/06/21 11:23 Last Admin: 07/06/21 11:38 Dose: 6 mg Documented by: Dexamethasone (Dexamethasone 4 Mg Tab) 6 mg PO DAILY [facility] Last Admin: 07/08/21 08:05 Dose: 6 mg Documented by: Digoxin (Digoxin 500 Mcg/2 Ml Amp) 125 mcg IVPUSH ONETIME ONE Stop: 07/07/21 08:30 Last Admin: 07/07/21 09:23 Dose: 125 mcg Documented by: Digoxin (Digoxin 500 Mcg/2 Ml Amp) 125 mcg IVPUSH ONETIME ONE Stop: 07/07/21 10:26 Last Admin: 07/07/21 10:53 Dose: 125 mcg Documented by: Diltiazem HCl (Diltiazem 240 Mg Cap.Er) 240 mg PO DAILY [facility] Last Admin: 07/07/21 07:22 Dose: 240 mg Documented by: Furosemide (Furosemide 20 Mg/2 Ml Vial) 20 mg IVPUSH ONETIME ONE Stop: 07/06/21 15:01 Last Admin: 07/06/21 18:07 Dose: Not Given Documented by: Furosemide (Furosemide 20 Mg/2 Ml Vial) 20 mg IVPUSH ONETIME ONE Stop: 07/06/21 18:01 Last Admin: 07/06/21 18:06 Dose: 20 mg Documented by: Sodium Chloride (Normal Saline) 1,000 mls @ 500 mls/hr IV ONETIME ONE Stop: 07/06/21 13:19 Last Admin: 07/06/21 11:38 Dose: 500 mls/hr Documented by: Remdesivir 200 mg/ Sodium (Chloride) 250 mls @ 250 mls/hr IV ONETIME ONE Stop: 07/06/21 12:47 Last Admin: 07/06/21 12:54 Dose: 250 mls/hr Documented by: Azithromycin 500 mg/ Sodium (Chloride) 250 mls @ 250 mls/hr IV ONETIME ONE Stop: 07/06/21 12:48 Last Admin: 07/06/21 12:50 Dose: 250 mls/hr Documented by: Ceftriaxone Sodium 2 gm/ (Sodium Chloride) 100 mls @ 200 mls/hr IV ONETIME ONE Stop: 07/06/21 12:18 Last Admin: 07/06/21 12:08 Dose: 200 mls/hr Documented by: Remdesivir 100 mg/ Sodium (Chloride) 100 mls @ 100 mls/hr IV Q24H [facility] Stop: 07/10/21 11:59 Last Admin: 07/10/21 11:48 Dose: 100 mls/hr Documented by: Ceftriaxone Sodium 2 gm/ (Sodium Chloride) 100 mls @ 200 mls/hr IV Q24H [facility] Last Admin: 07/12/21 11:08 Dose: 200 mls/hr Documented by: Sodium Chloride (Normal Saline) 250 mls @ 999 mls/hr IV .BOLUS ONE Stop: 07/07/21 06:37 Last Admin: 07/07/21 06:35 Dose: 999 mls/hr Documented by: Sodium Chloride (Normal Saline) Confirm Administered Dose 1,000 mls @ as directed .ROUTE .STK-MED ONE Stop: 07/07/21 06:29 Last Admin: 07/07/21 07:16 Dose: Not Given Documented by: Sodium Chloride (Normal Saline) 250 mls @ 500 mls/hr IV ONETIME ONE Stop: 07/07/21 09:00 Last Admin: 07/07/21 09:35 Dose: 500 mls/hr Documented by: Lactulose (Lactulose Soln 10 Gm/15 Ml 30 Ml Ud Cup) 20 gm PO DAILY [facility] Last Admin: 07/09/21 08:38 Dose: 20 gm Documented by: Methylprednisolone Sodium Succinate (Methylprednisolone Sodium Succinate 40 Mg/1 Ml Sdv) 40 mg IVPUSH Q8H [facility] Last Admin: 07/08/21 12:08 Dose: 40 mg Documented by: Methylprednisolone Sodium Succinate (Methylprednisolone Sodium Succinate 40 Mg/1 Ml Sdv) 40 mg IVPUSH Q8H [facility] Last Admin: 07/13/21 04:47 Dose: 40 mg Documented by: Morphine Sulfate (Morphine 2 Mg/Ml Syringe) 2 mg IVPUSH Q4H PRN PRN Reason: Pain (severe 7-10) Stop: 07/07/21 14:29 Sodium Polystyrene Sulfonate (Sodium Polystyrene Sulfonate 15 Gm/60 Ml Susp 60 Ml Bot) 15 gm PO ONETIME ONE Stop: 07/06/21 15:01 Last Admin: 07/06/21 18:07 Dose: Not Given Documented by: Sodium Polystyrene Sulfonate (Sodium Polystyrene Sulfonate 15 Gm/60 Ml Susp 60 Ml Bot) 15 gm PO ONETIME ONE Stop: 07/06/21 18:01 Last Admin: 07/06/21 18:07 Dose: 15 gm Documented by: - Exam Quality Assessment: Reports: Supplemental Oxygen General: Reports: Alert, Oriented HEENT: Reports: Pupils Equal, Mucous Membr. Moist/[place]: Reports: Supple Lungs: Reports: Normal Respiratory Effort, Decreased Breath Sounds, Wheezing (Throughout but worse in the left lower lung field) Cardiovascular: Reports: Irregular Rhythm (Rate and rhythm) GI/Abdominal Exam: Normal Bowel Sounds, Soft, Non-Tender, No Distention Extremities: Normal Inspection, Normal Range of Motion, No Pedal Edema, Normal Capillary Refill Psy/Mental Status: Reports: Alert, Normal Affect, Normal Mood
[2021-07-13 16:47] VITALS: BP 132/79; PULSE 78
[2021-07-13] MEDS ORDERED: methylPREDNISolone Sodium Succinate 40 MG/1 ML SDV IVPUSH SCH (21:00)
== END 2021-07-13 16:20 | disposition home or self-care (01) | DRG 137 ==
LOC: JD.ED 09:49 → JD.ICU 11:50
PROVIDERS: ADMIT Internal Medicine; ATTEND Internal Medicine
PROC: 8E0ZXY6 Isolation (ICD-10-PCS; principal; 2021-07-06)
PROC: XW033E5 Introduction of Remdesivir Anti-infective into Peripheral Vein, Percutaneous Approach, New Technology Group 5 (ICD-10-PCS; 2021-07-06)
PROC: 3E0DX3Z Introduction of Anti-inflammatory into Mouth and Pharynx, External Approach (ICD-10-PCS; 2021-07-06)
PROC: 5A0955A Assistance with Respiratory Ventilation, Greater than 96 Consecutive Hours, High Flow/Velocity Cannula (ICD-10-PCS; 2021-07-06)
DX: U07.1 COVID-19 (principal); J12.82 Pneumonia due to coronavirus disease 2019; J96.21 Acute and chronic respiratory failure with hypoxia; D69.6 Thrombocytopenia, unspecified; E87.5 Hyperkalemia; H54.7 Unspecified visual loss; E78.00 Pure hypercholesterolemia, unspecified; I11.0 Hypertensive heart disease with heart failure; J44.0 Chronic obstructive pulmonary disease with (acute) lower respiratory infection; G47.30 Sleep apnea, unspecified; K21.9 Gastro-esophageal reflux disease without esophagitis; F41.9 Anxiety disorder, unspecified; F32.9 Major depressive disorder, single episode, unspecified; F42.9 Obsessive-compulsive disorder, unspecified; F17.200 Nicotine dependence, unspecified, uncomplicated; I50.9 Heart failure, unspecified; I48.91 Unspecified atrial fibrillation; F10.20 Alcohol dependence, uncomplicated; E87.1 Hypo-osmolality and hyponatremia; Z99.81 Dependence on supplemental oxygen; Z88.5 Allergy status to narcotic agent; Z79.899 Other long term (current) drug therapy
CPT/HCPCS: 36415; 36600; 71045; 71045-26; 76700; 76700-26; 80048; 80053; 80076; 80162; 82728; 82803; 83605; 83615; 83735; 83880; 84145; 84484; 85025; 85379; 85610; 85730; 86140; 87040; 93005; 93010; 94640; 94660; 94667; 94668; 94762; 99285; 99285-25; A9270-GY; J0456; J0696; J1160; J1940; J2060; J2920; J3490; J7030; J7050; J7620-GY; J8540

== ENCOUNTER 2021-12-01 11:13 | Inpatient (IN) | payer BC ==
[2021-12-01] MEDS ORDERED: Sodium Chloride 0.9% 10 ML Syringe FLUSH PRN (11:53)
[2021-12-01] MEDS ORDERED: Albuterol 0.083% 2.5 MG/3 ML Neb Soln NEB ONE (11:54)
[2021-12-01 13:08] LABS: CORONAVIRUS COVID-19 NAA NEGATIVE (NEGATIVE)
[2021-12-01] MEDS ORDERED: methylPREDNISolone Sodium Succinate 125 MG/2 ML SDV IVPUSH ONE (13:36)
[2021-12-01] MEDS ORDERED: Albuterol 6.7 GM Inhaler INH PRN (17:58)
[2021-12-01] MEDS ORDERED: cefTRIAXone 1 GM in Sodium Chloride 0.9% 100 ML IV SCH (18:00)
[2021-12-01] MEDS: Albuterol/Ipratropium 3.0-0.5 MG/3 ML Neb Soln NEB PRN (18:16)
[2021-12-01] MEDS ORDERED: Nicotine 21 MG/24 Hr Patch TRDERM SCH (18:30)
[2021-12-01] MEDS: Albuterol 6.7 GM Inhaler INH PRN (20:02)
[2021-12-01] MEDS: Formoterol/Mometasone 200-5 MCG 8.8 GM Inhaler IH SCH (20:02)
[2021-12-01] MEDS: methylPREDNISolone Sodium Succinate 40 MG/1 ML SDV IVPUSH SCH (20:14)
[2021-12-01] MEDS: Spironolactone 25 MG Tab PO SCH (20:14)
[2021-12-01] MEDS: cefTRIAXone 1 GM in Sodium Chloride 0.9% 100 ML IV SCH (20:15)
[2021-12-01] MEDS: Nicotine 21 MG/24 Hr Patch TRDERM SCH (20:16)
[2021-12-02] MEDS: methylPREDNISolone Sodium Succinate 40 MG/1 ML SDV IVPUSH SCH ×4 (03:52→21:53)
[2021-12-02] MEDS: Albuterol 6.7 GM Inhaler INH PRN ×2 (04:03→14:58)
[2021-12-02] MEDS: Sacubitril/Valsartan 1 EACH Tablet PO SCH ×3 (07:28→21:51)
[2021-12-02] MEDS: Formoterol/Mometasone 200-5 MCG 8.8 GM Inhaler IH SCH ×2 (08:05→20:13)
[2021-12-02] MEDS: Albuterol/Ipratropium 3.0-0.5 MG/3 ML Neb Soln NEB PRN ×3 (08:05→16:15)
[2021-12-02] MEDS: Nicotine 21 MG/24 Hr Patch TRDERM SCH ×2 (08:35→21:53)
[2021-12-02] MEDS: Sertraline 50 MG Tab PO SCH (08:36)
[2021-12-02] MEDS: Spironolactone 25 MG Tab PO SCH ×2 (08:36→21:51)
[2021-12-02] MEDS: Diltiazem 180 MG Cap.CD PO SCH (08:36)
[2021-12-02] MEDS: Digoxin 125 MCG Tab PO SCH (11:36)
[2021-12-02] MEDS: guaiFENesin 600 MG Tab.ER PO SCH ×2 (11:40→21:51)
[2021-12-02] MEDS: Docusate Sodium 100 MG Cap PO SCH ×2 (12:19→21:51)
[2021-12-02] MEDS: Rivaroxaban 10 MG Tab PO SCH (17:04)
[2021-12-02] MEDS: cefTRIAXone 1 GM in Sodium Chloride 0.9% 100 ML IV SCH (21:53)
[2021-12-03] MEDS: methylPREDNISolone Sodium Succinate 40 MG/1 ML SDV IVPUSH SCH ×3 (03:36→17:23)
[2021-12-03] MEDS: Albuterol 6.7 GM Inhaler INH PRN (05:10)
[2021-12-03] MEDS: Formoterol/Mometasone 200-5 MCG 8.8 GM Inhaler IH SCH ×2 (08:18→20:04)
[2021-12-03] MEDS: Sacubitril/Valsartan 1 EACH Tablet PO SCH ×2 (09:35→21:15)
[2021-12-03] MEDS: guaiFENesin 600 MG Tab.ER PO SCH ×2 (09:35→21:15)
[2021-12-03] MEDS: Docusate Sodium 100 MG Cap PO SCH ×2 (09:35→21:14)
[2021-12-03] MEDS: Diltiazem 180 MG Cap.CD PO SCH (09:36)
[2021-12-03] MEDS: Sertraline 50 MG Tab PO SCH (09:36)
[2021-12-03] MEDS: Spironolactone 25 MG Tab PO SCH ×2 (09:36→21:14)
[2021-12-03] MEDS: Albuterol/Ipratropium 3.0-0.5 MG/3 ML Neb Soln NEB PRN (11:10)
[2021-12-03] MEDS: Digoxin 125 MCG Tab PO SCH (12:10)
[2021-12-03] MEDS: Rivaroxaban 10 MG Tab PO SCH (17:23)
[2021-12-03] MEDS: cefTRIAXone 1 GM in Sodium Chloride 0.9% 100 ML IV SCH (21:13)
[2021-12-03] MEDS: Nicotine 21 MG/24 Hr Patch TRDERM SCH (21:15)
[2021-12-04] MEDS: methylPREDNISolone Sodium Succinate 40 MG/1 ML SDV IVPUSH SCH ×2 (01:29→08:14)
[2021-12-04] MEDS: Albuterol/Ipratropium 3.0-0.5 MG/3 ML Neb Soln NEB PRN (07:20)
[2021-12-04] MEDS: Sacubitril/Valsartan 1 EACH Tablet PO SCH (08:11)
[2021-12-04] MEDS: guaiFENesin 600 MG Tab.ER PO SCH (08:13)
[2021-12-04] MEDS: Spironolactone 25 MG Tab PO SCH (08:13)
[2021-12-04] MEDS: Sertraline 50 MG Tab PO SCH (08:13)
[2021-12-04] MEDS: Docusate Sodium 100 MG Cap PO SCH (08:13)
[2021-12-04] MEDS: Diltiazem 180 MG Cap.CD PO SCH (08:13)
[2021-12-04] MEDS: Formoterol/Mometasone 200-5 MCG 8.8 GM Inhaler IH SCH (09:34)
[2021-12-04] MEDS: Digoxin 125 MCG Tab PO SCH (11:23)
[2021-12-04 11:25] VITALS: PULSE 77
[2021-12-04 12:24] VITALS: BP 102/62
== END 2021-12-04 13:07 | disposition home or self-care (01) | DRG 140 ==
LOC: JD.ED 11:13 → JD.MS 16:48 → JD.ED 17:15
PROVIDERS: ADMIT Family Medicine; ATTEND Family Medicine
DX: J44.1 Chronic obstructive pulmonary disease with (acute) exacerbation (principal); I48.91 Unspecified atrial fibrillation; Z20.822 Contact with and (suspected) exposure to COVID-19; I11.0 Hypertensive heart disease with heart failure; F17.210 Nicotine dependence, cigarettes, uncomplicated; I50.32 Chronic diastolic (congestive) heart failure; K21.9 Gastro-esophageal reflux disease without esophagitis; E78.5 Hyperlipidemia, unspecified; F41.9 Anxiety disorder, unspecified; F32.A Depression, unspecified; I27.20 Pulmonary hypertension, unspecified; Z86.16 Personal history of COVID-19; Z79.01 Long term (current) use of anticoagulants; Z79.52 Long term (current) use of systemic steroids; Z79.899 Other long term (current) drug therapy; Z79.2 Long term (current) use of antibiotics; Z98.890 Other specified postprocedural states; Z90.89 Acquired absence of other organs
CPT/HCPCS: 0240U; 36415; 71045; 71045-26; 80048; 80053; 80162; 83735; 83880; 84484; 85025; 85379; 85610; 85730; 87040; 93005; 94640; 94667; 94668; 94761; 94762; 96374; 99285-25; A9270-GY; J0696; J2920; J2930; J7620-GY

== ENCOUNTER 2024-07-02 11:21 | Inpatient (IN) | payer BC ==
[2024-07-02 12:33] LABS: BASOPHILS PERCENT AUTO 0.1 % (0.0-1.0); EOSINOPHILS PERCENT AUTO 0.3 % (0.0-6.0); HEMATOCRIT 43.4 % (37.0-47.0); HEMOGLOBIN 13.7 gm/dl (12.0-16.0); IMMATURE GRAN ABSOLUTE AUTO 0.03 K/mm3 (0.00-0.05); IMMATURE GRAN PERCENT AUTO 0.4 % (0.0-0.4); LYMPHOCYTES PERCENT AUTO 27.4 % (24.0-44.0); MEAN CORPUSCULAR HEMOGLOBIN 30.2 pg (28.0-32.0); MEAN CORPUSCULAR HGB CONC 31.6 g/dl (32.0-36.0); MEAN CORPUSCULAR VOLUME 95.8 fl (83.0-99.0); MEAN PLATELET VOLUME 10.3 fl (9.4-12.3); MONOCYTES ABSOLUTE AUTO 0.5 K/mm3 (0.0-0.8); NEUTROPHILS ABSOLUTE AUTO 4.8 K/mm3 (1.8-7.7); NEUTROPHILS PERCENT AUTO 64.8 % (41.0-71.0); PLATELET COUNT,PLT 161 K/mm3 (150-400); RED BLOOD CELL COUNT 4.53 M/mm3 (4.10-5.30); WHITE BLOOD CELL COUNT,WBC 7.41 K/mm3 (3.9-11.3)
[2024-07-02] MEDS: methylPREDNISolone Sodium Succinate 125 MG/2 ML SDV IVPUSH ONE (12:44)
[2024-07-02] MEDS: Albuterol/Ipratropium 3.0-0.5 MG/3 ML Neb Soln NEB ONE (12:44)
[2024-07-02 12:49] LABS: APPEARANCE,URINE CLEAR (Clear); BILIRUBIN,URINE NEGATIVE (Negative); COLOR,URINE DARK YELLOW (Yellow); GLUCOSE,URINE NEGATIVE (Negative); KETONES,URINE NEGATIVE (Negative); LEUKOCYTE ESTERASE,URINE 2+ (Negative); NITRITE,URINE NEGATIVE (Negative); OCCULT BLOOD,URINE NEGATIVE (Negative); PH,URINE 6.5 (5.0-8.0); PROTEIN,URINE NEGATIVE (Negative); UROBILINOGEN,URINE 0.2 (0.2-1.0)
[2024-07-02 12:59] LABS: BICARBONATE,ARTERIAL 37 meq/L (22.0-26.0); O2 SATURATION ARTERIAL 98.5 % (96.0-97.0); PCO2 ARTERIAL 75.6 mmHg (35.0-45.0)
[2024-07-02] MEDS: Magnesium Sulfate/Water 2 GM in Premix Bag 1 BAG IV ONE (12:59)
[2024-07-02 13:01] LABS: BACTERIA,URINE FEW /hpf (FEW); HYALINE CASTS,URINE 20-30 /lpf (0-5); RBC,URINE 0-5 /hpf (0-5)
[2024-07-02 13:02] LABS: MUCUS,URINE FEW /hpf (FEW)
[2024-07-02 13:05] LABS: A/G RATIO 1.3 (1-2); ALBUMIN 3.9 g/dl (3.4-5.0); ANION GAP 6.4 (5-15); BILIRUBIN TOTAL 0.4 mg/dL (0.2-1.0); BUN/CREATININE RATIO 12.9 (14-18); CREATININE 0.7 mg/dL (0.55-1.02); EST CRCL DRUG DOSING (CG) 71.88 mL/min; MAGNESIUM 1.8 mg/dL (1.8-2.4); POTASSIUM,K 4.4 mEq/L (3.5-5.1); PROTEIN TOTAL,TP 6.9 g/dl (6.4-8.2); TSH 2.696 uIU/mL (0.358-3.74)
[2024-07-02] MEDS ORDERED: Albuterol 0.083% 2.5 MG/3 ML Neb Soln NEB PRN (14:24)
[2024-07-02] MEDS ORDERED: Morphine 2 MG/ML SYRINGE IVPUSH PRN (14:24)
[2024-07-02] MEDS ORDERED: Acetaminophen 325 MG Tab PO PRN (14:24)
[2024-07-02] MEDS: Azithromycin 500 MG in Sodium Chloride 0.9% 250 ML IV ONE (14:55)
[2024-07-02 15:42] LABS: CORONAVIRUS COVID-19 NAA NEGATIVE (NEGATIVE); INFLUENZA A NAA NEGATIVE (NEGATIVE); RESPIRATORY SYNCYTIAL VIR NAA NEGATIVE (NEGATIVE)
[2024-07-02] MEDS: LORazepam 0.5 MG Tab PO PRN (16:55)
[2024-07-02] MEDS: Albuterol/Ipratropium 3.0-0.5 MG/3 ML Neb Soln NEB SCH (17:00)
[2024-07-02] MEDS: Rivaroxaban 10 MG Tab PO SCH (18:05)
[2024-07-02] MEDS: Metoprolol Tartrate 5 MG/5 ML SDV IVPUSH ONE (18:34)
[2024-07-02] MEDS: Doxycycline 100 MG in Sodium Chloride 0.9% 100 ML IV SCH (20:07)
[2024-07-02] MEDS: Pravastatin 20 MG Tab PO SCH (20:11)
[2024-07-02] MEDS: Sacubitril/Valsartan 1 EACH Tablet PO SCH (20:11)
[2024-07-02] MEDS: Metoprolol Tartrate 25 MG Tab PO SCH (21:02)
[2024-07-02] MEDS: Mometasone Furoate HFA 100mcg/Puff 13 GM Inhaler INH SCH (21:23)
[2024-07-03 04:48] LABS: EOSINOPHILS PERCENT AUTO 0.5 % (0.0-6.0); HEMATOCRIT 37.5 % (37.0-47.0); IMMATURE GRAN ABSOLUTE AUTO 0.01 K/mm3 (0.00-0.05); IMMATURE GRAN PERCENT AUTO 0.2 % (0.0-0.4); LYMPHOCYTES ABSOLUTE AUTO 0.6 K/mm3 (1.0-4.8); LYMPHOCYTES PERCENT AUTO 14.3 % (24.0-44.0); MEAN CORPUSCULAR HEMOGLOBIN 30.8 pg (28.0-32.0); MEAN CORPUSCULAR HGB CONC 32.3 g/dl (32.0-36.0); MEAN CORPUSCULAR VOLUME 95.4 fl (83.0-99.0); MONOCYTES ABSOLUTE AUTO 0.2 K/mm3 (0.0-0.8); MONOCYTES PERCENT AUTO 4.7 % (0.0-8.0); NEUTROPHILS ABSOLUTE AUTO 3.4 K/mm3 (1.8-7.7); NEUTROPHILS PERCENT AUTO 80.3 % (41.0-71.0); PLATELET COUNT,PLT 137 K/mm3 (150-400); RED BLOOD CELL COUNT 3.93 M/mm3 (4.10-5.30); WHITE BLOOD CELL COUNT,WBC 4.28 K/mm3 (3.9-11.3)
[2024-07-03 05:12] LABS: HEMOGLOBIN 12.1 gm/dl (12.0-16.0)
[2024-07-03 05:23] LABS: A/G RATIO 1.3 (1-2); ALANINE AMINOTRANSFERASE,ALT 14 U/L (14-59); ALBUMIN 3.3 g/dl (3.4-5.0); ALKALINE PHOSPHATASE 64 U/L (46-116); ANION GAP 6.5 (5-15); ASPARTATE AMNIOTRANSFERASE,AST 14 U/L (15-37); BILIRUBIN TOTAL 0.3 mg/dL (0.2-1.0); BLOOD UREA NITROGEN,BUN 10 mg/dL (7-18); C-REACTIVE PROTEIN <0.05 mg/dL (<0.30); CALCIUM 8.7 mg/dL (8.5-10.1); CARBON DIOXIDE,CO2 37 mEq/L (21-32); CHLORIDE,CL 100 mEq/L (98-107); CREATININE 0.5 mg/dL (0.55-1.02); EST CRCL DRUG DOSING (CG) 102.36 mL/min; ESTIMATED GFR 108 mL/min (>60); GLUCOSE RANDOM 143 mg/dL (70-99); MAGNESIUM 1.8 mg/dL (1.8-2.4); PHOSPHORUS 3.4 mg/dL (2.6-4.7); POTASSIUM,K 4.5 mEq/L (3.5-5.1); PROTEIN TOTAL,TP 5.8 g/dl (6.4-8.2); SODIUM,NA 139 mEq/L (136-145)
[2024-07-03] MEDS: Cefepime 2 GM in Sodium Chloride 0.9% 50 ML IV SCH (08:56)
[2024-07-03] MEDS: methylPREDNISolone Sodium Succinate 40 MG/1 ML SDV IVPUSH SCH (08:58)
[2024-07-03] MEDS: Spironolactone 25 MG Tab PO SCH (09:00)
[2024-07-03] MEDS: Sertraline 50 MG Tab PO SCH (09:00)
[2024-07-03] MEDS: Diltiazem 180 MG Cap.CD PO SCH (09:01)
[2024-07-03] MEDS: Digoxin 125 MCG Tab PO SCH (09:01)
[2024-07-03] MEDS: Sodium Chloride 0.9% 500 ML IV ONE (09:42)
[2024-07-03] MEDS: Magnesium Sulfate/Water 4 GM in Premix Bag 1 BAG IV ONE (09:42)
[2024-07-03] MEDS: Tiotropium BR/Olodaterol HCL 4 GM Inhalation Spray 2.5mcg/1 dose; 10 doses INH SCH (09:49)
[2024-07-03] MEDS: Sodium Chloride 0.9% 1,000 ML IV SCH (15:36)
[2024-07-04 05:37] LABS: A/G RATIO 1.5 (1-2); ALANINE AMINOTRANSFERASE,ALT 13 U/L (14-59); ALBUMIN 3.2 g/dl (3.4-5.0); ALKALINE PHOSPHATASE 50 U/L (46-116); ASPARTATE AMNIOTRANSFERASE,AST 13 U/L (15-37); BILIRUBIN TOTAL 0.3 mg/dL (0.2-1.0); BLOOD UREA NITROGEN,BUN 14 mg/dL (7-18); BUN/CREATININE RATIO 23.3 (14-18); CALCIUM 8.3 mg/dL (8.5-10.1); CARBON DIOXIDE,CO2 33 mEq/L (21-32); CHLORIDE,CL 100 mEq/L (98-107); CREATININE 0.6 mg/dL (0.55-1.02); ESTIMATED GFR 103 mL/min (>60); GLUCOSE RANDOM 84 mg/dL (70-99); PROTEIN TOTAL,TP 5.3 g/dl (6.4-8.2); SODIUM,NA 137 mEq/L (136-145)
[2024-07-04 05:48] LABS: BASOPHILS PERCENT AUTO 0.2 % (0.0-1.0); EOSINOPHILS ABSOLUTE AUTO 0.1 K/mm3 (0.0-0.4); EOSINOPHILS PERCENT AUTO 1.2 % (0.0-6.0); HEMATOCRIT 35.3 % (37.0-47.0); HEMOGLOBIN 11.3 gm/dl (12.0-16.0); IMMATURE GRAN ABSOLUTE AUTO 0.04 K/mm3 (0.00-0.05); IMMATURE GRAN PERCENT AUTO 0.6 % (0.0-0.4); LYMPHOCYTES ABSOLUTE AUTO 1.4 K/mm3 (1.0-4.8); LYMPHOCYTES PERCENT AUTO 20.5 % (24.0-44.0); MEAN CORPUSCULAR HEMOGLOBIN 30.8 pg (28.0-32.0); MEAN CORPUSCULAR VOLUME 96.2 fl (83.0-99.0); MEAN PLATELET VOLUME 11.1 fl (9.4-12.3); MONOCYTES ABSOLUTE AUTO 0.5 K/mm3 (0.0-0.8); MONOCYTES PERCENT AUTO 7.4 % (0.0-8.0); NEUTROPHILS ABSOLUTE AUTO 4.6 K/mm3 (1.8-7.7); NEUTROPHILS PERCENT AUTO 70.1 % (41.0-71.0); PLATELET COUNT,PLT 136 K/mm3 (150-400); RED BLOOD CELL COUNT 3.67 M/mm3 (4.10-5.30); WHITE BLOOD CELL COUNT,WBC 6.59 K/mm3 (3.9-11.3)
[2024-07-04 06:04] LABS: C-REACTIVE PROTEIN < 0.05 mg/dL (<0.30)
[2024-07-04] MEDS: Ondansetron 4 MG/2 ML SDV IV PRN (06:14)
[2024-07-04] MEDS: Pantoprazole 40 MG Tab.CR PO SCH (11:09)
[2024-07-04 15:24] LABS: BASE EXCESS VENOUS 3.6 (-4.0-2.0); BICARBONATE,VENOUS 31.1 meq/L (22-26); O2 SATURATION VENOUS 85.5; PCO2 VENOUS 65.3 mmHg (41-51)
[2024-07-04] MEDS: Lactulose Soln 10 GM/15 ML 30 ML UD Cup PO ONE (20:18)
[2024-07-05 04:43] LABS: BASOPHILS PERCENT AUTO 0.2 % (0.0-1.0); HEMATOCRIT 35.2 % (37.0-47.0); HEMOGLOBIN 11.2 gm/dl (12.0-16.0); IMMATURE GRAN ABSOLUTE AUTO 0.03 K/mm3 (0.00-0.05); IMMATURE GRAN PERCENT AUTO 0.5 % (0.0-0.4); LYMPHOCYTES ABSOLUTE AUTO 1.1 K/mm3 (1.0-4.8); LYMPHOCYTES PERCENT AUTO 17.4 % (24.0-44.0); MEAN CORPUSCULAR HEMOGLOBIN 30.2 pg (28.0-32.0); MEAN CORPUSCULAR HGB CONC 31.8 g/dl (32.0-36.0); MEAN CORPUSCULAR VOLUME 94.9 fl (83.0-99.0); MEAN PLATELET VOLUME 10.1 fl (9.4-12.3); MONOCYTES ABSOLUTE AUTO 0.5 K/mm3 (0.0-0.8); MONOCYTES PERCENT AUTO 7.8 % (0.0-8.0); NEUTROPHILS ABSOLUTE AUTO 4.8 K/mm3 (1.8-7.7); NEUTROPHILS PERCENT AUTO 74.1 % (41.0-71.0); PLATELET COUNT,PLT 142 K/mm3 (150-400); RED BLOOD CELL COUNT 3.71 M/mm3 (4.10-5.30); WHITE BLOOD CELL COUNT,WBC 6.51 K/mm3 (3.9-11.3)
[2024-07-05] MEDS: oxyCODONE 5 MG Tab PO PRN (04:53)
[2024-07-05 05:14] LABS: A/G RATIO 1.4 (1-2); ALANINE AMINOTRANSFERASE,ALT 22 U/L (14-59); ALBUMIN 3.3 g/dl (3.4-5.0); ALKALINE PHOSPHATASE 58 U/L (46-116); ANION GAP 4.4 (5-15); ASPARTATE AMNIOTRANSFERASE,AST 18 U/L (15-37); BILIRUBIN TOTAL 0.3 mg/dL (0.2-1.0); BLOOD UREA NITROGEN,BUN 15 mg/dL (7-18); C-REACTIVE PROTEIN <0.05 mg/dL (<0.30); CALCIUM 8.9 mg/dL (8.5-10.1); CARBON DIOXIDE,CO2 37 mEq/L (21-32); CHLORIDE,CL 102 mEq/L (98-107); CREATININE 0.5 mg/dL (0.55-1.02); EST CRCL DRUG DOSING (CG) 107.83 mL/min; ESTIMATED GFR 108 mL/min (>60); GLUCOSE RANDOM 93 mg/dL (70-99); MAGNESIUM 1.8 mg/dL (1.8-2.4); POTASSIUM,K 4.4 mEq/L (3.5-5.1); PROTEIN TOTAL,TP 5.6 g/dl (6.4-8.2); SODIUM,NA 139 mEq/L (136-145)
[2024-07-05] MEDS: Docusate Sodium 100 MG Cap PO PRN (09:42)
[2024-07-05] MEDS: Polyethylene Glycol 3350 Powder 17 GM Packet PO PRN (09:42)
[2024-07-05 14:15] VITALS: BP 118/64; PULSE 125
== END 2024-07-05 14:15 | disposition home health service (06) | DRG 133 ==
LOC: JD.ED 11:21 → JD.MS 14:21
PROVIDERS: ADMIT Student in an Organized Health Care Education/Training Program; ATTEND Student in an Organized Health Care Education/Training Program
DX: J96.01 Acute respiratory failure with hypoxia (principal); J96.02 Acute respiratory failure with hypercapnia; J44.1 Chronic obstructive pulmonary disease with (acute) exacerbation; R64 Cachexia; Z66 Do not resuscitate; Z68.20 Body mass index [BMI] 20.0-20.9, adult; I48.91 Unspecified atrial fibrillation; E78.00 Pure hypercholesterolemia, unspecified; I11.0 Hypertensive heart disease with heart failure; I50.9 Heart failure, unspecified; J43.9 Emphysema, unspecified; K21.9 Gastro-esophageal reflux disease without esophagitis; F32.A Depression, unspecified; J45.20 Mild intermittent asthma, uncomplicated; F17.200 Nicotine dependence, unspecified, uncomplicated; Z99.81 Dependence on supplemental oxygen; Z86.16 Personal history of COVID-19; Z79.01 Long term (current) use of anticoagulants; Z79.899 Other long term (current) drug therapy; Z98.890 Other specified postprocedural states
CPT/HCPCS: 0241U; 36415; 36600; 71045; 71045-26; 80053; 80162; 81001; 82803; 83735; 83880; 84100; 84443; 84484; 85025; 86140; 87086; 93005; 94640; 94660; 94667; 94668; 94761; 96365; 96367; 96375; 97161-GP; 99285-25; A9270-GY; J0456; J0692; J2405; J2919; J3475; J3490; J7030; J7050; J7620-GY

== ENCOUNTER 2024-08-31 09:36 | Inpatient (IN) | payer BC ==
[2024-08-31 10:17] LABS: BASOPHILS PERCENT AUTO 0.3 % (0.0-1.0); EOSINOPHILS PERCENT AUTO 0.4 % (0.0-6.0); HEMATOCRIT 45.1 % (37.0-47.0); HEMOGLOBIN 13.7 gm/dl (12.0-16.0); IMMATURE GRAN ABSOLUTE AUTO 0.03 K/mm3 (0.00-0.05); IMMATURE GRAN PERCENT AUTO 0.4 % (0.0-0.4); LYMPHOCYTES ABSOLUTE AUTO 0.9 K/mm3 (1.0-4.8); LYMPHOCYTES PERCENT AUTO 11.6 % (24.0-44.0); MEAN CORPUSCULAR HEMOGLOBIN 30.4 pg (28.0-32.0); MEAN CORPUSCULAR HGB CONC 30.4 g/dl (32.0-36.0); MEAN PLATELET VOLUME 10.9 fl (9.4-12.3); MONOCYTES ABSOLUTE AUTO 0.5 K/mm3 (0.0-0.8); MONOCYTES PERCENT AUTO 6.6 % (0.0-8.0); NEUTROPHILS ABSOLUTE AUTO 6.2 K/mm3 (1.8-7.7); NEUTROPHILS PERCENT AUTO 80.7 % (41.0-71.0); PLATELET COUNT,PLT 152 K/mm3 (150-400); RED BLOOD CELL COUNT 4.51 M/mm3 (4.10-5.30); WHITE BLOOD CELL COUNT,WBC 7.69 K/mm3 (3.9-11.3)
[2024-08-31] MEDS: methylPREDNISolone Sodium Succinate 125 MG/2 ML SDV IVPUSH ONE (10:19)
[2024-08-31] MEDS: Sodium Chloride 0.9% 10 ML Syringe FLUSH PRN (10:19)
[2024-08-31 10:33] LABS: A/G RATIO 1.3 (1-2); ALBUMIN 3.9 g/dl (3.4-5.0); ANION GAP 2.5 (5-15); BILIRUBIN TOTAL 0.3 mg/dL (0.2-1.0); CALCIUM 9.7 mg/dL (8.5-10.1); CREATININE 0.5 mg/dL (0.55-1.02); EST CRCL DRUG DOSING (CG) 104.1 mL/min; POTASSIUM,K 4.5 mEq/L (3.5-5.1); PROTEIN TOTAL,TP 6.9 g/dl (6.4-8.2)
[2024-08-31] MEDS: Albuterol/Ipratropium 3.0-0.5 MG/3 ML Neb Soln NEB SCH (10:33)
[2024-08-31 10:53] LABS: CORONAVIRUS COVID-19 NAA NEGATIVE (NEGATIVE); INFLUENZA A NAA NEGATIVE (NEGATIVE); RESPIRATORY SYNCYTIAL VIR NAA NEGATIVE (NEGATIVE)
[2024-08-31] MEDS: Albuterol 0.083% 2.5 MG/3 ML Neb Soln NEB ONE ×2 (12:56→13:13)
[2024-08-31] MEDS: Sodium Chloride 0.9% 500 ML IV ONE (12:57)
[2024-08-31] MEDS ORDERED: Sodium Chloride 0.9% 100 ML IV SCH (13:00)
[2024-08-31] MEDS: Iopamidol 755 Mg/ML 100 ML Bottle IVPUSH ONE (13:44)
[2024-08-31] MEDS: Diltiazem 25 MG/5 ML SDV IVPUSH ONE (16:36)
[2024-08-31] MEDS ORDERED: Acetaminophen 325 MG Tab PO PRN (17:10)
[2024-08-31] MEDS ORDERED: oxyCODONE 5 MG Tab PO PRN (17:10)
[2024-08-31] MEDS ORDERED: Morphine 2 MG/ML SYRINGE IVPUSH PRN (17:10)
[2024-08-31 17:45] LABS: BASE EXCESS ARTERIAL 8.9 (-2-2.0); BICARBONATE,ARTERIAL 36.9 meq/L (22.0-26.0); O2 SATURATION ARTERIAL 90.7 % (96.0-97.0); PCO2 ARTERIAL 71.7 mmHg (35.0-45.0)
[2024-08-31] MEDS: Cefepime 2 GM in Sodium Chloride 0.9% 50 ML IV SCH (18:41)
[2024-08-31] MEDS: atorvaSTATin 20 MG Tab PO SCH (20:34)
[2024-08-31] MEDS: Doxycycline 100 MG in Sodium Chloride 0.9% 100 ML IV SCH (20:34)
[2024-08-31] MEDS: Albuterol/Ipratropium 3.0-0.5 MG/3 ML Neb Soln NEB PRN (22:33)
[2024-09-01] MEDS: methylPREDNISolone Sodium Succinate 40 MG/1 ML SDV IVPUSH SCH (04:45)
[2024-09-01 05:28] LABS: EOSINOPHILS ABSOLUTE AUTO 0.1 K/mm3 (0.0-0.4); EOSINOPHILS PERCENT AUTO 1.3 % (0.0-6.0); HEMATOCRIT 36.3 % (37.0-47.0); IMMATURE GRAN ABSOLUTE AUTO 0.02 K/mm3 (0.00-0.05); IMMATURE GRAN PERCENT AUTO 0.3 % (0.0-0.4); LYMPHOCYTES ABSOLUTE AUTO 0.5 K/mm3 (1.0-4.8); LYMPHOCYTES PERCENT AUTO 7.9 % (24.0-44.0); MEAN CORPUSCULAR HGB CONC 32.2 g/dl (32.0-36.0); MEAN PLATELET VOLUME 11.3 fl (9.4-12.3); MONOCYTES ABSOLUTE AUTO 0.2 K/mm3 (0.0-0.8); MONOCYTES PERCENT AUTO 3.4 % (0.0-8.0); NEUTROPHILS ABSOLUTE AUTO 5.4 K/mm3 (1.8-7.7); NEUTROPHILS PERCENT AUTO 87.1 % (41.0-71.0); PLATELET COUNT,PLT 144 K/mm3 (150-400); RED BLOOD CELL COUNT 3.77 M/mm3 (4.10-5.30); WHITE BLOOD CELL COUNT,WBC 6.24 K/mm3 (3.9-11.3)
[2024-09-01 05:32] LABS: HEMOGLOBIN 11.7 gm/dl (12.0-16.0); MEAN CORPUSCULAR VOLUME 96.3 fl (83.0-99.0)
[2024-09-01 05:45] LABS: A/G RATIO 1.2 (1-2); ALBUMIN 3.2 g/dl (3.4-5.0); ANION GAP 7.4 (5-15); BILIRUBIN TOTAL 0.3 mg/dL (0.2-1.0); CREATININE 0.5 mg/dL (0.55-1.02); EST CRCL DRUG DOSING (CG) 98.89 mL/min; POTASSIUM,K 4.4 mEq/L (3.5-5.1); PROTEIN TOTAL,TP 5.8 g/dl (6.4-8.2)
[2024-09-01] MEDS: Spironolactone 25 MG Tab PO SCH (08:05)
[2024-09-01] MEDS: Diltiazem 180 MG Cap.CD PO SCH (08:05)
[2024-09-01] MEDS: Sertraline 50 MG Tab PO SCH (08:05)
[2024-09-01] MEDS: Digoxin 125 MCG Tab PO SCH (08:05)
[2024-09-01 08:55] LABS: PH,VENOUS 7.35 (7.30-7.40)
[2024-09-01 08:56] LABS: BASE EXCESS VENOUS 9.8 (-4.0-2.0); BICARBONATE,VENOUS 37.6 meq/L (22-26); O2 SATURATION VENOUS 31.7
[2024-09-01] MEDS: Diltiazem 25 MG/5 ML SDV IVPUSH ONE (11:11)
[2024-09-01] MEDS: Carvedilol 6.25 MG Tab PO SCH (11:11)
[2024-09-01 11:42] LABS: TSH 1.866 uIU/mL (0.358-3.74)
[2024-09-01] MEDS: guaiFENesin 600 MG Tab.ER PO SCH (16:33)
[2024-09-01] MEDS: Rivaroxaban 10 MG Tab PO SCH (18:47)
[2024-09-02 05:28] LABS: BASOPHILS PERCENT AUTO 0.1 % (0.0-1.0); HEMATOCRIT 38.5 % (37.0-47.0); HEMOGLOBIN 12.5 gm/dl (12.0-16.0); IMMATURE GRAN ABSOLUTE AUTO 0.09 K/mm3 (0.00-0.05); IMMATURE GRAN PERCENT AUTO 0.8 % (0.0-0.4); LYMPHOCYTES ABSOLUTE AUTO 0.6 K/mm3 (1.0-4.8); LYMPHOCYTES PERCENT AUTO 4.9 % (24.0-44.0); MEAN CORPUSCULAR HEMOGLOBIN 30.5 pg (28.0-32.0); MEAN CORPUSCULAR HGB CONC 32.5 g/dl (32.0-36.0); MEAN CORPUSCULAR VOLUME 93.9 fl (83.0-99.0); MEAN PLATELET VOLUME 10.8 fl (9.4-12.3); MONOCYTES ABSOLUTE AUTO 0.3 K/mm3 (0.0-0.8); MONOCYTES PERCENT AUTO 2.4 % (0.0-8.0); NEUTROPHILS ABSOLUTE AUTO 10.5 K/mm3 (1.8-7.7); NEUTROPHILS PERCENT AUTO 91.8 % (41.0-71.0); PLATELET COUNT,PLT 161 K/mm3 (150-400); WHITE BLOOD CELL COUNT,WBC 11.41 K/mm3 (3.9-11.3)
[2024-09-02 05:50] LABS: A/G RATIO 1.2 (1-2); ALBUMIN 3.4 g/dl (3.4-5.0); ANION GAP 6.3 (5-15); BILIRUBIN TOTAL 0.3 mg/dL (0.2-1.0); BUN/CREATININE RATIO 31.7 (14-18); CALCIUM 9.2 mg/dL (8.5-10.1); CREATININE 0.6 mg/dL (0.55-1.02); EST CRCL DRUG DOSING (CG) 82.41 mL/min; POTASSIUM,K 4.3 mEq/L (3.5-5.1); PROTEIN TOTAL,TP 6.3 g/dl (6.4-8.2)
[2024-09-02] MEDS: predniSONE 20 MG Tab PO ONE (09:03)
[2024-09-02] MEDS: Diltiazem 300 MG Cap.CD PO SCH (09:03)
[2024-09-02] MEDS: Tiotropium BR/Olodaterol HCL 4 GM Inhalation Spray 2.5mcg/1 dose; 10 doses INH SCH (09:21)
[2024-09-02] MEDS: Mometasone Furoate HFA 200 mcg/Puff 13 GM Inhaler INH SCH (09:22)
[2024-09-02] MEDS: LORazepam 0.5 MG Tab PO ONE (11:50)
[2024-09-02] MEDS ORDERED: Albuterol 6.7 GM Inhaler INH PRN (13:17)
[2024-09-02] MEDS: Albuterol/Ipratropium 3.0-0.5 MG/3 ML Neb Soln NEB SCH (15:10)
[2024-09-02] MEDS ORDERED: Calcium Carbonate 600 MG Tab PO PRN (18:03)
[2024-09-02] MEDS: Calcium Carbonate 500 MG Tab.Chew PO PRN (18:42)
[2024-09-02] MEDS ORDERED: Sennosides/Docusate Sodium 50-8.6 MG Tab PO PRN (21:00)
[2024-09-03] MEDS: predniSONE 20 MG Tab PO SCH (06:24)
[2024-09-03 06:48] LABS: BASOPHILS PERCENT AUTO 0.1 % (0.0-1.0); HEMATOCRIT 33.9 % (37.0-47.0); IMMATURE GRAN ABSOLUTE AUTO 0.04 K/mm3 (0.00-0.05); IMMATURE GRAN PERCENT AUTO 0.5 % (0.0-0.4); LYMPHOCYTES ABSOLUTE AUTO 0.9 K/mm3 (1.0-4.8); LYMPHOCYTES PERCENT AUTO 11.6 % (24.0-44.0); MEAN CORPUSCULAR HGB CONC 31.6 g/dl (32.0-36.0); MEAN PLATELET VOLUME 10.9 fl (9.4-12.3); MONOCYTES ABSOLUTE AUTO 0.5 K/mm3 (0.0-0.8); MONOCYTES PERCENT AUTO 7.2 % (0.0-8.0); NEUTROPHILS ABSOLUTE AUTO 6.1 K/mm3 (1.8-7.7); NEUTROPHILS PERCENT AUTO 80.6 % (41.0-71.0); PLATELET COUNT,PLT 138 K/mm3 (150-400); RED BLOOD CELL COUNT 3.57 M/mm3 (4.10-5.30); WHITE BLOOD CELL COUNT,WBC 7.53 K/mm3 (3.9-11.3)
[2024-09-03 06:50] LABS: HEMOGLOBIN 10.7 gm/dl (12.0-16.0)
[2024-09-03 07:11] LABS: CREATININE 0.5 mg/dL (0.55-1.02); EST CRCL DRUG DOSING (CG) 104.71 mL/min; MAGNESIUM 1.8 mg/dL (1.8-2.4); PHOSPHORUS 4.1 mg/dL (2.6-4.7)
[2024-09-03] MEDS: LORazepam 0.5 MG Tab PO PRN (16:02)
[2024-09-03 19:12] VITALS: BP 103/90; PULSE 73
== END 2024-09-03 16:43 | disposition home or self-care (01) | DRG 133 ==
LOC: JD.ED 09:36 → JD.MS 17:10 → JD.ICU 17:46 → JD.MS 09-02 07:48 → JD.ICU 09-02 17:06 → JD.MS 09-02 17:06
PROVIDERS: ADMIT Family Medicine; ATTEND Student in an Organized Health Care Education/Training Program
PROC: 4A033R1 Measurement of Arterial Saturation, Peripheral, Percutaneous Approach (ICD-10-PCS; principal; 2024-08-31)
PROC: 5A09357 Assistance with Respiratory Ventilation, Less than 24 Consecutive Hours, Continuous Positive Airway Pressure (ICD-10-PCS; 2024-08-31)
DX: J96.22 Acute and chronic respiratory failure with hypercapnia (principal); J44.1 Chronic obstructive pulmonary disease with (acute) exacerbation; I11.0 Hypertensive heart disease with heart failure; Z99.81 Dependence on supplemental oxygen; I50.9 Heart failure, unspecified; I48.91 Unspecified atrial fibrillation; H54.7 Unspecified visual loss; H91.90 Unspecified hearing loss, unspecified ear; J96.21 Acute and chronic respiratory failure with hypoxia; Z66 Do not resuscitate; E78.00 Pure hypercholesterolemia, unspecified; K21.9 Gastro-esophageal reflux disease without esophagitis; F41.9 Anxiety disorder, unspecified; F32.A Depression, unspecified; F17.210 Nicotine dependence, cigarettes, uncomplicated; J43.9 Emphysema, unspecified; Z88.8 Allergy status to other drugs, medicaments and biological substances; Z79.51 Long term (current) use of inhaled steroids; Z79.899 Other long term (current) drug therapy; Z79.01 Long term (current) use of anticoagulants; Z79.2 Long term (current) use of antibiotics; Z86.16 Personal history of COVID-19; Z98.890 Other specified postprocedural states; Z98.891 History of uterine scar from previous surgery
CPT/HCPCS: 0241U; 36415; 36600; 71045; 71045-26; 71275; 71275-26; 80048; 80053; 82803; 83735; 83880; 84100; 84443; 84484; 85025; 86140; 93005; 93010; 94640; 94660; 94761; 96374; 96375; 97161-GP; 97530-GP; 99285; 99285-25; A9270-GY; J0692; J2919; J3475; J3490; J7030; J7512; J7620-GY; Q9967